=== PATIENT | male | born 1945 | race Caucasian/White ===

== ENCOUNTER 2023-07-02 08:36 | Outpatient (OUT) | payer MEDICARE, OTHER, SELFPAY ==
--- NOTE | 2023-07-02 | CT_ITS ---
[address] [address] Patient Name: MARIBELL VERA MRN: [id number] date: 1945 Sex: M Assigned Patient Location: US Current Patient Location: US Accession/Order Number: [id number] Exam Date: 07/02/2023 10:15 Report Date: 07/02/2023 12:09 At the request of: BEULAH GALAN Procedure: CT angio abdomen pelvis EXAMINATION: CT angio abdomen pelvis HISTORY: K43.5 PARASTOMAL HERNIA WITHOUT OBSTRUCTION OR GANGRENE ; abdominal aortic aneurysm COMPARISON: CT abdomen pelvis 05/25/2022 TECHNIQUE: Axial, Coronal, and Sagittal CT images without and with IV contrast. Multi-planar/3-D imaging to optimize visualization of vascular anatomy. Dose reduction techniques were achieved by using automated exposure control and/or adjustment of mA and/or kV according to patient size and/or use of iterative reconstruction technique. FINDINGS: AORTA/VASCULAR: 4.5 cm diameter saccular aneurysm projecting anteriorly from the distal aorta. CELIAC ARTERY: Mild atherosclerotic narrowing at origin. SMA: Mild atherosclerotic narrowing at origin. RENAL ARTERIES: Mild atherosclerotic narrowing at origins. LUNG BASES: No visible pulmonary or pleural disease. LIVER: No enlargement, atrophy, abnormal density, or significant focal lesion. BILIARY: No visible dilatation or calcification. PANCREAS: No lesion, fluid collection, ductal dilatation, or atrophy. SPLEEN: No enlargement or focal lesion. ADRENALS: No mass or enlargement. KIDNEYS: Bilateral hypodensities favoring cysts. No appreciable mass, hydronephrosis, or calcification. BOWEL/MESENTERY: Distal descending colon diverting colostomy through lower left anterior abdominal wall. No abnormal bowel dilation, focal wall thickening, inflammatory changes. Unremarkable rectal stump. RETROPERITONEUM: No mass or adenopathy. LYMPH NODES: No adenopathy. URINARY BLADDER: No visible focal wall thickening, lesion, or calculus. PELVIC ORGANS: No visible mass. Pelvic organs appropriate for patient age. ABDOMINAL WALL: Large parastomal hernia within left anterior abdominal wall containing multiple loops of small bowel and fat; no strangulation or obstruction. Prominent eventration of the midline anterior abdominal wall a little above and below the umbilicus without definable hernia sac. Small fat filled left inguinal hernia without strangulation. BONES: No bony lesion or fracture. OTHER: Negative. CT/CT angio abdomen pelvis IMPRESSION: 1. Saccular aneurysm of the distal abdominal aorta 4.5 cm in diameter; previously 4.3 cm. 2. Left lower abdominal wall diverting colostomy with prominent parastomal hernia containing small bowel and mesentery; no strangulation or obstruction. Electronically authenticated by: GEORGETTE GOLDMAN Date: 07/02/2023 12:09
--- NOTE | 2023-07-02 08:54 | US_ITS ---
[address] [address] Patient Name: MARIBELL VERA MRN: [id number] date: 1945 Sex: M Assigned Patient Location: Current Patient Location: Accession/Order Number: [id number] Exam Date: 07/02/2023 09:00 Report Date: 07/02/2023 11:36 At the request of: BEULAH GALAN Procedure: US carotid duplex BI EXAMINATION: US carotid duplex BI HISTORY: R09.89 BILATERAL CAROTID BRUITS COMPARISON: No relevant comparison available. TECHNIQUE: Duplex Doppler ultrasound analysis of carotid and vertebral arteries. . Bilateral carotid arterial duplex examination was performed using B-mode, color flow and spectral analysis. Carotid stenosis is reported according to validated velocity parameters, similar to NASCET criteria. FINDINGS: RIGHT CAROTID ARTERY: Moderate plaque within bulb and proximal ICA resulting in 41% area reduction of the bulb. RIGHT VERTEBRAL: Antegrade flow. Subclavian: PSV: 79.4 cm/s EDV: 7.7 cm/s CCA: Prox: PSV: 75.5 cm/s EDV: 12.9 cm/s Mid: PSV: 80.7 cm/s EDV: 15.5 cm/s Distal: PSV: 65.1 cm/s EDV: 12.9 cm/s BULB: PSV: 67.7 cm/s EDV: 7.7 cm/s ICA: Prox: PSV: 87.2 cm/s EDV: 16.8 cm/s Mid: PSV: 101.6 cm/s EDV: 25.7 cm/s Distal: PSV: 63.7 cm/s EDV: 13.6 cm/s ECA: PSV: 88.6 cm/s EDV: 7.9 cm/s VERTEBRAL: PSV: 61.4 cm/s EDV: 17.5 cm/s ICA/CCA ratio: PSV: 1.3 EDV: 1.7 LEFT CAROTID ARTERY: Mild atherosclerotic plaque without significant stenosis. LEFT VERTEBRAL: Antegrade flow. Subclavian: PSV: 143.7 cm/s EDV: 0.0 cm/s CCA: Prox: PSV: 66.8 cm/s EDV: 19.5 cm/s Mid: PSV: 84.5 cm/s EDV: 23.4 cm/s Distal: PSV: 66.8 cm/s EDV: 15.6 cm/s BULB: PSV: 76.6 cm/s EDV: 15.6 cm/s ICA: Prox: PSV: 70.7 cm/s EDV: 15.6 cm/s Mid: PSV: 96.3 cm/s EDV: 27.4 cm/s Distal: PSV: 125.8 cm/s EDV: 33.3 cm/s ECA: PSV: 96.2 cm/s EDV: 5.7 cm/s VERTEBRAL: PSV: 51.0 cm/s EDV: 9.6 cm/s ICA/CCA ratio: PSV: 1.5 EDV: 1.4 US/US carotid duplex BI IMPRESSION: 1. 0-49% flow stenosis within the right left carotid arteries. 2. Moderate right, mild left atherosclerotic plaque. Electronically authenticated by: GEORGETTE GOLDMAN Date: 07/02/2023 11:36
[2023-07-02 08:57] LABS: Estimated GFR (African America >60 (>=60); Estimated GFR (Non-African Ame 51 (>=60)
== END 2023-07-02 08:37 | disposition home or self-care (01) ==
LOC: US 08:37
PROVIDERS: PCP Internal Medicine
DX: K43.5 Parastomal hernia without obstruction or gangrene (principal); C19 Malignant neoplasm of rectosigmoid junction; Z93.3 Colostomy status; I71.43 Infrarenal abdominal aortic aneurysm, without rupture; R09.89 Other specified symptoms and signs involving the circulatory and respiratory systems
CPT/HCPCS: 36415; 74174; 82565; 93880; Q9967

== ENCOUNTER 2023-08-23 11:28 | Outpatient (OUT) | payer MEDICARE, OTHER, SELFPAY ==
[2023-08-23 11:50] LABS: Basophils Absolute Auto 0.1 10^3/uL (0.0-0.1); Basophils Percent Auto 1.5 % (0.2-2.0); Eosinophils Absolute Auto 0.2 10^3/uL (0.0-0.7); Eosinophils Percent Auto 2.4 % (0.9-7.0); Hematocrit 39.7 % (42.0-54.0); Hemoglobin 12.2 g/dL (14.0-18.0); Immature Granulocytes Abs Auto 0.02 10^3/uL (0.00-0.03); Immature Granulocytes Pct Auto 0.3 % (0.0-0.5); Lymphocytes Absolute Auto 1.7 10^3/uL (1.2-3.8); Lymphocytes Percent Auto 23.9 % (20.5-60.0); Mean Corpuscular HGB Conc 30.7 g/dL (29.9-35.2); Mean Corpuscular Hemoglobin 26.4 pg (25.9-34.0); Mean Corpuscular Volume 85.9 fL (80.0-94.0); Monocytes Absolute Auto 0.6 10^3/uL (0.3-0.8); Monocytes Percent Auto 7.7 % (1.7-12.0); Neutrophils Absolute Auto 4.6 10^3/uL (1.4-6.5); Neutrophils Percent Auto 64.2 % (43.0-75.0); Platelet Count 244 10^3/uL (150-450); Red Blood Count 4.62 10^6/uL (4.70-6.10); Red Cell Distribution Width 14.9 % (11.0-15.0); White Blood Count 7.1 10^3/uL (4.0-11.0)
[2023-08-23 12:10] LABS: Anion Gap 13.5; BUN Creatinine Ratio 11.8; Calcium 8.5 mg/dL (8.5-10.1); Carbon Dioxide 28.6 mmol/L (21.0-32.0); Chloride 106 mmol/L (98-107); Estimated GFR (African America >60 (>=60); Estimated GFR (Non-African Ame 51 (>=60); Glucose 104 mg/dL (74-106); Potassium 4.1 mmol/L (3.5-5.1); Sodium 144 mmol/L (136-145)
[2023-08-23 12:28] LABS: Prostate Specific Antigen Scrn 2.05 ng/mL (<=4.00)
== END 2023-08-23 11:29 | disposition home or self-care (01) ==
LOC: LAB 11:30
PROVIDERS: PCP Internal Medicine; Visit Provider Internal Medicine
DX: I12.9 Hypertensive chronic kidney disease with stage 1 through stage 4 chronic kidney disease, or unspecified chronic kidney disease (principal); Z12.5 Encounter for screening for malignant neoplasm of prostate; N18.31 Chronic kidney disease, stage 3a
CPT/HCPCS: 36415; 80048; 85025; G0103

== ENCOUNTER 2023-12-03 13:02 | Outpatient (OUT) | payer MEDICARE, OTHER, SELFPAY ==
[2023-12-03 13:50] LABS: Basophils Absolute Auto 0.1 10^3/uL (0.0-0.1); Basophils Percent Auto 1.8 % (0.2-2.0); Eosinophils Absolute Auto 0.2 10^3/uL (0.0-0.7); Eosinophils Percent Auto 2.4 % (0.9-7.0); Hematocrit 44.2 % (42.0-54.0); Hemoglobin 14.2 g/dL (14.0-18.0); Immature Granulocytes Pct Auto 1.4 % (0.0-0.5); Lymphocytes Absolute Auto 1.7 10^3/uL (1.2-3.8); Lymphocytes Percent Auto 23.4 % (20.5-60.0); Mean Corpuscular HGB Conc 32.1 g/dL (29.9-35.2); Mean Corpuscular Hemoglobin 28.5 pg (25.9-34.0); Mean Corpuscular Volume 88.8 fL (80.0-94.0); Mean Platelet Volume 10.3 fL (9.5-13.5); Monocytes Absolute Auto 0.7 10^3/uL (0.3-0.8); Monocytes Percent Auto 9.3 % (1.7-12.0); Neutrophils Absolute Auto 4.6 10^3/uL (1.4-6.5); Neutrophils Percent Auto 61.7 % (43.0-75.0); Platelet Count 262 10^3/uL (150-450); Red Blood Count 4.98 10^6/uL (4.70-6.10); Red Cell Distribution Width 14.6 % (11.0-15.0); Reticulocyte Pct Auto 1.42 % (0.60-3.10); White Blood Count 7.4 10^3/uL (4.0-11.0)
[2023-12-03 14:15] LABS: Percent Iron Saturation 21.8 %
== END 2023-12-03 13:03 | disposition home or self-care (01) ==
LOC: LAB 13:05
PROVIDERS: PCP Internal Medicine; Visit Provider Internal Medicine
DX: D64.9 Anemia, unspecified (principal)
CPT/HCPCS: 36415; 82607; 82728; 82746; 83540; 83550; 85025

== ENCOUNTER 2024-02-08 12:07 | Outpatient (OUT) | payer MEDICARE, OTHER, SELFPAY ==
[2024-02-08 12:18] LABS: Estimated GFR (African America >60 (>=60); Estimated GFR (Non-African Ame 54 (>=60)
--- NOTE | 2024-02-08 12:45 | CT_ITS ---
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 Multi-planar/3-D imaging to optimize visualization of vascular anatomy. Dose reduction techniques were achieved by using automated exposure control and/or adjustment of mA and/or kV according to patient size and/or use of iterative reconstruction technique. FINDINGS: AORTA/VASCULAR: 4.4 x 3.8 cm fusiform aneurysm of the infrarenal abdominal aorta with extensive soft and calcific atherosclerotic plaque. No dissection CELIAC ARTERY: Ostial atherosclerosis. No flow significant stenosis occlusion or aneurysm SMA: Ostial atherosclerosis. No flow significant stenosis occlusion or aneurysm RENAL ARTERIES: 2 right and 2 small left renal arteries with the inferior arteries having an inferior takeoff at the level of the CHRISTEL CHRISTEL. The takeoff is at the lower margin of the aneurysm with likely flow stenosis [place]: Moderate diffuse calcific atherosclerosis. No flow significant stenosis occlusion or aneurysm LUNG BASES: 4.3 cm heterogeneous likely enhancing mass identified in the left lower lobe adjacent to the left heart best seen on axial image #7. 2 cm left pleural effusion. LIVER: No enlargement, atrophy, abnormal density, or significant focal lesion. BILIARY: No visible dilatation or calcification. PANCREAS: No lesion, fluid collection, ductal dilatation, or atrophy. SPLEEN: No enlargement or focal lesion. ADRENALS: No mass or enlargement. KIDNEYS: Bilateral renal cortical hypodensities likely cysts. No hydronephrosis BOWEL/MESENTERY: Left mid abdominal colostomy with distal colectomy. Small hiatal hernia. Nonobstructive bowel gas pattern. Laxity of the ventral fascia at the umbilicus. Pericolostomy hernia containing bowel loops and mesentery without evidence of strangulation RETROPERITONEUM: No mass or adenopathy. LYMPH NODES: No adenopathy. URINARY BLADDER: Moderate enlargement of the prostate gland with calcifications measuring 4.9 cm in diameter PELVIC ORGANS: No visible mass. Pelvic organs appropriate for patient age. ABDOMINAL WALL: No mass or hernia. BONES: No bony lesion or fracture. OTHER: Negative. CT/CT angio abdomen pelvis IMPRESSION: 4.3 centimeter left lower lobe/epicardial mass. Metastatic disease versus necrotic lymph node versus primary carcinoma 2 cm left pleural effusion 4.4 x 3.8 cm fusiform aneurysm of the infrarenal abdominal aorta Electronically authenticated by: MATTHEW CHATMAN Date: 02/08/2024 15:22
== END 2024-02-08 12:08 | disposition home or self-care (01) ==
LOC: LAB 12:07
PROVIDERS: PCP Internal Medicine
DX: C19 Malignant neoplasm of rectosigmoid junction (principal); Z93.3 Colostomy status; K91.89 Other postprocedural complications and disorders of digestive system; Z98.890 Other specified postprocedural states; Z87.19 Personal history of other diseases of the digestive system; I71.43 Infrarenal abdominal aortic aneurysm, without rupture; I71.40 Abdominal aortic aneurysm, without rupture, unspecified; J90 Pleural effusion, not elsewhere classified
CPT/HCPCS: 36415; 74174; 82565; Q9967

== ENCOUNTER 2024-03-11 07:28 | Outpatient (OUT) | payer MEDICARE, OTHER, SELFPAY ==
--- NOTE | 2024-03-11 07:30 | ECG_ITS ---
[facility] Test Date: 2024-03-11 Pat Name: MARIBELL VERA Department: Room: - Gender: Male [employer]pper: : 1945 Requested By: [id number] Order Number: [id number] Reading MD: EJ MORENO Measurements Intervals [place] Rate: 84 P: 69 PA: 155 QRS: 71 QRSD: 88 T: 58 QT: 351 QTc: 417 Interpretive Statements SINUS RHYTHM WITH OCCASIONAL VENTRICULAR PREMATURE COMPLEXES WITH OCCASIONAL SUPRAVENTRICULAR PREMATURE COMPLEXES NONSPECIFIC ST & T-WAVE ABNORMALITY Electronically Signed On 03-11-2024 22:12:25 EDT by EJ MORENO
--- NOTE | 2024-03-11 07:30 | CA_ITS ---
Patient Name: MARIBELL VERA MR#: [id number] : 1945 Exam Date: 03/11/2024 Ordering Doctor: VICKI MCGOVERN M.D. ECHOCARDIOGRAM REPORT PROCEDURE: CA ECHO DOPPLER COMPLETE INDICATIONS: Penetrating atherosclerotic ulcer of aorta, hypertnesion COMPARISON: None. DESCRIPTION: COMPLETE ECHOCARDIOGRAM Real-time transthoracic echocardiography with 2D, M-mode, spectral and color flow Doppler performed. QUALITY: Technical quality was good. 67 , 165#, BP 162/80 LEFT VENTRICLE: Normal chamber size. Proximal septal hypertrophy (sigmoid septum). Papillary muscle hypertrophy. LV EF: Global left ventricular systolic function is lower normal limits; visually estimated ejection fraction is 50%. The basal inferior wall is hypokinetic. DIASTOLIC: Unable to assess diastolic function. ATRIAL SEPTUM: Aneurysmal atrial septum. Visually appears intact. LEFT ATRIUM: Normal chamber size. RIGHT ATRIUM: Normal chamber size. RIGHT VENTRICLE: Normal chamber size. Normal right ventricular systolic function. TRICUSPID VALVE: Normal mobility and thickness. No stenosis with no regurgitation. Unable to assess right-sided pressures due to lack of measurable tricuspid regurgitation. MITRAL VALVE: Moderately thickened with normal mobility. No evidence of mitral valve stenosis. There is no mitral annular calcification. Mild to moderate mitral regurgitation. AORTIC VALVE: Normal trileaflet appearance. No visible sclerosis. Normal leaflet mobility. No evidence of aortic valve stenosis. No aortic regurgitation. AORTIC ROOT: Normal diameter and appearance. PULMONIC VALVE: Normal thickness and mobility. No stenosis. No regurgitation. PERICARDIUM: No evidence of pericardial effusion. IVC: Collapses with inspirations. IVC is normal in size. CONCLUSION: 1. Global left ventricular systolic function is low normal limits; visually estimated ejection fraction is 50% 2. Segmental wall motion abnormality seen 3. The right ventricle is normal in size and systolic function 4. Mild to moderate mitral regurgitation Adult Echocardiography Procedure Report Left Ventricle LVEDD (3.7 - 5.6 cm): 5.29 cm LVESD (2.2 - 4.0 cm): 3.54 cm LVIVS thickness (0.6 - 1.2 cm): 1.69 cm LVPW thickness (0.5 - 1.0 cm): 0.90 cm e': 0.07 m/s E - e': 11.67 LVOT Max Gradient: 5.10 mm[Hg], 2.99 mm[Hg] LVOT Area (cm2): 1.00 m/s Peak Velocity (LVOT): 1.13 m/s, 0.86 m/s Mean Velocity (LVOT): 0.69 m/s LVOT Diameter 1.96 cm Left Atrium LA Volume Index (2D A2C): 28.58 ml/m2 Left Atrium Systolic Dimension: 4.52 cm Mitral Valve MV E to A Ratio: 0.79, 0.81 Mitral Valve A-Wave Peak Velocity: 1.06 m/s Mitral Valve E-Wave Peak Velocity: 0.85 m/s Right Ventricle Aorta AO Root Diam: 3.33 cm Aortic Valve AoV Area (Peak Shawn): 2.49 cm2, 2.64 cm2, 2.32 cm2 AoV Area (VTI): 2.37 cm2, 2.35 cm2, 2.41 cm2 Peak Velocity(Antegrade Flow): 1.29 m/s, 1.12 m/s Peak Gradient(Antegrade Flow): 6.63 mm[Hg], 5.03 mm[Hg] Mean Velocity(Antegrade Flow): 0.87 m/s, 0.83 m/s Mean Gradient(Antegrade Flow): 3.46 mm[Hg], 3.08 mm[Hg] Velocity Time Integral: 30.01 cm, 24.72 cm Tricuspid Valve Pulmonic Valve Peak Velocity: 0.79 m/s Peak Gradient: 2.05 mm[Hg], 3.01 mm[Hg], 2.42 mm[Hg] Right Atrium Right Atrium Systolic Pressure: 16.71 ml, 16.71 ml Dictated by: Carlos Enrique Gloria M.D. on 03/12/2024 at 14:40 Approved by: Carlos Enrique Gloria M.D. on 03/12/2024 at 14:44
--- OUTSIDE RECORDS SUMMARY | 2024-03-11 07:32 | XMS_ITS | CCD ---
Author Organization [facility] Care Team Providers Care Video Producer Name Role Phone Aristeo Hernandez Unavailable Unavailable Unavailable MD Britt Lazo Attending Provider [phone] DO Aristeo Hernandez Primary Care Provider DR ARISTEO HERNANDEZ Primary Care Unavailable DAVID, DR PAGAN Consulting Unavailable DAVID, DR PAGAN Attending Unavailable DAVID, DR PAGAN Admitting Unavailable Akhil, DR Simpson Consulting Unavailable DAVID, DR PAGAN Referring Unavailable DEBBIE, DR RASHAWN Perez Consulting Unavailabl e DEBBIE, DR RASHAWN Perez Attending Unavailabl e DAVID, DR PAGAN Primary Care Unavailable DEBBIE, DR RASHAWN Perez Admitting Unavailabl e CHAN, DR ZAIDI Consulting Unavailable ZIEBER, DR GEORGETTE Holman Consulting Unavailable NADERER, DR JOSE ROBERTO Martinez Consulting Unavailable DEBBIE, DR RASHAWN Perez Procedure Practitioner Kami bekah NICE, DR MOROCHO Consulting Unavailable AGUBOSIM, DASH Consulting Unavailable LONG, BRYSON Consulting Unavailable REIER, KANU Consulting Unavailable RAMÍREZ, NICKI Consulting Unavailable FERNANDEZ, DOMENICO Consulting Unavailable SHAYY, KEVIN Consulting Unavailable GOETZ, THOR Consulting Unavailable DARAMOLATAMMI Consulting Unavailable DEBBIE, DR RASHAWN Perez Attending Unavailabl e DEBBIE, DR RASHAWN Perez Admitting Unavailabl e DAVID, DR PAGAN Attending Unavailable DAVID, DR PAGAN Admitting Unavailable DEBBIE, DR RASHAWN Perez Consulting Unavailabl e DEBBIE, DR RASHAWN Perez Attending Unavailabl e DEBBIE, DR RASHAWN Perez Admitting Unavailabl e DAVID, DR PAGAN Primary Care Unavailable AGUBOSIM, DASH Consulting Unavailable DORKOSKFABRICE CANCHOLA Consulting Unavailable DAVID, DR PAGAN Primary Care Unavailable DEBBIE, DR RASHAWN Perez Attending Unavailabl e DEBBIE, DR RASHAWN Perez Admitting Unavailabl e DAVID, DR PAGAN Primary Care Unavailable DEBBIE, DR RASHAWN Perez Consulting Unavailabl e DEBBIE, DR RASHAWN Perez Attending Unavailabl e DEBBIE, DR RASHAWN Perez Admitting Unavailabl e DEBBIE, DR RASHAWN Perez Consulting Unavailjohn e DEBBIE, DR RASHAWN Perez Attending Unavailabl e BALL, DR PAGAN Primary Care Unavailable GRFAY, DR RASHAWN Perez Admitting Unavailabl e BALL, DR PAGAN Primary Care Unavailable PAY, DR BARAJAS Consulting Unavailable PAY, DR BARAJAS Attending Unavailable PAY, DR BARAJAS Admitting Unavailable ABBAS, DR RIOJAS Consulting Unavailable ABBAS, DR RIOJAS Attending Unavailable BALL, DR PAGAN Primary Care Unavailable ABBAS, DR RIOJAS Admitting Unavailable ZIEBER, DR GEORGETTE Holman Consulting Unavailable BALL, DR PAGAN Consulting Unavailable BALL, DR PAGAN Attending Unavailable BALL, DR PAGAN Admitting Unavailable BALL, DR PAGAN Primary Care Unavailable ZIEBER, DR GEORGETTE Holman Consulting Unavailable BALL, DR PAGAN Consulting Unavailable BALL, DR PAGAN Attending Unavailable BALL, DR PAGAN Admitting Unavailable Lazo, Britt Attending Unavailable Lazo, Britt Admitting Unavailable David, Aristeo Primary Care Unavailable VICKI MCGOVERN Attending Unavailable DAVID, ARISTEO Perez Referring Unavailable DAVID, ARISTEO Perez Primary Care Unavailable DAVID, ARISTEO Perez Referring Unavailable DAVID, ARISTEO Perez Primary Care Unavailable DAVID, ARISTEO Perez Referring Unavailable DAVID, ARISTEO Perez Primary Care Unavailable Medications Completed/Discontinued Medications Medication Drug Class(es) Dates Sig (Normalized) Sig (Original) amLODIPine 5 mg / benazepril hydrochloride 20 mg oral capsule (7 sources) Dihydropyridine Calcium Channel Jatinder, Angiotensin Converting Enzyme Inhibitor Start: 04-05-2022 take 5-20 mg by mouth once daily amLODIPine Besy-Benazepril HCl - 5-20 MG Oral Capsule TAKE 1 CAPSULE Daily Quantity: 90 Refills: 3 Ordered: 05-Apr-2022 Britt Lazo MD Start : 05-Apr-2022 Active stop benezapril labetalol hydrochloride 100 mg oral tablet (6 sources) beta-Adrenergic Jatinder take 1 tablet by mouth once daily Labetalol HCl - 100 MG Oral Tablet TAKE 1 TABLET EVERY 12 HOURS DAILY. Quantity: 0 Refills: 0 Ordered: 05-Apr-2022 DO Active omeprazole 40 mg delayed release oral capsule (6 sources) Proton Pump Inhibitor take 1 capsule by mouth once daily Omeprazole 40 MG Oral Capsule Delayed Release TAKE 1 CAPSULE Daily Quantity: 90 Refills: 3 Ordered: 05-Apr-2022 DO Active Problems Active Problems Problem Classification Problem Date Documented Date Episodic/Chronic Abdominal hernia (2 sources) Unilateral inguinal hernia, without obstruction or gangrene, not specified as recurrent; Translations: [Umbilical hernia without obstruction or gangrene] Onset: 06-26-20 Episodic Aortic; peripheral; and visceral artery aneurysms (9 sources) Abdominal aortic aneurysm; Translations: [Abdominal aneurysm without mention of rupture] Onset: 06-26-20 Chronic Comment on above: 4.[address] 03/2022; Bacterial infection; unspecified site (3 sources) Klebsiella pneumoniae [K. pneumoniae] as the cause of diseases classified elsewhere; Translations: [Proteus (mirabilis) (morganii) as the cause of diseases classified elsewhere] Onset: 06-26-20 Episodic Cancer of rectum and anus (1 source) Malignant neoplasm of rectosigmoid junction; Translations: [MAL NEOPLASM RECTOSIGMOID JUNCT] Onset: 04-05-20 Chronic Chronic kidney disease (1 source) Chronic kidney disease, unspecified; Translations: [CHRONIC KIDNEY DISEASE UNSPECIFIED] Onset: 05-17-20 Chronic Chronic kidney disease (1 source) Chronic kidney disease; Translations: [CHRONIC KIDNEY DISEASE STAGE 3A] Onset: 06-26-20 Complications of surgical procedures or medical care (2 sources) Other postprocedural complications and disorders of digestive system; Translations: [Other intraoperative complications of digestive system] Onset: 06-26-20 Episodic Deficiency and other anemia (1 source) Anemia, unspecified; Translations: [ANEMIA UNSPECIFIED] Onset: 06-26-20 Episodic Diabetes mellitus without complication (1 source) Hyperglycemia, unspecified; Translations: [HYPERGLYCEMIA UNSPECIFIED] Onset: 06-26-20 Episodic Disorders of lipid metabolism (1 source) Pure hypercholesterolemia, unspecified; Translations: [PURE HYPERCHOLESTEROLEMIA UNSPEC] Onset: 09-06-20 Chronic Diverticulosis and diverticulitis (1 source) Diverticulosis of large intestine without perforation or abscess without bleeding; Translations: [DVRTCLOS LG INT NO PERF/ABSC W/O BL] Onset: 06-26-20 Chronic E Codes: Adverse effects of medical care (1 source) Other surgical procedures as the cause of abnormal reaction of the patient, or of later complication, without mention of misadventure at the time of the procedure; Translations: [OTH SURG PROC ABNORM RXN/LATR COMP] Onset: 06-26-20 Episodic Esophageal disorders (1 source) Gastro-esophageal reflux disease without esophagitis; Translations: [GERD WITHOUT ESOPHAGITIS] Onset: 06-26-20 Chronic Essential hypertension (11 sources) Benign essential hypertension; Translations: [Benign essential hypertension] Onset: 08-03-20 Chronic Fluid and electrolyte disorders (3 sources) Hyperosmolality and hypernatremia; Translations: [Hypokalemia] Onset: 06-26-20 Episodic Gastrointestinal hemorrhage (1 source) Chronic or unspecified gastric ulcer with hemorrhage; Translations: [CHRONIC/UNS GASTRIC ULCER W/HEMORR] Onset: 02-11-20 Chronic Hyperplasia of prostate (1 source) Benign prostatic hyperplasia with lower urinary tract symptoms; Translations: [BENIGN PROSTATIC HYPERPLASIA W/LUTS] Onset: 06-26-20 Chronic Hypertension with complications and secondary hypertension (1 source) Hypertensive chronic kidney disease with stage 1 through stage 4 chronic kidney disease, or unspecified chronic kidney disease; Translations: [HTN CKD W/STAGE 1-4 CKD/UNS CKD] Onset: 06-26-20 Chronic Intestinal infection (1 source) Enterocolitis due to Clostridium difficile, not specified as recurrent; Translations: [ENTROCOLIT DT C DIF NOT SPEC REC] Onset: 06-26-20 Episodic Intestinal obstruction without hernia (1 source) Ileus, unspecified; Translations: [ILEUS UNSPECIFIED] Onset: 06-26-20 Episodic Nutritional deficiencies (1 source) Moderate protein-calorie malnutrition; Translations: [MODERATE PROTEIN-CALORIE MLNUTRIT] Onset: 06-26-20 Chronic Other aftercare (1 source) Other predatory animal exterminator (current) drug therapy; Translations: [OTH SENIOR INFORMATION SECURITY ANALYST CURRENT DRUG THERAPY] Onset: 06-26-20 Episodic Other and unspecified benign neoplasm (2 sources) Benign neoplasm of sigmoid colon; Translations: [BENIGN NEOPLASM OF SIGMOID COLON] Onset: 02-11-20 Episodic Other circulatory disease (4 sources) Other specified symptoms and signs involving the circulatory and respiratory systems; Translations: [OTH SPEC SX SIGNS INVLV CIRC RS] Onset: 05-10-20 Episodic Other gastrointestinal disorders (5 sources) Mass of colon; Translations: [Other specified disorders of intestine] Episodic Other gastrointestinal disorders (4 sources) Dysphagia, unspecified; Translations: [DYSPHAGIA UNSPECIFIED] Onset: 06-29-20 Episodic Other gastrointestinal disorders (3 sources) Other specified diseases of intestine; Translations: [OTHER SPECIFIED DISEASES INTESTINE] Onset: 05-17-20 Episodic Other lower respiratory disease (6 sources) Dyspnea; Translations: [Other respiratory abnormalities] Episodic Other screening for suspected conditions (not mental disorders or infectious disease) (14 sources) Electrocardiogram abnormal; Translations: [Nonspecific abnormal electrocardiogram [ECG] [EKG]] Onset: 09-06-20 Episodic Residual codes; unclassified (6 sources) Body mass index 20-24 - normal; Translations: [Body Mass Index between 19-24, adult] Episodic Residual codes; unclassified (1 source) Body mass index (BMI) 24.0-24.9, adult; Translations: [BODY MASS INDEX BMI 24.0-24.9 ADULT] Onset: 06-26-20 Episodic Residual codes; unclassified (1 source) Pain, unspecified; Translations: [Pain, unspecified] Onset: 02-16-20 Episodic Respiratory failure; insufficiency; arrest (adult) (1 source) Acute respiratory failure with hypoxia; Translations: [ACUTE RESPIRATORY FAIL W/HYPOXIA] Onset: 06-26-20 Episodic Screening and history of mental health and substance abuse codes (7 sources) Ex-smoker; Translations: [Personal history of tobacco use] Onset: 06-26-20 Episodic Comment on above: Quit in 1996; Unclassified (1 source) CONTACT W/AND (SUSP) EXPOS COVID-19; Translations: [CONTACT W/AND (SUSP) EXPOS COVID-19] Onset: 06-26-20 Unclassified (1 source) Infrarenal abdominal aortic aneurysm, without rupture; Translations: [Infrarenal abdominal aortic aneurysm, without rupture] Onset: 02-14-20 Urinary tract infections (1 source) Urinary tract infection, site not specified; Translations: [UTI SITE NOT SPECIFIED] Onset: 06-26-20 Episodic Past or Other Problems Problem Classification Problem Date Documented Da te Episodic/Chronic Abdominal pain (5 sources) Right lower quadrant pain; Translations: [RIGHT LOWER QUADRANT PAIN] Onset: 12-27-2021 Episodic Deficiency and other anemia (4 sources) Other iron deficiency anemias; Translations: [OTHER IRON DEFICIENCY ANEMIAS] Onset: 02-08-2022 Episodic Gastritis and duodenitis (1 source) Gastritis, unspecified, with bleeding; Translations: [GASTRITIS UNSPECIFIED WITH BLEEDING] Onset: 02-10-2022 Episodic Other gastrointestinal disorders (1 source) Other intra-abdominal and pelvic swelling, mass and lump; Translations: [OTH INTRA-ABD PELV SWELL MASS LUMP] Onset: 02-10-2022 Episodic Other lower respiratory disease (1 source) Dyspnea, unspecified; Translations: [Dyspnea, unspecified] Onset: 04-27-2022 Episodic Results Test Name Value Interpretation Reference Range Facility XR MODIFIED BARIUM SWALLOWon 06-29-2022 XR MODIFIED BARIUM SWALLOW EXAMINATION: XR MODIFIED BARIUM SWALLOW HISTORY: Dysphagia COMPARISON: No relevant comparison available. TECHNIQUE: A swallowing evaluation was performed with fluoroscopy in the usual manner. Standard level fluoroscopic mode of operation utilized. FINDINGS: ORAL PHASE: Normal deglutition. PHARYNGEAL PHASE: Normal swallowing. ASPIRATION: None. STRUCTURE: Normal. No visible obstruction, stricture, or dilatation. OTHER: Negative. IMPRESSION: 1. Normal examination. Electronically authenticated by: GEORGETTE GOLDMAN Date: 2022-06-29 13:34 Normal [facility] CULTURE URINEon 05-28-2022 CULTURE URINE Culture Observations : CHELSI TO FOLLOW. Isolate 1 Proteus mirabilis >100,000 cfu/mL of Isolate 2 Klebsiella oxytoca >100,000 cfu/mL of Isolate 3 Proteus vulgaris 50,000 cfu/mL of ORGANISM 1 Proteus mirabilis ANTIBIOTIC M.I.C RX STATUS Ampicillin <=2 S F Ampicillin/Sulbactam <=2 S F Piperacillin/Tazobactam <=4 S F Cefazolin <=4 S F Ceftazidime <=1 S F Ceftriaxone <=1 S F Ertapenem <=0.5 S F Imipenem 1 S F Amikacin <=2 S F Gentamicin <=1 S F Tobramycin <=1 S F Ciprofloxacin <=0.25 S F Levofloxacin <=0.12 S F Nitrofurantoin 128 R F Trimethoprim/Sulfamethoxazo le <=20 S F ORGANISM 3 Proteus vulgaris ANTIBIOTIC M.I.C RX STATUS Ampicillin >=32 R F Ampicillin/Sulbactam <=2 S F Piperacillin/Tazobactam <=4 S F Cefazolin >=64 R F Ceftazidime <=1 S F Ceftriaxone <=1 S F Ertapenem <=0.5 S F Imipenem 2 S F Amikacin <=2 S F Gentamicin <=1 S F Tobramycin <=1 S F Ciprofloxacin <=0.25 S F Levofloxacin <=0.12 S F Nitrofurantoin 128 R F Trimethoprim/Sulfamethoxazo le <=20 S F ORGANISM 2 Klebsiella oxytoca ANTIBIOTIC M.I.C RX STATUS Ampicillin 16 R F Ampicillin/Sulbactam 4 S F Piperacillin/Tazobactam <=4 S F Cefazolin <=4 S F Ceftazidime <=1 S F Ceftriaxone <=1 S F Ertapenem <=0.5 S F Imipenem <=0.25 S F Amikacin <=2 S F Gentamicin <=1 S F Tobramycin <=1 S F Ciprofloxacin <=0.25 S F Levofloxacin <=0.12 S F Nitrofurantoin <=16 S F Trimethoprim/Sulfamethoxazo le <=20 S F Normal [facility] Comment on above: Performed By: #### U RCX #### [facility] [address] [place] [address] Dr. Elvis Cifuentes WOUND CULTUREon 05-28-2022 Bacteria identified Aer cx Nom (Unsp spec) Final report Normal [facility] Comment on above: Performed By: #### G IPANEL #### [facility] [address] [place] [address] Dr. Elvis Cifuentes Result 1 Comment Normal [facility] Comment on above: Result Comment: Mixe d skin zahra including multiple gram negative rods. Performed By: #### G IPANEL #### [facility] [address] [place] [address] Dr. Elvis Cifuentes C. DIFF PCRon 05-25-2022 C. DIFFICILE PCR Negative Normal NEGATIVE [facility] Comment on above: Performed By: #### U RCX #### [facility] [address] [place] [address] Dr. Elvis Cifuentes CBC W MANUAL DIFFon 05-25-20 22 ATYPICAL LYMPH # Normal [facility] Comment on above: Performed By: #### P REALB, MG #### [facility] [address] [place] [address] Dr. Elvis Cifuentes ATYPICAL LYMPH % Normal [facility] Comment on above: Performed By: #### P REALB, MG #### [facility] [address] [place] [address] Dr. Elvis Cifuentes BAND # 1.1 103/ul Critically high 0.0-0.3 [facility] Comment on above: Performed By: #### P REALB, MG #### [facility] [address] [place] [address] Dr. Elvis Cifuentes BAND % 5 % Normal 0-5 [facility] Comment on above: Performed By: #### P REALB, MG #### [facility] [address] [place] [address] Dr. Elvis Cifuentes BASOM # 0.00 103/ul Normal 0.00-0.10 [facility] Comment on above: Performed By: #### P REALB, MG #### [facility] [address] [place] [address] Dr. Elvis Cifuentes BASOM % 0.0 % Critically low 0.2-2.0 [facility] Comment on above: Performed By: #### P REALB, MG #### [facility] [address] [place] [address] Dr. Elvis Cifuentes BLAST # Normal [facility] Comment on above: Performed By: #### P REALB, MG #### [facility] [address] [place] [address] Dr. Elvis Cifuentes BLAST % Normal [facility] Comment on above: Performed By: #### P REALB, MG #### [facility] [address] [place] [address] Dr. Elvis Cifuentes CORRECTED WBC Normal 4.0-11.0 [facility] Comment on above: Performed By: #### P REALB, MG #### [facility] [address] [place] [address] Dr. Elvis Cifuentes EOS # 0.22 103/ul Normal 0.00-0.70 [facility] Comment on above: Performed By: #### P REALB, MG #### [facility] [address] [address] [address] Elvis Cifuentes EOS% 1.0 % Normal 0.9-7.0 [facility] Comment on above: Performed By: #### P REALB, MG #### [facility] [address] [address] [address] Elvis Cifuentes HCT 33.0 % Critically low 42.0-54.0 [facility] Comment on above: Performed By: #### P REALB, MG #### [facility] [address] [address] [address] Elvis Cifuentes HGB 10.4 g/dl Critically low 14.0-18.0 [facility] Comment on above: Performed By: #### P REALB, MG #### [facility] [address] [place] [address] Dr. Elvis Cifuentes LYMPHM # 0.88 103/ul Critically low 1.20-3.80 [facility] Comment on above: Performed By: #### P REALB, MG #### [facility] [address] [address] [address] Elvis Cifuentes LYMPHM% 4.0 % Critically low 20.5-60.0 [facility] Comment on above: Performed By: #### P REALB, MG #### [facility] [address] [place] [address] Dr. Elvis Cifuentes MCH 29.0 pg Normal 25.9-34.0 [facility] Comment on above: Performed By: #### P REALB, MG #### [facility] [address] [place] [address] Dr. Elvis Cifuentes MCHC 31.5 g/dl Normal 29.9-35.2 [facility] Comment on above: Performed By: #### P REALB, MG #### [facility] [address] [place] [address] Dr. Elvis Cifuentes MCV 91.9 fL Normal 80.0-94.0 [facility] Comment on above: Performed By: #### P REALB, MG #### [facility] [address] [address] [address] Elvis Cifuentes METAMYELOCYTE # Normal [facility] Comment on above: Performed By: #### P REALB, MG #### [facility] [address] [place] [address] Dr. Elvis Cifuentes METAMYELOCYTE % Normal [facility] Comment on above: Performed By: #### P REALB, MG #### [facility] [address] [address] [address] Elvis Cifuentes MONOM# 0.66 103/ul Normal 0.30-0.80 [facility] Comment on above: Performed By: #### P REALB, MG #### [facility] [address] [place] [address] Dr. Elvis Cifuentes MONOM% 3.0 % Normal 1.7-12.0 [facility] Comment on above: Performed By: #### P REALB, MG #### [facility] [address] [place] [address] Dr. Elvis Cifuentes MPV 11.6 fL Normal 9.5-13.5 [facility] Comment on above: Performed By: #### P REALB, MG #### [facility] [address] [place] [address] Dr. Elvis Cifuentes MYELOCYTE # Normal [facility] Comment on above: Performed By: #### P REALB, MG #### [facility] [address] [place] [address] Dr. Elvis Cifuentes MYELOCYTE % Normal [facility] Comment on above: Performed By: #### P REALB, MG #### [facility] [address] [place] [address] Dr. Elvis Cifuentes NRBC Normal [facility] Comment on above: Performed By: #### P REALB, MG #### [facility] [address] [place] [address] Dr. Elvis Cifuentes PLT 228 103/ul Normal 150-450 [facility] Comment on above: Performed By: #### P REALB, MG #### [facility] [address] [place] [address] Dr. Elvis Cifuentes RBC 3.59 106/ul Critically low 4.70-6.10 [facility] Comment on above: Performed By: #### P REALB, MG #### [facility] [address] [address] [address] Elvis Cifuentes RDW 15.9 % Critically high 11.0-15.0 [facility] Comment on above: Performed By: #### P REALB, MG #### [facility] [address] [address] [address] Elvis Cifuentes SEG # 19.05 103/ul Critically high 1.40-6.50 [facility] Comment on above: Performed By: #### P REALB, MG #### [facility] [address] [address] [address] Elvis Cifuentes SEG % 87.0 % Critically high 43.0-75.0 [facility] Comment on above: Performed By: #### P REALB, MG #### [facility] [address] [address] [address] Elvis Cifuentes WBC 21.9 103/ul Critically high 4.0-11.0 [facility] Comment on above: Performed By: #### P REALB, MG #### [facility] [address] [place] [address] ABD/PELV W CONon 05-25-20 CT ABD/PELV W CON EXAMINATION: CT ABD/ PELV W CON HISTORY: Mechanical ileus COMPARISON: 05/21/2022 TECHNIQUE: CT of abdomen/pelvis with intravenous and oral contrast. Dose reduction techniques were achieved by using automated exposure control and/or adjustment of mA and/or kV according to patient size and/or use of iterative reconstruction technique. FINDINGS: Aoc Director Combat Operations Officer: No pertinent findings, which are not already discussed below. Tubes/lines/drains: Enteric tube is noted in the stomach.. CHEST: Lungs: Clear. Cardiac and vascular: No cardiomegaly or significant pericardial effusion. Small hiatal hernia. ABDOMEN: Liver: Unremarkable. Gallbladder and Biliary Tree: Unremarkable. Spleen: Unremarkable. Pancreas: Unremarkable. Adrenal Glands: Unremarkable. Kidneys, Ureters, Bladder: Numerous bilateral benign-appearing renal cysts. No concerning renal lesions or masses. No urolithiasis. No hydronephrosis or hydroureterosis. Unremarkable bladder. Gastrointestinal: Enteric contrast is noted in varying concentrations-attenuation to the level of the rectum. Anastomotic sutures are noted at the rectosigmoid junction with an to side anastomosis. There is interval increase in free air which is now moderate overall, the majority of which is antidependent within the anterior peritoneum although clustered gas locules are noted just proximal to the anastomotic sutures.. There is also new free fluid throughout the abdomen, more so within the central abdomen, without rim enhancement. Dilated loops of small bowel are overall decreased which are more prominent rather than frankly dilated. The colon is decompressed with colonic diverticula. Reproductive organ(s): Unremarkable. Lymphatic: No concerning retroperitoneal, mesenteric, or inguinal adenopathy. Vessels: Redemonstrated partially thrombosed infrarenal abdominal aortic aneurysm measuring 3.7 x 4.3 cm. BONES AND SOFT TISSUE: Bones: No acute fracture. No concerning osseous lesions. Soft Tissue: Within normal limits. IMPRESSION: 1. Interval increase in free air/fluid, suggestive of postoperative leak given clustered gas adjacent to the sutures versus less likely indirect bowel wall injury, which is not identified likely on this examination. -No extraluminal contrast. 2. Resolving small bowel ileus versus low-grade small bowel . 3. Infrarenal abdominal aortic aneurysm measuring 4.[address] Coyle discussed this study with nurse Gaston on 05/25/2022 4:56 PM MDT via telephone. Read back of the patient's information and the important finding was performed. Electronically authenticated by: KEVIN COYLE Date: 2022-05-25 18:56 Normal [facility] CULTURE BLOODon 05-25-2022 Microscopic examination of blood, culture Culture Observations: NO GROWTH AT 5 DAYS. Normal [facility] Comment on above: Performed By: #### B [id number] #### [facility] [address] [address] [address] Elvis Cifuentes Microscopic examination of blood, culture Culture Observations: NO GROWTH AT 5 DAYS. Normal [facility] Comment on above: Performed By: #### P OCGLUC #### [facility] [address] [place], [place] [address] Dr. Elvis Cifuentes LIVER PROFILEon 05-25-2022 Albumin [Mass/Vol] 2.0 g/dL Critically low 3.4-5.0 Th e [facility] Comment on above: Performed By: #### C EA. #### [facility] [address] [place] [address] Dr. Elvis Cifuentes Albumin/Globulin [Mass ratio] 0.6 {ratio} Normal [facility] Comment on above: Performed By: #### C EA. #### [facility] [address] [place] [address] Dr. Elvis Cifuentes ALP [Catalytic activity/Vol] 53 U/L Normal 46-116 [facility] Comment on above: Performed By: #### C EA. #### [facility] [address] [place] [address] Dr. Elvis Cifuentes ALT [Catalytic activity/Vol] 17 U/L Normal 16-63 [facility] Comment on above: Performed By: #### C EA. #### [facility] [address] [place] [address] Dr. Elvis Cifuentes AST [Catalytic activity/Vol] 13 U/L Critically low 15-37 [facility] Comment on above: Performed By: #### C EA. #### [facility] [address] [place] [address] Dr. Elvis Cifuentes BILI, CONJUGATED 0.2 mg/dL Normal 0.0-0.2 [facility] Comment on above: Performed By: #### C EA. #### [facility] [address] [place] [address] Dr. Elvis Cifuentes Bilirubin [Mass/Vol] 0.5 mg/dL Normal 0.2-1.0 [facility] Comment on above: Performed By: #### C EA. #### [facility] [address] [place] [address] Dr. Elvis Cifuentes Globulin (S) [Mass/Vol] 3.4 g/dL Normal [facility] Comment on above: Performed By: #### C EA. #### [facility] [address] [place] [address] Dr. Elvis Cifuentes Protein [Mass/Vol] 5.4 g/dL Critically low 6.4-8.2 Th [facility] Comment on above: Performed By: #### C EA. #### [facility] [address] [place] [address] Dr. Elvis Cifuentes POINT OF CARE GLUCOSEon 05-08 Glucose [Mass/Vol] 123 mg/dL Critically high 74-106 [facility] Comment on above: Performed By: #### G IPANEL #### [facility] [address] [place] [address] Dr. Elvis Cifuentes Glucose [Mass/Vol] 122 mg/dL Critically high 74-106 [facility] Comment on above: Performed By: #### P OCGLUC #### [facility] [address] [place] [address] Dr. Elvis Cifuentes Glucose [Mass/Vol] 224 mg/dL Critically high 74-106 [facility] Comment on above: Performed By: #### H STROPN #### [facility] [address] [place] [address] Dr. Elvis Cifuentes PROF CHEM 8 (BAS METB)on Anion gap [Moles/Vol] 13.9 mmol/L Normal [facility] Comment on above: Performed By: #### H STROPN #### [facility] [address] [place] [address] Dr. Elvis Cifuentes Chloride [Moles/Vol] 120 mmol/L Critically high 98-107 [facility] Comment on above: Performed By: #### H STROPN #### [facility] [address] [place] [address] Dr. Elvis Cifuentes CO2 [Moles/Vol] 22.6 mmol/L Normal 21.0-32.0 [facility] Comment on above: Performed By: #### H STROPN #### [facility] [address] [place] [address] Dr. Elvis Cifuentes Creatinine [Mass/Vol] 1.48 mg/dL Critically high 0.70-1.30 [facility] Comment on above: Performed By: #### H STROPN #### [facility] [address] [address] [address] Elvis Cifuentes EGFR-AF SRI LANKAN 56 mL/min/1.73m2 Critically low >=60 [facility] Comment on above: Performed By: #### H STROPN #### [facility] [address] [address] [address] Elvis Cifuentes EGFR-NON AF SRI LANKAN 46 mL/min/1.73m2 Critically low >=60 [facility] Comment on above: Performed By: #### H STROPN #### [facility] [address] [address] [address] Elvis Cifuentes Glucose [Mass/Vol] 213 mg/dL Critically high 74-106 [facility] Comment on above: Performed By: #### H STROPN #### [facility] [address] [address] [address] Elvis Cifuentes Urea nitrogen/Creatinin e [Mass ratio] 25.0 mg/mg Normal [facility] Comment on above: Performed By: #### H STROPN #### [facility] [address] [address] [address] Elvis Cifuentes Anion gap [Moles/Vol] 12.8 mmol/L Normal [facility] Comment on above: Performed By: #### C EA. #### [facility] [address] [address] [address] Elvis Cifuentes Calcium [Mass/Vol] 8.4 mg/dL Critically low 8.5-10.1 Th [facility] Comment on above: Performed By: #### H STROPN #### [facility] [address] [address] [address] Elvis Cifuentes Performed By: #### C EA. #### [facility] [address] [address] [address] Elvis Cifuentes Chloride [Moles/Vol] 122 mmol/L Critically high 98-107 [facility] Comment on above: Result Comment: jTes t Repeated. Critical Value Verified Performed By: #### C EA. #### [facility] [address] [address] [address] Elvis Cifuentes CO2 [Moles/Vol] 22.7 mmol/L Normal 21.0-32.0 [facility] Comment on above: Performed By: #### C EA. #### [facility] [address] [place] [address] Dr. Elvis Cifuentes Creatinine [Mass/Vol] 1.38 mg/dL Critically high 0.70-1.30 [facility] Comment on above: Performed By: #### C EA. #### [facility] [address] [place] [address] Dr. Elvis Cifuentes EGFR-AF SRI LANKAN >60 Normal >=60 [facility] Comment on above: Performed By: #### C EA. #### [facility] [address] [place] [address] Dr. Elvis Cifuentes EGFR-NON AF SRI LANKAN 50 mL/min/1.73m2 Critically low >=60 [facility] Comment on above: Performed By: #### C EA. #### [facility] [address] [place] [address] Dr. Elvis Cifuentes Glucose [Mass/Vol] 196 mg/dL Critically high 74-106 [facility] Comment on above: Performed By: #### C EA. #### [facility] [address] [place] [address] Dr. Elvis Cifuentes Potassium [Moles/Vol] 3.5 mmol/L Normal 3.5-5.1 [facility] Comment on above: Performed By: #### H STROPN #### [facility] [address] [place] [address] Dr. Elvis Cifuentes Performed By: #### C EA. #### [facility] [address] [place] [address] Dr. Elvis Cifuentes Sodium [Moles/Vol] 154 mmol/L Critically high 136-145 [facility] Comment on above: Performed By: #### H STROPN #### [facility] [address] [place] [address] Dr. Elvis Cifuentes Performed By: #### C EA. #### [facility] [address] [place] [address] Dr. Elvis Cifuentes Urea nitrogen [Mass/Vol] 37.0 mg/dL Critically high 7.0-18.0 [facility] Comment on above: Performed By: #### H STROPN #### [facility] [address] [address] [address] Elvis Cifuentes Performed By: #### C EA. #### [facility] [address] [place] [address] Dr. Elvis Cifuentes Urea nitrogen/Creatinin e [Mass ratio] 26.8 mg/mg Normal [facility] Comment on above: Performed By: #### C EA. #### [facility] [address] [address] [address] Elvis Cifuentes XR ABD FLAT_UPon 05-25-2022 XR ABD FLAT_UP EXAMINATION: XR ABD FLAT_UP HISTORY: Mechanical ileus COMPARISON: XR abdomen 05/23/2022 FINDINGS: BOWEL GAS PATTERN: Air-filled mildly distended loops of small bowel with scattered fluid levels. Nasogastric tube within body of stomach. FREE AIR: Large amount of free air beneath the right hemidiaphragm small amount under the left hemidiaphragm. CALCIFICATIONS: None significant. BONES: No fracture or visible bone lesion. OTHER: Numerous midline anterior abdominal wall skin gustavo. IMPRESSION: 1. New finding of large amount of free intraperitoneal air. CT abdomen and pelvis with IV contrast is recommended for further evaluation. 2. Persistent mild ileus versus distal partial bowel obstruction; overall improved. 3. Nasogastric tube appearing in good position.. Electronically authenticated by: GEORGETTE GOLDMAN Date: 2022-05-25 09:49 Normal [facility] CBC W MANUAL DIFFon 05-24-20 22 ATYPICAL LYMPH # Normal [facility] Comment on above: Performed By: #### P REALB, MG #### [facility] [address] [place] [address] Dr. Elvis Cifuentes ATYPICAL LYMPH % Normal [facility] Comment on above: Performed By: #### P REALB, MG #### [facility] [address] [place] [address] Dr. Elvis Cifuentes BAND # 0.3 103/ul Normal 0.0-0.3 [facility] Comment on above: Performed By: #### P REALB, MG #### [facility] [address] [address] [address] Elvis Cifuentes BAND % 2 % Normal 0-5 [facility] Comment on above: Performed By: #### P REALB, MG #### [facility] [address] [place] [address] Dr. Elvis Cifuentes BASOM # 0.00 103/ul Normal 0.00-0.10 [facility] Comment on above: Performed By: #### P REALB, MG #### [facility] [address] [place] [address] Dr. Elvis Cifuentes BASOM % 0.0 % Critically low 0.2-2.0 [facility] Comment on above: Performed By: #### P REALB, MG #### [facility] [address] [place] [address] Dr. Elvis Cifuentes BLAST # Normal [facility] Comment on above: Performed By: #### P REALB, MG #### [facility] [address] [place] [address] Dr. Elvis Cifuentes BLAST % Normal [facility] Comment on above: Performed By: #### P REALB, MG #### [facility] [address] [place] [address] Dr. Elvis Cifuentes CORRECTED WBC Normal 4.0-11.0 [facility] Comment on above: Performed By: #### P REALB, MG #### [facility] [address] [place] [address] Dr. Elvis Cifuentes EOS # 0.00 103/ul Normal 0.00-0.70 [facility] Comment on above: Performed By: #### P REALB, MG #### [facility] [address] [place] [address] Dr. Elvis Cifuentes EOS% 0.0 % Critically low 0.9-7.0 [facility] Comment on above: Performed By: #### P REALB, MG #### [facility] [address] [place] [address] Dr. Elvis Cifuentes HCT 33.8 % Critically low 42.0-54.0 [facility] Comment on above: Performed By: #### P REALB, MG #### [facility] [address] [address] [address] Elvis Cifuentes HGB 10.8 g/dl Critically low 14.0-18.0 [facility] Comment on above: Performed By: #### P REALB, MG #### [facility] [address] [address] [address] Elvis Cifuentes LYMPHM # 0.80 103/ul Critically low 1.20-3.80 [facility] Comment on above: Performed By: #### P REALB, MG #### [facility] [address] [address] [address] Elvis Cifuentes LYMPHM% 5.0 % Critically low 20.5-60.0 [facility] Comment on above: Performed By: #### P REALB, MG #### [facility] [address] [address] [address] Elvis Cifuentes MCH 28.9 pg Normal 25.9-34.0 [facility] Comment on above: Performed By: #### P REALB, MG #### [facility] [address] [address] [address] Elvis Cifuentes MCHC 32.0 g/dl Normal 29.9-35.2 [facility] Comment on above: Performed By: #### P REALB, MG #### [facility] [address] [address] [address] Elvis Cifuentes MCV 90.4 fL Normal 80.0-94.0 [facility] Comment on above: Performed By: #### P REALB, MG #### [facility] [address] [address] [address] Elvis Cifuentes METAMYELOCYTE # Normal [facility] Comment on above: Performed By: #### P REALB, MG #### [facility] [address] [address] [address] Elvis Cifuentes METAMYELOCYTE % Normal [facility] Comment on above: Performed By: #### P REALB, MG #### [facility] [address] [address] [address] Elvis Cifuentes MONOM# 1.43 103/ul Critically high 0.30-0.80 [facility] Comment on above: Performed By: #### P REALB, MG #### [facility] [address] [place] [address] Dr. Elvis Cifuentes MONOM% 9.0 % Normal 1.7-12.0 [facility] Comment on above: Performed By: #### P REALB, MG #### [facility] [address] [place] [address] Dr. Elvis Cifuentes MPV 10.7 fL Normal 9.5-13.5 [facility] Comment on above: Performed By: #### P REALB, MG #### [facility] [address] [place] [address] Dr. Elvis Cifuentes MYELOCYTE # Normal [facility] Comment on above: Performed By: #### P REALB, MG #### [facility] [address] [place] [address] Dr. Elvis Cifuentes MYELOCYTE % Normal [facility] Comment on above: Performed By: #### P REALB, MG #### [facility] [address] [place] [address] Dr. Elvis Cifuentes NRBC Normal [facility] Comment on above: Performed By: #### P REALB, MG #### [facility] [address] [place] [address] Dr. Elvis Cifuentes PLT 214 103/ul Normal 150-450 [facility] Comment on above: Performed By: #### P REALB, MG #### [facility] [address] [place] [address] Dr. Elvis Cifuentes RBC 3.74 106/ul Critically low 4.70-6.10 [facility] Comment on above: Performed By: #### P REALB, MG #### [facility] [address] [place] [address] Dr. Evlis Cifuentes RDW 15.4 % Critically high 11.0-15.0 [facility] Comment on above: Performed By: #### P REALB, MG #### [facility] [address] [place] [address] Dr. Elvis Cifuentes SCHISTOCYTES 2+ Normal [facility] Comment on above: Performed By: #### P REALB, MG #### [facility] [address] [place] [address] Dr. Elvis Cifuentes SEG # 13.36 103/ul Critically high 1.40-6.50 [facility] Comment on above: Performed By: #### P REALB, MG #### [facility] [address] [place] [address] Dr. Elvis Cifuentes SEG % 84.0 % Critically high 43.0-75.0 [facility] Comment on above: Performed By: #### P REALB, MG #### [facility] [address] [place] [address] Dr. Elvis Cifuentes WBC 15.9 103/ul Critically high 4.0-11.0 [facility] Comment on above: Performed By: #### P BLANCOB, MG #### [facility] [address] [place] [address] Dr. Elvis Cifuentes LIVER PROFILEon 05-24-2022 Albumin [Mass/Vol] 1.9 g/dL Critically low 3.4-5.0 Th [facility] Comment on above: Performed By: #### G IPANEL #### [facility] [address] [place] [address] Dr. Elvis Cifuentes Albumin/Globulin [Mass ratio] 0.5 {ratio} Normal [facility] Comment on above: Performed By: #### G IPANEL #### [facility] [address] [place] [address] Dr. Elvis Cifuentes ALP [Catalytic activity/Vol] 48 U/L Normal 46-116 [facility] Comment on above: Performed By: #### G IPANEL #### [facility] [address] [place] [address] Dr. Elvis Cifuentes ALT [Catalytic activity/Vol] 14 U/L Critically low 16-63 [facility] Comment on above: Performed By: #### G IPANEL #### [facility] [address] [address] [address] Elvis Cifuentes AST [Catalytic activity/Vol] 16 U/L Normal 15-37 [facility] Comment on above: Performed By: #### G IPANEL #### [facility] [address] [address] [address] Elvis Cifuentes BILI, CONJUGATED 0.2 mg/dL Normal 0.0-0.2 [facility] Comment on above: Performed By: #### G IPANEL #### [facility] [address] [address] [address] Elvis Cifuentes Bilirubin [Mass/Vol] 0.5 mg/dL Normal 0.2-1.0 [facility] Comment on above: Performed By: #### G IPANEL #### [facility] [address] [place] [address] Dr. Elvis Cifuentes Globulin (S) [Mass/Vol] 3.6 g/dL Normal [facility] Comment on above: Performed By: #### G IPANEL #### [facility] [address] [place] [address] Dr. Elvis Cifuentes Protein [Mass/Vol] 5.5 g/dL Critically low 6.4-8.2 Th [facility] Comment on above: Performed By: #### G IPANEL #### [facility] [address] [place] [address] Dr. Elvis Cifuentes POINT OF CARE GLUCOSEon 05-08 Glucose [Mass/Vol] 194 mg/dL Critically high 74-106 [facility] Comment on above: Performed By: #### B LDCX2 #### [facility] [address] [place] [address] Dr. Elvis Cifuentes Glucose [Mass/Vol] 193 mg/dL Critically high 74-106 [facility] Comment on above: Performed By: #### B LDCX2 #### [facility] [address] [place] [address] Dr. Elvis Cifuentes Glucose [Mass/Vol] 204 mg/dL Critically high 74-106 [facility] Comment on above: Performed By: #### P REALB, MG #### [facility] [address] [address] [address] Elvis Cifuentes Glucose [Mass/Vol] 234 mg/dL Critically high 74-106 [facility] Comment on above: Performed By: #### P REALB, MG #### [facility] [address] [address] [address] Elvis Cifuentes PROF CHEM 8 (BAS METB)on Anion gap [Moles/Vol] 12.0 mmol/L Normal [facility] Comment on above: Performed By: #### P REALB, MG #### [facility] [address] [address] [address] Elvis Cifuentes Calcium [Mass/Vol] 8.3 mg/dL Critically low 8.5-10.1 Th [facility] Comment on above: Performed By: #### P REALB, MG #### [facility] [address] [place] [address] Dr. Elvis Cifuentes Chloride [Moles/Vol] 123 mmol/L Critically high 98-107 [facility] Comment on above: Performed By: #### P REALB, MG #### [facility] [address] [address] [address] Elvis Cifuentes CO2 [Moles/Vol] 23.7 mmol/L Normal 21.0-32.0 [facility] Comment on above: Performed By: #### P REALB, MG #### [facility] [address] [address] [address] Elvis Cifuentes Creatinine [Mass/Vol] 1.43 mg/dL Critically high 0.70-1.30 [facility] Comment on above: Performed By: #### P REALB, MG #### [facility] [address] [address] [address] Elvis Cifuentes EGFR-AF SRI LANKAN 58 mL/min/1.73m2 Critically low >=60 [facility] Comment on above: Performed By: #### P REALB, MG #### [facility] [address] [address] [address] Elvis Cifuentes EGFR-NON AF SRI LANKAN 48 mL/min/1.73m2 Critically low >=60 [facility] Comment on above: Performed By: #### P REALB, MG #### [facility] [address] [place] [address] Dr. Elvis Cifuentes Glucose [Mass/Vol] 221 mg/dL Critically high 74-106 [facility] Comment on above: Performed By: #### P REALB, MG #### [facility] [address] [place] [address] Dr. Elvis Cifuentes Potassium [Moles/Vol] 3.7 mmol/L Normal 3.5-5.1 [facility] Comment on above: Performed By: #### P REALB, MG #### [facility] [address] [place] [address] Dr. Elvis Cifuentes Sodium [Moles/Vol] 156 mmol/L Critically high 136-145 [facility] Comment on above: Performed By: #### P REALB, MG #### [facility] [address] [place] [address] Dr. Elvis Cifuentes Urea nitrogen [Mass/Vol] 36.0 mg/dL Critically high 7.0-18.0 [facility] Comment on above: Performed By: #### P REALB, MG #### [facility] [address] [place] [address] Dr. Elvis Cifuentes Urea nitrogen/Creatinin e [Mass ratio] 25.2 mg/mg Normal [facility] Comment on above: Performed By: #### P REALB, MG #### [facility] [address] [place] [address] Dr. Elvis Cifuentes Anion gap [Moles/Vol] 15.0 mmol/L Normal [facility] Comment on above: Performed By: #### C EA. #### [facility] [address] [place] [address] Dr. Elvis Ciufentes Calcium [Mass/Vol] 8.5 mg/dL Normal 8.5-10.1 [facility] Comment on above: Performed By: #### C EA. #### [facility] [address] [place] [address] Dr. Elvis Cifuentes Chloride [Moles/Vol] 125 mmol/L Critically high 98-107 [facility] Comment on above: Performed By: #### C EA. #### [facility] [address] [place] [address] Dr. Elvis Cifuentes CO2 [Moles/Vol] 21.5 mmol/L Normal 21.0-32.0 [facility] Comment on above: Performed By: #### C EA. #### [facility] [address] [place] [address] Dr. Elvis Cifuentes Creatinine [Mass/Vol] 1.44 mg/dL Critically high 0.70-1.30 [facility] Comment on above: Performed By: #### C EA. #### [facility] [address] [place] [address] Dr. Elvis Cifuentes EGFR-AF SRI LANKAN 58 mL/min/1.73m2 Critically low >=60 [facility] Comment on above: Performed By: #### C EA. #### [facility] [address] [place] [address] Dr. Elvis Cfiuentes EGFR-NON AF SRI LANKAN 48 mL/min/1.73m2 Critically low >=60 [facility] Comment on above: Performed By: #### C EA. #### [facility] [address] [place] [address] Dr. Elvis Cifuentes Glucose [Mass/Vol] 202 mg/dL Critically high 74-106 [facility] Comment on above: Performed By: #### C EA. #### [facility] [address] [place] [address] Dr. Elvis Cifuentes Potassium [Moles/Vol] 3.5 mmol/L Normal 3.5-5.1 [facility] Comment on above: Performed By: #### C EA. #### [facility] [address] [place] [place] [address] Dr. Elvis Cifuentes Sodium [Moles/Vol] 159 mmol/L Critically high 136-145 [facility] Comment on above: Performed By: #### C EA. #### [facility] [address] [place] [address] Dr. Elvis Cifuentes Urea nitrogen [Mass/Vol] 38.0 mg/dL Critically high 7.0-18.0 [facility] Comment on above: Performed By: #### C EA. #### [facility] [address] [address] [address] Elvis Cifuentes Urea nitrogen/Creatinin e [Mass ratio] 26.4 mg/mg Normal [facility] Comment on above: Performed By: #### C EA. #### [facility] [address] [address] [address] Elvis Cifuentes Anion gap [Moles/Vol] 13.8 mmol/L Normal [facility] Comment on above: Performed By: #### G IPANEL #### [facility] [address] [place] [address] Dr. Elvis Cifuentes Calcium [Mass/Vol] 8.5 mg/dL Normal 8.5-10.1 [facility] Comment on above: Performed By: #### G IPANEL #### [facility] [address] [address] [address] Elvis Cifuentes Chloride [Moles/Vol] 124 mmol/L Critically high 98-107 [facility] Comment on above: Performed By: #### G IPANEL #### [facility] [address] [place] [address] Dr. Elvis Cifuentes CO2 [Moles/Vol] 23.2 mmol/L Normal 21.0-32.0 [facility] Comment on above: Performed By: #### G IPANEL #### [facility] [address] [address] [address] Elvis Cifuentes Creatinine [Mass/Vol] 1.38 mg/dL Critically high 0.70-1.30 [facility] Comment on above: Performed By: #### G IPANEL #### [facility] [address] [place] [address] Dr. Elvis Cifuentes EGFR-AF SRI LANKAN >60 Normal >=60 [facility] Comment on above: Performed By: #### G IPANEL #### [facility] [address] [place] [address] Dr. Elvis Cifuentes EGFR-NON AF SRI LANKAN 50 mL/min/1.73m2 Critically low >=60 [facility] Comment on above: Performed By: #### G IPANEL #### [facility] [address] [place] [address] Dr. Elvis Cifuentes Glucose [Mass/Vol] 214 mg/dL Critically high 74-106 [facility] Comment on above: Performed By: #### G IPANEL #### [facility] [address] [place] [address] Dr. Elvis Cifuentes Potassium [Moles/Vol] 3.0 mmol/L Critically low 3.5-5.1 [facility] Comment on above: Performed By: #### G IPANEL #### [facility] [address] [place] [address] Dr. Elvis Cifuentes Sodium [Moles/Vol] 158 mmol/L Critically high 136-145 [facility] Comment on above: Performed By: #### G IPANEL #### [facility] [address] [place] [address] Dr. Elvis Cifuentes Urea nitrogen [Mass/Vol] 36.0 mg/dL Critically high 7.0-18.0 [facility] Comment on above: Performed By: #### G IPANEL #### [facility] [address] [place] [address] Dr. Elvis Cifuentes Urea nitrogen/Creatinin e [Mass ratio] 26.1 mg/mg Normal [facility] Comment on above: Performed By: #### G IPANEL #### [facility] [address] [place] [address] Dr. Elvis Cifuentes UA RANDOM W/MICROSCOPICon BACTERIA TRACE Abnormal NONE SEEN [facility] Comment on above: Performed By: #### C EA. #### [facility] [address] [place] [address] Dr. Elvis Cifuentes Bilirubin Ql (U) Negative Normal NEGATIVE [facility] Comment on above: Performed By: #### C EA. #### [facility] [address] [place] [address] Dr. Elvis Cifuentes CAST SEEN Abnormal NONE SEEN [facility] Comment on above: Performed By: #### C EA. #### [facility] [address] [place] [address] Dr. Elvis Cifuentes Clarity (U) CLEAR Normal CLEAR [facility] Comment on above: Performed By: #### C EA. #### [facility] [address] [place] [address] Dr. Elvis Cifuentes COARSE GRANULAR CAST FEW Normal [facility] Comment on above: Performed By: #### C EA. #### [facility] [address] [place] [address] Dr. Elvis Cifuentes Color (U) YELLOW Normal YELLOW [facility] Comment on above: Performed By: #### C EA. #### [facility] [address] [place] [address] Dr. Elvis Cifuentes Crystals LM Nom (Urine sed) NONE SEEN Normal NONE SEEN [facility] Comment on above: Performed By: #### C EA. #### [facility] [address] [place] [address] Dr. Elvis Cifuentes Epithelial cells LM Ql (Urine sed) FEW Abnormal NONE SEEN /RARE [facility] Comment on above: Performed By: #### C EA. #### [facility] [address] [place] [address] Dr. Elvis Cifuentes Glucose Ql (U) Negative Normal NEGATIVE [facility] Comment on above: Performed By: #### C EA. #### [facility] [address] [place] [address] Dr. Elvis Cifuentes Hemoglobin Ql (U) TRACE-INTACT Abnormal NEGATIVE [facility] Comment on above: Performed By: #### C EA. #### [facility] [address] [place] [address] Dr. Elvis Cifuentes Ketones Ql (U) Negative Normal NEGATIVE [facility] Comment on above: Performed By: #### C EA. #### [facility] [address] [place] [address] Dr. Elvis Cifuentes LEUKOCYTES TRACE Abnormal NEGATIVE [facility] Comment on above: Performed By: #### C EA. #### [facility] [address] [place] [address] Dr. Elvis Cifuentes MUCOUS NONE SEEN Normal NONE SEEN [facility] Comment on above: Performed By: #### C EA. #### [facility] [address] [place] [address] Dr. Elvis Cifuentes Nitrite Ql (U) Negative Normal NEGATIVE [facility] Comment on above: Performed By: #### C EA. #### [facility] [address] [place] [address] Dr. Elvis Cifuentes pH (U) 5.5 [pH] Normal 5-9 [facility] Comment on above: Performed By: #### C EA. #### [facility] [address] [place] [address] Dr. Elvis Cifuentes RBC 0-2 Normal 0-2 [facility] Comment on above: Performed By: #### C EA. #### [facility] [address] [place] [address] Dr. Elvis Cifuentes SPEC GRAVITY 1.015 Normal 1.005-<=1.02 5 [facility] Comment on above: Performed By: #### C EA. #### [facility] [address] [place] [address] Dr. Elvis Cifuentes UA PROTEIN TRACE Normal NEGATIVE/ TRACE [facility] Comment on above: Performed By: #### C EA. #### [facility] [address] [place] [address] Dr. Elvis Cifuentes Urobilinogen Qn (U) 0.2 {Geovanna'U}/dL Normal 0.2 - 1.0 [facility] Comment on above: Performed By: #### C EA. #### [facility] [address] [place] [address] Dr. Elvis Cifuentes WBC 2-5 Abnormal NONE SEEN [facility] Comment on above: Performed By: #### C EA. #### [facility] [address] [place] [address] Dr. Elvis Cifuentes CBC W MANUAL DIFFon 05-23-20 22 ANISOCYTOSIS SLIGHT Normal [facility] Comment on above: Performed By: #### P REALB, MG #### [facility] [address] [place] [address] Dr. Elvis Cifuentes ATYPICAL LYMPH # Normal [facility] Comment on above: Performed By: #### P REALB, MG #### [facility] [address] [place] [address] Dr. Elvis Cifuentes ATYPICAL LYMPH % Normal [facility] Comment on above: Performed By: #### P REALB, MG #### [facility] [address] [place] [address] Dr. Elvis Cifuentes BAND # Normal 0.0-0.3 [facility] Comment on above: Performed By: #### P REALB, MG #### [facility] [address] [place] [address] Dr. Elvis Cifuentes BAND % Normal 0-5 [facility] Comment on above: Performed By: #### P REALB, MG #### [facility] [address] [place] [address] Dr. Elvis Cifuentes BASOM # 0.00 103/ul Normal 0.00-0.10 [facility] Comment on above: Performed By: #### P REALB, MG #### [facility] [address] [place] [address] Dr. Elvis Cifuentes BASOM % 0.0 % Critically low 0.2-2.0 [facility] Comment on above: Performed By: #### P REALB, MG #### [facility] [address] [place] [address] Dr. Elvis Cifuentes BLAST # Normal [facility] Comment on above: Performed By: #### P REALB, MG #### [facility] [address] [place] [address] Dr. Evlis Cifuentes BLAST % Normal [facility] Comment on above: Performed By: #### P REALB, MG #### [facility] [address] [place] [address] Dr. Elvis Cifuentes CORRECTED WBC Normal 4.0-11.0 [facility] Comment on above: Performed By: #### P REALB, MG #### [facility] [address] [place] [address] Dr. Elvis Cifuentes EOS # 0.00 103/ul Normal 0.00-0.70 [facility] Comment on above: Performed By: #### P REALB, MG #### [facility] [address] [place] [address] Dr. Elvis Cifuentes EOS% 0.0 % Critically low 0.9-7.0 [facility] Comment on above: Performed By: #### P REALB, MG #### [facility] [address] [address] [address] Elvis Cifuentes HCT 35.0 % Critically low 42.0-54.0 [facility] Comment on above: Performed By: #### P REALB, MG #### [facility] [address] [place] [address] Dr. Elvis Cifuentes HGB 10.3 g/dl Critically low 14.0-18.0 [facility] Comment on above: Performed By: #### P REALB, MG #### [facility] [address] [place] [address] Dr. Elvis Cifuentes LYMPHM # 0.48 103/ul Critically low 1.20-3.80 [facility] Comment on above: Performed By: #### P REALB, MG #### [facility] [address] [place] [address] Dr. Elvis Cifuentes LYMPHM% 5.0 % Critically low 20.5-60.0 [facility] Comment on above: Performed By: #### P REALB, MG #### [facility] [address] [place] [address] Dr. Elvis Cifuentes MCH 28.5 pg Normal 25.9-34.0 [facility] Comment on above: Performed By: #### P REALB, MG #### [facility] [address] [place] [address] Dr. Elvis Cifuentes MCHC 29.4 g/dl Critically low 29.9-35.2 [facility] Comment on above: Performed By: #### P REALB, MG #### [facility] [address] [place] [address] Dr. Elvis Cifuentes MCV 96.7 fL Critically high 80.0-94.0 [facility] Comment on above: Performed By: #### P REALB, MG #### [facility] [address] [place] [address] Dr. Elvis Cifuentes METAMYELOCYTE # Normal [facility] Comment on above: Performed By: #### P REALB, MG #### [facility] [address] [place] [address] Dr. Elvis Cifuentes METAMYELOCYTE % Normal [facility] Comment on above: Performed By: #### P REALB, MG #### [facility] [address] [address] [address] Elvis Cifuentes MONOM# 0.39 103/ul Normal 0.30-0.80 [facility] Comment on above: Performed By: #### P REALB, MG #### [facility] [address] [place] [address] Dr. Elvis Cifuentes MONOM% 4.0 % Normal 1.7-12.0 [facility] Comment on above: Performed By: #### P REALB, MG #### [facility] [address] [place] [address] Dr. Elvis Cifuentes MPV 10.6 fL Normal 9.5-13.5 [facility] Comment on above: Performed By: #### P REALB, MG #### [facility] [address] [place] [address] Dr. Elvis Cifuentes MYELOCYTE # Normal [facility] Comment on above: Performed By: #### P REALB, MG #### [facility] [address] [place] [address] Dr. Elvis Cifuentes MYELOCYTE % Normal [facility] Comment on above: Performed By: #### P REALB, MG #### [facility] [address] [place] [address] Dr. Elvis Cifuentes NRBC Normal [facility] Comment on above: Performed By: #### P REALB, MG #### [facility] [address] [place] [address] Dr. Elvis Cifuentes PLT 190 103/ul Normal 150-450 [facility] Comment on above: Performed By: #### P REALB, MG #### [facility] [address] [place], [place] [address] Dr. Elvis Cifuentes RBC 3.62 106/ul Critically low 4.70-6.10 [facility] Comment on above: Performed By: #### P REALB, MG #### [facility] [address] [place], [place] [address] Dr. Elvis Cifuentes RDW 15.9 % Critically high 11.0-15.0 [facility] Comment on above: Performed By: #### P REALB, MG #### [facility] [address] [place], [place] [address] Dr. Elvis Cifuentes SEG # 8.83 103/ul Critically high 1.40-6.50 [facility] Comment on above: Performed By: #### P REALB, MG #### [facility] [address] [address] [address] Elvis Cifuentes SEG % 91.0 % Critically high 43.0-75.0 [facility] Comment on above: Performed By: #### P REALB, MG #### [facility] [address] [address] [address] Elvis Cifuentes WBC 9.7 103/ul Normal 4.0-11.0 [facility] Comment on above: Performed By: #### P REALB, MG #### [facility] [address] [address] [address] Elvis Cifuentes CTA CHEST WO W CONon 05-23- 022 CTA CHEST WO W CON EXAMINATION: CTA [facility] WO W CON HISTORY: ACUTE RESPIRATORY DISTRESS COMPARISON: No relevant comparison available. TECHNIQUE: Multi-planar CT images were created with IV contrast. Axial, Coronal, and Sagittal images. Dose reduction techniques were achieved by using automated exposure control and/or adjustment of mA and/or kV according to patient size and/or use of iterative reconstruction technique. 3-D reconstruction was performed on a separate workstation. FINDINGS: VASCULATURE: No pulmonary embolism or abnormal opacity. LUNGS: No acute pulmonary disease. PLEURA: No mass, effusion, or pneumothorax. COLETTE: No mass or adenopathy. MEDIASTINUM: No mass or adenopathy. CARDIAC: No enlargement, pericardial effusion, or pericardial thickening. AORTA: No aneurysm or dissection. CHEST WALL: No mass or axillary adenopathy. BONES: No bone lesion or fracture. LIMITED ABDOMEN: Nasogastric tube extends into body of stomach. No suspicious findings. Limited images of the upper abdomen. OTHER: Negative. IMPRESSION: 1. No pulmonary embolism. 2. No pulmonary infiltrates or acute findings. Mild emphysematous changes. Electronically authenticated by: GEORGETTE GOLDMAN Date: 2022-05-23 10:55 Normal [facility] LIVER PROFILEon 05-23-2022 Albumin [Mass/Vol] 2.0 g/dL Critically low 3.4-5.0 Th e [facility] Comment on above: Performed By: #### L IVER #### [facility] [address] [place] [address] Dr. Elvis Cifuentes Albumin/Globulin [Mass ratio] 0.5 {ratio} Normal [facility] Comment on above: Performed By: #### L IVER #### [facility] [address] [address] [address] Elvis Cifuentes ALP [Catalytic activity/Vol] 41 U/L Critically low 46-116 [facility] Comment on above: Performed By: #### L IVER #### [facility] [address] [address] [address] Elvis Cifuentes ALT [Catalytic activity/Vol] 11 U/L Critically low 16-63 [facility] Comment on above: Performed By: #### L IVER #### [facility] [address] [address] [address] Elvis Cifuentes AST [Catalytic activity/Vol] 13 U/L Critically low 15-37 [facility] Comment on above: Performed By: #### L IVER #### [facility] [address] [address] [address] Elvis Cifuentes BILI, CONJUGATED 0.3 mg/dL Critically high 0.0-0.2 [facility] Comment on above: Performed By: #### L IVER #### [facility] [address] [address] [address] Elvis Cifuentes Bilirubin [Mass/Vol] 0.6 mg/dL Normal 0.2-1.0 [facility] Comment on above: Performed By: #### L IVER #### [facility] [address] [place] [address] Dr. Elvis Cifuentes Globulin (S) [Mass/Vol] 3.8 g/dL Normal [facility] Comment on above: Performed By: #### L IVER #### [facility] [address] [place] [address] Dr. Elvis Cifuentes Protein [Mass/Vol] 5.8 g/dL Critically low 6.4-8.2 Th [facility] Comment on above: Performed By: #### L IVER #### [facility] [address] [place] [address] Dr. Elvis Cifuentes Albumin [Mass/Vol] 1.8 g/dL Critically low 3.4-5.0 [facility] Comment on above: Performed By: #### P OCGLUC #### [facility] [address] [place] [address] Dr. Elvis Cifuentes Albumin/Globulin [Mass ratio] 0.5 {ratio} Normal [facility] Comment on above: Performed By: #### P OCGLUC #### [facility] [address] [place] [address] Dr. Elvis Cifuentes ALP [Catalytic activity/Vol] 34 U/L Critically low 46-116 [facility] Comment on above: Performed By: #### P OCGLUC #### [facility] [address] [place] [address] Dr. Elvis Cifuentes ALT [Catalytic activity/Vol] 12 U/L Critically low 16-63 [facility] Comment on above: Performed By: #### P OCGLUC #### [facility] [address] [place] [address] Dr. Elvis Cifuentes AST [Catalytic activity/Vol] 14 U/L Critically low 15-37 [facility] Comment on above: Performed By: #### P OCGLUC #### [facility] [address] [place] [address] Dr. Elvis Cifuentes BILI, CONJUGATED 0.3 mg/dL Critically high 0.0-0.2 [facility] Comment on above: Performed By: #### P OCGLUC #### [facility] [address] [place] [address] Dr. Elvis Cifuentes Bilirubin [Mass/Vol] 0.6 mg/dL Normal 0.2-1.0 [facility] Comment on above: Performed By: #### P OCGLUC #### [facility] [address] [place] [address] Dr. Elvis Cifuentes Globulin (S) [Mass/Vol] 3.3 g/dL Normal [facility] Comment on above: Performed By: #### P OCGLUC #### [facility] [address] [place] [address] Dr. Elvis Cifuentes Protein [Mass/Vol] 5.1 g/dL Critically low 6.4-8.2 Th [facility] Comment on above: Performed By: #### P OCGLUC #### [facility] [address] [place] [address] Dr. Elvis Cifuentes POINT OF CARE GLUCOSEon 05-08 Glucose [Mass/Vol] 212 mg/dL Critically high 74-106 [facility] Comment on above: Performed By: #### P REALB, MG #### [facility] [address] [place] [address] Dr. Elvis Cifuentes Glucose [Mass/Vol] 213 mg/dL Critically high 74-106 [facility] Comment on above: Performed By: #### C EA. #### [facility] [address] [place] [address] Dr. Elvis Cifuentes Glucose [Mass/Vol] 179 mg/dL Critically high 74-106 [facility] Comment on above: Performed By: #### B [id number] #### [facility] [address] [place] [address] Dr. Elvis Cifuentes Glucose [Mass/Vol] 187 mg/dL Critically high 74-106 [facility] Comment on above: Performed By: #### C EA. #### [facility] [address] [place] [address] Dr. Elvis Cifuentes PROF CHEM 8 (BAS METB)on Anion gap [Moles/Vol] 13.5 mmol/L Normal [facility] Comment on above: Performed By: #### P REALB, MG #### [facility] [address] [place] [address] Dr. Elvis Cifuentes Calcium [Mass/Vol] 8.6 mg/dL Normal 8.5-10.1 [facility] Comment on above: Performed By: #### P REALB, MG #### [facility] [address] [place] [address] Dr. Elvis Cifuentes Chloride [Moles/Vol] 121 mmol/L Critically high 98-107 [facility] Comment on above: Performed By: #### P REALB, MG #### [facility] [address] [place] [address] Dr. Elvis Cifuentes CO2 [Moles/Vol] 23.8 mmol/L Normal 21.0-32.0 [facility] Comment on above: Performed By: #### P REALB, MG #### [facility] [address] [place] [address] Dr. Elvis Cifuentes Creatinine [Mass/Vol] 1.35 mg/dL Critically high 0.70-1.30 [facility] Comment on above: Performed By: #### P REALB, MG #### [facility] [address] [place] [address] Dr. Elvis Cifuentes EGFR-AF SRI LANKAN >60 Normal >=60 [facility] Comment on above: Performed By: #### P REALB, MG #### [facility] [address] [place] [address] Dr. Elvis Cifuentes EGFR-NON AF SRI LANKAN 51 mL/min/1.73m2 Critically low >=60 [facility] Comment on above: Performed By: #### P REALB, MG #### [facility] [address] [place] [address] Dr. Elvis Cifuentes Glucose [Mass/Vol] 215 mg/dL Critically high 74-106 [facility] Comment on above: Performed By: #### P REALB, MG #### [facility] [address] [place] [address] Dr. Elvis Cifuentes Potassium [Moles/Vol] 3.4 mmol/L Critically low 3.5-5.1 [facility] Comment on above: Performed By: #### P REALB, MG #### [facility] [address] [place] [address] Dr. Elvis Cifuentes Sodium [Moles/Vol] 156 mmol/L Critically high 136-145 [facility] Comment on above: Performed By: #### P REALB, MG #### [facility] [address] [place] [address] Dr. Elvis Cifuentes Urea nitrogen [Mass/Vol] 34.0 mg/dL Critically high 7.0-18.0 [facility] Comment on above: Performed By: #### P REALB, MG #### [facility] [address] [place] [address] Dr. Elvis Cifuentes Urea nitrogen/Creatinin e [Mass ratio] 25.2 mg/mg Normal [facility] Comment on above: Performed By: #### P REALB, MG #### [facility] [address] [place] [address] Dr. Elvis Cifuentes Anion gap [Moles/Vol] 14.0 mmol/L Normal [facility] Comment on above: Performed By: #### B [id number] #### [facility] [address] [place] [address] Dr. Elvis Cifuentes Calcium [Mass/Vol] 8.2 mg/dL Critically low 8.5-10.1 [facility] Comment on above: Performed By: #### B [id number] #### [facility] [address] [place] [address] Dr. Elvis Cifuentes Chloride [Moles/Vol] 114 mmol/L Critically high 98-107 [facility] Comment on above: Performed By: #### B LDCX2 #### [facility] [address] [place] [address] Dr. Elvis Cifuentes CO2 [Moles/Vol] 22.9 mmol/L Normal 21.0-32.0 [facility] Comment on above: Performed By: #### B LDCX2 #### [facility] [address] [address] [address] Elvis Cifuentes Creatinine [Mass/Vol] 1.56 mg/dL Critically high 0.70-1.30 [facility] Comment on above: Performed By: #### B LDCX2 #### [facility] [address] [address] [address] Elvis Cifuentes EGFR-AF SRI LANKAN 53 mL/min/1.73m2 Critically low >=60 [facility] Comment on above: Performed By: #### B LDCX2 #### [facility] [address] [address] [address] Elvis Cifuentes EGFR-NON AF SRI LANKAN 43 mL/min/1.73m2 Critically low >=60 [facility] Comment on above: Performed By: #### B LDCX2 #### [facility] [address] [address] [address] Elvis Cifuentes Glucose [Mass/Vol] 1069 mg/dL Critically high 74-106 [facility] Comment on above: Performed By: #### B LDCX2 #### [facility] [address] [address] [address] Elvis Cifuentes Potassium [Moles/Vol] 4.9 mmol/L Normal 3.5-5.1 [facility] Comment on above: Performed By: #### B LDCX2 #### [facility] [address] [address] [address] Elvis Cifuentes Sodium [Moles/Vol] 146 mmol/L Critically high 136-145 [facility] Comment on above: Performed By: #### B LDCX2 #### [facility] [address] [address] [address] Elvis Cifuentes Urea nitrogen [Mass/Vol] 32.0 mg/dL Critically high 7.0-18.0 [facility] Comment on above: Performed By: #### B LDCX2 #### [facility] [address] [address] [address] Elvis Cifuentes Urea nitrogen/Creatinin e [Mass ratio] 20.5 mg/mg Normal [facility] Comment on above: Performed By: #### B LDCX2 #### [facility] [address] [address] [address] Elvis Cifuentes XR ABD FLAT_UPon 05-23-2022 XR ABD FLAT_UP EXAMINATION: XR ABD FLAT_UP HISTORY: Mechanical ileus COMPARISON: XR KUB 05/21/2022 FINDINGS: BOWEL GAS PATTERN: Air-filled loops of bowel within the abdomen. Nasogastric tube with tip in gastric fundus. Numerous skin gustavo over midline lower abdomen and pelvis consistent with recent surgery. FREE AIR: None. CALCIFICATIONS: None significant. BONES: No fracture or visible bone lesion. OTHER: Underexpanded, clear lungs. IMPRESSION: 1. Air-filled, distended small and large bowel likely representing postoperative ileus. Electronically authenticated by: GEORGETTE GOLDMAN Date: 2022-05-23 07:29 Normal [facility] XR CHEST 1 Von 05-23-2022 XR CHEST 1 V EXAM: XR CHEST 1 V HISTORY: ACUTE RESPIRATORY DISTRESS COMPARISON: Chest x-ray 05/21/2022 TECHNIQUE: Single frontal view chest x-ray FINDINGS: Left PICC line tip at the SVC. Enteric tube extends to the stomach. Mild bibasilar streaky lung opacities reflect atelectasis/scar. Borderline prominent cardiac silhouette size, similar to prior exam. No lobar consolidation, large pleural effusions, pneumothorax, or acute bony abnormality. IMPRESSION: Mild bibasilar streaky lung atelectasis/scar. Otherwise, no radiographic lung consolidation or large pleural effusions. Electronically authenticated by: DOMENICO FERNANDEZ Date: 2022-05-23 03:21 Normal [facility] CBC AUTO DIFFon 05-22-2022 BASO # 0.0 103/ul Normal 0.0-0.1 [facility] Comment on above: Performed By: #### C EA. #### [facility] [address] [address] [address] Elvis Cifuentes Basophils/100 WBC (Bld) 0.1 % Critically low 0.2-2.0 [facility] Comment on above: Performed By: #### C EA. #### [facility] [address] [address] [address] Elvis Cifuentes EO # 0.1 103/ul Normal 0.0-0.7 [facility] Comment on above: Performed By: #### C EA. #### [facility] [address] [place] [address] Dr. Elvis Cifuentes Eosinophils/100 WBC (Bld) 0.7 % Critically low 0.9-7.0 [facility] Comment on above: Performed By: #### C EA. #### [facility] [address] [place] [address] Dr. Elvis Cifuentes Erythrocyte distribution width (RBC) [Ratio] 14.7 % Normal 11.0-15.0 [facility] Comment on above: Performed By: #### C EA. #### [facility] [address] [place] [address] Dr. Elvis Cifuentes Hematocrit (Bld) [Volume fraction] 32.5 % Critically low 42.0-54.0 [facility] Comment on above: Performed By: #### C EA. #### [facility] [address] [place] [address] Dr. Elvis Cifuentes Hemoglobin (Bld) [Mass/Vol] 10.2 g/dL Critically low 14.0-18.0 [facility] Comment on above: Performed By: #### C EA. #### [facility] [address] [place] [address] Dr. Elvis Cifuentes IG # 0.05 10e3/ul Critically high 0.00-0.03 [facility] Comment on above: Performed By: #### C EA. #### [facility] [address] [place] [address] Dr. Elvis Cifuentes IG % 0.7 % Critically high 0.0-0.5 [facility] Comment on above: Performed By: #### C EA. #### [facility] [address] [place] [address] Dr. Elvis Cifuentes LYMPH # 0.4 103/ul Critically low 1.2-3.8 [facility] Comment on above: Performed By: #### C EA. #### [facility] [address] [place] [address] Dr. Elvis Cifuentes Lymphocytes/100 WBC (Bld) 6.5 % Critically low 20.5-60.0 [facility] Comment on above: Performed By: #### C EA. #### [facility] [address] [place] [address] Dr. Elvis Cifuentes MANUAL DIFF REQ NO Normal [facility] Comment on above: Performed By: #### C EA. #### [facility] [address] [place] [address] Dr. Elvis Cifuentes MCH (RBC) [Entitic mass] 28.5 pg Normal 25.9-34.0 [facility] Comment on above: Performed By: #### C EA. #### [facility] [address] [place] [address] Dr. Elvis Cifuentes MCHC (RBC) [Mass/Vol] 31.4 g/dL Normal 29.9-35.2 [facility] Comment on above: Performed By: #### C EA. #### [facility] [address] [place] [address] Dr. Elvis Cifuentes MCV (RBC) [Entitic vol] 90.8 fL Normal 80.0-94.0 [facility] Comment on above: Performed By: #### C EA. #### [facility] [address] [place] [address] Dr. Elvis Cifuentes MONO # 0.5 103/ul Normal 0.3-0.8 [facility] Comment on above: Performed By: #### C EA. #### [facility] [address] [place] [address] Dr. Elvis Cifuentes Monocytes/100 WBC (Bld) 7.5 % Normal 1.7-12.0 [facility] Comment on above: Performed By: #### C EA. #### [facility] [address] [place] [address] Dr. Elvis Cifuentes NEUT # 5.7 103/ul Normal 1.4-6.5 [facility] Comment on above: Performed By: #### C EA. #### [facility] [address] [place] [address] Dr. Elvis Cifuentes Neutrophils/100 WBC (Bld) 84.5 % Critically high 43.0-75.0 [facility] Comment on above: Performed By: #### C EA. #### [facility] [address] [place] [address] Dr. Elvis Cifuentes Platelet mean volume (Bld) [Entitic vol] 10.4 fL Normal 9.5-13.5 [facility] Comment on above: Performed By: #### C EA. #### [facility] [address] [address] [address] Elvis Cifuentes PLT 248 103/ul Normal 150-450 [facility] Comment on above: Performed By: #### C EA. #### [facility] [address] [place] [address] Dr. Elvis Cifuentes RBC 3.58 106/ul Critically low 4.70-6.10 [facility] Comment on above: Performed By: #### C EA. #### [facility] [address] [place] [address] Dr. Elvis Cifuentes WBC 6.8 103/ul Normal 4.0-11.0 [facility] Comment on above: Performed By: #### C EA. #### [facility] [address] [place] [address] Dr. Elvis Cifuentes POINT OF CARE GLUCOSEon 05-08 Glucose [Mass/Vol] 198 mg/dL Critically high 74-106 [facility] Comment on above: Performed By: #### P REALB, MG #### [facility] [address] [place] [address] Dr. Elvis Cifuentes Glucose [Mass/Vol] 247 mg/dL Critically high 74-106 [facility] Comment on above: Performed By: #### P OCGLUC #### [facility] [address] [place] [address] Dr. Elvis Cifuentes Glucose [Mass/Vol] 212 mg/dL Critically high -106 [facility] Comment on above: Performed By: #### H STROPN #### [facility] [address] [place] [address] Dr. Elvis Cifuentes Glucose [Mass/Vol] 186 mg/dL Critically high 74-106 [facility] Comment on above: Performed By: #### P REALB, MG #### [facility] [address] [place] [address] Dr. Elvis Cifuentes PREALBUMINon 05-22-2022 Prealbumin [Mass/Vol] 10.3 mg/dL Critically low 20.9-45.5 [facility] Comment on above: Performed By: #### P REALB, MG #### [facility] [address] [place] [address] Dr. Elvis Cifuentes PROF CHEM 8 (BAS METB)on Anion gap [Moles/Vol] 12.4 mmol/L Normal [facility] Comment on above: Performed By: #### H STROPN #### [facility] [address] [place] [address] Dr. Elvis Cifuentes Calcium [Mass/Vol] 8.3 mg/dL Critically low 8.5-10.1 [facility] Comment on above: Performed By: #### H STROPN #### [facility] [address] [place] [address] Dr. Elvis Cifuentes Chloride [Moles/Vol] 114 mmol/L Critically high 98-107 [facility] Comment on above: Performed By: #### H STROPN #### [facility] [address] [place] [address] Dr. Elvis Cifuentes CO2 [Moles/Vol] 24.8 mmol/L Normal 21.0-32.0 [facility] Comment on above: Performed By: #### H STROPN #### [facility] [address] [place] [address] Dr. Elvis Cifuentes Creatinine [Mass/Vol] 1.23 mg/dL Normal 0.70-1.30 [facility] Comment on above: Performed By: #### H STROPN #### [facility] [address] [place] [address] Dr. Elvis Cifuentes EGFR-AF SRI LANKAN >60 Normal >=60 [facility] Comment on above: Performed By: #### H STROPN #### [facility] [address] [address] [address] Elvis Cifuentes EGFR-NON AF SRI LANKAN 57 mL/min/1.73m2 Critically low >=60 [facility] Comment on above: Performed By: #### H STROPN #### [facility] [address] [address] [address] Elvis Cifuentes Glucose [Mass/Vol] 222 mg/dL Critically high 74-106 [facility] Comment on above: Performed By: #### H STROPN #### [facility] [address] [address] [address] Elvis Cifuentes Potassium [Moles/Vol] 3.2 mmol/L Critically low 3.5-5.1 [facility] Comment on above: Performed By: #### H STROPN #### [facility] [address] [place] [address] Dr. Elvis Cifuentes Sodium [Moles/Vol] 148 mmol/L Critically high 136-145 [facility] Comment on above: Performed By: #### H STROPN #### [facility] [address] [address] [address] Elvis Cifuentes Urea nitrogen [Mass/Vol] 31.0 mg/dL Critically high 7.0-18.0 [facility] Comment on above: Performed By: #### H STROPN #### [facility] [address] [address] [address] Elvis Cifuentes Urea nitrogen/Creatinin e [Mass ratio] 25.2 mg/mg [facility] Comment on above: Performed By: #### H STROPN #### [facility] [address] [address] [address] Elvis Cifuentes CBC W MANUAL DIFFon 05-21-20 22 ATYPICAL LYMPH # Normal [facility] Comment on above: Performed By: #### B LDCX2 #### [facility] [address] [address] [address] Elvis Cifuetnes ATYPICAL LYMPH % Normal [facility] Comment on above: Performed By: #### B LDCX2 #### [facility] [address] [place] [address] Dr. Elvis Cifuentes BAND # 0.4 103/ul Critically high 0.0-0.3 [facility] Comment on above: Performed By: #### B LDCX2 #### [facility] [address] [place] [address] Dr. Elvis Cifuentes BAND % 5 % Normal 0-5 [facility] Comment on above: Performed By: #### B LDCX2 #### [facility] [address] [place] [address] Dr. Elvis Cifuentes BASOM # 0.00 103/ul Normal 0.00-0.10 [facility] Comment on above: Performed By: #### B LDCX2 #### [facility] [address] [place] [address] Dr. Elvis Cifuentes BASOM % 0.0 % Critically low 0.2-2.0 [facility] Comment on above: Performed By: #### B LDCX2 #### [facility] [address] [place] [address] Dr. Elvis Cifuentes BLAST # Normal [facility] Comment on above: Performed By: #### B LDCX2 #### [facility] [address] [place] [address] Dr. Elvis Cifuentes BLAST % Normal [facility] Comment on above: Performed By: #### B LDCX2 #### [facility] [address] [place] [address] Dr. Elvis Cifuentes CORRECTED WBC Normal 4.0-11.0 [facility] Comment on above: Performed By: #### B LDCX2 #### [facility] [address] [place] [address] Dr. Elvis Cifuentes EOS # 0.00 103/ul Normal 0.00-0.70 [facility] Comment on above: Performed By: #### B LDCX2 #### [facility] [address] [place] [address] Dr. Elvis Cifuentes EOS% 0.0 % Critically low 0.9-7.0 [facility] Comment on above: Performed By: #### B LDCX2 #### [facility] [address] [place] [address] Dr. Elvis Cifuentes HCT 31.8 % Critically low 42.0-54.0 [facility] Comment on above: Performed By: #### B LDCX2 #### [facility] [address] [place] [address] Dr. Elvis Cifuentes HGB 10.2 g/dl Critically low 14.0-18.0 [facility] Comment on above: Performed By: #### B LDCX2 #### [facility] [address] [place] [address] Dr. Elvis Cifuentes HYPOCHROMASIA 2+ Normal [facility] Comment on above: Performed By: #### B LDCX2 #### [facility] [address] [place] [address] Dr. Elvis Cifuentes LYMPHM # 0.08 103/ul Critically low 1.20-3.80 [facility] Comment on above: Performed By: #### B LDCX2 #### [facility] [address] [place] [address] Dr. Elvis Cifuentes LYMPHM% 1.0 % Critically low 20.5-60.0 [facility] Comment on above: Performed By: #### B LDCX2 #### [facility] [address] [place] [address] Dr. Elvis Cifuentes MCH 28.8 pg Normal 25.9-34.0 [facility] Comment on above: Performed By: #### B LDCX2 #### [facility] [address] [place] [address] Dr. Elvis Cifuentes MCHC 32.1 g/dl Normal 29.9-35.2 [facility] Comment on above: Performed By: #### B LDCX2 #### [facility] [address] [place] [address] Dr. Elvis Cifuentes MCV 89.8 fL Normal 80.0-94.0 [facility] Comment on above: Performed By: #### B LDCX2 #### [facility] [address] [place] [address] Dr. Elvis Cifuentes METAMYELOCYTE # Normal [facility] Comment on above: Performed By: #### B LDCX2 #### [facility] [address] [place] [address] Dr. Elvis Cifuentes METAMYELOCYTE % Normal [facility] Comment on above: Performed By: #### B LDCX2 #### [facility] [address] [place] [address] Dr. Elvis Cifuentes MONOM# 0.08 103/ul Critically low 0.30-0.80 [facility] Comment on above: Performed By: #### B LDCX2 #### [facility] [address] [place] [address] Dr. Elvis Cifuentes MONOM% 1.0 % Critically low 1.7-12.0 [facility] Comment on above: Performed By: #### B LDCX2 #### [facility] [address] [place] [address] Dr. Elvis Cifuentes MPV 10.7 fL Normal 9.5-13.5 [facility] Comment on above: Performed By: #### B LDCX2 #### [facility] [address] [place] [address] Dr. Elvis Cifuentes MYELOCYTE # Normal [facility] Comment on above: Performed By: #### B LDCX2 #### [facility] [address] [place] [address] Dr. Elvis Cifuentes MYELOCYTE % Normal [facility] Comment on above: Performed By: #### B LDCX2 #### [facility] [address] [place] [address] Dr. Elvis Cifuentes NRBC Normal [facility] Comment on above: Performed By: #### B LDCX2 #### [facility] [address] [place] [address] Dr. Elvis Cifuentes PLT 247 103/ul Normal 150-450 [facility] Comment on above: Performed By: #### B LDCX2 #### [facility] [address] [place] [address] Dr. Elvis Cifuentes POIKILOCYTOSIS 2+ Normal [facility] Comment on above: Performed By: #### B LDCX2 #### [facility] [address] [address] [address] Elvis Cifuentes RBC 3.54 106/ul Critically low 4.70-6.10 [facility] Comment on above: Performed By: #### B LDCX2 #### [facility] [address] [address] [address] Elvis Cifuentes RDW 14.6 % Normal 11.0-15.0 [facility] Comment on above: Performed By: #### B LDCX2 #### [facility] [address] [address] [address] Elvis Cifuentes SEG # 7.81 103/ul Critically high 1.40-6.50 [facility] Comment on above: Performed By: #### B LDCX2 #### [facility] [address] [place] [address] Dr. Elvis Cifuentes SEG % 93.0 % Critically high 43.0-75.0 [facility] Comment on above: Performed By: #### B LDCX2 #### [facility] [address] [address] [address] Elvis Cifuentes WBC 8.4 103/ul Normal 4.0-11.0 [facility] Comment on above: Performed By: #### B LDCX2 #### [facility] [address] [place] [address] ABD/PELVIS WO CONon 05-21 CT ABD/PELVIS WO CON EXAMINATION: CT ABD/PELVIS WO CON, 05/21/2022 8:20 AM EDT HISTORY: pain COMPARISON: CT 12/27/2021 TECHNIQUE: CT scan of the abdomen and pelvis was performed without IV contrast. CT dose reduction technique was used, including Automated Exposure Control. FINDINGS: The lung bases are partially imaged. No effusion seen. No dense infiltrate. Trace amounts of intraperitoneal free air are seen scattered throughout the abdomen consistent with recent surgery. No suspicious focal fluid collection seen. There is mild distention of proximal and mid small bowel. Distal small bowel normal in caliber. No definitive transition point appreciated. The right colon contains small amounts of fluid with more distal colon decompressed. There appears to be an end to side distal rectal anastomosis. The liver appears intact. Gallbladder partially filled. Pancreas, spleen and adrenal glands intact. Kidneys normal in size. No hydronephrosis. Bilateral renal cysts again noted There is an infrarenal abdominal saccular aneurysm measuring 3.7 x 4.3 cm unchanged. Bladder moderately filled. Prostate gland and seminal vesicles intact. Osseous structures grossly intact. IMPRESSION: 1. Probable postoperative ileus versus low-grade partial distal small bowel obstruction due to adhesive disease. There is mild distention of the stomach and proximal small small bowel without definitive transition point. 2. Trace scattered intraperitoneal free air consistent with recent surgery. 3. Stable moderate size saccular infrarenal abdominal aortic aneurysm. Electronically authenticated by: ELIUD ELLIS Date: 2022-05-21 13:48 Normal [facility] MAGNESIUMon 05-21-2022 Magnesium [Mass/Vol] 1.8 mg/dL Normal 1.8-2.4 [facility] Comment on above: Performed By: #### P LULI, MG #### [facility] [address] [place] [address] Dr. Elvis Cifuentes PREALBUMINon 05-21-2022 Prealbumin [Mass/Vol] 11.0 mg/dL Critically low 20.9-45.5 [facility] Comment on above: Performed By: #### P LULI, MG #### [facility] [address] [place] [address] Dr. Elvis Cifuentes PROF CHEM 8 (BAS METB)on Anion gap [Moles/Vol] 14.6 mmol/L Normal [facility] Comment on above: Performed By: #### B LDCX2 #### [facility] [address] [place] [address] Dr. Elvis Cifuentes Calcium [Mass/Vol] 8.4 mg/dL Critically low 8.5-10.1 [facility] Comment on above: Performed By: #### B LDCX2 #### [facility] [address] [place] [address] Dr. Elvis Cifuentes Chloride [Moles/Vol] 111 mmol/L Critically high 98-107 [facility] Comment on above: Performed By: #### B LDCX2 #### [facility] [address] [address] [address] Elvis Cifuentes CO2 [Moles/Vol] 23.3 mmol/L Normal 21.0-32.0 [facility] Comment on above: Performed By: #### B LDCX2 #### [facility] [address] [address] [address] Elvis Cifuentes Creatinine [Mass/Vol] 1.24 mg/dL Normal 0.70-1.30 [facility] Comment on above: Performed By: #### B LDCX2 #### [facility] [address] [address] [address] Elvis Cifuentes EGFR-AF SRI LANKAN >60 Normal >=60 [facility] Comment on above: Performed By: #### B LDCX2 #### [facility] [address] [place] [address] Dr. Elvis Cifuentes EGFR-NON AF SRI LANKAN 57 mL/min/1.73m2 Critically low >=60 [facility] Comment on above: Performed By: #### B LDCX2 #### [facility] [address] [address] [address] Elvis Cifuentes Glucose [Mass/Vol] 138 mg/dL Critically high 74-106 [facility] Comment on above: Performed By: #### B LDCX2 #### [facility] [address] [place] [address] Dr. Elvis Cifuentes Potassium [Moles/Vol] 3.9 mmol/L Normal 3.5-5.1 [facility] Comment on above: Performed By: #### B [id number] #### [facility] [address] [address] [address] Elvis Cifuentes Sodium [Moles/Vol] 145 mmol/L Normal 136-145 [facility] Comment on above: Performed By: #### B [id number] #### [facility] [address] [address] [address] Elvis Cifuentes Urea nitrogen [Mass/Vol] 33.0 mg/dL Critically high 7.0-18.0 [facility] Comment on above: Performed By: #### B [id number] #### [facility] [address] [address] [address] Elvis Cifuentes Urea nitrogen/Creatinin e [Mass ratio] 26.6 mg/mg Normal [facility] Comment on above: Performed By: #### B [id number] #### [facility] [address] [address] [address] Elvis Cifuentes XR CHEST 1 Von 05-21-2022 XR CHEST 1 V EXAM: XR CHEST 1 V HISTORY: SHORTNESS OF BREATH COMPARISON: None. TECHNIQUE: Portable chest FINDINGS: There is a left upper extremity PICC line with tip at the confluence of left innominate vein and superior vena cava. There is an NG tube positioned in mid stomach. Heart size and mediastinum within normal limits. Lungs modestly inflated without acute disease. IMPRESSION: 1. Left upper extremity PICC line tip overlies proximal SVC area. 2. Intact NG tube positioning. 3. No acute cardiopulmonary findings. Electronically authenticated by: ELIUD ELLIS Date: 2022-05-21 15:55 Normal [facility] XR KUB 1 VIEWon 05-21-2022 XR KUB 1 VIEW EXAM: XR KUB 1 VIEW HISTORY: Mechanical ileus. COMPARISON: Abdominal film 05/20/2022. TECHNIQUE: AP abdomen. FINDINGS: Trace amounts of intraperitoneal free air seen consistent with recent surgery. Midline surgical stent stable seen. Stomach is mildly distended. There is mild distention of proximal and mid small bowel with trace scattered air more distally in the colon. Osseous structures intact. IMPRESSION: 1. Mild distention of stomach and proximal bowel with decreased air in stool distally. Focal ileus versus partial distal small bowel obstruction due to adhesive disease. 2. Trace intraperitoneal free air consistent with recent surgery. Electronically authenticated by: ELIUD ELLIS Date: 2022-05-21 15:55 Normal [facility] CBC AUTO DIFFon 05-20-2022 BASO # 0.0 103/ul Normal 0.0-0.1 [facility] Comment on above: Performed By: #### B [id number] #### [facility] [address] [address] [address] Elvis Cifuentes Basophils/100 WBC (Bld) 0.1 % Critically low 0.2-2.0 [facility] Comment on above: Performed By: #### B [id number] #### [facility] [address] [place] [address] Dr. Elvis Cifuentes EO # 0.0 103/ul Normal 0.0-0.7 [facility] Comment on above: Performed By: #### B [id number] #### [facility] [address] [place] [address] Dr. Elvis Cifuentes Eosinophils/100 WBC (Bld) 0.0 % Critically low 0.9-7.0 [facility] Comment on above: Performed By: #### B [id number] #### [facility] [address] [place] [address] Dr. Elvis Cifuentes Erythrocyte distribution width (RBC) [Ratio] 14.6 % Normal 11.0-15.0 [facility] Comment on above: Performed By: #### B LDCX2 #### [facility] [address] [place] [address] Dr. Elvis Cifuentes Hematocrit (Bld) [Volume fraction] 31.8 % Critically low 42.0-54.0 [facility] Comment on above: Performed By: #### B [id number] #### [facility] [address] [place] [address] Dr. Elvis Cifuentes Hemoglobin (Bld) [Mass/Vol] 10.2 g/dL Critically low 14.0-18.0 [facility] Comment on above: Performed By: #### B [id number] #### [facility] [address] [place] [address] Dr. Elvis Cifuentes IG # 0.07 10e3/ul Critically high 0.00-0.03 [facility] Comment on above: Performed By: #### B [id number] #### [facility] [address] [place] [address] Dr. Elvis Cifuentes IG % 0.5 % Normal 0.0-0.5 [facility] Comment on above: Performed By: #### B LDCX2 #### [facility] [address] [place] [address] Dr. Elvis Cifuentes LYMPH # 0.3 103/ul Critically low 1.2-3.8 [facility] Comment on above: Performed By: #### B LDCX2 #### [facility] [address] [place] [address] Dr. Elvis Cifuentes Lymphocytes/100 WBC (Bld) 1.9 % Critically low 20.5-60.0 [facility] Comment on above: Performed By: #### B LDCX2 #### [facility] [address] [place] [address] Dr. Elvis Cifuentes MANUAL DIFF REQ NO Normal [facility] Comment on above: Performed By: #### B [id number] #### [facility] [address] [place] [address] Dr. Elvis Cifuentes MCH (RBC) [Entitic mass] 29.1 pg Normal 25.9-34.0 [facility] Comment on above: Performed By: #### B LDCX2 #### [facility] [address] [place] [address] Dr. Elvis Cifuentes MCHC (RBC) [Mass/Vol] 32.1 g/dL Normal 29.9-35.2 [facility] Comment on above: Performed By: #### B [id number] #### [facility] [address] [place] [address] Dr. Elvis Cifuentes MCV (RBC) [Entitic vol] 90.9 fL Normal 80.0-94.0 [facility] Comment on above: Performed By: #### B LDCX2 #### [facility] [address] [place] [address] Dr. Elvis Cifuentes MONO # 0.3 103/ul Normal 0.3-0.8 [facility] Comment on above: Performed By: #### B LDCX2 #### [facility] [address] [place] [address] Dr. Elvis Cifuentes Monocytes/100 WBC (Bld) 2.1 % Normal 1.7-12.0 [facility] Comment on above: Performed By: #### B LDCX2 #### [facility] [address] [place] [address] Dr. Elvis Cifuentes NEUT # 13.0 103/ul Critically high 1.4-6.5 [facility] Comment on above: Performed By: #### B LDCX2 #### [facility] [address] [place] [address] Dr. Elvis Cifuentes Neutrophils/100 WBC (Bld) 95.4 % Critically high 43.0-75.0 [facility] Comment on above: Performed By: #### B LDCX2 #### [facility] [address] [place] [address] Dr. Elvis Cifuentes Platelet mean volume (Bld) [Entitic vol] 10.4 fL Normal 9.5-13.5 [facility] Comment on above: Performed By: #### B LDCX2 #### [facility] [address] [place] [address] Dr. Elvis Cifuentes PLT 215 103/ul Normal 150-450 [facility] Comment on above: Performed By: #### B LDCX2 #### [facility] [address] [place] [address] Dr. Elvis Cifuentes RBC 3.50 106/ul Critically low 4.70-6.10 [facility] Comment on above: Performed By: #### B LDCX2 #### [facility] [address] [place] [address] Dr. Elvis Cifuentes WBC 13.6 103/ul Critically high 4.0-11.0 [facility] Comment on above: Performed By: #### B LDCX2 #### [facility] [address] [place] [address] Dr. Elvis Cifuentes GI PANEL (PCR)on 05-20-2022 Adenovirus F 40/41 Not detected Normal NOT DETECTED [facility] Comment on above: Performed By: #### G IPANEL #### [facility] [address] [place] [address] Dr. Elvis Cifuentes Astrovirus Not detected Normal NOT DETECTED [facility] Comment on above: Performed By: #### G IPANEL #### [facility] [address] [place] [address] Dr. Elvis Cifuentes C. Diff toxin A/B Detected Critically abnormal NOT DETECTED [facility] Comment on above: Performed By: #### G IPANEL #### [facility] [address] [place] [address] Dr. Elvis Cifuentes Campylobacter Not detected Normal NOT DETECTED [facility] Comment on above: Performed By: #### G IPANEL #### [facility] [address] [place] [address] Dr. Elvis Cifuentes Cryptosporidium Not detected Normal NOT DETECTED [facility] Comment on above: Performed By: #### G IPANEL #### [facility] [address] [address] [address] Elvis Cifuentes Cyclos. Cayetanensis Not detected Normal NOT DETECTED [facility] Comment on above: Performed By: #### G IPANEL #### [facility] [address] [place] [address] Dr. Elvis Cifuentes E. Coli O157 Not Applicable Normal Not Applicable [facility] Comment on above: Performed By: #### G IPANEL #### [facility] [address] [place] [address] Dr. Elvis Cifuentes E. histolytica Not detected Normal NOT DETECTED [facility] Comment on above: Performed By: #### G IPANEL #### [facility] [address] [place] [address] Dr. Elvis Cifuentes EAEC Detected Abnormal NOT DETECTED [facility] Comment on above: Performed By: #### G IPANEL #### [facility] [address] [place] [address] Dr. Elvis Cifuentes EIEC Not detected Normal NOT DETECTED [facility] Comment on above: Performed By: #### G IPANEL #### [facility] [address] [place] [address] Dr. Elvis Cifuentes EPEC Not detected Normal NOT DETECTED [facility] Comment on above: Performed By: #### G IPANEL #### [facility] [address] [place] [address] Dr. Elvis Cifuentes ETEC Not detected Normal NOT DETECTED [facility] Comment on above: Performed By: #### G IPANEL #### [facility] [address] [address] [address] Elvis Chapman Lamblia Not detected Normal NOT DETECTED [facility] Comment on above: Performed By: #### G IPANEL #### [facility] [address] [address] [address] Elvis PEREZ CONTROLS PASSED Normal [facility] Comment on above: Performed By: #### G IPANEL #### [facility] [address] [address] [address] Elvis [facility] GI PANEL BACTERIA Normal [facility] Comment on above: Performed By: #### G IPANEL #### [facility] [address] [address] [address] Elvis WILKERSON ECOLI GI PANEL DIARRHEAGEN IC E.COLI / SHIGELLA Normal [facility] Comment on above: Performed By: #### G IPANEL #### [facility] [address] [place] [address] Dr. Elvis WILKERSON INFO SEE BELOW Normal [facility] Comment on above: Result Comment: EAEC - Enteroaggregative E. Coli EPEC- Enteropathogenic E. Coli ETEC- Enterotoxigenic E. Coli lt/st STEC- Shigella-like toxin-producing E. Coli stx1/stx2 EIEC- Shigella/Enteroinvasive E. Coli Performed By: #### G IPANEL #### [facility] [address] [place] [address] Dr. Elvis WILKERSON PARASITES GI PANEL PARASITES Normal [facility] Comment on above: Performed By: #### G IPANEL #### [facility] [address] [place] [address] Dr. Elvis WILKERSON VIRUS GI PANEL VIRUSES Normal [facility] Comment on above: Performed By: #### G IPANEL #### [facility] [address] [place] [address] Dr. Elvis Cifuentes Norovirus GI/GII Not detected Normal NOT DETECTED [facility] Comment on above: Performed By: #### G IPANEL #### [facility] [address] [place] [address] Dr. Elvis Cifuentes P. Shigelloides Not detected Normal NOT DETECTED [facility] Comment on above: Performed By: #### G IPANEL #### [facility] [address] [place] [address] Dr. Elvis Cifuentes Rotavirus A Not detected Normal NOT DETECTED [facility] Comment on above: Performed By: #### G IPANEL #### [facility] [address] [place] [address] Dr. Elvis Cifuentes Salmonella Not detected Normal NOT DETECTED [facility] Comment on above: Performed By: #### G IPANEL #### [facility] [address] [place] [address] Dr. Elvis Cifuentes Sapovirus Not detected Normal NOT DETECTED [facility] Comment on above: Performed By: #### G IPANEL #### [facility] [address] [place] [address] Dr. Elvis Cifuentes STEC Not detected Normal NOT DETECTED [facility] Comment on above: Performed By: #### G IPANEL #### [facility] [address] [place] [address] Dr. Elvis Cifuentes Vibrio Not detected Normal NOT DETECTED [facility] Comment on above: Performed By: #### G IPANEL #### [facility] [address] [place] [address] Dr. Elvis Cifuentes Vibrio Cholera Not detected Normal NOT DETECTED [facility] Comment on above: Performed By: #### G IPANEL #### [facility] [address] [place] [address] Dr. Elvis Cifuentes Y. Enterocolitica Not detected Normal NOT DETECTED [facility] Comment on above: Performed By: #### G IPANEL #### [facility] [address] [place] [address] Dr. Elvis Cifuentes PROF CHEM 8 (BAS METB)on Anion gap [Moles/Vol] 15.4 mmol/L Normal [facility] Comment on above: Performed By: #### P OCGLUC #### [facility] [address] [place] [address] Dr. Elvis Cifuentes Calcium [Mass/Vol] 8.8 mg/dL Normal 8.5-10.1 [facility] Comment on above: Performed By: #### P OCGLUC #### [facility] [address] [address] [address] Elvis Cifuentes Chloride [Moles/Vol] 110 mmol/L Critically high 98-107 [facility] Comment on above: Performed By: #### P OCGLUC #### [facility] [address] [address] [address] Elvis Cifuentes CO2 [Moles/Vol] 21.8 mmol/L Normal 21.0-32.0 [facility] Comment on above: Performed By: #### P OCGLUC #### [facility] [address] [address] [address] Elvis Cifuentes Creatinine [Mass/Vol] 1.23 mg/dL Normal 0.70-1.30 [facility] Comment on above: Performed By: #### P OCGLUC #### [facility] [address] [address] [address] Elvis Cifuentes EGFR-AF SRI LANKAN >60 Normal >=60 [facility] Comment on above: Performed By: #### P OCGLUC #### [facility] [address] [place] [address] Dr. Elvis Cifuentes EGFR-NON AF SRI LANKAN 57 mL/min/1.73m2 Critically low >=60 [facility] Comment on above: Performed By: #### P OCGLUC #### [facility] [address] [address] [address] Elvis Cifuentes Glucose [Mass/Vol] 146 mg/dL Critically high 74-106 [facility] Comment on above: Performed By: #### P OCGLUC #### [facility] [address] [address] [address] Elvis Cifuentes Potassium [Moles/Vol] 4.2 mmol/L Normal 3.5-5.1 [facility] Comment on above: Performed By: #### P OCGLUC #### [facility] [address] [address] [address] Elvis Cifuentes Sodium [Moles/Vol] 143 mmol/L Normal 136-145 [facility] Comment on above: Performed By: #### P OCGLUC #### [facility] [address] [address] [address] Elvis Cifuentes Urea nitrogen [Mass/Vol] 27.0 mg/dL Critically high 7.0-18.0 [facility] Comment on above: Performed By: #### P OCGLUC #### [facility] [address] [address] [address] Elvis Cifuentes Urea nitrogen/Creatinin e [Mass ratio] 22.0 mg/mg Normal [facility] Comment on above: Performed By: #### P OCGLUC #### [facility] [address] [address] [address] Elvis Cifuentes XR ABD FLAT UP_PA Lawrence 05-20 XR ABD FLAT UP_PA CH EXAMINATION: XR ABD FLAT UP_PA CH REASON FOR EXAM: Pain. COMPARISON STUDY: CT from 12/27/2021. FINDINGS: Total of four views. The patient has a laparotomy scar which accounts for the pneumoperitoneum. A surgical staple anastomosis is seen in the pelvis. Air-fluid levels are seen in distended small bowel loops which have a caliber of up to 4.5 cm. No obvious transition point identified. IMPRESSION 1. Recent midline laparotomy accounting for small volume pneumoperitoneum. 2. Moderately distended small bowel loops with air-fluid levels indeterminate for ileus or obstruction. 3. Atelectasis at lung bases. Electronically authenticated by: NICKI ELMORE Date: 2022-05-20 10:22 Normal [facility] CBC AUTO DIFFon 05-19-2022 BASO # 0.0 103/ul Normal 0.0-0.1 [facility] Comment on above: Performed By: #### C EA. #### [facility] [address] [place] [address] Dr. Elvis Cifuentes Basophils/100 WBC (Bld) 0.2 % Normal 0.2-2.0 [facility] Comment on above: Performed By: #### C EA. #### [facility] [address] [address] [address] Elvis Cifuentes EO # 0.1 103/ul Normal 0.0-0.7 [facility] Comment on above: Performed By: #### C EA. #### [facility] [address] [place] [address] Dr. Elvis Cifuentes Eosinophils/100 WBC (Bld) 0.3 % Critically low 0.9-7.0 [facility] Comment on above: Performed By: #### C EA. #### [facility] [address] [place] [address] Dr. Elvis Cifuentes Erythrocyte distribution width (RBC) [Ratio] 14.6 % Normal 11.0-15.0 [facility] Comment on above: Performed By: #### C EA. #### [facility] [address] [place] [address] Dr. Elvis Cifuentes Hematocrit (Bld) [Volume fraction] 30.0 % Critically low 42.0-54.0 [facility] Comment on above: Performed By: #### C EA. #### [facility] [address] [place] [address] Dr. Elvis Cifuentes Hemoglobin (Bld) [Mass/Vol] 9.4 g/dL Critically low 14.0-18.0 [facility] Comment on above: Performed By: #### C EA. #### [facility] [address] [place] [address] Dr. Elvis Cifuentes IG # 0.24 10e3/ul Critically high 0.00-0.03 [facility] Comment on above: Performed By: #### C EA. #### [facility] [address] [place] [address] Dr. Elvis Cifuentes IG % 1.4 % Critically high 0.0-0.5 [facility] Comment on above: Performed By: #### C EA. #### [facility] [address] [place] [address] Dr. Elvis Cifuentes LYMPH # 0.6 103/ul Critically low 1.2-3.8 [facility] Comment on above: Performed By: #### C EA. #### [facility] [address] [place] [address] Dr. Elvis Cifuentes Lymphocytes/100 WBC (Bld) 3.8 % Critically low 20.5-60.0 [facility] Comment on above: Performed By: #### C EA. #### [facility] [address] [place] [address] Dr. Elvis Cifuentes MANUAL DIFF REQ NO Normal [facility] Comment on above: Performed By: #### C EA. #### [facility] [address] [place] [address] Dr. Elvis Cifuentes MCH (RBC) [Entitic mass] 28.8 pg Normal 25.9-34.0 [facility] Comment on above: Performed By: #### C EA. #### [facility] [address] [place] [address] Dr. Elvis Cifuentes MCHC (RBC) [Mass/Vol] 31.3 g/dL Normal 29.9-35.2 [facility] Comment on above: Performed By: #### C EA. #### [facility] [address] [place] [address] Dr. Elvis Cifuentes MCV (RBC) [Entitic vol] 92.0 fL Normal 80.0-94.0 [facility] Comment on above: Performed By: #### C EA. #### [facility] [address] [place] [address] Dr. Elvis Cifuentes MONO # 0.8 103/ul Normal 0.3-0.8 [facility] Comment on above: Performed By: #### C EA. #### [facility] [address] [place] [address] Dr. Elvis Cifuentes Monocytes/100 WBC (Bld) 4.6 % Normal 1.7-12.0 [facility] Comment on above: Performed By: #### C EA. #### [facility] [address] [place] [address] Dr. Elvis Cifuentes NEUT # 15.0 103/ul Critically high 1.4-6.5 [facility] Comment on above: Performed By: #### C EA. #### [facility] [address] [place] [address] Dr. Elvis Cifuentes Neutrophils/100 WBC (Bld) 89.7 % Critically high 43.0-75.0 [facility] Comment on above: Performed By: #### C EA. #### [facility] [address] [place] [address] Dr. Elvis Cifuentes Platelet mean volume (Bld) [Entitic vol] 9.9 fL Normal 9.5-13.5 [facility] Comment on above: Performed By: #### C EA. #### [facility] [address] [place] [address] Dr. Elvis Cifuentes PLT 193 103/ul Normal 150-450 [facility] Comment on above: Performed By: #### C EA. #### [facility] [address] [place] [address] Dr. Elvis Cifuentes RBC 3.26 106/ul Critically low 4.70-6.10 [facility] Comment on above: Performed By: #### C EA. #### [facility] [address] [place] [address] Dr. Elvis Cifuentes WBC 16.7 103/ul Critically high 4.0-11.0 [facility] Comment on above: Performed By: #### C EA. #### [facility] [address] [place] [address] Dr. Elvis Cifuentes POINT OF CARE GLUCOSEon 05-08 Glucose [Mass/Vol] 98 mg/dL Normal 74-106 [facility] Comment on above: Performed By: #### P OCGLUC #### [facility] [address] [place] [address] Dr. Elvis Cifuentes PROF CHEM 8 (BAS METB)on Anion gap [Moles/Vol] 13.4 mmol/L Normal [facility] Comment on above: Performed By: #### G IPANEL #### [facility] [address] [place] [address] Dr. Elvis Cifuentes Calcium [Mass/Vol] 8.6 mg/dL Normal 8.5-10.1 [facility] Comment on above: Performed By: #### G IPANEL #### [facility] [address] [place], [place] [id number] Dr. Elvis Cifuentes Chloride [Moles/Vol] 109 mmol/L Critically high 98-107 [facility] Comment on above: Performed By: #### G IPANEL #### [facility] [address] [address] [address] Elvis Cifuentes CO2 [Moles/Vol] 23.1 mmol/L Normal 21.0-32.0 [facility] Comment on above: Performed By: #### G IPANEL #### [facility] [address] [address] [address] Elvis Cifuentes Creatinine [Mass/Vol] 1.43 mg/dL Critically high 0.70-1.30 [facility] Comment on above: Performed By: #### G IPANEL #### [facility] [address] [place] [address] Dr. Elvis Cifuentes EGFR-AF SRI LANKAN 58 mL/min/1.73m2 Critically low >=60 [facility] Comment on above: Performed By: #### G IPANEL #### [facility] [address] [place] [address] Dr. Elvis Cifuentes EGFR-NON AF SRI LANKAN 48 mL/min/1.73m2 Critically low >=60 [facility] Comment on above: Performed By: #### G IPANEL #### [facility] [address] [place] [address] Dr. Elvis Cifuentes Glucose [Mass/Vol] 101 mg/dL Normal 74-106 [facility] Comment on above: Performed By: #### G IPANEL #### [facility] [address] [place] [address] Dr. Elvis Cifuentes Potassium [Moles/Vol] 4.5 mmol/L Normal 3.5-5.1 [facility] Comment on above: Performed By: #### G IPANEL #### [facility] [address] [place] [address] Dr. Elvis Cifuentes Sodium [Moles/Vol] 141 mmol/L Normal 136-145 [facility] Comment on above: Performed By: #### G IPANEL #### [facility] [address] [place] [address] Dr. Elvis Cifuentes Urea nitrogen [Mass/Vol] 25.0 mg/dL Critically high 7.0-18.0 [facility] Comment on above: Performed By: #### G IPANEL #### [facility] [address] [place] [address] Dr. Elvis Cifuentes Urea nitrogen/Creatinin e [Mass ratio] 17.5 mg/mg Normal [facility] Comment on above: Performed By: #### G IPANEL #### [facility] [address] [address] [address] Elvis Cifuentes CBC W MANUAL DIFFon 05-18-20 22 ATYPICAL LYMPH # Normal [facility] Comment on above: Performed By: #### P OCGLUC #### [facility] [address] [place] [address] Dr. Elvis Cifuentes ATYPICAL LYMPH % Normal [facility] Comment on above: Performed By: #### P OCGLUC #### [facility] [address] [place] [address] Dr. Elvis Cifuentes BAND # 0.0 103/ul Normal 0.0-0.3 [facility] Comment on above: Performed By: #### P OCGLUC #### [facility] [address] [place] [address] Dr. Elvis Cifuentes BAND % 0 % Normal 0-5 [facility] Comment on above: Performed By: #### P OCGLUC #### [facility] [address] [place] [address] Dr. Elvis Cifuentes BASOM # 0.00 103/ul Normal 0.00-0.10 [facility] Comment on above: Performed By: #### P OCGLUC #### [facility] [address] [place] [address] Dr. Elvis Cifuentes BASOM % 0.0 % Critically low 0.2-2.0 [facility] Comment on above: Performed By: #### P OCGLUC #### [facility] [address] [place] [address] Dr. Elvis Cifuentes BLAST # Normal [facility] Comment on above: Performed By: #### P OCGLUC #### [facility] [address] [place] [address] Dr. Elvis Cifuentes BLAST % Normal [facility] Comment on above: Performed By: #### P OCGLUC #### [facility] [address] [place] [address] Dr. Elvis Cifuentes CORRECTED WBC Normal 4.0-11.0 [facility] Comment on above: Performed By: #### P OCGLUC #### [facility] [address] [place] [address] Dr. Elvis Cifuentes EOS # 0.00 103/ul Normal 0.00-0.70 [facility] Comment on above: Performed By: #### P OCGLUC #### [facility] [address] [place] [address] Dr. Elvis Cifuentes EOS% 0.0 % Critically low 0.9-7.0 [facility] Comment on above: Performed By: #### P OCGLUC #### [facility] [address] [place] [address] Dr. Elvis Cifuentes HCT 31.2 % Critically low 42.0-54.0 [facility] Comment on above: Performed By: #### P OCGLUC #### [facility] [address] [place] [address] Dr. Elvis Cifuentes HGB 10.0 g/dl Critically low 14.0-18.0 [facility] Comment on above: Performed By: #### P OCGLUC #### [facility] [address] [place] [address] Dr. Elvis Cifuentes HYPERSEG NEUT 2+ Normal [facility] Comment on above: Performed By: #### P OCGLUC #### [facility] [address] [place] [address] Dr. Elvis Cifuentes LYMPHM # 0.66 103/ul Critically low 1.20-3.80 [facility] Comment on above: Performed By: #### P OCGLUC #### [facility] [address] [place] [address] Dr. Elvis Cifuentes LYMPHM% 4.0 % Critically low 20.5-60.0 [facility] Comment on above: Performed By: #### P OCGLUC #### [facility] [address] [place] [address] Dr. Elvis Cifuentes MCH 29.3 pg Normal 25.9-34.0 [facility] Comment on above: Performed By: #### P OCGLUC #### [facility] [address] [place] [address] Dr. Elvis Cifuentes MCHC 32.1 g/dl Normal 29.9-35.2 [facility] Comment on above: Performed By: #### P OCGLUC #### [facility] [address] [place] [address] Dr. Elvis Cifuentes MCV 91.5 fL Normal 80.0-94.0 [facility] Comment on above: Performed By: #### P OCGLUC #### [facility] [address] [place] [address] Dr. Elvis Cifuentes METAMYELOCYTE # Normal [facility] Comment on above: Performed By: #### P OCGLUC #### [facility] [address] [place] [address] Dr. Elvis Cifuentes METAMYELOCYTE % Normal [facility] Comment on above: Performed By: #### P OCGLUC #### [facility] [address] [place] [address] Dr. Elvis Cifuentes MONOM# 0.17 103/ul Critically low 0.30-0.80 [facility] Comment on above: Performed By: #### P OCGLUC #### [facility] [address] [place] [address] Dr. Elvis Cifuentes MONOM% 1.0 % Critically low 1.7-12.0 [facility] Comment on above: Performed By: #### P OCGLUC #### [facility] [address] [place] [address] Dr. Elvis Cifuentes MPV 10.0 fL Normal 9.5-13.5 [facility] Comment on above: Performed By: #### P OCGLUC #### [facility] [address] [place] [address] Dr. Elvis Cifuentes MYELOCYTE # Normal [facility] Comment on above: Performed By: #### P OCGLUC #### [facility] [address] [address] [address] Elvis Cifuentes MYELOCYTE % Normal [facility] Comment on above: Performed By: #### P OCGLUC #### [facility] [address] [address] [address] Elvis Cifuentes NRBC Normal [facility] Comment on above: Performed By: #### P OCGLUC #### [facility] [address] [address] [address] Elvis Cifuentes PLT 201 103/ul Normal 150-450 [facility] Comment on above: Performed By: #### P OCGLUC #### [facility] [address] [place] [address] Dr. Elvis Cifuentes RBC 3.41 106/ul Critically low 4.70-6.10 [facility] Comment on above: Performed By: #### P OCGLUC #### [facility] [address] [place] [address] Dr. Elvis Cifuentes RDW 14.2 % Normal 11.0-15.0 [facility] Comment on above: Performed By: #### P OCGLUC #### [facility] [address] [place] [address] Dr. Elvis Cifuentes SEG # 15.68 103/ul Critically high 1.40-6.50 [facility] Comment on above: Performed By: #### P OCGLUC #### [facility] [address] [place] [address] Dr. Elvis Cifuentes SEG % 95.0 % Critically high 43.0-75.0 [facility] Comment on above: Performed By: #### P OCGLUC #### [facility] [address] [address] [address] Elvis Cifuentes TOXIC GRANULATION 3+ Normal [facility] Comment on above: Performed By: #### P OCGLUC #### [facility] [address] [place] [address] Dr. Elvis Cifuentes WBC 16.5 103/ul Critically high 4.0-11.0 [facility] Comment on above: Performed By: #### P OCGLUC #### [facility] [address] [address] [address] Elvis Cifuentes PROF CHEM 8 (BAS METB)on Anion gap [Moles/Vol] 14.2 mmol/L Normal [facility] Comment on above: Performed By: #### B LDCX2 #### [facility] [address] [place] [address] Dr. Elvis Cifuentes Calcium [Mass/Vol] 8.4 mg/dL Critically low 8.5-10.1 [facility] Comment on above: Performed By: #### B LDCX2 #### [facility] [address] [place] [address] Dr. Elvis Cifuentes Chloride [Moles/Vol] 108 mmol/L Critically high 98-107 [facility] Comment on above: Performed By: #### B LDCX2 #### [facility] [address] [place] [address] Dr. Elvis Cifuentes CO2 [Moles/Vol] 24.6 mmol/L Normal 21.0-32.0 [facility] Comment on above: Performed By: #### B LDCX2 #### [facility] [address] [place] [address] Dr. Elvis Cifuentes Creatinine [Mass/Vol] 1.41 mg/dL Critically high 0.70-1.30 [facility] Comment on above: Performed By: #### B LDCX2 #### [facility] [address] [place] [address] Dr. Elvis Cifuentes EGFR-AF SRI LANKAN 59 mL/min/1.73m2 Critically low >=60 [facility] Comment on above: Performed By: #### B LDCX2 #### [facility] [address] [place] [address] Dr. Elvis Cifuentes EGFR-NON AF SRI LANKAN 49 mL/min/1.73m2 Critically low >=60 [facility] Comment on above: Performed By: #### B LDCX2 #### [facility] [address] [place] [address] Dr. Elvis Cifuentes Glucose [Mass/Vol] 113 mg/dL Critically high 74-106 [facility] Comment on above: Performed By: #### B LDCX2 #### [facility] [address] [place] [address] Dr. Elvis Cifuentes Potassium [Moles/Vol] 4.8 mmol/L Normal 3.5-5.1 [facility] Comment on above: Performed By: #### B LDCX2 #### [facility] [address] [place] [address] Dr. Elvis Cifuentes Sodium [Moles/Vol] 142 mmol/L Normal 136-145 [facility] Comment on above: Performed By: #### B LDCX2 #### [facility] [address] [place] [address] Dr. Elvis Cifuentes Urea nitrogen [Mass/Vol] 20.0 mg/dL Critically high 7.0-18.0 [facility] Comment on above: Performed By: #### B LDCX2 #### [facility] [address] [place] [address] Dr. Elvis Cifuentes Urea nitrogen/Creatinin e [Mass ratio] 14.2 mg/mg Normal [facility] Comment on above: Performed By: #### B LDCX2 #### [facility] [address] [place] [address] Dr. Elvis Cfiuentes CBC AUTO DIFFon 05-15-2022 BASO # 0.1 103/ul Normal 0.0-0.1 [facility] Comment on above: Performed By: #### U RCX #### [facility] [address] [place] [address] Dr. Elvis Cifuentes Basophils/100 WBC (Bld) 1.4 % Normal 0.2-2.0 [facility] Comment on above: Performed By: #### U RCX #### [facility] [address] [place] [address] Dr. Elvis Cifuentes EO # 0.2 103/ul Normal 0.0-0.7 [facility] Comment on above: Performed By: #### U RCX #### [facility] [address] [place] [address] Dr. Elvis Cifuentes Eosinophils/100 WBC (Bld) 3.3 % Normal 0.9-7.0 [facility] Comment on above: Performed By: #### U RCX #### [facility] [address] [place] [address] Dr. Elvis Cifuentes Erythrocyte distribution width (RBC) [Ratio] 14.2 % Normal 11.0-15.0 [facility] Comment on above: Performed By: #### U RCX #### [facility] [address] [place] [address] Dr. Elvis Cifuentes Hematocrit (Bld) [Volume fraction] 36.0 % Critically low 42.0-54.0 [facility] Comment on above: Performed By: #### U RCX #### [facility] [address] [place] [address] Dr. Elvis Cifuentes Hemoglobin (Bld) [Mass/Vol] 11.7 g/dL Critically low 14.0-18.0 [facility] Comment on above: Performed By: #### U RCX #### [facility] [address] [place] [address] Dr. Elvis Cifuentes IG # 0.02 10e3/ul Normal 0.00-0.03 [facility] Comment on above: Performed By: #### U RCX #### [facility] [address] [place] [address] Dr. Elvis Cifuentes IG % 0.3 % Normal 0.0-0.5 [facility] Comment on above: Performed By: #### U RCX #### [facility] [address] [place] [address] Dr. Elvis Cifuentes LYMPH # 1.4 103/ul Normal 1.2-3.8 [facility] Comment on above: Performed By: #### U RCX #### [facility] [address] [place] [address] Dr. Elvis Cifuentes Lymphocytes/100 WBC (Bld) 19.3 % Critically low 20.5-60.0 [facility] Comment on above: Performed By: #### U RCX #### [facility] [address] [place] [address] Dr. Elvis Cifuentes MANUAL DIFF REQ NO Normal [facility] Comment on above: Performed By: #### U RCX #### [facility] [address] [place] [address] Dr. Elvis Cifuentes MCH (RBC) [Entitic mass] 28.8 pg Normal 25.9-34.0 [facility] Comment on above: Performed By: #### U RCX #### [facility] [address] [place] [address] Dr. Elvis Cifuentes MCHC (RBC) [Mass/Vol] 32.5 g/dL Normal 29.9-35.2 [facility] Comment on above: Performed By: #### U RCX #### [facility] [address] [place] [address] Dr. Elvis Cifuentes MCV (RBC) [Entitic vol] 88.7 fL Normal 80.0-94.0 [facility] Comment on above: Performed By: #### U RCX #### [facility] [address] [place] [address] Dr. Elvis Cifuentes MONO # 0.7 103/ul Normal 0.3-0.8 [facility] Comment on above: Performed By: #### U RCX #### [facility] [address] [place] [address] Dr. Elvis Cifuentes Monocytes/100 WBC (Bld) 9.0 % Normal 1.7-12.0 [facility] Comment on above: Performed By: #### U RCX #### [facility] [address] [place] [address] Dr. Elvis Cifuentes NEUT # 4.8 103/ul Normal 1.4-6.5 [facility] Comment on above: Performed By: #### U RCX #### [facility] [address] [place] [address] Dr. Elvis Cifuentes Neutrophils/100 WBC (Bld) 66.7 % Normal 43.0-75.0 [facility] Comment on above: Performed By: #### U RCX #### [facility] [address] [place] [address] Dr. Elvis Cifuentes Platelet mean volume (Bld) [Entitic vol] 9.6 fL Normal 9.5-13.5 [facility] Comment on above: Performed By: #### U RCX #### [facility] [address] [place] [address] Dr. Elvis Cifuentes PLT 233 103/ul Normal 150-450 [facility] Comment on above: Performed By: #### U RCX #### [facility] [address] [address] [address] Elvis Cifuentes RBC 4.06 106/ul Critically low 4.70-6.10 [facility] Comment on above: Performed By: #### U RCX #### [facility] [address] [place] [address] Dr. Elvis Cifuentes WBC 7.2 103/ul Normal 4.0-11.0 [facility] Comment on above: Performed By: #### U RCX #### [facility] [address] [place] [address] Dr. Elvis Cifuentes Covid-19 PCR ([facility])on SARS-CoV-2 (COVID-19) RNA WENDY+probe Ql (Unsp spec) Not detected Normal NOT DETECTED [facility] Comment on above: Result Comment: This test is not yet approved or cleared by the [place] FDA. When there are no FDA-approved or cleared tests available, and other criteria are met, FDA can make tests available under an emergency access mechanism called an Emergency Use Authorization (EUA). The EUA for this test is supported by the [place] of Health and Human Service's (HHS's) declaration that circumstances exist to justify the emergency use of in vitro diagnostics for the detection and/or diagnosis of the virus that causes COVID-19. This EUA will remain in effect (meaning this test can be used) for the duration of the COVID-19 declaration justifying emergency of IVDs, unless it is terminated or revoked by FDA (after which the test may no longer be used). When diagnostic testing is negative, the possibility of a false negative should be considered in the context of a patient's recent exposures and the presence of clinical signs and symptoms consistent with SARS-CoV-2. Performed By: #### P OCGLUC #### [facility] [address] [place] [address] Dr. Elvis Cifuentes PROF 14(COMP METB)on 022 Albumin [Mass/Vol] 3.7 g/dL Normal 3.4-5.0 [facility] Comment on above: Performed By: #### P REALB, MG #### [facility] [address] [place] [address] Dr. Elvis Cifuentes Albumin/Globulin [Mass ratio] 1.2 {ratio} Normal [facility] Comment on above: Performed By: #### P REALB, MG #### [facility] [address] [place] [address] Dr. Elvis Cifuentes ALP [Catalytic activity/Vol] 76 U/L Normal 46-116 [facility] Comment on above: Performed By: #### P REALB, MG #### [facility] [address] [place] [address] Dr. Elvis Cifuentes ALT [Catalytic activity/Vol] 15 U/L Critically low 16-63 [facility] Comment on above: Performed By: #### P REALB, MG #### [facility] [address] [place] [address] Dr. Elvis Cifuentes Anion gap [Moles/Vol] 10.6 mmol/L Normal [facility] Comment on above: Performed By: #### P REALB, MG #### [facility] [address] [place] [address] Dr. Elvis Cifuentes AST [Catalytic activity/Vol] 12 U/L Critically low 15-37 [facility] Comment on above: Performed By: #### P REALB, MG #### [facility] [address] [place] [address] Dr. Elvis Cifuentes Bilirubin [Mass/Vol] 0.5 mg/dL Normal 0.2-1.0 [facility] Comment on above: Performed By: #### P REALB, MG #### [facility] [address] [place] [address] Dr. Elvis Cifuentes Calcium [Mass/Vol] 9.2 mg/dL Normal 8.5-10.1 [facility] Comment on above: Performed By: #### P REALB, MG #### [facility] [address] [place] [address] Dr. Elvis Cifuentes Chloride [Moles/Vol] 111 mmol/L Critically high 98-107 [facility] Comment on above: Performed By: #### P REALB, MG #### [facility] [address] [place] [address] Dr. Elvis Cifuentes CO2 [Moles/Vol] 27.8 mmol/L Normal 21.0-32.0 [facility] Comment on above: Performed By: #### P REALB, MG #### [facility] [address] [place] [address] Dr. Elvis Cifuentes Creatinine [Mass/Vol] 1.54 mg/dL Critically high 0.70-1.30 [facility] Comment on above: Performed By: #### P REALB, MG #### [facility] [address] [place] [address] Dr. Elvis Cifuentes EGFR-AF SRI LANKAN 53 mL/min/1.73m2 Critically low >=60 [facility] Comment on above: Performed By: #### P REALB, MG #### [facility] [address] [place] [address] Dr. Elvis Cifuentes EGFR-NON AF SRI LANKAN 44 mL/min/1.73m2 Critically low >=60 [facility] Comment on above: Performed By: #### P REALB, MG #### [facility] [address] [place] [address] Dr. Elvis Cifuentes Globulin (S) [Mass/Vol] 3.2 g/dL Normal [facility] Comment on above: Performed By: #### P REALB, MG #### [facility] [address] [place] [address] Dr. Elvis Cifuentes Glucose [Mass/Vol] 86 mg/dL Normal 74-106 [facility] Comment on above: Performed By: #### P REALB, MG #### [facility] [address] [place] [address] Dr. Elvis Cifuentes Potassium [Moles/Vol] 4.4 mmol/L Normal 3.5-5.1 [facility] Comment on above: Performed By: #### P REALB, MG #### [facility] [address] [place] [address] Dr. Elvis Cifuentes Protein [Mass/Vol] 6.9 g/dL Normal 6.4-8.2 [facility] Comment on above: Performed By: #### P REALB, MG #### [facility] [address] [place] [address] Dr. lEvis Cifuentes Sodium [Moles/Vol] 145 mmol/L Normal 136-145 [facility] Comment on above: Performed By: #### P REALB, MG #### [facility] [address] [place] [address] Dr. Elvis Cifuentes Urea nitrogen [Mass/Vol] 16.0 mg/dL Normal 7.0-18.0 [facility] Comment on above: Performed By: #### P REALB, MG #### [facility] [address] [place] [address] Dr. Elvis Cifuentes Urea nitrogen/Creatinin e [Mass ratio] 10.4 mg/mg Normal [facility] Comment on above: Performed By: #### P REALB, MG #### [facility] [address] [place] [address] Dr. Elvis Cifuentes TYPE AND SCREENon 05-15-2022 TYPE AND SCREEN Negative Normal [facility] Comment on above: Performed By: #### P OCGLUC #### [facility] [address] [place] [address] Dr. Elvis Cifuentes US CAROTID ART BILon 022 US CAROTID ART NOMAN EXAMINATION: US SCHMIDT TID ART NOMAN HISTORY: Cardiovascular symptoms COMPARISON: No relevant comparison available. TECHNIQUE: Duplex Doppler ultrasound analysis of carotid and vertebral arteries. . Bilateral carotid arterial duplex examination was performed using B-mode, color flow and spectral analysis. Carotid stenosis is reported according to validated velocity parameters, similar to NASCET criteria. FINDINGS: RIGHT CAROTID ARTERY: Moderate atherosclerotic narrowing of carotid bulb, 60% area reduction. Normal waveform; irregular heartbeat. RIGHT VERTEBRAL: Antegrade flow. Subclavian: PSV: 124.0 cm/s EDV: 0.0 cm/s CCA: Prox: PSV: 94.3 cm/s EDV: 15.4 cm/s Mid: PSV: 93.0 cm/s EDV: 14.1 cm/s Distal: PSV: 80.1 cm/s EDV: 15.4 cm/s BULB: PSV: 93.0 cm/s EDV: 18.0 cm/s ICA: Prox: PSV: 53.0 cm/s EDV: 0.0 cm/s Mid: PSV: 104.2 cm/s EDV: 11.6 cm/s Distal: PSV: 70.7 cm/s EDV: 15.6 cm/s ECA: PSV: 205.9 cm/s EDV: 0.0 cm/s VERTEBRAL: PSV: 53.7 cm/s EDV: 9.8 cm/s ICA/CCA ratio: PSV: 1.3 EDV: 0.8 LEFT CAROTID ARTERY: Moderate atherosclerotic narrowing of carotid bulb, 65%. Normal waveform; irregular heartbeat. LEFT VERTEBRAL: Antegrade flow. Subclavian: PSV: EDV: CCA: Prox: PSV: 87.4 cm/s EDV: 27.9 cm/s Mid: PSV: 84.8 cm/s EDV: 29.2 cm/s Distal: PSV: 70.6 cm/s EDV: 24.0 cm/s BULB: PSV: 65.4 cm/s EDV: 12.4 cm/s ICA: Prox: PSV: 71.8 cm/s EDV: 25.3 cm/s Mid: PSV: 91.9 cm/s EDV: 35.4 cm/s Distal: PSV: 98.4 cm/s EDV: 46.7 cm/s ECA: PSV: 125.4 cm/s EDV: 11.0 cm/s VERTEBRAL: PSV: 44.7 cm/s EDV: 15.0 cm/s ICA/CCA ratio: PSV: 1.4 EDV: 1.9 IMPRESSION: 1. 0-49% flow stenosis bilaterally despite moderate atherosclerotic narrowing of the carotid bulbs bilaterally, 60-65% area reduction. 2. Irregular heartbeat. Electronically authenticated by: GEORGETTE GOLDMAN Date: 2022-05-10 18:16 Normal [facility] No Panel Informationon 04-28 -[facility]ron 250 DO Work Phone: STR cardiac stress/lexiscano n 04-28-2022 STR cardiac stress/lexiscan [facility] [address] [address] Cardiac Stress Test Signed Patient: Maribell Vera MR#: [id number] 4 : 1945 Acct:[id number] Age/Sex: 76 / M ADM Date: 04/27/22 Loc: Room: Type: [facility] Attending Dr: Britt Lazo MD Copies to: Britt Lazo MD, [facility] Ordering Provider: Britt Lazo MD, [facility] Date of Service: 04/27/22 STR/STR cardiac stress/lexiscan: abnormal EKG, surgical clearance ORDERED BY: Britt Lazo MD INDICATION FOR THE STUDY: A 76-year-old patient with abnormal EKG, who needs cardiac clearance prior to surgery. Resting EKG revealed normal sinus rhythm with frequent premature atrial and ventricular complexes. Heart rate at rest 72 beats per minute. Resting blood pressure 120/64. Following intravenous administration of 400 mcg of Lexiscan over 10 seconds, no ischemic EKG changes were noted. Premature atrial and ventricular complexes continued throughout the test. The patient developed significant dizziness and nausea following the stress test. Therefore, 50 mg of intravenous aminophylline was administered leading to relief of his symptoms. Cardiolite study followed. CONCLUSION: 1. No Lexiscan-induced ischemic EKG changes noted. 2. No chest pain was induced by Lexiscan. 3. Symptoms of dizziness and nausea were induced by Lexiscan administration, relieved by intravenous administration of 50 mg of aminophylline. 4. Premature atrial ventricular complexes were noted throughout the test including baseline. 5. Cardiolite studies to be reported separately by nuclear cardiology. Transcribed By: NTS 04/28/22 1632 Dictated By: Britt Lazo MD, FAC 04/28/22 1538 Signed By: 05/01/22 0803 [facility] ECH echo transthoracicon [facility] echo transthoracic [facility] [place] [address] [place] [address] Echocardiogram Signed Patient: Maribell Vera MR#: [id number] 4 : 1945 Acct:[id number] Age/Sex: 76 / M ADM Date: 04/27/22 Loc: Room: Type: [facility] Attending Dr: Britt Lazo MD Ordering Provider: Britt Lazo MD, [facility] Date of Service: 04/27/22/ [facility] echo transthoracic: ABNORMAL EKG, HTN Copies to: Britt Lazo MD, [facility] Dejuan Carranza MD BSA: 1.8 m2 HR: 92 Reason For Study: ABNORMAL EKG, HTN History: family history of CHF, HTN, former smoker Interpretation Summary Ejection Fraction = 55-60%. The left ventricular wall motion is normal. Mild concentric left ventricular hypertrophy. A variety of Doppler measurements indicate impaired left ventricular relaxation, which is associated with grade I/IV or mild diastolic dysfunction. There is mild mitral regurgitation. There is no comparison study available. Procedure/Quality: A two-dimensional transthoracic echocardiogram with color flow and Doppler was performed. The study was technically good in quality. Left Ventricle: The left ventricular size is normal. Mild concentric left ventricular hypertrophy. Ejection Fraction = 55-60%. A variety of Doppler measurements indicate impaired left ventricular relaxation, which is associated with grade I/IV or mild diastolic dysfunction. The left ventricular wall motion is normal. Left Atrium: The left atrium appears normal in size. Right Atrium: The right atrium appears normal in size. Right Ventricle: The right ventricular size, thickness and function are normal. Aortic Valve: The aortic valve is normal in structure and function. No aortic regurgitation is present. Mitral Valve: The mitral valve is mildly sclerotic. There is mild mitral regurgitation. Tricuspid Valve: The tricuspid valve is normal in structure and function. No tricuspid regurgitation. Pulmonic Valve: The pulmonic valve is normal in structure and function. Arteries: The aortic root is normal size. Pericardium/Pleura: No pericardial effusion seen. There is no pleural effusion. IVC/Hepatic Viens: The inferior vena cava is normal in size, with a normal collapsibility index. Measurements with Normals IVSd: 1.1 cm (0.7-1.1 cm)LVIDd: 5.2 cm (3.7-5.4 cm) LVPWd: 1.0 cm (0.7-1.1 cm)LVIDs: 3.5 cm (2.3-3.6 cm) LA dimension: 3.4 cm (2.3-4.0 cm)Ao root diam: 3.2 cm(2.0-3.6 cm) asc Aorta Diam: 3.2 cm(2.1-3.4cm) Doppler with Normals MV E max shawn: 72.2 cm/sec (0.8-1.3m/s) MV A max shawn: 116.9 cm/sec(0.0-0.0m/s) MV E/A: 0.62 (<1.5) MMode/2D Measurements Calculations RVDd: 2.7 cm FS: 32.6 % Ao root area: LVLd ap4: 6.9 cm TAPSE: 2.2 cm EDV(Teich): 8.0 cm2 EDV(MOD-sp4): RV S Shawn: 128.4 ml 70.0 ml 15.9 cm/sec ESV(Teich): LVLs ap4: 6.2 cm 50.6 ml ESV(MOD-sp4): EF(Teich): 60.6 % 27.9 ml EF(MOD-sp4): 60.1 % __ SV(MOD-sp4): LAV(MOD-sp2): LA A2 area: 14.6 cm2 42.1 ml 40.8 ml LA length (vol): 4.1 cm Doppler Measurements Calculations MV dec time: 0.26 sec E/E' lat: 9.5 E/E' med: 10.5 MV dec slope: 281.0 cm/sec2 Transcribed By: SCV Performed At: 04/27/22 1038 Signed By: Dejuan Carranza MD 04/27/22 1144 [facility] NM viky perf SPECT rest stron 04-27-2022 NM viky perf SPECT rest str [facility] [place] [address] Nuclear Medicine Report Signed Patient: Maribell Vera MR#: [id number] 4 : 1945 Acct:[id number] Age/Sex: 76 / M ADM Date: 04/27/22 Loc: Room: Type: [facility] Attending Dr: Britt Lazo MD Copies to: Britt Lazo MD, [facility] Ordering Provider: Britt Lazo MD, [facility] Date of Service: 04/27/22 NM/NM viky perf SPECT rest str: ABN EKG ORDERED BY: Britt Lazo MD A 76-year-old patient with abnormal EKG. Resting images were obtained after intravenous administration of 6 mCi of Cardiolite given on 04/27/2022, and stress images were obtained after intravenous administration of 19.1 mCi of Cardiolite given after Lexiscan administration on 04/27/2022. Subsequently, gated SPECT MPI was obtained. TOMOGRAPHIC DATA: The study is normal with no indication of ischemia or prior myocardial infarction. The study was not gated due to irregular rhythm. TID is normal at 0.99. CONCLUSION: 1. Normal Lexiscan Cardiolite SPECT MPI. 2. No tomographic evidence of ischemia or prior myocardial infarction. 3. The study was not gated, therefore, ejection fraction could not be calculated. TID, though, is normal at 0.99. No previous studies are available for comparison. Transcribed By: NTS 04/28/22 1118 Dictated By: Britt Lazo MD, [facility] 04/27/22 1543 Signed By: 05/17/22 1428 [facility] No Panel Informationon 04-27 Normal [facility] 600 DO Work Phone: Tobacco Screening.on 06-29-2 022 Adult depression screening assessment No [email or web address] 250 DO Work Phone: Fall risk assessment a) No falls within the last year [email or web address] 250 DO Work Phone: Tobacco use status [facility] b) No [email or web address] 250 DO Work Phone: BNPon 04-03-2022 Natriuretic peptide B (Bld) [Mass/Vol] 3821.0 pg/mL Critically high <=1,800.0 [facility] Comment on above: Result Comment: repe ated Performed By: #### P REALB, MG #### [facility] [address] [place] [address] Dr. Elvis Cifuentes PROF 14(COMP METB)on 022 Albumin [Mass/Vol] 3.3 g/dL Critically low 3.4-5.0 Th [facility] Comment on above: Performed By: #### P REALB, MG #### [facility] [address] [place] [address] Dr. Elvis Cifuentes Albumin/Globulin [Mass ratio] 1.0 {ratio} Normal [facility] Comment on above: Performed By: #### P REALB, MG #### [facility] [address] [place] [address] Dr. Elvis Cifuentes ALP [Catalytic activity/Vol] 72 U/L Normal 46-116 [facility] Comment on above: Performed By: #### P REALB, MG #### [facility] [address] [place] [address] Dr. Elvis Cifuentes ALT [Catalytic activity/Vol] 18 U/L Normal 16-63 [facility] Comment on above: Performed By: #### P REALB, MG #### [facility] [address] [place] [address] Dr. Elvis Cifuentes Anion gap [Moles/Vol] 12.6 mmol/L Normal [facility] Comment on above: Performed By: #### P REALB, MG #### [facility] [address] [place] [address] Dr. Elvis Cifuentes AST [Catalytic activity/Vol] 15 U/L Normal 15-37 [facility] Comment on above: Performed By: #### P REALB, MG #### [facility] [address] [place] [address] Dr. Elvis Cifuentes Bilirubin [Mass/Vol] 0.6 mg/dL Normal 0.2-1.0 [facility] Comment on above: Performed By: #### P REALB, MG #### [facility] [address] [place] [address] Dr. Elvis Cifuentes Calcium [Mass/Vol] 8.8 mg/dL Normal 8.5-10.1 [facility] Comment on above: Performed By: #### P REALB, MG #### [facility] [address] [place] [address] Dr. Elvis Cifuentes Chloride [Moles/Vol] 109 mmol/L Critically high 98-107 [facility] Comment on above: Performed By: #### P REALB, MG #### [facility] [address] [place] [address] Dr. Elvis Cifuentes CO2 [Moles/Vol] 26.0 mmol/L Normal 21.0-32.0 [facility] Comment on above: Performed By: #### P REALB, MG #### [facility] [address] [place] [address] Dr. Elvis Cifuentes Creatinine [Mass/Vol] 1.23 mg/dL Normal 0.70-1.30 [facility] Comment on above: Performed By: #### P REALB, MG #### [facility] [address] [place] [address] Dr. Elvis Cifuentes EGFR-AF SRI LANKAN >60 Normal >=60 [facility] Comment on above: Performed By: #### P REALB, MG #### [facility] [address] [place] [address] Dr. Elvis Cifuentes EGFR-NON AF SRI LANKAN 57 mL/min/1.73m2 Critically low >=60 [facility] Comment on above: Performed By: #### P REALB, MG #### [facility] [address] [address] [address] Elvis Cifuentes Globulin (S) [Mass/Vol] 3.2 g/dL Normal [facility] Comment on above: Performed By: #### P REALB, MG #### [facility] [address] [place] [address] Dr. Elvis Cifuentes Glucose [Mass/Vol] 121 mg/dL Critically high 74-106 [facility] Comment on above: Performed By: #### P REALB, MG #### [facility] [address] [place] [address] Dr. Elvis Cifuentes Potassium [Moles/Vol] 4.6 mmol/L Normal 3.5-5.1 [facility] Comment on above: Performed By: #### P REALB, MG #### [facility] [address] [place] [address] Dr. Elvis Cifuentes Protein [Mass/Vol] 6.5 g/dL Normal 6.4-8.2 [facility] Comment on above: Performed By: #### P REALB, MG #### [facility] [address] [place] [address] Dr. Elvis Cifuentes Sodium [Moles/Vol] 143 mmol/L Normal 136-145 [facility] Comment on above: Performed By: #### P REALB, MG #### [facility] [address] [place] [address] Dr. Elvis Cifuentes Urea nitrogen [Mass/Vol] 15.0 mg/dL Normal 7.0-18.0 [facility] Comment on above: Performed By: #### P REALB, MG #### [facility] [address] [place] [address] Dr. Elvis Cifuentes Urea nitrogen/Creatinin e [Mass ratio] 12.2 mg/mg Normal [facility] Comment on above: Performed By: #### P REALB, MG #### [facility] [address] [place] [address] Dr. Elvis Cifuentes TROPONIN, HIGH SENSITIVITYon 04-03-2022 HSTROP 400.6 pg/mL Critically high 4.0-76.1 [facility] Comment on above: Result Comment: CUT- OFF POINTS HAVE BEEN ESTABLISHED BASED ON THE FOURTH UNIVERSAL DEFINITIONS OF MYOCARDIAL INFARCTION. THE UPPER REFERENCE LIMIT (URL) OF TROPONIN, DEFINED THE 99TH PERCENTILE OF cTnI DISTRIBUTION IN A REFERENCE POPULATION, HAS BEEN CONFIRMED THE DECISION THRESHOLD FOR SC DIAGNOSIS. TEST REPEATED CRITICAL RESULT VERIFIED Performed By: #### G IPANEL #### [facility] [address] [place] [address] Dr. Elvis Cifuentes HSTROP 353.2 pg/mL Critically high 4.0-76.1 [facility] Comment on above: Result Comment: CUT- OFF POINTS HAVE BEEN ESTABLISHED BASED ON THE FOURTH UNIVERSAL DEFINITIONS OF MYOCARDIAL INFARCTION. THE UPPER REFERENCE LIMIT (URL) OF TROPONIN, DEFINED THE 99TH PERCENTILE OF cTnI DISTRIBUTION IN A REFERENCE POPULATION, HAS BEEN CONFIRMED THE DECISION THRESHOLD FOR SC DIAGNOSIS. TEST REPEATED CRITICAL RESULT VERIFIED Performed By: #### H STROPN #### [facility] [address] [place] [address] Dr. Elvis Cifuentes CEAon 04-01-2022 CEA 1.8 ng/mL Normal 0.0-4.7 [facility] Comment on above: Result Comment: Nons mokers <3.9 Smokers <5.6 . [employer] Electrochemiluminescence Immunoassay (ECLIA) . Values obtained with different assay methods or kits cannot be used interchangeably. Results cannot be interpreted as absolute evidence of the presence or absence of malignant disease. Performed By: #### C EA. #### [facility] [address] [place] [address] Dr. Elvis Cifuentes CBC AUTO DIFFon 03-31-2022 BASO # 0.1 103/ul Normal 0.0-0.1 [facility] Comment on above: Performed By: #### B LDCX2 #### [facility] [address] [place] [address] Dr. Elvis Cifuentes Basophils/100 WBC (Bld) 1.0 % Normal 0.2-2.0 [facility] Comment on above: Performed By: #### B LDCX2 #### [facility] [address] [place] [address] Dr. Elvis Cifuentes EO # 0.3 103/ul Normal 0.0-0.7 [facility] Comment on above: Performed By: #### B LDCX2 #### [facility] [address] [place] [address] Dr. Elvis Cifuentes Eosinophils/100 WBC (Bld) 3.6 % Normal 0.9-7.0 [facility] Comment on above: Performed By: #### B LDCX2 #### [facility] [address] [place] [address] Dr. Elvis Cifuentes Erythrocyte distribution width (RBC) [Ratio] 14.1 % Normal 11.0-15.0 [facility] Comment on above: Performed By: #### B LDCX2 #### [facility] [address] [place] [address] Dr. Elvis Cifuentes Hematocrit (Bld) [Volume fraction] 37.6 % Critically low 42.0-54.0 [facility] Comment on above: Performed By: #### B LDCX2 #### [facility] [address] [place] [address] Dr. Elvis Cifuentes Hemoglobin (Bld) [Mass/Vol] 12.0 g/dL Critically low 14.0-18.0 [facility] Comment on above: Performed By: #### B LDCX2 #### [facility] [address] [place] [address] Dr. Elvis Cifuentes IG # 0.02 10e3/ul Normal 0.00-0.03 [facility] Comment on above: Performed By: #### B LDCX2 #### [facility] [address] [place] [address] Dr. Elvis Cifuentes IG % 0.3 % Normal 0.0-0.5 [facility] Comment on above: Performed By: #### B LDCX2 #### [facility] [address] [place] [address] Dr. Elvis Cifuentes LYMPH # 1.0 103/ul Critically low 1.2-3.8 [facility] Comment on above: Performed By: #### B LDCX2 #### [facility] [address] [place] [address] Dr. Elvis Cifuentes Lymphocytes/100 WBC (Bld) 14.2 % Critically low 20.5-60.0 [facility] Comment on above: Performed By: #### B LDCX2 #### [facility] [address] [place] [address] Dr. Elvis Cifuentes MANUAL DIFF REQ NO Normal [facility] Comment on above: Performed By: #### B LDCX2 #### [facility] [address] [place] [address] Dr. Elvis Cifuentes MCH (RBC) [Entitic mass] 28.8 pg Normal 25.9-34.0 [facility] Comment on above: Performed By: #### B LDCX2 #### [facility] [address] [place] [address] Dr. Elvis Cifuentes MCHC (RBC) [Mass/Vol] 31.9 g/dL Normal 29.9-35.2 [facility] Comment on above: Performed By: #### B LDCX2 #### [facility] [address] [place] [address] Dr. Elvis Cifuentes MCV (RBC) [Entitic vol] 90.4 fL Normal 80.0-94.0 [facility] Comment on above: Performed By: #### B LDCX2 #### [facility] [address] [place] [address] Dr. Elvis Cifuentes MONO # 0.5 103/ul Normal 0.3-0.8 [facility] Comment on above: Performed By: #### B LDCX2 #### [facility] [address] [place] [address] Dr. Elvis Cifuentes Monocytes/100 WBC (Bld) 6.6 % Normal 1.7-12.0 [facility] Comment on above: Performed By: #### B LDCX2 #### [facility] [address] [place] [address] Dr. Elvis Cifuentes NEUT # 5.2 103/ul Normal 1.4-6.5 [facility] Comment on above: Performed By: #### B LDCX2 #### [facility] [address] [place] [address] Dr. Elvis Cifuentes Neutrophils/100 WBC (Bld) 74.3 % Normal 43.0-75.0 [facility] Comment on above: Performed By: #### B LDCX2 #### [facility] [address] [place] [address] Dr. Elvis Cifuentes Platelet mean volume (Bld) [Entitic vol] 9.8 fL Normal 9.5-13.5 [facility] Comment on above: Performed By: #### B LDCX2 #### [facility] [address] [place] [address] Dr. Elvis Cifuentes PLT 226 103/ul Normal 150-450 [facility] Comment on above: Performed By: #### B LDCX2 #### [facility] [address] [place] [address] Dr. Elvis Cifuentes RBC 4.16 106/ul Critically low 4.70-6.10 [facility] Comment on above: Performed By: #### B LDCX2 #### [facility] [address] [place] [address] Dr. Elvis Cifuentes WBC 7.0 103/ul Normal 4.0-11.0 [facility] Comment on above: Performed By: #### B LDCX2 #### [facility] [address] [place] [address] Dr. Elvis Cifuentes Covid-19 PCR ([facility])on 03-09 SARS-CoV-2 (COVID-19) RNA WENDY+probe Ql (Unsp spec) Not detected Normal NOT DETECTED [facility] Comment on above: Result Comment: This test is not yet approved or cleared by the [place] FDA. When there are no FDA-approved or cleared tests available, and other criteria are met, FDA can make tests available under an emergency access mechanism called an Emergency Use Authorization (EUA). The EUA for this test is supported by the [place] of Health and Human Service's (HHS's) declaration that circumstances exist to justify the emergency use of in vitro diagnostics for the detection and/or diagnosis of the virus that causes COVID-19. This EUA will remain in effect (meaning this test can be used) for the duration of the COVID-19 declaration justifying emergency of IVDs, unless it is terminated or revoked by FDA (after which the test may no longer be used). When diagnostic testing is negative, the possibility of a false negative should be considered in the context of a patient's recent exposures and the presence of clinical signs and symptoms consistent with SARS-CoV-2. Performed By: #### P REALB, MG #### [facility] [address] [place] [address] Dr. Elivs Cifuentes PROF 14(COMP METB)on 022 Albumin [Mass/Vol] 3.2 g/dL Critically low 3.4-5.0 Th [facility] Comment on above: Performed By: #### B LDCX2 #### [facility] [address] [place] [address] Dr. Elvis Cifuentes Albumin/Globulin [Mass ratio] 1.0 {ratio} Normal [facility] Comment on above: Performed By: #### B LDCX2 #### [facility] [address] [place] [address] Dr. Elvis Cifuentes ALP [Catalytic activity/Vol] 64 U/L Normal 46-116 [facility] Comment on above: Performed By: #### B LDCX2 #### [facility] [address] [place] [address] Dr. Elvis Cifuentes ALT [Catalytic activity/Vol] 18 U/L Normal 16-63 [facility] Comment on above: Performed By: #### B LDCX2 #### [facility] [address] [place] [address] Dr. Elvis Cifuentes Anion gap [Moles/Vol] 9.8 mmol/L Normal [facility] Comment on above: Performed By: #### B LDCX2 #### [facility] [address] [place] [address] Dr. Elvis Cifuentes AST [Catalytic activity/Vol] 10 U/L Critically low 15-37 [facility] Comment on above: Performed By: #### B LDCX2 #### [facility] [address] [place] [address] Dr. Elvis Cifuentes Bilirubin [Mass/Vol] 0.9 mg/dL Normal 0.2-1.0 [facility] Comment on above: Performed By: #### B LDCX2 #### [facility] [address] [address] [address] Elvis Cifuentes Calcium [Mass/Vol] 8.7 mg/dL Normal 8.5-10.1 [facility] Comment on above: Performed By: #### B LDCX2 #### [facility] [address] [address] [address] Elvis Cifuentes Chloride [Moles/Vol] 109 mmol/L Critically high 98-107 [facility] Comment on above: Performed By: #### B LDCX2 #### [facility] [address] [place] [address] Dr. Elvis Cifuentes CO2 [Moles/Vol] 29.9 mmol/L Normal 21.0-32.0 [facility] Comment on above: Performed By: #### B LDCX2 #### [facility] [address] [place] [address] Dr. Elvis Cifuentes Creatinine [Mass/Vol] 1.23 mg/dL Normal 0.70-1.30 [facility] Comment on above: Performed By: #### B LDCX2 #### [facility] [address] [place] [address] Dr. Elvis Cifuentes EGFR-AF SRI LANKAN >60 Normal >=60 [facility] Comment on above: Performed By: #### B LDCX2 #### [facility] [address] [place] [address] Dr. Elvis Cifuentes EGFR-NON AF SRI LANKAN 57 mL/min/1.73m2 Critically low >=60 [facility] Comment on above: Performed By: #### B LDCX2 #### [facility] [address] [place] [address] Dr. Elvis Cifuentes Globulin (S) [Mass/Vol] 3.3 g/dL Normal [facility] Comment on above: Performed By: #### B LDCX2 #### [facility] [address] [place] [address] Dr. Elvis Cifuentes Glucose [Mass/Vol] 115 mg/dL Critically high 74-106 [facility] Comment on above: Performed By: #### B LDCX2 #### [facility] [address] [place] [address] Dr. Elvis Cifuentes Potassium [Moles/Vol] 3.7 mmol/L Normal 3.5-5.1 [facility] Comment on above: Performed By: #### B LDCX2 #### [facility] [address] [place] [address] Dr. Elvis Cifuentes Protein [Mass/Vol] 6.5 g/dL Normal 6.4-8.2 [facility] Comment on above: Performed By: #### B LDCX2 #### [facility] [address] [place] [address] Dr. Elvis Cifuentes Sodium [Moles/Vol] 145 mmol/L Normal 136-145 [facility] Comment on above: Performed By: #### B LDCX2 #### [facility] [address] [place] [address] Dr. Elvis Cifuentes Urea nitrogen [Mass/Vol] 11.0 mg/dL Normal 7.0-18.0 [facility] Comment on above: Performed By: #### B LDCX2 #### [facility] [address] [place] [address] Dr. Elvis Cifuentes Urea nitrogen/Creatinin e [Mass ratio] 8.9 mg/mg Normal [facility] Comment on above: Performed By: #### B LDCX2 #### [facility] [address] [place] [address] Dr. Elvis Cifuentes TYPE AND SCREENon 03-31-2022 TYPE AND SCREEN Negative Normal [facility] Comment on above: Performed By: #### T NS #### [facility] [address] [place] [address] Dr. Elvis Cifuentes H PYLORI TISSUEon 02-08-2022 H PYL TISSUE, UREASE Negative Normal NEGATIVE [facility] Comment on above: Performed By: #### G IPANEL #### [facility] [address] [place] [address] ABD/PELV W CONon 12-28-[address] ABD/PELV W CON EXAMINATION: CT ABD/ PELV W CON, 12/27/2021 8:13 AM EDT HISTORY: Right lower quadrant pain COMPARISON: None. TECHNIQUE: CT scan of the abdomen and pelvis was performed with IV contrast. CT dose reduction technique was used, including Automated Exposure Control. FINDINGS: LUNG BASES: No visible pulmonary or pleural disease. LIVER: No enlargement, atrophy, abnormal density, or significant focal lesion. BILIARY: No dilatation or calcification. PANCREAS: No lesion, fluid collection, ductal dilatation, or atrophy. SPLEEN: No enlargement or focal lesion. ADRENALS: No mass or enlargement. KIDNEYS: Innumerable bilateral hypodensities the larger lesions are simple cyst. No hydronephrosis or obstructing nephrolithiasis BOWEL/MESENTERY: Small hiatal hernia. Nonobstructive bowel gas.. Extensive colonic diverticulosis without evidence of acute diverticulitis. Concentric wall thickening of the distal sigmoid colon best visualized on axial images 83 through 94 AORTA/VASCULAR: Saccular aneurysm anterior infrarenal abdominal aorta best visualized on axial 59. This measures 4.5 x 3.4 cm on axial image 59 and 3.3 cm in craniocaudal dimension on coronal image 48. Extensive atherosclerosis RETROPERITONEUM: No mass or adenopathy. LYMPH NODES: No adenopathy. URINARY BLADDER: No visible focal wall thickening, lesion, or calculus. PELVIC ORGANS: Enlarged lobular heterogeneous calcified prostate gland measuring 5.5 x 3.8 cm deforming the urinary bladder ABDOMINAL WALL: 3.9 x 2.9 cm right inguinal hernia containing mesentery and small bowel loops extending inferiorly up to 5.6 cm, sagittal image 67. Left inguinal hernia containing mesenteric fat. Umbilical hernia containing mesenteric fat. BONES: No bony lesion or fracture. OTHER: Negative. IMPRESSION: Concentric wall thickening of the distal sigmoid colon. Direct visualization is suggested for further evaluation to exclude an underlying malignancy Extensive colonic diverticulosis without diverticulitis Saccular aneurysm of the infrarenal aorta measuring a maximum of 4.5 x 3.2 cm Right inguinal hernia containing small bowel loop without strangulation Electronically authenticated by: MATTHEW CHATMAN Date: 2021-12-27 10:28 Normal [facility] PROF CHEM 8 (BAS METB)on Anion gap [Moles/Vol] 11.7 mmol/L Normal [facility] Comment on above: Performed By: #### C EA. #### [facility] [address] [place] [address] Dr. Elvis Cifuentes Calcium [Mass/Vol] 8.6 mg/dL Normal 8.5-10.1 [facility] Comment on above: Performed By: #### C EA. #### [facility] [address] [place] [address] Dr. Elvis Cifuentes Chloride [Moles/Vol] 106 mmol/L Normal 98-107 [facility] Comment on above: Performed By: #### C EA. #### [facility] [address] [place] [address] Dr. Elvis Cifuentes CO2 [Moles/Vol] 28.2 mmol/L Normal 22.0-30.0 [facility] Comment on above: Performed By: #### C EA. #### [facility] [address] [place] [address] Dr. Elvis Cifuentes Creatinine [Mass/Vol] 1.24 mg/dL Normal 0.66-1.25 [facility] Comment on above: Performed By: #### C EA. #### [facility] [address] [place] [address] Dr. Elvis Cifuentes EGFR-AF SRI LANKAN >60 Normal >=60 [facility] Comment on above: Performed By: #### C EA. #### [facility] [address] [place] [address] Dr. Elvis Cifuentes EGFR-NON AF SRI LANKAN 57 mL/min/1.73m2 Critically low >=60 [facility] Comment on above: Performed By: #### C EA. #### [facility] [address] [place] [address] Dr. Elvis Cifuentes Glucose [Mass/Vol] 110 mg/dL Critically high 74-106 [facility] Comment on above: Performed By: #### C EA. #### [facility] [address] [place] [address] Dr. Elvis Cifuentes Potassium [Moles/Vol] 3.9 mmol/L Normal 3.4-5.0 [facility] Comment on above: Performed By: #### C EA. #### [facility] [address] [place] [address] Dr. Elvis Cifuentes Sodium [Moles/Vol] 142 mmol/L Normal 137-145 [facility] Comment on above: Performed By: #### C EA. #### [facility] [address] [place] [address] Dr. Elvis Cifuentes Urea nitrogen [Mass/Vol] 17.0 mg/dL Normal 7.0-18.0 [facility] Comment on above: Performed By: #### C EA. #### [facility] [address] [place] [address] Dr. Elvis Cifuentes Urea nitrogen/Creatinin e [Mass ratio] 13.7 mg/mg Normal [facility] Comment on above: Performed By: #### C EA. #### [facility] [address] [place] [address] Dr. Elvis Cifuentes CBC AUTO DIFFon 08-03-2021 BASO # 0.1 103/ul Normal 0.0-0.1 [facility] Comment on above: Performed By: #### U RCX #### [facility] [address] [place] [address] Dr. Elvis Cifuentes Basophils/100 WBC (Bld) 1.6 % Normal 0.2-2.0 [facility] Comment on above: Performed By: #### U RCX #### [facility] [address] [place] [address] Dr. Elvis Cifuentes EO # 0.3 103/ul Normal 0.0-0.7 [facility] Comment on above: Performed By: #### U RCX #### [facility] [address] [place] [address] Dr. Elvis Cifuentes Eosinophils/100 WBC (Bld) 4.6 % Normal 0.9-7.0 [facility] Comment on above: Performed By: #### U RCX #### [facility] [address] [place] [address] Dr. Elvis Cifuentes Erythrocyte distribution width (RBC) [Ratio] 12.5 % Normal 11.0-15.0 [facility] Comment on above: Performed By: #### U RCX #### [facility] [address] [place] [address] Dr. Elvis Cifuentes Hematocrit (Bld) [Volume fraction] 36.0 % Critically low 42.0-54.0 [facility] Comment on above: Performed By: #### U RCX #### [facility] [address] [place] [address] Dr. Elvis Cifuentes Hemoglobin (Bld) [Mass/Vol] 11.8 g/dL Critically low 14.0-18.0 [facility] Comment on above: Performed By: #### U RCX #### [facility] [address] [place] [address] Dr. Elvis Cifuentes IG # 0.02 10e3/ul Normal 0.00-0.03 [facility] Comment on above: Performed By: #### U RCX #### [facility] [address] [place] [address] Dr. Elvis Cifuentes IG % 0.3 % Normal 0.0-0.5 [facility] Comment on above: Performed By: #### U RCX #### [facility] [address] [place] [address] Dr. Elvis Cifuentes LYMPH # 1.4 103/ul Normal 1.2-3.8 [facility] Comment on above: Performed By: #### U RCX #### [facility] [address] [place] [address] Dr. Elvis Cifuentes Lymphocytes/100 WBC (Bld) 21.3 % Normal 20.5-60.0 [facility] Comment on above: Performed By: #### U RCX #### [facility] [address] [place] [address] Dr. Elvis Cifuentes MANUAL DIFF REQ NO Normal [facility] Comment on above: Performed By: #### U RCX #### [facility] [address] [place] [address] Dr. Elvis Cifuentes MCH (RBC) [Entitic mass] 29.2 pg Normal 25.9-34.0 [facility] Comment on above: Performed By: #### U RCX #### [facility] [address] [address] [address] Elvis Cifuentes MCHC (RBC) [Mass/Vol] 32.8 g/dL Normal 29.9-35.2 [facility] Comment on above: Performed By: #### U RCX #### [facility] [address] [place] [address] Dr. Elvis Cifuentes MCV (RBC) [Entitic vol] 89.1 fL Normal 80.0-94.0 [facility] Comment on above: Performed By: #### U RCX #### [facility] [address] [place] [address] Dr. Elvis Cifuentes MONO # 0.6 103/ul Normal 0.3-0.8 [facility] Comment on above: Performed By: #### U RCX #### [facility] [address] [place] [address] Dr. Elvis Cifuentes Monocytes/100 WBC (Bld) 8.8 % Normal 1.7-12.0 [facility] Comment on above: Performed By: #### U RCX #### [facility] [address] [place] [address] Dr. Elvis Cifuentes NEUT # 4.0 103/ul Normal 1.4-6.5 [facility] Comment on above: Performed By: #### U RCX #### [facility] [address] [place] [address] Dr. Elvis Cifuentes Neutrophils/100 WBC (Bld) 63.4 % Normal 43.0-75.0 [facility] Comment on above: Performed By: #### U RCX #### [facility] [address] [place] [address] Dr. Elvis Cifuentes Platelet mean volume (Bld) [Entitic vol] 9.7 fL Normal 9.5-13.5 [facility] Comment on above: Performed By: #### U RCX #### [facility] [address] [place] [address] Dr. Elvis Cifuentes PLT 347 103/ul Normal 150-450 [facility] Comment on above: Performed By: #### U RCX #### [facility] [address] [address] [address] Elvis Cifuentes RBC 4.04 106/ul Critically low 4.70-6.10 [facility] Comment on above: Performed By: #### U RCX #### [facility] [address] [address] [address] Elvis Cifuentes WBC 6.3 103/ul Normal 4.0-11.0 [facility] Comment on above: Performed By: #### U RCX #### [facility] [address] [address] [address] Elvis Cifuentes LIPID PROFILEon 08-03-2021 CHOL-HDL RATIO NORM SEE BELOW Normal [facility] Comment on above: Result Comment: 3.3 - 4.4 LOW RISK 4.4 - 7.1 AVERAGE RISK 7.1 - 11.0 MODERATE RISK >11.0 HIGH RISK Performed By: #### G IPANEL #### [facility] [address] [place] [address] Dr. Elvis Cifuentes Cholesterol [Mass/Vol] 175 mg/dL Normal <=200 [facility] Comment on above: Performed By: #### G IPANEL #### [facility] [address] [place] [address] Dr. Elvis Cifuentes Cholesterol in HDL [Mass/Vol] 45 mg/dL Normal [facility] Comment on above: Performed By: #### G IPANEL #### [facility] [address] [address] [address] Elvis Cifuentes Cholesterol in LDL [Mass/Vol] 111.8 mg/dL Normal [facility] Comment on above: Performed By: #### G IPANEL #### [facility] [address] [address] [address] Elvis Cifuentes Cholesterol.total/ Cholesterol in HDL [Mass ratio] 3.9 {ratio} Normal [facility] Comment on above: Performed By: #### G IPANEL #### [facility] [address] [place] [address] Dr. Elvis Cifuentes HDL NORMAL > or = 60 mg/dl - LO W CARDIOVASCULAR RISK <40 mg/dl - HIGH CARDIOVASCULAR RISK Normal [facility] Comment on above: Performed By: #### G IPANEL #### [facility] [address] [address] [address] Elvis Cifuentes LDL CALC NORMAL SEE BELOW Normal [facility] Comment on above: Result Comment: <100 mg/dl OPTIMAL 100 - 129 mg/dl NEAR OR ABOVE OPTIMAL 130 - 159 mg/dl BORDERLINE HIGH 160 - 189 mg/dl HIGH >190 mg/dl VERY HIGH Performed By: #### G IPANEL #### [facility] [address] [place] [address] Dr. Elvis Cifuentes Triglyceride [Mass/Vol] 91 mg/dL Normal <=150 [facility] Comment on above: Performed By: #### G IPANEL #### [facility] [address] [place] [address] Dr. Elvis Cifuentes VLDL CALC 18.2 mg/dL Normal [facility] Comment on above: Performed By: #### G IPANEL #### [facility] [address] [address] [address] Elvis Cifuentes PROF CHEM 8 (BAS METB)on Anion gap [Moles/Vol] 11.4 mmol/L Normal [facility] Comment on above: Performed By: #### G IPANEL #### [facility] [address] [place] [address] Dr. Elvis Cifuentes Calcium [Mass/Vol] 8.8 mg/dL Normal 8.4-10.2 [facility] Comment on above: Performed By: #### G IPANEL #### [facility] [address] [place] [address] Dr. Elvis Cifuentes Chloride [Moles/Vol] 105 mmol/L Normal 98-107 [facility] Comment on above: Performed By: #### G IPANEL #### [facility] [address] [address] [address] Elvis Cifuentes CO2 [Moles/Vol] 31.7 mmol/L Critically high 22.0-30.0 [facility] Comment on above: Performed By: #### G IPANEL #### [facility] [address] [address] [address] Elvis Cifuentes Creatinine [Mass/Vol] 1.48 mg/dL Critically high 0.66-1.25 [facility] Comment on above: Performed By: #### G IPANEL #### [facility] [address] [address] [address] Elvis Cifuentes EGFR-AF SRI LANKAN 56 mL/min/1.73m2 Critically low >=60 [facility] Comment on above: Performed By: #### G IPANEL #### [facility] [address] [address] [address] Elvis Cifuentes EGFR-NON AF SRI LANKAN 46 mL/min/1.73m2 Critically low >=60 [facility] Comment on above: Performed By: #### G IPANEL #### [facility] [address] [address] [address] Elvis Cifuentes Glucose [Mass/Vol] 115 mg/dL Critically high 74-106 [facility] Comment on above: Performed By: #### G IPANEL #### [facility] [address] [address] [address] Elvis Cifuentes Potassium [Moles/Vol] 3.1 mmol/L Critically low 3.4-5.0 [facility] Comment on above: Performed By: #### G IPANEL #### [facility] [address] [address] [address] Elvis Cifuentes Sodium [Moles/Vol] 145 mmol/L Normal 137-145 [facility] Comment on above: Performed By: #### G IPANEL #### [facility] [address] [address] [address] Elvis Cifuentes Urea nitrogen [Mass/Vol] 22.0 mg/dL Critically high 9.0-20.0 [facility] Comment on above: Performed By: #### G IPANEL #### [facility] [address] [address] [address] Elvis Cifuentes Urea nitrogen/Creatinin e [Mass ratio] 14.9 mg/mg Normal [facility] Comment on above: Performed By: #### G IPANEL #### [facility] [address] [address] [address] Elvis Cifuentes [facility] 08-03-2021 ALT [Catalytic activity/Vol] 14 U/L Critically low [facility] Comment on above: Performed By: #### G IPANEL #### [facility] [address] [address] [address] Elvis Cifuentes Vital Signs Date Time Vital Sign Value Performing Clinician Facility 04-27-2022 14:15-0400 Diastolic blood pressure 64 mm[Hg] MD Britt Lazo Work Phone: [facility] 04-27-2022 14:15-0400 Heart rate 88 /min MD Britt Lazo Work Phone: [facility] 04-27-2022 14:15-0400 Systolic blood pressure 120 mm[Hg] MD Britt Lazo Work Phone: [facility] 04-27-2022 12:24-0400 Body height 170.18 cm MD Britt Lazo Work Phone: [facility] 04-27-2022 12:24-0400 Body weight 154 kg MD Britt Lazo Work Phone: [facility] 04-27-2022 00:00-0400 60 1 Aristeo Perez Ball Work Phone: [facility] 250 DO Work Phone: Comment on above: [id number] 04-05-2022 09:52-0400 Diastolic blood pressure 72 mm[Hg] Aristeo E Ball Work Phone: [facility] 250 DO Work Phone: 04-05-2022 09:52-0400 Systolic blood pressure 150 mm[Hg] Aristeo E Ball Work Phone: [facility] 250 DO Work Phone: 04-05-2022 09:48-0400 Body height 170.18 cm [facility]isteo E Ball [facility] Work Phone: 04-05-2022 09:48-0400 Body mass index (BMI) [Ratio] 23.81 kg/m2 Aristeo Hernandez Work Phone: [facility] 250 DO Work Phone: 04-05-2022 09:48-0400 Body surface area Derived from formula 1.8 m2 Aristeo Hernandez Work Phone: [facility] 250 DO Work Phone: 04-05-2022 09:48-0400 Body weight 68.95 kg Aristeo Hernandez [facility] DO Work Phone: 04-05-2022 09:48-0400 Diastolic blood pressure 70 mm[Hg] Aristeo Hernandez [facility] DO Work Phone: 04-05-2022 09:48-0400 Heart rate 78 /min Aristeo Hernandez [facility] Work Phone: 04-05-2022 09:48-0400 Systolic blood pressure 158 mm[Hg] Aristeo Hernandez [facility] Phone: [facility] DO Work Phone: Encounters Encounter Date Encounter Type Care Provider Facility Start: 02-16-2024 ambulatory ARISTEO HERNANDEZ [facility] Start: 02-16-2024 ambulatory ARISTEO HERNANDEZ [facility] Start: 02-14-2024 End: 02-14-2024 ambulatory [facility] Start: 11-11-2022 Chart Update Aristeo ramos Work Phone: [facility] 250 DO Work Phone: Start: 06-29-2022 End: 06-30-[address] ARISTEO HERNANDEZ Facility:[facility] Start: 06-26-2022 Encounter for preprocedural cardiovascular examination DR RASHAWN LEWIS [facility] Start: 06-26-2022 Encounter for preprocedural laboratory examination DR RASHAWN LEWIS [facility] Start: 05-18-2022 Chart Update Aristeo ramos Work Phone: [facility] 600 DO Work Phone: Start: 05-17-2022 End: 05-26-2022 Evaluation and management of inpatient DR ARISTEO HERNANDEZ Facility:[facility] Start: 05-17-2022 Encounter for preprocedural laboratory examination DR RASHAWN LEWIS [facility] Start: 05-15-2022 End: 05-16-[address] ARISTEO HERNANDEZ Facility:[facility] Start: 05-15-2022 End: 05-16-2022 Encounter for preprocedural laboratory examination DR ARISTEO HERNANDEZ Facility:[facility] Start: 05-13-[address] [facility] Start: 05-10-2022 End: 05-11-[address] BEULAH GALAN Facility:[facility] Start: 05-02-2022 Chart Update Aristeo ramos Work Phone: [facility] 250 DO Work Phone: Start: 04-27-2022 End: 04-27-2022 ambulatory Britt Lazo Facility:[facility] Start: 04-27-2022 End: 04-27-2022 Patient encounter procedure MD Britt Lazo Work Phone: [facility] Start: 04-12-2022 AUDIT Aristeo ramos Work Phone: [facility] 250 DO Work Phone: Start: 04-05-2022 Encounter for preprocedural cardiovascular examination DR RASHAWN LEWIS [facility] Start: 04-05-2022 Office consultation new/estab patient 60 min Aristeo Hernandez Work Phone: [facility] 250 DO Work Phone: Start: 04-05-2022 Patient encounter procedure Aristeo Hernandez Work Phone: [facility] 250 DO Work Phone: Start: 04-03-2022 End: 04-03-[address] ARISTEO HERNANDEZ Facility:[facility] Start: 03-31-2022 End: 04-01-[address] RASHAWN LEWIS Facility:[facility] Start: 03-31-2022 End: 04-01-2022 Encounter for preprocedural cardiovascular examination DR RASHAWN LEWIS Facility:[facility] Start: 03-18-[address] RASHAWN LEWIS Fa cility:[facility] Start: 02-08-2022 End: 02-08-[address] RASHAWN LEWIS Facility:[facility] Start: 12-27-2021 End: 12-28-[address] ARISTEO HERNANDEZ Facility:[facility] Start: 08-21-[address] ARISTEO HERNANDEZ Facili ty:[facility] Start: 08-03-2021 End: 08-04-[address] ARISTEO HERNANDEZ Facility:[facility] Patient encounter status Gurpreet Hernandez Work Phone: [facility] 250 DO Work Phone: Procedures Date Procedure Procedure Detail Performing Clinician Start: 05-21-2022 Insertion of Infusio n Device into Superior Vena Cava, Percutaneous Approach DR ARISTEO HERNANDEZ Start: 05-21-2022 Introduction of Nutritional Substance into Central Vein, Percutaneous Approach DR ARISTEO HERNANDEZ Start: 05-17-2022 Excision of Sigmoid Colon, Open Approach DR ARISTEO HERNANDEZ Start: 05-17-2022 Inspection of Lower Intestinal Tract, Via Natural or Artificial Opening Endoscopic DR ARISTEO HERNANDEZ Start: 05-17-2022 Repair Abdominal Wal l, Open Approach DR ARISTEO HERNANDEZ Start: 08-03-[address] GERBER IN [facility] Comment on above: Performed By: #### C EA. #### [facility] [address] [place] [address] Dr. Elvis Cifuentes Hernia repair Aristeo E Bal rachel Work Phone: Operation on the ear Gurpreet Hernandez Work Phone: Total colonoscopy Aristeo Hernandez Work Phone: Comment on above: 03/2022; Plan of Treatment Date Care Activity Detail Author Start: 05-29-2022 FUV, Provider: Britt Lazo, Status: Pen, Time: 1:10 PM [facility], Provider: Britt Lazo, Status: Pen, Time: 1:10 PM [facility] 250 DO Work Phone: Start: 04-27-2022 Radionuclide myocard ial perfusion stress study NM viky perf SPECT rest & str [facility] Start: 04-27-2022 SPECT Heart perfusio n at rest and W stress and W radionuclide IV [facility] Work Phone: [facility]: [facility]: Shay Sandoval, Status: Pen, Time: 9:[address] [facility], Provider: Shay Sandoval, Status: Pen, Time: 9:00 AM [facility] 250 DO Work Phone: Immunizations Immunization Date Immunization Notes Care Provider Geovanna king 08-04-2021 Pfizer-BioNT[employer] COVI D-19 Vacc 30 MCG/0.3ML Intramuscular Suspension Aristeo Hernandez [facility] 250 DO Work Phone: 01-11-2021 Pfizer-BioNT[employer] COVI D-19 Vacc 30 MCG/0.3ML Intramuscular Suspension Aristeo Hernandez Work Phone: [facility] 250 DO Work Phone: 12-21-2020 Pfizer-Bio[employer] COVI D-19 Vacc 30 MCG/0.3ML Intramuscular Suspension Aristeo Hernandez Work Phone: [facility] 250 DO Work Phone: Payers Date Payer Category Payer Self-pay [id number] 2011 Unknown [id number] 1959 Medicare [id number] 1959 Medicare [id number] 1959 Medicare [id number] 1959 Self-pay [id number] 1959 Unknown [id number] 1946 Unknown [id number] 1946 Unknown [id number] 1946 Unknown [id number] 1946 Unknown [id number] 2.16.84 0.1.103534.3.579.2.593 1945 Unknown [id number] 2.16.84 0.1.444353.3.579.2.593 1945 Unknown [id number] 2.16.84 0.1.050876.3.579.2.593 1945 Unknown [id number] 2.16.84 0.1.935341.3.579.2.593 1945 Unknown [id number] 2.16.84 0.1.490280.3.579.2.593 1945 Unknown [id number] 2.16.84 0.1.799251.3.579.2.593 1945 Unknown [id number] 2.16.84 0.1.859978.3.579.2.593 1945 Unknown [id number] 2.16.84 0.1.093836.3.579.2.593 1945 Unknown [id number] 2.16.84 0.1.487661.3.579.2.593 1945 Unknown [id number] 2.16.8 40.1.179699.3.579.2.1286 1945 Unknown [id number] 2.16.8 40.1.773928.3.579.2.1286 1945 Unknown [id number] 2.16.8 40.1.802600.3.579.2.1286 Unknown Unknown [id number] 2.16.8 40.1.784044.3.579.2.531 Social History Date Type Detail Facility No alcohol use No alcohol use [facility] DO Work Phone: Comment on above: Quit in 1996; Start: 1945 Sex Assigned At Male F [facility] Discharge summary note 05-17-2022 Note Date & Type Note Facility 05-17-[address] Rashawn Lewis DATE OF TRANSFER/DISCHARGE: 05/26/2022 DATE OF ADMISSION: 05/17/2022 ADMITTING DIAGNOSIS: Sigmoid colon mass. DISCHARGE DIAGNOSIS: 1. Sigmoid colon mass. 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 2. Moderate malnutrition. 3. Postoperative ileus. 4. History of C. difficile enterocolitis. 5. History of an abdominal aortic aneurysm. 6. Hypernatremia. 7. Hyperchloremia. 8. Hypertension. NARRATIVE SUMMARY: This 77-year-old male presented for elective sigmoid colon resection due to inability to complete a colonoscopy in February of 2022 due to a mass in the sigmoid colon, thought to be a possible cancer. He was being worked up for anemia. He was taken to the OR and had a sigmoid colon resection with a primary anastomosis. Low in the pelvis portion was handsewn because of misfire of a 25 mm EEA. Colonoscopy was performed after the procedure ensuring that the anastomosis was intact and saline was placed in the pelvis with no leakage of air, at the time of the operation on 05/17/2022. His postoperative course was rough in that every time he moved to ambulate he was having respiratory distress and became hypoxemic. He is a past smoker and, subsequently, I suspect that he might have a leak, and on Sunday following surgery on 05/21/2022, CT scan of the abdomen and pelvis was performed and failed to show any leak, but just showed a postoperative ileus versus SBO. Therefore, he was continued to be watched and a PICC line was placed for hyperalimentation, since he was not eating and taking significant nutrition. He was moderately malnourished. He had been given preoperative doses of antibiotics and was having several liquid stools and C. diff was checked and was positive; therefore, he was placed on vancomycin and Flagyl by the hospitalist. Subsequently, he was kept NPO. An NG tube was placed due to the ileus and distention, and then an abdominal x-ray on , 05/25/2011, eight days post-op showed new free air not present on previous KUB two days previously, and CT scan was repeated with contrast and showed an anastomotic leak with air bubbles outside the anastomosis with free fluid in the abdominal cavity. Patient is hemodynamically stable, denying any abdominal pain and is putting out urine, and his nasogastric tube will be reconnected to suction. He had been on clear liquids for a few days and was tolerating those and had contemplated removing the nasogastric tube until the free air and this was reconnected to suction. I spoke with Dr. Rai from [facility], who agreed to take the patient in transfer, and that is being arranged. [facility] Chief complaint Narrative - Reported 04-03-2022 Note Date & Type Note Facility 04-03-2022 Chief complaint Narrative - Reported ANASTASIYA VERA is being seen for an initial evaluation of D/C 04/03/22-Abnormal EKG. -[place] [address] DO Work Phone: Chief complaint Narrative - Reported 04-03-2022 Note Date & Type Note Facility 04-03-2022 Chief complaint Narrative - Reported ANASTASIYA VERA is being seen for an initial evaluation of D/C 04/03/22-Abnormal EKG.Patient is being seen at the request of his PCP Dr. Hernandez for evaluation of abnormal blood work with elevated troponin and abnormal EKG. The patient has no cardiac history and no symptoms of chest pain. He was found recently to have colon mass that need to be resected and was getting his presurgical investigations when this all was discovered. He does not have any abdominal pain or hematochezia and no intestinal obstruction. He has hypertension on benazepril uncontrolled. He has not had any previous ischemic evaluation but was told he has small abdominal attic aneurysm. The patient has no orthopnea PND or lower extremity edema and no chest pain on exertion. He had no syncope or TIAs and no strokes. He currently does not smoke and lives with his . He had no recent falls. Review of system otherwise was normal. His physical examination was remarkable for hypertension and his EKG showed minimal abnormalities.Assessment/recomme ndations:1 colon mass and need for clearance for surgery. The patient will be evaluated for ischemic heart disease given his risk factors profile and recent elevated troponin with Lexiscan perfusion study and echocardiogram. Based on the result further advice to be provided2 hypertension that is currently uncontrolled. We will switch to Lotrel 5/20 mg daily and follow blood pressure reading he is currently also on labetalol 100 mg twice daily3 history of small abdominal aortic aneurysm followed by PCP4 dyspnea on exertion of unknown significance. We will assess with noninvasive investigations -[facility] 250 DO Work Phone: Evaluation note Note Date & Type Note Facility Evaluation note [facility]: Family History No Family History Records FoundUnknown Family Member Name Dates Details Family history of congestive heart failure: Mother(V17.49, Z82.49) Status:Active Family history of malignant neoplasm: Brother(V16.9, Z80.9) Status:Active Family history of leukemia: Brother(V16.6, Z80.6) Status:Active Unknown Family Member Name Dates Details Family history of congestive heart failure: Mother(V17.49, Z82.49) Status:Active Family history of malignant neoplasm: Brother(V16.9, Z80.9) Status:Active Family history of leukemia: Brother(V16.6, Z80.6) Status:Active Unknown Family Member Name Dates Details Family history of congestive heart failure: Mother(V17.49, Z82.49) Status:Active Family history of malignant neoplasm: Brother(V16.9, Z80.9) Status:Active Family history of leukemia: Brother(V16.6, Z80.6) Status:Active Unknown Family Member Name Dates Details Family history of congestive heart failure: Mother(V17.49, Z82.49) Status:Active Family history of malignant neoplasm: Brother(V16.9, Z80.9) Status:Active Family history of leukemia: Brother(V16.6, Z80.6) Status:Active Unknown Family Member Name Dates Details Family history of leukemia: Brother(V16.6, Z80.6) Status:Active Family history of malignant neoplasm: Brother(V16.9, Z80.9) Status:Active Family history of congestive heart failure: Mother(V17.49, Z82.49) Status:Active Unknown Family Member Name Dates Details Family history of congestive heart failure: Mother(V17.49, Z82.49) Status:Active Family history of malignant neoplasm: Brother(V16.9, Z80.9) Status:Active Family history of leukemia: Brother(V16.6, Z80.6) Status:Active Chief Complaint and Reason for Visit Chief Complaint abn ekg/htn r94.31 r 06.00 Advance Directives No Advanced Directives Records Found Advance Directive Response Recorded Date/ Time Advance Directives No April 25 2:12pm Summary Purpose Additional Source Comments Care Teams (unrecognized sec tion and content) Team Status: Inactive Member Role Status Dates Britt Lazo MD Attending Provider Active Aristeo Hernandez DO Primary Care Provider Active Team Status: Active Member Role Status Dates Aristeo Hernandez DO Primary Care Provider Active Goals (unrecognized section and content) Goals may be documented in a n alternate section (unrecognized sect ion and content) No Status Records FoundNo Status Records FoundNo Status Records Found INFORMATION SOURCE (unrecogn ized section and content) DATE CREATED AUTHOR 07/13/2022 [facility] DATE CREATED AUTHOR AUTHOR'S ORGANIZ ATION 11/11/2022 [facility] DATE CREATED AUTHOR AUTHOR'S ORGANIZ ATION 02/16/2024 [facility] FOR RECORDS PERTAINING TO PATIENTS WHO ARE OR HAVE BEEN ENROLLED IN A CHEMICAL DEPENDENCY/SUBSTANCEABUSE PROGRAM, SOME INFORMATION MAY BE OMITTED. This clinical summary was aggregated from multiple sources. Caution should be exercised in using it in the provision of clinical care. This summary normalizes information from multiple sources, and as a consequence, information in this document may materially change the coding, format and clinical context of patient data. In addition, data may be omitted in some cases. CLINICAL DECISIONS SHOULD BE BASED ON THE PRIMARY CLINICAL RECORDS. [facility]. provides no warranty or guarantee of the accuracy or completeness of information in this document.
== END 2024-03-11 07:29 | disposition home or self-care (01) ==
LOC: CARD 07:29
PROVIDERS: PCP Internal Medicine; Visit Provider Student in an Organized Health Care Education/Training Program
DX: I71.9 Aortic aneurysm of unspecified site, without rupture (principal); I71.43 Infrarenal abdominal aortic aneurysm, without rupture
CPT/HCPCS: 93005; 93306

== ENCOUNTER 2024-03-27 13:08 | Outpatient (OUT) | payer MEDICARE, OTHER, SELFPAY ==
--- NOTE | 2024-03-27 13:18 | CT_ITS ---
[address] [address] Patient Name: MARIBELL VERA MRN: [id number] date: 1945 Sex: M Assigned Patient Location: LAB Current Patient Location: Accession/Order Number: [id number] Exam Date: 03/27/2024 13:40 Report Date: 03/28/2024 04:50 At the request of: EJ MORENO Procedure: CT chest w con EXAMINATION: CT chest w con HISTORY: Mass Of Left Lung COMPARISON: CT abdomen pelvis 02/08/2024 CTA chest 05/23/2022 TECHNIQUE: Multi-planar CT images were obtained without and/or with IV contrast as indicated by examination type. Axial, Coronal, and Sagittal images. Dose reduction techniques were achieved by using automated exposure control and/or adjustment of mA and/or kV according to patient size and/or use of iterative reconstruction technique. FINDINGS: LUNGS: Lobular, heterogeneous, enhancing mass within left lung base appearing to involve the lower lobe and the upper lobe/lingula, 10.4 x 7.1 x 7.1 cm. No appreciable involvement of the diaphragm or extension below the diaphragm. Passive atelectasis within posterior left lower lobe. PLEURA: Large left pleural effusion 3.3 cm in thickness. VASCULATURE: No abnormality. COLETTE: No mass or adenopathy. MEDIASTINUM: No mass or adenopathy. CARDIAC: No enlargement or pericardial thickening.. Coronary artery calcifications: AORTA: No aneurysm or dissection. CHEST WALL: No mass or axillary adenopathy. BONES: No bone lesion or fracture. LIMITED ABDOMEN: Bilateral benign-appearing renal cysts. No lymphadenopathy within the upper abdomen. Limited images of the upper abdomen. OTHER: Negative. CT/CT chest w con IMPRESSION: 1. Left lower lobe 10.4 cm heterogeneously enhancing mass most consistent with neoplasm. This has increased in size compared to 02/08/2024. No appreciable chest wall or diaphragm involvement. 2. No mediastinal, hilar, or upper abdominal lymphadenopathy. Electronically authenticated by: GEORGETTE GOLDMAN Date: 03/28/2024 04:50
--- OUTSIDE RECORDS SUMMARY | 2024-03-27 13:25 | XMS_ITS ---
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 Name Role Phone Aristeo Hernandez Unavailable Unavailable Unavailable MD Britt Lazo Attending Provider [phone] DO Aristeo Hernandez Primary Care Provider DR ARISTEO HERNANDEZ Primary Care Unavailable DAVID, DR PAGAN Consulting Unavailable DVAID, DR PAGAN Attending Unavailable DAVID, DR PAGAN Admitting Unavailable Akhil, DR Simpson Consulting Unavailable DAVID, DR PAGAN Referring Unavailable GRFAY, DR RASHAWN Perez Consulting Unavailabl e DEBBIE, DR RASHAWN Perez Attending Unavailabl e DAVID, DR PAGAN Primary Care Unavailable DEBBIE, DR RASHAWN Perez Admitting Unavailabl e CHAN, DR ZAIDI Consulting Unavailable ZIEBER, DR GEORGETTE Holman Consulting Unavailable NADERER, DR JOSE ROBERTO Martinez Consulting Unavailable DEBBIE, DR RASHAWN Perez Procedure Practitioner Kami vailable NILRachel, DR MOROCHO Consulting Unavailable AGUBOSIM, DASH Consulting Unavailable LONG, BRYSON Consulting Unavailable REIER, KANU Consulting Unavailable RAMÍREZ, NICKI Consulting Unavailable FERNANDEZ, DOMENICO Consulting Unavailable SHAYY, KEVIN Consulting Unavailable SOFY, THOR Consulting Unavailable DARAMOLTAMMI Martinez Consulting Unavailable DEBBIE, DR RASHAWN Perez Attending [...] DEBBIE, DR RASHAWN Perez Attending Unavailabl e GRILLIS, DR RASHAWN Perez Admitting Unavailabl e GRFAY, DR RASHAWN Perez Consulting Unavailabl e DEBBIE, DR RASHAWN Perez Attending Unavailabl e BALL, DR PAGAN Primary Care Unavailable GRILLIS, DR RASHAWN Perez Admitting Unavailabl e BALL, [...] Britt Attending Unavailable Lazo, Britt Admitting Unavailable Ball, Aristeo Primary Care Unavailable SHANIQUA, VICKI F Attending Unavailable BALL, ARISTEO E Referring Unavailable BALL, ARISTEO E Primary Care Unavailable BALL, ARISTEO E Referring Unavailable BALL, ARISTEO E Primary Care Unavailable BALL, ARISTEO E Referring Unavailable BALL, ARISTEO E Primary Care Unavailable SHANIQUA, VICKI F Attending Unavailable BALL, ARISTEO E Referring Unavailable BALL, ARISTEO E Primary Care Unavailable Encounters Encounter Date Encounter Type Care Provider Facility Start: 03-20-2024 End: 03-20-2024 Patient encounter procedure [facility] Physician [facility] Work Phone: Start: 03-20-2024 End: 03-20-2024 ambulatory VICKI MCGOVERN [facility] Work Phone: Start: 02-16-2024 ambulatory ARISTEO HERNANDEZ [facility] Start: 02-16-2024 ambulatory ARISTEO HERNANDEZ [facility] Start: 02-14-2024 End: 02-14-2024 [facility] Start: 02-08-2024 Non-patient / Non-visit [facility] Physician [facility] Work Phone: Start: 11-11-2022 Chart Update Aristeo ramos Work Phone: [place] [address] DO Work Phone: Start: 06-29-2022 End: 06-30-[address] ARISTEO HERNANDEZ Facility:[facility] Start: 06-26-2022 Encounter for preprocedural cardiovascular examination DR RASHAWN LEWIS [facility] Start: 06-26-2022 Encounter for preprocedural laboratory examination DR RASHAWN LEWIS [facility] Start: 05-18-2022 Chart Update Aristeo ramos Work Phone: [facility] 600 DO Work Phone: Start: 05-17-2022 End: 05-26-2022 Evaluation and management of inpatient DR ARISTEO HERNANDEZ Facility:[facility] Start: 05-17-2022 Encounter for preprocedural laboratory examination DR RASHAWN LEWIS [facility] Start: 05-15-2022 End: 05-16-[address] ARISTEO HERNANDEZ Facility:[facility] Start: 05-15-2022 End: 05-16-2022 Encounter for preprocedural laboratory examination DR ARISTEO HERNANDEZ Facility:[facility] Start: 05-13-[address] ARISTEO HERNANDEZ [facility] ty:[facility]1 Start: 05-10-2022 End: 05-11-[address] BEULAH GALAN Facility:[facility]1 Start: 05-02-2022 Chart Update Aristeo ramos Work Phone: [facility] 250 DO Work Phone: Start: 04-27-2022 End: 04-27-2022 ambulatory Britt Lazo Facility:[facility] Start: 04-27-2022 End: 04-27-2022 Patient encounter procedure MD Britt Lazo Work Phone: [facility] Start: 04-12-2022 AUDIT Aristeo ramos Work Phone: [facility] 250 DO Work Phone: Start: 04-05-2022 Encounter for preprocedural cardiovascular examination DR RASHAWN LEWIS [facility] Start: 04-05-2022 Office consultation new/estab patient 60 min Aristeo Hernandez Work Phone: [facility] 250 DO Work Phone: Start: 04-05-2022 Patient encounter procedure Aristeo Hernandez Work Phone: [facility] 250 DO Work Phone: Start: 04-03-2022 End: 04-03-[address] ARISTEO HERNANDEZ Facility:[facility] Start: 03-31-2022 End: 04-01-[address] RASHAWN LEWIS Facility:[facility] Start: 03-31-2022 End: 04-01-2022 Encounter for preprocedural cardiovascular examination DR RASHAWN LEWIS Facility:[facility] Start: 03-18-[address] RASHAWN LEWIS Facility:[facility] Start: 02-08-2022 End: 02-08-[address] RASHAWN LEWIS Facility:[facility] Start: 12-27-2021 End: 12-28-[address] ARISTEO HERNANDEZ Facility:[facility] Start: 08-21-[address] ARISTEO HERNANDEZ Facili ty:[facility]1 Start: 08-03-2021 End: 08-04-[address] ARISTEO HERNANDEZ Facility:[facility]1 Patient encounter status Gurpreet Hernandez Work Phone: [facility] 250 DO Work Phone: Immunizations Immunization Date Immunization Notes Care Provider Fa cili 07-03-2022 influenza virus vacc ine, unspecified formulation [facility] 07-03-2022 Pneumococcal Conjuga te Vaccine, 20 valent [facility] 08-04-2021 Pfizer-BioNTech COVI D-19 Vacc 30 MCG/0.3ML Intramuscular Suspension [facility]isteo Hernandez [facility] Work Phone: 08-01-2021 influenza virus vacc ine, unspecified formulation [facility] 01-11-2021 Pfizer-BioNTech COVI D-19 Vacc 30 MCG/0.3ML Intramuscular Suspension Aristeo Hernandez Work Phone: [facility] 250 DO Work Phone: 12-21-2020 [email or web address] COVI D-19 Vacc 30 MCG/0.3ML Intramuscular Suspension Aristeo Hernandez Work Phone: -[facility] 250 DO Work Phone: 09-13-2017 diphtheria, tetanus toxoids and acellular pertussis vaccine, unspecified formulation [facility] Medications Current Medications Medication Drug Class(es) Dates Sig (Normalized) Sig (Original) labetalol hydrochloride 100 mg oral tablet (7 sources) beta-Adrenergic Jatinder Start: 03-20-2024 take 50 mg by mouth twice daily Labetalol Active 50 MG PO Twice daily March 20, 2024 12:00am take 1 tablet by mouth once diaz y Labetalol HCl - 100 MG Oral Tablet TAKE 1 TABLET EVERY 12 HOURS DAILY. Quantity: 0 Refills: 0 Ordered: 05-Apr-2022 DO Active lisinopril 10 mg oral tablet (1 source) Angiotensin Converting Enzyme Inhibitor Start: 03-20-2024 take 10 mg by mouth once daily Lisinopril Active 10 MG PO Daily March 20, 2024 12:00am Completed/Discontinued Medications Medication Drug Class(es) Dates Sig (Normalized) Sig (Original) amLODIPine 5 mg / benazepril hydrochloride 20 mg oral capsule (8 sources) Dihydropyridine Calcium Channel Jatinder, Angiotensin Converting Enzyme Inhibitor Start: 04-05-2022 End: 03-20-2024 take 1 capsule by mouth once daily Amlodipine-Benaze pril Discontinued 1 CAP PO Daily April 27, 2022 12:00am March 20, 2024 11:31am omeprazole 40 mg delayed release oral capsule (6 sources) Proton Pump Inhibitor take 1 capsule by mouth once daily Omeprazole 40 MG Oral Capsule Delayed Release TAKE 1 CAPSULE Daily Quantity: 90 Refills: 3 Ordered: 05-Apr-2022 DO Active Payers Date Payer Category Payer Self-pay [id number] 2011 Unknown [id number] 1958 Medicare [id number] 1958 Medicare [id number] 1958 Medicare [id number] 1959 Self-pay [id number] 1959 Unknown [id number] 1945 Unknown [id number] 2.16.84 [id number] 1945 Unknown [id number] 2.16.84 0.1.101897.3.579.2.593 1945 Unknown [id number] 2.16.84 0.1.021747.3.579.2.593 1945 Unknown [id number] 2.16.84 0.1.193989.3.579.2.593 1945 Unknown [id number] 2.16.84 0.1.786520.3.579.2.593 1945 Unknown [id number] 2.16.84 0.1.992694.3.579.2.593 1945 Unknown [id number] 2.16.84 0.1.958651.3.579.2.593 1945 Unknown [id number] 2.16.84 0.1.622393.3.579.2.593 1945 Unknown [id number] 2.16.84 0.1.644108.3.579.2.593 1945 Unknown [id number] 2.16.84 0.1.476845.3.579.2.593 1945 Unknown [id number] 2.16.84 0.1.491339.3.579.2.593 1945 Unknown [id number] 2.16.84 0.1.571046.3.579.2.593 1945 Unknown [id number] 2.16.8 40.1.565716.3.579.2.1286 1945 Unknown [id number] 2.16.8 40.1.149869.3.579.2.1286 1945 Unknown [id number] 2.16.8 40.1.781324.3.579.2.1286 1945 Unknown [id number] 2.16.8 40.1.255693.3.579.2.1286 Unknown Unknown [id number] 2.16.8 [id number] Plan of Treatment Date Care Activity Detail Author Start: 05-29-2022 FUV, Provider: Britt Lazo, Status: Pen, Time: 1:10 PM [facility]UV, Provider: Britt Lazo, Status: Pen, Time: 1:10 PM [facility] Work Phone: Start: 04-27-2022 Radionuclide myocard ial perfusion stress study NM viky perf SPECT rest & str [facility] Start: 04-27-2022 SPECT Heart perfusio n at rest and W stress and W radionuclide IV [facility] Work Phone: Start: 04-20-2022 [facility], Provider: Shay Sandoval, Status: Pen, Time: 9:00 AM [facility], Provider: Shay Sandoval, Status: Pen, [facility]: [facility] Work [facility]: Problems Active Problems Problem Classification Problem Date Documented Date Episodic/Chronic Abdominal hernia (2 sources) Unilateral inguinal hernia, without obstruction or gangrene, not specified as recurrent; Translations: [Umbilical hernia without obstruction or gangrene] Onset: 06-26-20 Episodic Aortic; peripheral; and visceral artery aneurysms (10 sources) Abdominal aortic aneurysm; Translations: [Abdominal aneurysm without mention of rupture] Onset: 06-26-20 22 02-08-2024 Chronic Comment on above: 4.[address] 03/2022; Bacterial infection; unspecified site (3 sources) Klebsiella pneumoniae [K. pneumoniae] as the cause of diseases classified elsewhere; Translations: [Proteus (mirabilis) (morganii) as the cause of diseases classified elsewhere] Onset: 06-26-20 Episodic Cancer of rectum and anus (1 source) Malignant neoplasm of rectosigmoid junction; Translations: [MAL NEOPLASM RECTOSIGMOID JUNCT] Onset: 04-05-20 Chronic Chronic kidney disease (2 sources) Chronic kidney disease, unspecified; Translations: [Chronic kidney disease] Onset: 05-17-2003-12-2024 Chronic Chronic kidney disease (1 source) Chronic [...] WITHOUT ESOPHAGITIS] Onset: 06-26-20 Chronic Essential hypertension (12 sources) Benign essential hypertension; Translations: [Benign essential [...] 06-26-20 Chronic Other aftercare (1 source) Other halfway (current) drug therapy; Translations: [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 CURRENT DRUG THERAPY] Onset: 06-26-20 Episodic Other [...] Dyspnea; Translations: [Other respiratory abnormalities] Episodic Other lower respiratory disease (1 source) Lung mass; Translations: [Other nonspecific abnormal finding of lung field] 02-08-2024 Episodic Other screening for suspected conditions (not mental disorders or infectious disease) (14 sources) Electrocardiogram abnormal; Translations: [Nonspecific abnormal electrocardiogram [ECG] [EKG]] Onset: 11-30-20 21 Episodic Residual codes; unclassified (6 sources) Body [...] EXPOS COVID-19] Onset: 06-26-20 Unclassified (1 source) Penetrating atherosclerotic ulcer of aorta Onset: 03-20-20 Unclassified (1 source) Infrarenal abdominal aortic aneurysm, [...] unspecified; Translations: [Dyspnea, unspecified] Onset: 04-27-2022 Episodic Procedures Date Procedure Procedure Detail Performing Clinician [...] ARISTEO HERNANDEZ Start: 08-03-[address] ZABRINA HERNANDEZ Comment on above: Performed By: #### C EA. #### [facility] [address] [place] [address] Dr. Elvis Cifuentes Hernia repair Aristeo Nolan rachel Work Phone: Operation on the ear Gurpreet Hernandez Work Phone: Total colonoscopy Aristeo Hernandez Work Phone: Comment on above: 03/2022; Results Test Name Value Interpretation Reference Range Facility Estimated glomerular filtrat ion rate (GFR) non- Americanon 02-08-2024 GFR/1.73 sq M.predicted among non-blacks MDRD (S/P/Bld) [Vol rate/Area] 54 mL/min/{1.73_m2} >=60 [facility] - Chemistry and C hemistry - challengeon 02-08-2024 Creatinine [Mass/Vol] 1.30 mg/dL 0.70-1.30 [facility] GFR/1.73 sq M.predicted MDRD (S/P/Bld) [Vol rate/Area] mL/min/{1.73_m2} >=60 [facility] XR MODIFIED BARIUM SWALLOWon 06-29-2022 XR MODIFIED [...] by: GEORGETTE GOLDMAN Date: 2022-06-29 13:34 Normal [facility] CULTURE URINEon 05-28-2022 CULTURE URINE Culture [...] F Trimethoprim/Sulfamethoxazo le <=20 S F Normal [facility] Comment on above: Performed By: #### U RCX #### [facility] [address] [place] [address] Dr. Elvis Cifuentes WOUND CULTUREon 05-28-2022 Bacteria identified Aer cx Nom (Unsp spec) Final report Normal [facility] Comment on above: Performed By: #### G IPANEL #### [facility] [address] [place] [address] Dr. Elvis Cifuentes Result 1 Comment Normal [facility] Comment on above: Result Comment: Mixe d skin zahra including multiple gram negative rods. Performed By: #### G IPANEL #### [facility] [address] [place] [address] Dr. Elvis Cifuentes C. DIFF PCRon 05-25-2022 C. DIFFICILE PCR Negative Normal NEGATIVE [facility] Comment on above: Performed By: #### U RCX #### [facility] [address] [place] [address] Dr. Elvis Cifuentes CBC W MANUAL DIFFon 05-25-20 22 ATYPICAL LYMPH # Normal [facility] Comment on above: Performed By: #### P REALB, MG #### [facility] [address] [place] [address] Dr. Elvis Cifuentes ATYPICAL LYMPH % Normal [facility] Comment on above: Performed By: #### P REALB, MG #### [facility] [address] [place] [address] Dr. Elvis Cifuentes BAND # 1.1 103/ul Critically high 0.0-0.[address] [facility] Comment on above: Performed By: #### P REALB, MG #### [facility] [address] [place] [address] Dr. Elvis Cifuentes BAND % 5 % Normal 0-[address] [facility] Comment on above: Performed By: #### P REALB, MG #### [facility] [address] [place] [address] Dr. Elvis Cifuentes BASOM # 0.00 103/ul Normal 0.00-0.[address] [facility] Comment on above: Performed By: #### P REALB, MG #### [facility] [address] [place] [address] Dr. Elvis Cifuentes BASOM % 0.0 % Critically low 0.2-2.[address] [facility] Comment on above: Performed By: #### P REALB, MG #### [facility] [address] [place] [address] Dr. Elvis Cifuentes BLAST # Normal [facility] Comment on above: Performed By: #### P REALB, MG #### [facility] [address] [place] [address] Dr. Elvis Cifuentes BLAST % Normal [facility] Comment on above: Performed By: #### P REALB, MG #### [facility] [address] [place] [address] Dr. Elvis Cifuentes CORRECTED WBC Normal 4.0-11.[address] [facility] Comment on above: Performed By: #### P REALB, MG #### [facility] [address] [place] [address] Dr. Elvis Cifuentes EOS # 0.22 103/ul Normal 0.00-0.[address] [facility] Comment on above: Performed By: #### P REALB, MG #### [facility] [address] [place] [address] Dr. Elvis Cifuentes EOS% 1.0 % Normal 0.9-7.[address] [facility] Comment on above: Performed By: #### P REALB, MG #### [facility] [address] [place] [address] Dr. Elvis Cfiuentes HCT 33.0 % Critically low 42.0-54.[address] [facility] Comment on above: Performed By: #### P REALB, MG #### [facility] [address] [place] [address] Dr. Elvis Cifuentes HGB 10.4 g/dl Critically low 14.0-18.[address] [facility] Comment on above: Performed By: #### P REALB, MG #### [facility] [address] [place] [address] Dr. Elvis Cifuentes LYMPHM # 0.88 103/ul Critically low 1.20-3.[address] [facility] Comment on above: Performed By: #### P REALB, MG #### [facility] [address] [place] [address] Dr. Elvis Cifuentes LYMPHM% 4.0 % Critically low 20.5-60.[address] [facility] Comment on above: Performed By: #### P REALB, MG #### [facility] [address] [place] [address] Dr. Elvis Cifuentes MCH 29.0 pg Normal 25.9-34.[address] [facility] Comment on above: Performed By: #### P REALB, MG #### [facility] [address] [place] [address] Dr. Elvis Cifuentes MCHC 31.5 g/dl Normal 29.9-35.[address] [facility] Comment on above: Performed By: #### P REALB, MG #### [facility] [address] [place] [address] Dr. Elvis Cifuentes MCV 91.9 fL Normal 80.0-94.[address] [facility] Comment on above: Performed By: #### P REALB, MG #### [facility] [address] [place] [address] Dr. Elvis Cifuentes METAMYELOCYTE # Normal [facility] Comment on above: Performed By: #### P REALB, MG #### [facility] [address] [place] [address] Dr. Elvis Cifuentes METAMYELOCYTE % Normal [facility] Comment on above: Performed By: #### P REALB, MG #### [facility] [address] [place] [address] Dr. Elvis Cifuentes MONOM# 0.66 103/ul Normal 0.30-0.[address] [facility] Comment on above: Performed By: #### P REALB, MG #### [facility] [address] [place] [address] Dr. Elvis Cifuentes MONOM% 3.0 % Normal 1.7-12.[address] [facility] Comment on above: Performed By: #### P REALB, MG #### [facility] [address] [place] [address] [address] Elvis Cifuentes MPV 11.6 fL Normal 9.5-13.[address] [facility] Comment on above: Performed By: #### P REALB, MG #### [facility] [address] [place] [address] [address] Elvis Cifuentes MYELOCYTE # Normal [facility] Comment on above: Performed By: #### P REALB, MG #### [facility] [address] [place] [address] Dr. Elvis Cifuentes MYELOCYTE % Normal [facility] Comment on above: Performed By: #### P REALB, MG #### [facility] [address] [place] [address] Dr. Elvis Cifuentes NRBC Normal [facility] Comment on above: Performed By: #### P REALB, MG #### [facility] [address] [place] [address] Dr. Elvis Cifuentes PLT 228 103/ul Normal 150-[address] [facility] Comment on above: Performed By: #### P REALB, MG #### [facility] [address] [place] [address] Dr. Elvis Cifuentes RBC 3.59 106/ul Critically low 4.70-6.[address] [facility] Comment on above: Performed By: #### P REALB, MG #### [facility] [address] [place] [address] Dr. Elvis Cifuentes RDW 15.9 % Critically high 11.0-15.[address] [facility] Comment on above: Performed By: #### P REALB, MG #### [facility] [address] [place] [address] Dr. Elvis Cifuentes SEG # 19.05 103/ul Critically high 1.40-6.[address] [facility] Comment on above: Performed By: #### P REALB, MG #### [facility] [address] [place] [address] Dr. Elvis Cifuentes SEG % 87.0 % Critically high 43.0-75.[address] [facility] Comment on above: Performed By: #### P REALB, MG #### [facility] [address] [place], [place] [address] Dr. Elvis Cifuentes WBC 21.9 103/ul Critically high 4.0-11.0 [facility] Comment on above: Performed By: #### P REALB, MG #### [facility] [address] [place], [place] [address] ABD/PELV W CONon 05-25-20 CT ABD/PELV W CON EXAMINATION: CT ABD/ PELV W CON HISTORY: Mechanical ileus COMPARISON: 05/21/2022 TECHNIQUE: CT of abdomen/pelvis with intravenous and oral contrast. Dose reduction techniques were achieved by using automated exposure control and/or adjustment of mA and/or kV according to patient size and/or use of iterative reconstruction technique. FINDINGS: Freight Unloader: No pertinent findings, which are not already [...] Dr. Coyle discussed this study with nurse Marilin on 05/25/2022 4:56 PM MDT via telephone. Read back of the patient's information and the important finding was performed. Electronically authenticated by: KEVIN COYLE Date: 2022-05-25 18:56 Normal [facility] CULTURE BLOODon 05-25-2022 Microscopic examination of blood, culture Culture Observations: NO GROWTH AT 5 DAYS. Normal [facility] Comment on above: Performed By: #### B [id number] #### [facility] [address] [place] [address] Dr. Elvis Cifuentes Performed By: #### P OCGLUC #### [facility] [address] [place] [address] Dr. Elvis Cifuentes LIVER PROFILEon 05-25-2022 Albumin [Mass/Vol] 2.0 g/dL Critically low 3.4-5.0 [facility] Comment on above: Performed By: #### C EA. #### [facility] [address] [place] [address] Dr. Elvis Cifuentes Albumin/Globulin [Mass ratio] 0.6 {ratio} Normal [facility] Comment on above: Performed By: #### C EA. #### [facility] [address] [place] [address] Dr. Elvis Cifuentes ALP [Catalytic activity/Vol] 53 U/L Normal 46-[address] [facility] Comment on above: Performed By: #### C EA. #### [facility] [address] [place] [address] Dr. Elvis Cifuentes ALT [Catalytic activity/Vol] 17 U/L Normal 16-[address] [facility] Comment on above: Performed By: #### C EA. #### [facility] [address] [place] [address] [address] Elvis Cifuentes AST [Catalytic activity/Vol] 13 U/L Critically low 15-[address] [facility] Comment on above: Performed By: #### C EA. #### [facility] [address] [place] [address] [address] Elvis Cifuentes BILI, CONJUGATED 0.2 mg/dL Normal 0.0-0.[address] [facility] Comment on above: Performed By: #### C EA. #### [facility] [address] [place] [address] Dr. Elvis Cifuentes Bilirubin [Mass/Vol] 0.5 mg/dL Normal 0.2-1.[address] [facility] Comment on above: Performed By: #### C EA. #### [facility] [address] [place] [address] Dr. Elvis Cifuentes Globulin (S) [Mass/Vol] 3.4 g/dL Normal [facility] Comment on above: Performed By: #### C EA. #### [facility] [address] [place] [address] Dr. Elvis Cifuentes Protein [Mass/Vol] 5.4 g/dL Critically low 6.4-8.2 [facility] Comment on above: Performed By: #### C EA. #### [facility] [address] [place] [address] Dr. Elvis Cifuentes POINT OF CARE GLUCOSEon 05-08 Glucose [Mass/Vol] 224 mg/dL Critically high 74-106 [facility] Comment on above: Performed By: #### H STROPN #### [facility] [address] [place] [address] Dr. Elvis Cifuentes Glucose [Mass/Vol] 122 mg/dL Critically high 74-106 [facility] Comment on above: Performed By: #### P OCGLUC #### [facility] [address] [place] [address] Dr. Elvis Cifuentes Glucose [Mass/Vol] 123 mg/dL Critically high 74-106 [facility] Comment on above: Performed By: #### G IPANEL #### [facility] [address] [place] [address] Dr. Elvis Cifuentes PROF CHEM 8 (BAS METB)on Anion gap [Moles/Vol] 12.8 mmol/L Normal [facility] Comment on above: Performed By: #### C EA. #### [facility] [address] [place] [address] Dr. Elvis Cifuentes Anion gap [Moles/Vol] 13.9 mmol/L Normal [facility] Comment on above: Performed By: #### H STROPN #### [facility] [address] [place] [address] Dr. Elvis Cifuentes Calcium [Mass/Vol] 8.4 mg/dL Critically low 8.5-10.1 [facility] Comment on above: Performed By: #### H STROPN #### [facility] [address] [place] [address] Dr. Elvis Cifuentes Performed By: #### C EA. #### [facility] [address] [place] [address] Dr. Elvis Cifuentes Chloride [Moles/Vol] 122 mmol/L Critically high 98-[address] [facility] Comment on above: Result Comment: jTes t Repeated. Critical Value Verified Performed By: #### C EA. #### [facility] [address] [place] [address] Dr. Elvis Cifuentes Chloride [Moles/Vol] 120 mmol/L Critically high 98-[address] [facility] Comment on above: Performed By: #### H STROPN #### [facility] [address] [place] [address] Dr. Elvis Cifuentes CO2 [Moles/Vol] 22.7 mmol/L Normal 21.0-32.[address] [facility] Comment on above: Performed By: #### C EA. #### [facility] [address] [place] [address] Dr. Elvis Cifuentes CO2 [Moles/Vol] 22.6 mmol/L Normal 21.0-32.[address] [facility] Comment on above: Performed By: #### H STROPN #### [facility] [address] [address] [address] Elvis Cifuentes Creatinine [Mass/Vol] 1.38 mg/dL Critically high 0.70-1.[address] [facility] Comment on above: Performed By: #### C EA. #### [facility] [address] [place] [address] Dr. Elvis Cifuentes Creatinine [Mass/Vol] 1.48 mg/dL Critically high 0.70-1.[address] [facility] Comment on above: Performed By: #### H STROPN #### [facility] [address] [place] [address] Dr. Elvis Cifuentes EGFR-AF UKRAINIAN >60 Normal >=[address] [facility] Comment on above: Performed By: #### C EA. #### [facility] [address] [place] [address] Dr. Elvis Cifuentes EGFR-AF UKRAINIAN 56 mL/min/1.73m2 Critically low >=[address] [facility] Comment on above: Performed By: #### H STROPN #### [facility] [address] [place] [address] Dr. Elvis Cifuentes EGFR-NON AF UKRAINIAN 50 mL/min/1.73m2 Critically low >=[address] [facility] Comment on above: Performed By: #### C EA. #### [facility] [address] [place] [address] Dr. Elvis Cifuentes EGFR-NON AF UKRAINIAN 46 mL/min/1.73m2 Critically low >=[address] [facility] Comment on above: Performed By: #### H STROPN #### [facility] [address] [place] [address] Dr. Elvis Cifuentes Glucose [Mass/Vol] 196 mg/dL Critically high 74-106 [facility] Comment on above: Performed By: #### C EA. #### [facility] [address] [place] [address] Dr. Elvis Cifuentes Glucose [Mass/Vol] 213 mg/dL Critically high 74-106 [facility] Comment on above: Performed By: #### H STROPN #### [facility] [address] [place] [address] Dr. Elvis Cifuentes Potassium [Moles/Vol] 3.5 mmol/L Normal 3.5-5.[address] [facility] Comment on above: Performed By: #### H STROPN #### [facility] [address] [place] [address] Dr. Elvis Cifuentes Performed By: #### C EA. #### [facility] [address] [place] [address] Dr. Elvis Cifuentes Sodium [Moles/Vol] 154 mmol/L Critically high 136-145 [facility] Comment on above: Performed By: #### H STROPN #### [facility] [address] [place] [address] Dr. Elvis Cifuentes Performed By: #### C EA. #### [facility] [address] [place] [address] Dr. Elvis Cifuentes Urea nitrogen [Mass/Vol] 37.0 mg/dL Critically high 7.0-18.[address] [facility] Comment on above: Performed By: #### H STROPN #### [facility] [address] [place] [address] Dr. Elvis Cifuentes Performed By: #### C EA. #### [facility] [address] [place] [address] Dr. Elvis Cifuentes Urea nitrogen/Creatinin e [Mass ratio] 26.8 mg/mg Normal [facility] Comment on above: Performed By: #### C EA. #### [facility] [address] [place] [address] Dr. Elvis Cifuentes Urea nitrogen/Creatinin e [Mass ratio] 25.0 mg/mg Normal [facility] Comment on above: Performed By: #### H STROPN #### [facility] [address] [place] [address] Dr. Elvis Cifuentes XR ABD FLAT_UPon 05-25-2022 [...] GEORGETTE GOLDMAN Date: 2022-05-25 09:49 Normal [facility] CBC W MANUAL DIFFon 05-24-20 22 ATYPICAL LYMPH # Normal [facility] Comment on above: Performed By: #### P REALB, MG #### [facility] [address] [place] [address] Dr. Elvis Cifuentes ATYPICAL LYMPH % Normal [facility] Comment on above: Performed By: #### P REALB, MG #### [facility] [address] [place] [address] Dr. Elvis Cifuentes BAND # 0.3 103/ul Normal 0.0-0.[address] [facility] Comment on above: Performed By: #### P REALB, MG #### [facility] [address] [address] [address] Elvis Cifuentes BAND % 2 % Normal 0-5 [facility] Comment on above: Performed By: #### P REALB, MG #### [facility] [address] [place] [address] Dr. Elvis Cifuentes BASOM # 0.00 103/ul Normal 0.00-0.[address] [facility] Comment on above: Performed By: #### P REALB, MG #### [facility] [address] [place] [address] Dr. Elvis Cifuentes BASOM % 0.0 % Critically low 0.2-2.0 [facility] Comment on above: Performed By: #### P REALB, MG #### [facility] [address] [place] [address] Dr. Elvis Cifuentes BLAST # Normal [facility] Comment on above: Performed By: #### P REALB, MG #### [facility] [address] [place] [address] Dr. Elvis Cifuentes BLAST % Normal [facility] Comment on above: Performed By: #### P REALB, MG #### [facility] [address] [place] [address] Dr. Elvis Cifuentes CORRECTED WBC Normal 4.0-11.[address] [facility] Comment on above: Performed By: #### P REALB, MG #### [facility] [address] [place] [address] Dr. Elvis Cifuentes EOS # 0.00 103/ul Normal 0.00-0.[address] [facility] Comment on above: Performed By: #### P REALB, MG #### [facility] [address] [place] [address] Dr. Elvis Cifuentes EOS% 0.0 % Critically low 0.9-7.[address] [facility] Comment on above: Performed By: #### P REALB, MG #### [facility] [address] [place] [address] Dr. Elvis Cifuentes HCT 33.8 % Critically low 42.0-54.[address] [facility] Comment on above: Performed By: #### P REALB, MG #### [facility] [address] [place] [address] Dr. Elvis Cifuentes HGB 10.8 g/dl Critically low 14.0-18.[address] [facility] Comment on above: Performed By: #### P REALB, MG #### [facility] [address] [place] [address] Dr. Elvis Cifuentes LYMPHM # 0.80 103/ul Critically low 1.20-3.[address] [facility] Comment on above: Performed By: #### P REALB, MG #### [facility] [address] [place] [address] Dr. Elvis Cifuentes LYMPHM% 5.0 % Critically low 20.5-60.[address] [facility] Comment on above: Performed By: #### P REALB, MG #### [facility] [address] [place] [address] Dr. Elvis Cifuentes MCH 28.9 pg Normal 25.9-34.[address] [facility] Comment on above: Performed By: #### P REALB, MG #### [facility] [address] [place] [address] Dr. Elvis Cifuentes MCHC 32.0 g/dl Normal 29.9-35.[address] [facility] Comment on above: Performed By: #### P REALB, MG #### [facility] [address] [place] [address] Dr. Elvis Cifuentes MCV 90.4 fL Normal 80.0-94.[address] [facility] Comment on above: Performed By: #### P REALB, MG #### [facility] [address] [place] [address] Dr. Elvis Cifuentes METAMYELOCYTE # Normal [facility] Comment on above: Performed By: #### P REALB, MG #### [facility] [address] [place] [address] Dr. Elvis Cifuentes METAMYELOCYTE % Normal [facility] Comment on above: Performed By: #### P REALB, MG #### [facility] [address] [place] [address] Dr. Elvis Cifuentes MONOM# 1.43 103/ul Critically high 0.30-0.[address] [facility] Comment on above: Performed By: #### P REALB, MG #### [facility] [address] [place] [address] Dr. Elvis Cifuentes MONOM% 9.0 % Normal 1.7-12.[address] [facility] Comment on above: Performed By: #### P REALB, MG #### [facility] [address] [place] [address] Dr. Elvis Cifuentes MPV 10.7 fL Normal 9.5-13.[address] [facility] Comment on above: Performed By: #### P REALB, MG #### [facility] [address] [place] [address] Dr. Elvis Cifuentes MYELOCYTE # Normal [facility] Comment on above: Performed By: #### P REALB, MG #### [facility] [address] [address] [address] Elvis Cifuentes MYELOCYTE % Normal [facility] Comment on above: Performed By: #### P REALB, MG #### [facility] [address] [address] [address] Elvis Cifuentes NRBC Normal [facility] Comment on above: Performed By: #### P REALB, MG #### [facility] [address] [address] [address] Elvis Cifuentes PLT 214 103/ul Normal 150-[address] [facility] Comment on above: Performed By: #### P REALB, MG #### [facility] [address] [place] [address] Dr. Elvis Cifuentes RBC 3.74 106/ul Critically low 4.70-6.[address] [facility] Comment on above: Performed By: #### P REALB, MG #### [facility] [address] [place] [address] Dr. Elvis Cifuentes RDW 15.4 % Critically high 11.0-15.[address] [facility] Comment on above: Performed By: #### P REALB, MG #### [facility] [address] [place] [address] Dr. Elvis Cifuentes SCHISTOCYTES 2+ Normal [facility] Comment on above: Performed By: #### P REALB, MG #### [facility] [address] [place] [address] Dr. Elvis Cifuentes SEG # 13.36 103/ul Critically high 1.40-6.[address] [facility] Comment on above: Performed By: #### P REALB, MG #### [facility] [address] [place] [address] Dr. Elvis Cifuentes SEG % 84.0 % Critically high 43.0-75.[address] [facility] Comment on above: Performed By: #### P REALB, MG #### [facility] [address] [place] [address] Dr. Elvis Cifuentes WBC 15.9 103/ul Critically high 4.0-11.[address] [facility] Comment on above: Performed By: #### P REALB, MG #### [facility] [address] [place] [address] Dr. Elvis Cifuentes LIVER PROFILEon 05-24-2022 Albumin [Mass/Vol] 1.9 g/dL Critically low 3.4-5.0 [facility] Comment on above: Performed By: #### G IPANEL #### [facility] [address] [place] [address] Dr. Elvis Cifuentes Albumin/Globulin [Mass ratio] 0.5 {ratio} Normal [facility] Comment on above: Performed By: #### G IPANEL #### [facility] [address] [place] [address] Dr. Elvis Cifuentes ALP [Catalytic activity/Vol] 48 U/L Normal 46-[address] [facility] Comment on above: Performed By: #### G IPANEL #### [facility] [address] [place] [address] Dr. Elvis Cifuentes ALT [Catalytic activity/Vol] 14 U/L Critically low 16-[address] [facility] Comment on above: Performed By: #### G IPANEL #### [facility] [address] [place] [address] Dr. Elvis Cifuentes AST [Catalytic activity/Vol] 16 U/L Normal 15-[address] [facility] Comment on above: Performed By: #### G IPANEL #### [facility] [address] [place] [address] Dr. Elvis Cifuentes BILI, CONJUGATED 0.2 mg/dL Normal 0.0-0.[address] [facility] Comment on above: Performed By: #### G IPANEL #### [facility] [address] [place] [address] Dr. Elvis Cifuentes Bilirubin [Mass/Vol] 0.5 mg/dL Normal 0.2-1.[address] [facility] Comment on above: Performed By: #### G IPANEL #### [facility] [address] [place] [address] Dr. Elvis Cifuentes Globulin (S) [Mass/Vol] 3.6 g/dL Normal [facility] Comment on above: Performed By: #### G IPANEL #### [facility] [address] [address] [address] Elvis Cifuentes Protein [Mass/Vol] 5.5 g/dL Critically low 6.4-8.2 [facility] Comment on above: Performed By: #### G IPANEL #### [facility] [address] [place] [address] Dr. Elvis Cifuentes POINT OF CARE GLUCOSEon 05-08 Glucose [Mass/Vol] 234 mg/dL Critically high [address] [place] [address] Comment on above: Performed By: #### P REALB, MG #### [facility] [address] [place] [address] Dr. Elvis Cifuentes Glucose [Mass/Vol] 204 mg/dL Critically high [address] [place] [address] Comment on above: Performed By: #### P REALB, MG #### [facility] [address] [place] [address] Dr. Elvis Cifuentes Glucose [Mass/Vol] 193 mg/dL Critically high [address] [place] [address] Comment on above: Performed By: #### B [id number] #### [facility] [address] [place] [address] Dr. Elvis Cifuentes Glucose [Mass/Vol] 194 mg/dL Critically high [address] [place] [address] Comment on above: Performed By: #### B LDCX2 #### [facility] [address] [place] [address] Dr. Elvis Cifuentes PROF CHEM 8 (BAS METB)on Anion gap [Moles/Vol] 13.8 mmol/L [facility] Comment on above: Performed By: #### G IPANEL #### [facility] [address] [place] [address] Dr. Elvis Cifuentes Anion gap [Moles/Vol] 15.0 mmol/L [facility] Comment on above: Performed By: #### C EA. #### [facility] [address] [place] [address] Dr. Elvis Cifuentes Anion gap [Moles/Vol] 12.0 mmol/L [facility] Comment on above: Performed By: #### P REALB, MG #### [facility] [address] [address] [address] Elvis Cifuentes Calcium [Mass/Vol] 8.5 mg/dL Normal 8.5-10.[address] [facility] Comment on above: Performed By: #### G IPANEL #### [facility] [address] [address] [address] Elvis Cifuentes Calcium [Mass/Vol] 8.5 mg/dL Normal 8.5-10.[address] [facility] Comment on above: Performed By: #### C EA. #### [facility] [address] [place] [address] Dr. Elvis Cifuentes Calcium [Mass/Vol] 8.3 mg/dL Critically low 8.5-10.1 [facility] Comment on above: Performed By: #### P REALB, MG #### [facility] [address] [place] [address] Dr. Elvis Cifuentes Chloride [Moles/Vol] 124 mmol/L Critically high 98-[address] [facility] Comment on above: Performed By: #### G IPANEL #### [facility] [address] [place] [address] Dr. Elvis Cifuentes Chloride [Moles/Vol] 125 mmol/L Critically high 98-[address] [facility] Comment on above: Performed By: #### C EA. #### [facility] [address] [address] [address] Elvis Cifuentes Chloride [Moles/Vol] 123 mmol/L Critically high 98-[address] [facility] Comment on above: Performed By: #### P REALB, MG #### [facility] [address] [address] [address] Elvis Cifuentes CO2 [Moles/Vol] 23.2 mmol/L Normal 21.0-32.[address] [facility] Comment on above: Performed By: #### G IPANEL #### [facility] [address] [address] [address] Elvis Cifuentes CO2 [Moles/Vol] 21.5 mmol/L Normal 21.0-32.[address] [facility] Comment on above: Performed By: #### C EA. #### [facility] [address] [place] [address] Dr. Elvis Cifuentes CO2 [Moles/Vol] 23.7 mmol/L Normal 21.0-32.[address] [facility] Comment on above: Performed By: #### P REALB, MG #### [facility] [address] [place] [address] Dr. Elvis Cifuentes Creatinine [Mass/Vol] 1.38 mg/dL Critically high 0.70-1.[address] [facility] Comment on above: Performed By: #### G IPANEL #### [facility] [address] [place] [address] Dr. Elvis Cifuentes Creatinine [Mass/Vol] 1.44 mg/dL Critically high 0.70-1.[address] [facility] Comment on above: Performed By: #### C EA. #### [facility] [address] [place] [address] Dr. Elvis Cifuentes Creatinine [Mass/Vol] 1.43 mg/dL Critically high 0.70-1.[address] [facility] Comment on above: Performed By: #### P REALB, MG #### [facility] [address] [place] [address] Dr. Elvis Cifuentes EGFR-AF UKRAINIAN >60 Normal >=[address] [facility] Comment on above: Performed By: #### G IPANEL #### [facility] [address] [place] [address] Dr. Elvis Cifuentes EGFR-AF UKRAINIAN 58 mL/min/1.73m2 Critically low >=60 [facility] Comment on above: Performed By: #### C EA. #### [facility] [address] [place] [address] Dr. Elvis Cifuentes EGFR-AF UKRAINIAN 58 mL/min/1.73m2 Critically low >=60 [facility] Comment on above: Performed By: #### P REALB, MG #### [facility] [address] [place] [address] Dr. Elvis Cifuentes EGFR-NON AF UKRAINIAN 50 mL/min/1.73m2 Critically low >=[address] [facility] Comment on above: Performed By: #### G IPANEL #### [facility] [address] [place] [address] Dr. Elvis Cifuentes EGFR-NON AF UKRAINIAN 48 mL/min/1.73m2 Critically low >=[address] [facility] Comment on above: Performed By: #### C EA. #### [facility] [address] [address] [address] Elvis Cifuentes EGFR-NON AF UKRAINIAN 48 mL/min/1.73m2 Critically low >=[address] [facility] Comment on above: Performed By: #### P REALB, MG #### [facility] [address] [place] [address] Dr. Elvis Cifuentes Glucose [Mass/Vol] 214 mg/dL Critically high -106 [facility] Comment on above: Performed By: #### G IPANEL #### [facility] [address] [place] [address] Dr. Elvis Cifuentes Glucose [Mass/Vol] 202 mg/dL Critically high -106 [facility] Comment on above: Performed By: #### C EA. #### [facility] [address] [place] [address] Dr. Elvis Cifuentes Glucose [Mass/Vol] 221 mg/dL Critically high -106 [facility] Comment on above: Performed By: #### P REALB, MG #### [facility] [address] [place] [address] Dr. Elvis Cifuentes Potassium [Moles/Vol] 3.0 mmol/L Critically low 3.5-5.[address] [facility] Comment on above: Performed By: #### G IPANEL #### [facility] [address] [place] [address] Dr. Elvis Cifuentes Potassium [Moles/Vol] 3.5 mmol/L Normal 3.5-5.[address] [facility] Comment on above: Performed By: #### C EA. #### [facility] [address] [place] [address] Dr. Elvis Cifuentes Potassium [Moles/Vol] 3.7 mmol/L Normal 3.5-5.[address] [facility] Comment on above: Performed By: #### P REALB, MG #### [facility] [address] [address] [address] Elvis Cifuentes Sodium [Moles/Vol] 158 mmol/L Critically high 136-145 [facility] Comment on above: Performed By: #### G IPANEL #### [facility] [address] [address] [address] Elvis Cifuentes Sodium [Moles/Vol] 159 mmol/L Critically high 136-145 [facility] Comment on above: Performed By: #### C EA. #### [facility] [address] [place] [address] Dr. Elvis Cifuentes Sodium [Moles/Vol] 156 mmol/L Critically high 136-145 [facility] Comment on above: Performed By: #### P LULI, MG #### [facility] [address] [place] [address] Dr. Elvis Cifuentes Urea nitrogen [Mass/Vol] 36.0 mg/dL Critically high 7.0-18.[address] [facility] Comment on above: Performed By: #### G IPANEL #### [facility] [address] [place] [address] Dr. Elvis Cifuentes Urea nitrogen [Mass/Vol] 38.0 mg/dL Critically high 7.0-18.[address] [facility] Comment on above: Performed By: #### C EA. #### [facility] [address] [place] [address] Dr. Elvis Cifuentes Urea nitrogen [Mass/Vol] 36.0 mg/dL Critically high 7.0-18.[address] [facility] Comment on above: Performed By: #### P REALB, MG #### [facility] [address] [place] [address] Dr. Elvis Cifuentes Urea nitrogen/Creatinin e [Mass ratio] 26.1 mg/mg Normal [facility] Comment on above: Performed By: #### G IPANEL #### [facility] [address] [place] [address] Dr. Elvis Cifuentes Urea nitrogen/Creatinin e [Mass ratio] 26.4 mg/mg Normal [facility] Comment on above: Performed By: #### C EA. #### [facility] [address] [place] [address] Dr. Elvis Cifuentes Urea nitrogen/Creatinin e [Mass ratio] 25.2 mg/mg Normal [facility] Comment on above: Performed By: #### P REALB, MG #### [facility] [address] [place] [address] Dr. Elvis Cifuentes UA RANDOM W/MICROSCOPICon BACTERIA TRACE Abnormal NONE SEEN [facility] Comment on above: Performed By: #### C EA. #### [facility] [address] [place] [address] Dr. Elvis Cifuentes Bilirubin Ql (U) Negative Normal NEGATIVE [facility] Comment on above: Performed By: #### C EA. #### [facility] [address] [place] [address] Dr. Elvis Cifuentes CAST SEEN Abnormal NONE SEEN [facility] Comment on above: Performed By: #### C EA. #### [facility] [address] [place] [address] Dr. Elvis Cifuentes Clarity (U) CLEAR Normal CLEAR [facility] Comment on above: Performed By: #### C EA. #### [facility] [address] [place] [address] Dr. Elvis Cifuentes COARSE GRANULAR CAST FEW Normal [facility] Comment on above: Performed By: #### C EA. #### [facility] [address] [place] [address] Dr. Elvis Cifuentes Color (U) YELLOW Normal YELLOW [facility] Comment on above: Performed By: #### C EA. #### [facility] [address] [place] [address] Dr. Elvis Cifuentes Crystals LM Nom (Urine sed) NONE SEEN Normal NONE SEEN [facility] Comment on above: Performed By: #### C EA. #### [facility] [address] [place] [address] Dr. Elvis Cifuentes Epithelial cells LM Ql (Urine sed) FEW Abnormal NONE SEEN /RARE [facility] Comment on above: Performed By: #### C EA. #### [facility] [address] [place] [address] Dr. Elvsi Cifuentes Glucose Ql (U) Negative Normal NEGATIVE [facility] Comment on above: Performed By: #### C EA. #### [facility] [address] [place] [address] Dr. Elvis Cifuentes Hemoglobin Ql (U) TRACE-INTACT Abnormal NEGATIVE [facility] Comment on above: Performed By: #### C EA. #### [facility] [address] [place] [address] Dr. Elvis Cifuentes Ketones Ql (U) Negative Normal NEGATIVE [facility] Comment on above: Performed By: #### C EA. #### [facility] [address] [place] [address] Dr. Elvis Cifuentes LEUKOCYTES TRACE Abnormal NEGATIVE [facility] Comment on above: Performed By: #### C EA. #### [facility] [address] [place] [address] Dr. Elvis Cifuentes MUCOUS NONE SEEN Normal NONE SEEN [facility] Comment on above: Performed By: #### C EA. #### [facility] [address] [place] [address] Dr. Elvis Cifuentes Nitrite Ql (U) Negative Normal NEGATIVE [facility] Comment on above: Performed By: #### C EA. #### [facility] [address] [place] [address] Dr. Elvis Cifuentes pH (U) 5.5 [pH] Normal 5-9 [facility] Comment on above: Performed By: #### C EA. #### [facility] [address] [place] [address] Dr. Elvis Cifuentes RBC 0-2 Normal 0-2 [facility] Comment on above: Performed By: #### C EA. #### [facility] [address] [place] [address] Dr. Elvis Cifuentes SPEC GRAVITY 1.015 Normal 1.005-<=1.[address] [facility] Comment on above: Performed By: #### C EA. #### [facility] [address] [place] [address] Dr. Elvis Cifuentes UA PROTEIN TRACE Normal NEGATIVE/ TRACE [facility] Comment on above: Performed By: #### C EA. #### [facility] [address] [place] [address] Dr. Elvis Cifuentes Urobilinogen Qn (U) 0.2 {Geovanna'U}/dL Normal 0.2 - 1.[address] [facility] Comment on above: Performed By: #### C EA. #### [facility] [address] [place] [address] Dr. Elvis Cifuentes WBC 2-5 Abnormal NONE SEEN [facility] Comment on above: Performed By: #### C EA. #### [facility] [address] [place] [address] Dr. Elvis Cifuentes CBC W MANUAL DIFFon 05-23-20 22 ANISOCYTOSIS SLIGHT Normal [facility] Comment on above: Performed By: #### P REALB, MG #### [facility] [address] [place] [address] Dr. Elvis Cifuentes ATYPICAL LYMPH # Normal [facility] Comment on above: Performed By: #### P REALB, MG #### [facility] [address] [place] [address] Dr. Elvis Cifuentes ATYPICAL LYMPH % Normal [facility] Comment on above: Performed By: #### P REALB, MG #### [facility] [address] [place] [address] Dr. Elvis Cifuentes BAND # Normal 0.0-0.3 [facility] Comment on above: Performed By: #### P REALB, MG #### [facility] [address] [place] [address] Dr. Elvis Cifuentes BAND % Normal 0-5 [facility] Comment on above: Performed By: #### P REALB, MG #### [facility] [address] [place] [address] Dr. Elvis Cifuentes BASOM # 0.00 103/ul Normal 0.00-0.10 [facility] Comment on above: Performed By: #### P REALB, MG #### [facility] [address] [place] [address] Dr. Elvis Cifuentes BASOM % 0.0 % Critically low 0.2-2.[address] [facility] Comment on above: Performed By: #### P REALB, MG #### [facility] [address] [place] [address] Dr. Elvis Cifuentes BLAST # Normal [facility] Comment on above: Performed By: #### P REALB, MG #### [facility] [address] [place] [address] Dr. Elvis Cifuentes BLAST % Normal [facility] Comment on above: Performed By: #### P REALB, MG #### [facility] [address] [place] [address] Dr. Elvis Cifuentes CORRECTED WBC Normal 4.0-11.[address] [facility] Comment on above: Performed By: #### P REALB, MG #### [facility] [address] [place] [address] Dr. Elvis Cifuentes EOS # 0.00 103/ul Normal 0.00-0.[address] [facility] Comment on above: Performed By: #### P REALB, MG #### [facility] [address] [place] [address] Dr. Elvis Cifuentes EOS% 0.0 % Critically low 0.9-7.[address] [facility] Comment on above: Performed By: #### P REALB, MG #### [facility] [address] [place] [address] Dr. Elvis Cifuentes HCT 35.0 % Critically low 42.0-54.[address] [facility] Comment on above: Performed By: #### P REALB, MG #### [facility] [address] [place] [address] Dr. Elvis Cifuentes HGB 10.3 g/dl Critically low 14.0-18.[address] [facility] Comment on above: Performed By: #### P REALB, MG #### [facility] [address] [address] [address] Elvis Cifuentes LYMPHM # 0.48 103/ul Critically low 1.20-3.[address] [facility] Comment on above: Performed By: #### P REALB, MG #### [facility] [address] [place] [address] Dr. Elvis Cifuentes LYMPHM% 5.0 % Critically low 20.5-60.[address] [facility] Comment on above: Performed By: #### P REALB, MG #### [facility] [address] [place] [address] Dr. Elvis Cifuentes MCH 28.5 pg Normal 25.9-34.[address] [facility] Comment on above: Performed By: #### P REALB, MG #### [facility] [address] [place] [address] Dr. Elvis Cifuentes MCHC 29.4 g/dl Critically low 29.9-35.[address] [facility] Comment on above: Performed By: #### P REALB, MG #### [facility] [address] [place] [address] Dr. Elvis Cifuentes MCV 96.7 fL Critically high 80.0-94.[address] [facility] Comment on above: Performed By: #### P REALB, MG #### [facility] [address] [place] [address] Dr. Elvis Cifuentes METAMYELOCYTE # Normal [facility] Comment on above: Performed By: #### P REALB, MG #### [facility] [address] [place] [address] Dr. Elvis Cifuentes METAMYELOCYTE % Normal [facility] Comment on above: Performed By: #### P REALB, MG #### [facility] [address] [place] [address] Dr. Elvis Cifuentes MONOM# 0.39 103/ul Normal 0.30-0.[address] [facility] Comment on above: Performed By: #### P REALB, MG #### [facility] [address] [place] [address] Dr. Elvis Cifuentes MONOM% 4.0 % Normal 1.7-12.0 [facility] Comment on above: Performed By: #### P REALB, MG #### [facility] [address] [address] [address] Elvis Cifuentes MPV 10.6 fL Normal 9.5-13.[address] [facility] Comment on above: Performed By: #### P REALB, MG #### [facility] [address] [place] [address] Dr. Elvis Cifuentes MYELOCYTE # Normal [facility] Comment on above: Performed By: #### P REALB, MG #### [facility] [address] [place] [address] Dr. Elvis Cifuentes MYELOCYTE % Normal [facility] Comment on above: Performed By: #### P REALB, MG #### [facility] [address] [place] [address] Dr. Elvis Cifuentes NRBC Normal [facility] Comment on above: Performed By: #### P REALB, MG #### [facility] [address] [place] [address] Dr. Elvis Cifuentes PLT 190 103/ul Normal 150-[address] [facility] Comment on above: Performed By: #### P REALB, MG #### [facility] [address] [place] [address] Dr. Elvis Cifuentes RBC 3.62 106/ul Critically low 4.70-6.[address] [facility] Comment on above: Performed By: #### P REALB, MG #### [facility] [address] [place] [address] Dr. Elvis Cifuentes RDW 15.9 % Critically high 11.0-15.[address] [facility] Comment on above: Performed By: #### P REALB, MG #### [facility] [address] [place] [address] Dr. Elvis Cifuentes SEG # 8.83 103/ul Critically high 1.40-6.[address] [facility] Comment on above: Performed By: #### P REALB, MG #### [facility] [address] [place] [address] Dr. Elvis Cifuentes SEG % 91.0 % Critically high 43.0-75.[address] [facility] Comment on above: Performed By: #### P REALB, MG #### [facility] [address] [address] [address] Elvis Cifuentes WBC 9.7 103/ul Normal 4.0-11.[address] [facility] Comment on above: Performed By: #### P REALB, MG #### [facility] [address] [address] [address] Elvis Cifuentes CTA CHEST WO W CONon 022 CTA CHEST WO W CON EXAMINATION: [...] by: GEORGETTE GOLDMAN Date: 2022-05-23 10:[address] [facility] LIVER PROFILEon 05-23-2022 Albumin [Mass/Vol] 1.8 g/dL Critically low 3.4-5.0 [facility] Comment on above: Performed By: #### P OCGLUC #### [facility] [address] [place] [id number] Elvis Cifuentes Albumin [Mass/Vol] 2.0 g/dL Critically low 3.4-5.0 [facility] Comment on above: Performed By: #### L IVER #### [facility] [address] [address] [address] Elvis Cifuentes Albumin/Globulin [Mass ratio] 0.5 {ratio} Normal [facility] Comment on above: Performed By: #### P OCGLUC #### [facility] [address] [address] [address] Elvis Cifuentes Albumin/Globulin [Mass ratio] 0.5 {ratio} Normal [facility] Comment on above: Performed By: #### L IVER #### [facility] [address] [address] [address] Elvis Cifuentes ALP [Catalytic activity/Vol] 34 U/L Critically low 46-[address] [facility] Comment on above: Performed By: #### P OCGLUC #### [facility] [address] [place] [address] Dr. Elvis Cifuentes ALP [Catalytic activity/Vol] 41 U/L Critically low 46-[address] [facility] Comment on above: Performed By: #### L IVER #### [facility] [address] [place] [address] Dr. Elvis Cifuentes ALT [Catalytic activity/Vol] 12 U/L Critically low 16-[address] [facility] Comment on above: Performed By: #### P OCGLUC #### [facility] [address] [place] [address] Dr. Elvis Cifuentes ALT [Catalytic activity/Vol] 11 U/L Critically low 16-[address] [facility] Comment on above: Performed By: #### L IVER #### [facility] [address] [place] [address] Dr. Elvis Cifuentes AST [Catalytic activity/Vol] 14 U/L Critically low 15-[address] [facility] Comment on above: Performed By: #### P OCGLUC #### [facility] [address] [address] [address] Elvis Cifuentes AST [Catalytic activity/Vol] 13 U/L Critically low 15-[address] [facility] Comment on above: Performed By: #### L IVER #### [facility] [address] [place] [address] Dr. Elvis TINEOI, CONJUGATED 0.3 mg/dL Critically high 0.0-0.[address] [facility] Comment on above: Performed By: #### P OCGLUC #### [facility] [address] [address] [address] Elvis Cifuentes BILI, CONJUGATED 0.3 mg/dL Critically high 0.0-0.[address] [facility] Comment on above: Performed By: #### L IVER #### [facility] [address] [address] [address] Elvis Cifuentes Bilirubin [Mass/Vol] 0.6 mg/dL Normal 0.2-1.[address] [facility] Comment on above: Performed By: #### P OCGLUC #### [facility] [address] [place] [address] Dr. Elvis Cifuentes Bilirubin [Mass/Vol] 0.6 mg/dL Normal 0.2-1.[address] [facility] Comment on above: Performed By: #### L IVER #### [facility] [address] [place] [address] Dr. Elvis Cifuentes Globulin (S) [Mass/Vol] 3.3 g/dL Normal [facility] Comment on above: Performed By: #### P OCGLUC #### [facility] [address] [place] [address] Dr. Elvis Cifuentes Globulin (S) [Mass/Vol] 3.8 g/dL Normal [facility] Comment on above: Performed By: #### L IVER #### [facility] [address] [place] [address] Dr. Elvis Cifuentes Protein [Mass/Vol] 5.1 g/dL Critically low 6.4-8.2 [facility] Comment on above: Performed By: #### P OCGLUC #### [facility] [address] [place] [address] Dr. Elvis Cifuentes Protein [Mass/Vol] 5.8 g/dL Critically low 6.4-8.2 [facility] Comment on above: Performed By: #### L IVER #### [facility] [address] [place] [address] Dr. Elvis Cifuentes POINT OF CARE GLUCOSEon 05-08 Glucose [Mass/Vol] 187 mg/dL Critically high [address] [place] [address] Comment on above: Performed By: #### C EA. #### [facility] [address] [address] [address] Elvis Cifuentes Glucose [Mass/Vol] 179 mg/dL Critically high [facility] Comment on above: Performed By: #### B [id number] #### [facility] [address] [address] [address] Elvis Cifuentes Glucose [Mass/Vol] 213 mg/dL Critically high [address] [place] [address] Comment on above: Performed By: #### C EA. #### [facility] [address] [address] [address] Elvis Cifuentes Glucose [Mass/Vol] 212 mg/dL Critically high [address] [place] [address] Comment on above: Performed By: #### P REALB, MG #### [facility] [address] [address] [address] Elvis Ciufentes PROF CHEM 8 (BAS METB)on Anion gap [Moles/Vol] 14.0 mmol/L Normal [facility] Comment on above: Performed By: #### B LDCX2 #### [facility] [address] [place] [address] Dr. Elvis Cifuentes Anion gap [Moles/Vol] 13.5 mmol/L Normal [facility] Comment on above: Performed By: #### P REALB, MG #### [facility] [address] [address] [address] Elvis Cifuentes Calcium [Mass/Vol] 8.2 mg/dL Critically low 8.5-10.1 [facility] Comment on above: Performed By: #### B LDCX2 #### [facility] [address] [address] [address] Elvis Cifuentes Calcium [Mass/Vol] 8.6 mg/dL Normal 8.5-10.[address] [facility] Comment on above: Performed By: #### P REALB, MG #### [facility] [address] [address] [address] Elvis Cifuentes Chloride [Moles/Vol] 114 mmol/L Critically high 98-[address] [facility] Comment on above: Performed By: #### B LDCX2 #### [facility] [address] [place] [address] Dr. Elvis Cifuentes Chloride [Moles/Vol] 121 mmol/L Critically high 98-[address] [facility] Comment on above: Performed By: #### P REALB, MG #### [facility] [address] [place] [address] Dr. Elvis Cifuentes CO2 [Moles/Vol] 22.9 mmol/L Normal 21.0-32.[address] [facility] Comment on above: Performed By: #### B LDCX2 #### [facility] [address] [place] [address] Dr. Elvis Cifuentes CO2 [Moles/Vol] 23.8 mmol/L Normal 21.0-32.[address] [facility] Comment on above: Performed By: #### P REALB, MG #### [facility] [address] [place] [address] Dr. Elvis Cifuentes Creatinine [Mass/Vol] 1.56 mg/dL Critically high 0.70-1.[address] [facility] Comment on above: Performed By: #### B LDCX2 #### [facility] [address] [place] [address] Dr. Elvis Cifuentes Creatinine [Mass/Vol] 1.35 mg/dL Critically high 0.70-1.[address] [facility] Comment on above: Performed By: #### P REALB, MG #### [facility] [address] [place] [address] Dr. Elvis Cifuentes EGFR-AF UKRAINIAN 53 mL/min/1.73m2 Critically low >=[address] [facility] Comment on above: Performed By: #### B LDCX2 #### [facility] [address] [place] [address] Dr. Elvis Cifuentes EGFR-AF UKRAINIAN >60 Normal >=[address] [facility] Comment on above: Performed By: #### P REALB, MG #### [facility] [address] [address] [address] Elvis Cifuentes EGFR-NON AF UKRAINIAN 43 mL/min/1.73m2 Critically low >=[address] [facility] Comment on above: Performed By: #### B LDCX2 #### [facility] [address] [address] [address] Elvis Cifuentes EGFR-NON AF UKRAINIAN 51 mL/min/1.73m2 Critically low >=[address] [facility] Comment on above: Performed By: #### P REALB, MG #### [facility] [address] [address] [address] Elvis Cifuentes Glucose [Mass/Vol] 1069 mg/dL Critically high 74-106 [facility] Comment on above: Performed By: #### B LDCX2 #### [facility] [address] [address] [address] Elvis Cifuentes Glucose [Mass/Vol] 215 mg/dL Critically high 74-106 [facility] Comment on above: Performed By: #### P REALB, MG #### [facility] [address] [address] [address] Elvis Cifuentes Potassium [Moles/Vol] 4.9 mmol/L Normal 3.5-5.[address] [facility] Comment on above: Performed By: #### B LDCX2 #### [facility] [address] [address] [address] Elvis Cifuentes Potassium [Moles/Vol] 3.4 mmol/L Critically low 3.5-5.[address] [facility] Comment on above: Performed By: #### P REALB, MG #### [facility] [address] [address] [address] Elvis Cifuentes Sodium [Moles/Vol] 146 mmol/L Critically high 136-145 [facility] Comment on above: Performed By: #### B LDCX2 #### [facility] [address] [address] [address] Elvis Cifuentes Sodium [Moles/Vol] 156 mmol/L Critically high 136-145 [facility] Comment on above: Performed By: #### P REALB, MG #### [facility] [address] [place] [address] Dr. Elvis Cifuentes Urea nitrogen [Mass/Vol] 32.0 mg/dL Critically high 7.0-18.[address] [facility] Comment on above: Performed By: #### B LDCX2 #### [facility] [address] [place] [address] Dr. Elvis Cifuentes Urea nitrogen [Mass/Vol] 34.0 mg/dL Critically high 7.0-18.[address] [facility] Comment on above: Performed By: #### P REALB, MG #### [facility] [address] [place] [address] Dr. Elvis Cifuentes Urea nitrogen/Creatinin e [Mass ratio] 20.5 mg/mg Normal [facility] Comment on above: Performed By: #### B LDCX2 #### [facility] [address] [place] [address] Dr. Elvis Cifuentes Urea nitrogen/Creatinin e [Mass ratio] 25.2 mg/mg Normal [facility] Comment on above: Performed By: #### P REALB, MG #### [facility] [address] [place] [address] Dr. Elvis Cifuentes XR ABD FLAT_UPon 05-23-2022 [...] GEORGETTE GOLDMAN Date: 2022-05-23 07:29 Normal [facility] XR CHEST 1 Von 05-23-2022 XR [...] by: DOMENICO FERNANDEZ Date: 2022-05-23 03:21 Normal [facility] CBC AUTO DIFFon 05-22-2022 BASO # 0.0 103/ul Normal 0.0-0.1 [facility] Comment on above: Performed By: #### C EA. #### [facility] [address] [place] [address] Dr. Elvis Cifuentes Basophils/100 WBC (Bld) 0.1 % Critically low 0.2-2.[address] [facility] Comment on above: Performed By: #### C EA. #### [facility] [address] [address] [address] Elvis Cifuentes EO # 0.1 103/ul Normal 0.0-0.7 [facility] Comment on above: Performed By: #### C EA. #### [facility] [address] [place] [address] Dr. Elvis Cifuentes Eosinophils/100 WBC (Bld) 0.7 % Critically low 0.9-7.0 [facility] Comment on above: Performed By: #### C EA. #### [facility] [address] [address] [address] Elvis Cifuentes Erythrocyte distribution width (RBC) [Ratio] 14.7 % Normal 11.0-15.0 [facility] Comment on above: Performed By: #### C EA. #### [facility] [address] [place] [address] Dr. Elvis Cifuentes Hematocrit (Bld) [Volume fraction] 32.5 % Critically low 42.0-54.0 [facility] Comment on above: Performed By: #### C EA. #### [facility] [address] [place] [address] Dr. Elvis Cifuentes Hemoglobin (Bld) [Mass/Vol] 10.2 g/dL Critically low 14.0-18.[address] [facility] Comment on above: Performed By: #### C EA. #### [facility] [address] [place] [address] Dr. Elvis Cifuentes IG # 0.05 10e3/ul Critically high 0.00-0.[address] [facility] Comment on above: Performed By: #### C EA. #### [facility] [address] [place] [address] Dr. Elvis Cifuentes IG % 0.7 % Critically high 0.0-0.[address] [facility] Comment on above: Performed By: #### C EA. #### [facility] [address] [place] [address] Dr. Elvis Cifuentes LYMPH # 0.4 103/ul Critically low 1.2-3.8 [facility] Comment on above: Performed By: #### C EA. #### [facility] [address] [place] [address] Dr. Elvis Cifuentes Lymphocytes/100 WBC (Bld) 6.5 % Critically low 20.5-60.[address] [facility] Comment on above: Performed By: #### C EA. #### [facility] [address] [place] [address] Dr. Elvis Cifuentes MANUAL DIFF REQ NO Normal [facility] Comment on above: Performed By: #### C EA. #### [facility] [address] [place] [address] Dr. Elvis Cifuentes MCH (RBC) [Entitic mass] 28.5 pg Normal 25.9-34.0 [facility] Comment on above: Performed By: #### C EA. #### [facility] [address] [place] [address] Dr. Elvis Cifuentes MCHC (RBC) [Mass/Vol] 31.4 g/dL Normal 29.9-35.2 [facility] Comment on above: Performed By: #### C EA. #### [facility] [address] [place] [address] Dr. Elvis Cifuentes MCV (RBC) [Entitic vol] 90.8 fL Normal 80.0-94.[address] [facility] Comment on above: Performed By: #### C EA. #### [facility] [address] [place] [address] Dr. Elvis Cifuentes MONO # 0.5 103/ul Normal 0.3-0.8 [facility] Comment on above: Performed By: #### C EA. #### [facility] [address] [place] [address] Dr. Elvis Cifuentes Monocytes/100 WBC (Bld) 7.5 % Normal 1.7-12.[address] [facility] Comment on above: Performed By: #### C EA. #### [facility] [address] [place] [address] Dr. Elvis Cifuentes NEUT # 5.7 103/ul Normal 1.4-6.[address] [facility] Comment on above: Performed By: #### C EA. #### [facility] [address] [place] [address] Dr. Elvis Cifuentes Neutrophils/100 WBC (Bld) 84.5 % Critically high 43.0-75.[address] [facility] Comment on above: Performed By: #### C EA. #### [facility] [address] [place] [address] Dr. Elvis Cifuentes Platelet mean volume (Bld) [Entitic vol] 10.4 fL Normal 9.5-13.5 [facility] Comment on above: Performed By: #### C EA. #### [facility] [address] [place] [address] Dr. Elvis Cifuentes PLT 248 103/ul Normal 150-450 [facility] Comment on above: Performed By: #### C EA. #### [facility] [address] [place] [address] Dr. Elvis Cifuentes RBC 3.58 106/ul Critically low 4.70-6.10 [facility] Comment on above: Performed By: #### C EA. #### [facility] [address] [address] [address] Elvis Cifuentes WBC 6.8 103/ul Normal 4.0-11.[address] [facility] Comment on above: Performed By: #### C EA. #### [facility] [address] [address] [address] Elvis Cifuentes POINT OF CARE GLUCOSEon 05-08 Glucose [Mass/Vol] 186 mg/dL Critically high [address] [place] [address] Comment on above: Performed By: #### P REALB, MG #### [facility] [address] [address] [address] Elvis Cifuentes Glucose [Mass/Vol] 212 mg/dL Critically high [address] [place] [address] Comment on above: Performed By: #### H STROPN #### [facility] [address] [place] [address] Dr. Elvis Cifuentes Glucose [Mass/Vol] 247 mg/dL Critically high [address] [place] [address] Comment on above: Performed By: #### P OCGLUC #### [facility] [address] [address] [address] Elvis Cifuentes Glucose [Mass/Vol] 198 mg/dL Critically high [address] [place] [address] Comment on above: Performed By: #### P REALB, MG #### [facility] [address] [place] [address] Dr. Elvis Cifuentes PREALBUMINon 05-22-2022 Prealbumin [Mass/Vol] 10.3 mg/dL Critically low 20.9-45.[address] [facility] Comment on above: Performed By: #### P REALB, MG #### [facility] [address] [place] [address] Dr. Elvis Cifuentes PROF CHEM 8 (BAS METB)on Anion gap [Moles/Vol] 12.4 mmol/L Normal [facility] Comment on above: Performed By: #### H STROPN #### [facility] [address] [place] [address] Dr. Elvis Cifuentes Calcium [Mass/Vol] 8.3 mg/dL Critically low 8.5-10.1 [facility] Comment on above: Performed By: #### H STROPN #### [facility] [address] [address] [address] Elvis Cifuentes Chloride [Moles/Vol] 114 mmol/L Critically high 98-[address] [facility] Comment on above: Performed By: #### H STROPN #### [facility] [address] [address] [address] Elvis Cifuentes CO2 [Moles/Vol] 24.8 mmol/L Normal 21.0-32.[address] [facility] Comment on above: Performed By: #### H STROPN #### [facility] [address] [address] [address] Elvis Cifuentes Creatinine [Mass/Vol] 1.23 mg/dL Normal 0.70-1.[address] [facility] Comment on above: Performed By: #### H STROPN #### [facility] [address] [address] [address] Elvis Cifuentes EGFR-AF UKRAINIAN >60 Normal >=[address] [facility] Comment on above: Performed By: #### H STROPN #### [facility] [address] [place] [address] Dr. Elvis Cifuentes EGFR-NON AF UKRAINIAN 57 mL/min/1.73m2 Critically low >=[address] [facility] Comment on above: Performed By: #### H STROPN #### [facility] [address] [address] [address] Elvis Cifuentes Glucose [Mass/Vol] 222 mg/dL Critically high 74-106 [facility] Comment on above: Performed By: #### H STROPN #### [facility] [address] [address] [address] Elvis Cifuentes Potassium [Moles/Vol] 3.2 mmol/L Critically low 3.5-5.[address] [facility] Comment on above: Performed By: #### H STROPN #### [facility] [address] [address] [address] Elvis Cifuentes Sodium [Moles/Vol] 148 mmol/L Critically high 136-145 [facility] Comment on above: Performed By: #### H STROPN #### [facility] [address] [place] [address] Dr. Elvis Cifuentes Urea nitrogen [Mass/Vol] 31.0 mg/dL Critically high 7.0-18.[address] [facility] Comment on above: Performed By: #### H STROPN #### [facility] [address] [place] [address] Dr. Elvis Cifuentes Urea nitrogen/Creatinin e [Mass ratio] 25.2 mg/mg Normal [facility] Comment on above: Performed By: #### H STROPN #### [facility] [address] [place] [address] Dr. Elvis Cifuentes CBC W MANUAL DIFFon 05-21-20 22 ATYPICAL LYMPH # Normal [facility] Comment on above: Performed By: #### B LDCX2 #### [facility] [address] [place] [address] Dr. Elvis Cifuentes ATYPICAL LYMPH % Normal [facility] Comment on above: Performed By: #### B LDCX2 #### [facility] [address] [place] [address] Dr. Elvis Cifuentes BAND # 0.4 103/ul Critically high 0.0-0.[address] [facility] Comment on above: Performed By: #### B LDCX2 #### [facility] [address] [place] [address] Dr. Elvis Cifuentes BAND % 5 % Normal 0-5 [facility] Comment on above: Performed By: #### B LDCX2 #### [facility] [address] [place] [address] Dr. Elvis Cifuentes BASOM # 0.00 103/ul Normal 0.00-0.[address] [facility] Comment on above: Performed By: #### B LDCX2 #### [facility] [address] [place] [address] Dr. Elvis Cifuentes BASOM % 0.0 % Critically low 0.2-2.[address] [facility] Comment on above: Performed By: #### B LDCX2 #### [facility] [address] [place] [address] Dr. Elvis Cifuentes BLAST # Normal [facility] Comment on above: Performed By: #### B LDCX2 #### [facility] [address] [place] [address] Dr. Elvis Cifuentes BLAST % Normal [facility] Comment on above: Performed By: #### B LDCX2 #### [facility] [address] [place] [address] Dr. Elvis Cifuentes CORRECTED WBC Normal 4.0-11.[address] [facility] Comment on above: Performed By: #### B LDCX2 #### [facility] [address] [place] [address] Dr. Elvis Cifuentes EOS # 0.00 103/ul Normal 0.00-0.[address] [facility] Comment on above: Performed By: #### B LDCX2 #### [facility] [address] [place] [address] Dr. Elvis Cifuentes EOS% 0.0 % Critically low 0.9-7.[address] [facility] Comment on above: Performed By: #### B LDCX2 #### [facility] [address] [place] [address] Dr. Elvis Cifuetnes HCT 31.8 % Critically low 42.0-54.[address] [facility] Comment on above: Performed By: #### B LDCX2 #### [facility] [address] [place] [address] Dr. Elvis Cifuentes HGB 10.2 g/dl Critically low 14.0-18.[address] [facility] Comment on above: Performed By: #### B LDCX2 #### [facility] [address] [place] [address] Dr. Elvis Cifuentes HYPOCHROMASIA 2+ Normal [facility] Comment on above: Performed By: #### B LDCX2 #### [facility] [address] [place] [address] Dr. Elvis Cifuentes LYMPHM # 0.08 103/ul Critically low 1.20-3.[address] [facility] Comment on above: Performed By: #### B LDCX2 #### [facility] [address] [place] [address] Dr. Elvis Cifuentes LYMPHM% 1.0 % Critically low 20.5-60.[address] [facility] Comment on above: Performed By: #### B LDCX2 #### [facility] [address] [place] [address] Dr. Elvis Cifuentes MCH 28.8 pg Normal 25.9-34.[address] [facility] Comment on above: Performed By: #### B LDCX2 #### [facility] [address] [place] [address] Dr. Elvis Cifuentes MCHC 32.1 g/dl Normal 29.9-35.[address] [facility] Comment on above: Performed By: #### B LDCX2 #### [facility] [address] [place] [address] Dr. Elvis Cifuentes MCV 89.8 fL Normal 80.0-94.[address] [facility] Comment on above: Performed By: #### B LDCX2 #### [facility] [address] [place] [address] Dr. Elvis Cifuentes METAMYELOCYTE # Normal [facility] Comment on above: Performed By: #### B LDCX2 #### [facility] [address] [place] [address] Dr. Elvis Cifuentes METAMYELOCYTE % Normal [facility] Comment on above: Performed By: #### B LDCX2 #### [facility] [address] [place] [address] Dr. Elvis Cifuentes MONOM# 0.08 103/ul Critically low 0.30-0.[address] [facility] Comment on above: Performed By: #### B LDCX2 #### [facility] [address] [place] [address] Dr. Elvis Cifuentes MONOM% 1.0 % Critically low 1.7-12.[address] [facility] Comment on above: Performed By: #### B LDCX2 #### [facility] [address] [place] [address] Dr. Elvis Cifuentes MPV 10.7 fL Normal 9.5-13.[address] [facility] Comment on above: Performed By: #### B LDCX2 #### [facility] [address] [place] [address] Dr. Elvis Cifuentes MYELOCYTE # Normal [facility] Comment on above: Performed By: #### B LDCX2 #### [facility] [address] [place] [address] Dr. Elvis Cifuentes MYELOCYTE % Normal [facility] Comment on above: Performed By: #### B LDCX2 #### [facility] [address] [place] [address] Dr. Elvis Cifuentes NRBC Normal [facility] Comment on above: Performed By: #### B LDCX2 #### [facility] [address] [place] [address] Dr. Elvis Cifuentes PLT 247 103/ul Normal 150-[address] [facility] Comment on above: Performed By: #### B LDCX2 #### [facility] [address] [place] [address] Dr. Elvis Cifuentes POIKILOCYTOSIS 2+ Normal [facility] Comment on above: Performed By: #### B LDCX2 #### [facility] [address] [place] [address] Dr. Elvis Cifuentes RBC 3.54 106/ul Critically low 4.70-6.10 [facility] Comment on above: Performed By: #### B LDCX2 #### [facility] [address] [place] [address] Dr. Elvis Cifuentes RDW 14.6 % Normal 11.0-15.[address] [facility] Comment on above: Performed By: #### B LDCX2 #### [facility] [address] [place] [address] Dr. Elvis Cifuentes SEG # 7.81 103/ul Critically high 1.40-6.[address] [facility] Comment on above: Performed By: #### B LDCX2 #### [facility] [address] [place] [address] Dr. Elvis Cifuentes SEG % 93.0 % Critically high 43.0-75.[address] [facility] Comment on above: Performed By: #### B LDCX2 #### [facility] [address] [address] [address] Elvis Cifuentes WBC 8.4 103/ul Normal 4.0-11.[address] [facility] Comment on above: Performed By: #### B LDCX2 #### [facility] [id number] Elvis Cifuentes CT ABD/PELVIS WO CONon [...] ELIUD ELLIS Date: 2022-05-21 13:48 Normal [facility] MAGNESIUMon 05-21-2022 Magnesium [Mass/Vol] 1.8 mg/dL Normal 1.8-2.4 [facility] Comment on above: Performed By: #### P REALB, MG #### [facility] [address] [place] [address] Dr. Elvis Cifuentes PREALBUMINon 05-21-2022 Prealbumin [Mass/Vol] 11.0 mg/dL Critically low 20.9-45.[address] [facility] Comment on above: Performed By: #### P REALB, MG #### [facility] [address] [place] [address] Dr. Elvis Cifuentes PROF CHEM 8 (BAS METB)on Anion gap [Moles/Vol] 14.6 mmol/L Normal [facility] Comment on above: Performed By: #### B LDCX2 #### [facility] [address] [place] [address] Dr. Elvis Cifuentes Calcium [Mass/Vol] 8.4 mg/dL Critically low 8.5-10.1 [facility] Comment on above: Performed By: #### B LDCX2 #### [facility] [address] [place] [address] Dr. Elvis Cifuentes Chloride [Moles/Vol] 111 mmol/L Critically high 98-[address] [facility] Comment on above: Performed By: #### B LDCX2 #### [facility] [address] [place] [address] Dr. Elvis Cifuentes CO2 [Moles/Vol] 23.3 mmol/L Normal 21.0-32.[address] [facility] Comment on above: Performed By: #### B LDCX2 #### [facility] [address] [place] [address] Dr. Elvis Cifuentes Creatinine [Mass/Vol] 1.24 mg/dL Normal 0.70-1.[address] [facility] Comment on above: Performed By: #### B LDCX2 #### [facility] [address] [place] [address] Dr. Elvis Cifuentes EGFR-AF UKRAINIAN >60 Normal >=60 [facility] Comment on above: Performed By: #### B LDCX2 #### [facility] [address] [place] [address] Dr. Elvis Cifuentes EGFR-NON AF UKRAINIAN 57 mL/min/1.73m2 Critically low >=[address] [facility] Comment on above: Performed By: #### B LDCX2 #### [facility] [address] [address] [address] Elvis Cifuentes Glucose [Mass/Vol] 138 mg/dL Critically high 74-106 T [facility] Comment on above: Performed By: #### B LDCX2 #### [facility] [address] [address] [address] Elvis Cifuentes Potassium [Moles/Vol] 3.9 mmol/L Normal 3.5-5.[address] [facility] Comment on above: Performed By: #### B LDCX2 #### [facility] [address] [address] [address] Elvis Cifuentes Sodium [Moles/Vol] 145 mmol/L Normal 136-[address] [facility] Comment on above: Performed By: #### B LDCX2 #### [facility] [address] [address] [address] Elvis Cifuentes Urea nitrogen [Mass/Vol] 33.0 mg/dL Critically high 7.0-18.[address] [facility] Comment on above: Performed By: #### B LDCX2 #### [facility] [address] [place] [address] Dr. Elvis Cifuentes Urea nitrogen/Creatinin e [Mass ratio] 26.6 mg/mg Normal [facility] Comment on above: Performed By: #### B LDCX2 #### [facility] [address] [place] [address] Dr. Elvis Cifuentes XR CHEST 1 Von [...] by: ELIUD ELLIS Date: 2022-05-21 15:55 Normal [facility] XR KUB 1 VIEWon 05-21-2022 XR [...] by: ELIUD ELLIS Date: 2022-05-21 15:55 Normal [facility] CBC AUTO DIFFon 05-20-2022 BASO # 0.0 103/ul Normal 0.0-0.[address] [facility] Comment on above: Performed By: #### B LDCX2 #### [facility] [address] [address] [address] Elvis Cifuentes Basophils/100 WBC (Bld) 0.1 % Critically low 0.2-2.[address] [facility] Comment on above: Performed By: #### B LDCX2 #### [facility] [address] [place] [address] Dr. Elvis Cifuentes EO # 0.0 103/ul Normal 0.0-0.[address] [facility] Comment on above: Performed By: #### B LDCX2 #### [facility] [address] [address] [address] Elvis Cifuentes Eosinophils/100 WBC (Bld) 0.0 % Critically low 0.9-7.[address] [facility] Comment on above: Performed By: #### B LDCX2 #### [facility] [address] [place] [address] Dr. Elvis Cifuentes Erythrocyte distribution width (RBC) [Ratio] 14.6 % Normal 11.0-15.[address] [facility] Comment on above: Performed By: #### B LDCX2 #### [facility] [address] [place] [address] Dr. Elvis Cifuentes Hematocrit (Bld) [Volume fraction] 31.8 % Critically low 42.0-54.[address] [facility] Comment on above: Performed By: #### B LDCX2 #### [facility] [address] [place] [address] Dr. Elvis Cifuentes Hemoglobin (Bld) [Mass/Vol] 10.2 g/dL Critically low 14.0-18.[address] [facility] Comment on above: Performed By: #### B LDCX2 #### [facility] [address] [place] [address] Dr. Elvis Cifuentes IG # 0.07 10e3/ul Critically high 0.00-0.[address] [facility] Comment on above: Performed By: #### B LDCX2 #### [facility] [address] [place] [address] Dr. Elvis Cifuentes IG % 0.5 % Normal 0.0-0.[address] [facility] Comment on above: Performed By: #### B LDCX2 #### [facility] [address] [place] [address] Dr. Elvis Cifuentes LYMPH # 0.3 103/ul Critically low 1.2-3.[address] [facility] Comment on above: Performed By: #### B LDCX2 #### [facility] [address] [place] [address] Dr. Elvis Cifuentes Lymphocytes/100 WBC (Bld) 1.9 % Critically low 20.5-60.[address] [facility] Comment on above: Performed By: #### B LDCX2 #### [facility] [address] [place] [address] Dr. Elvis Cifuentes MANUAL DIFF REQ NO Normal [facility] Comment on above: Performed By: #### B LDCX2 #### [facility] [address] [place] [address] Dr. Elvis Cifuentes MCH (RBC) [Entitic mass] 29.1 pg Normal 25.9-34.[address] [facility] Comment on above: Performed By: #### B LDCX2 #### [facility] [address] [place] [address] Dr. Elvis Cifuentes MCHC (RBC) [Mass/Vol] 32.1 g/dL Normal 29.9-35.[address] [facility] Comment on above: Performed By: #### B LDCX2 #### [facility] [address] [place] [address] Dr. Elvis Cifuentes MCV (RBC) [Entitic vol] 90.9 fL Normal 80.0-94.0 [facility] Comment on above: Performed By: #### B LDCX2 #### [facility] [address] [place] [address] Dr. Elvis Cifuentes MONO # 0.3 103/ul Normal 0.3-0.8 [facility] Comment on above: Performed By: #### B LDCX2 #### [facility] [address] [place] [address] Dr. Elvis Cifuentes Monocytes/100 WBC (Bld) 2.1 % Normal 1.7-12.[address] [facility] Comment on above: Performed By: #### B LDCX2 #### [facility] [address] [place] [address] Dr. Elvis Cifuentes NEUT # 13.0 103/ul Critically high 1.4-6.[address] [facility] Comment on above: Performed By: #### B LDCX2 #### [facility] [address] [place] [address] Dr. Elvis Cifuentes Neutrophils/100 WBC (Bld) 95.4 % Critically high 43.0-75.[address] [facility] Comment on above: Performed By: #### B LDCX2 #### [facility] [address] [place] [address] Dr. Elvis Cifuentes Platelet mean volume (Bld) [Entitic vol] 10.4 fL Normal 9.5-13.5 [facility] Comment on above: Performed By: #### B LDCX2 #### [facility] [address] [place] [address] Dr. Elvis Cifuentes PLT 215 103/ul Normal 150-450 [facility] Comment on above: Performed By: #### B LDCX2 #### [facility] [address] [place] [address] Dr. Elvis Cifuentes RBC 3.50 106/ul Critically low 4.70-6.10 [facility] Comment on above: Performed By: #### B LDCX2 #### [facility] [address] [place] [address] Dr. Elvis Cifuentes WBC 13.6 103/ul Critically high 4.0-11.[address] [facility] Comment on above: Performed By: #### B LDCX2 #### [facility] [address] [place] [address] Dr. Elvis Cifuentes GI PANEL (PCR)on 05-20-2022 Adenovirus F 40/41 Not detected Normal NOT DETECTED [facility] Comment on above: Performed By: #### G IPANEL #### [facility] [address] [place] [address] Dr. Elvis Cifuentes Astrovirus Not detected Normal NOT DETECTED [facility] Comment on above: Performed By: #### G IPANEL #### [facility] [address] [place] [address] Dr. Elvis Cifuentes C. Diff toxin A/B Detected Critically abnormal NOT DETECTED [facility] Comment on above: Performed By: #### G IPANEL #### [facility] [address] [place] [address] Dr. Elvis Cifuentes Campylobacter Not detected Normal NOT DETECTED [facility] Comment on above: Performed By: #### G IPANEL #### [facility] [address] [place] [address] Dr. Elvis Cifuentes Cryptosporidium Not detected Normal NOT DETECTED [facility] Comment on above: Performed By: #### G IPANEL #### [facility] [address] [place] [address] Dr. Elvis Cifuentes Cyclos. Cayetanensis Not detected Normal NOT DETECTED [facility] Comment on above: Performed By: #### G IPANEL #### [facility] [address] [place] [address] Dr. Elvis Cifuentes E. Coli O157 Not Applicable Normal Not Applicable [facility] Comment on above: Performed By: #### G IPANEL #### [facility] [address] [place] [address] Dr. Elvis Cifuentes EGloria histolytica Not detected Normal NOT DETECTED [facility] Comment on above: Performed By: #### G IPANEL #### [facility] [address] [place] [address] Dr. Elvis Cifuentes EAEC Detected Abnormal NOT DETECTED [facility] Comment on above: Performed By: #### G IPANEL #### [facility] [address] [place] [address] Dr. Elvis Cifuentes EIEC Not detected Normal NOT DETECTED [facility] Comment on above: Performed By: #### G IPANEL #### [facility] [address] [place] [address] Dr. Elvis Cifuentes EPEC Not detected Normal NOT DETECTED [facility] Comment on above: Performed By: #### G IPANEL #### [facility] [address] [place] [address] Dr. Elvis Cifuentes ETEC Not detected Normal NOT DETECTED [facility] Comment on above: Performed By: #### G IPANEL #### [facility] [address] [place] [address] Dr. Elvis Chapman Lamblia Not detected Normal NOT DETECTED [facility] Comment on above: Performed By: #### G IPANEL #### [facility] [address] [place] [address] Dr. Elvis PEREZ CONTROLS PASSED Normal [facility] Comment on above: Performed By: #### G IPANEL #### [facility] [address] [place] [address] Dr. Elvis BATEMAN ANTONIO HEADER GI PANEL BACTERIA Normal T [facility] Comment on above: Performed By: #### G IPANEL #### [facility] [address] [place] [address] Dr. Elvis BATEMANHD ECOLI GI PANEL DIARRHEAGEN IC E.COLI / SHIGELLA Normal [facility] Comment on above: Performed By: #### G IPANEL #### [facility] [address] [place] [address] Dr. Elvis WILKERSON INFO SEE BELOW Normal [facility] Comment on above: Result Comment: EAEC - Enteroaggregative E. Coli EPEC- Enteropathogenic E. Coli ETEC- Enterotoxigenic E. Coli lt/st STEC- Shigella-like toxin-producing E. Coli stx1/stx2 EIEC- Shigella/Enteroinvasive E. Coli Performed By: #### G IPANEL #### [facility] [address] [place] [address] Dr. Elvis WILKERSON PARASITES GI PANEL PARASITES Normal [facility] Comment on above: Performed By: #### G IPANEL #### [facility] [address] [place] [address] Dr. Elvis WILKERSON VIRUS GI PANEL VIRUSES Normal [facility] Comment on above: Performed By: #### G IPANEL #### [facility] [address] [place] [address] Dr. Elvis Cifuentes Norovirus GI/GII Not detected Normal NOT DETECTED [facility] Comment on above: Performed By: #### G IPANEL #### [facility] [address] [place] [address] Dr. Elvis Cifuentes P. Shigelloides Not detected Normal NOT DETECTED [facility] Comment on above: Performed By: #### G IPANEL #### [facility] [address] [place] [address] Dr. Elvis Cifuentes Rotavirus A Not detected Normal NOT DETECTED [facility] Comment on above: Performed By: #### G IPANEL #### [facility] [address] [place] [address] Dr. Elvis Cifuentes Salmonella Not detected Normal NOT DETECTED [facility] Comment on above: Performed By: #### G IPANEL #### [facility] [address] [place] [address] Dr. Elvis Cifuentes Sapovirus Not detected Normal NOT DETECTED [facility] Comment on above: Performed By: #### G IPANEL #### [facility] [address] [place] [address] Dr. Elvis Cifuentes STEC Not detected Normal NOT DETECTED [facility] Comment on above: Performed By: #### G IPANEL #### [facility] [address] [place] [address] Dr. Elvis Cifuentes Vibrio Not detected Normal NOT DETECTED [facility] Comment on above: Performed By: #### G IPANEL #### [facility] [address] [place] [address] Dr. Elvis Cifuentes Vibrio Cholera Not detected Normal NOT DETECTED [facility] Comment on above: Performed By: #### G IPANEL #### [facility] [address] [place] [address] Dr. Elvis Cifuentes Y. Enterocolitica Not detected Normal NOT DETECTED [facility] Comment on above: Performed By: #### G IPANEL #### [facility] [address] [place] [address] Dr. Elvis Cifuentes PROF CHEM 8 (BAS METB)on Anion gap [Moles/Vol] 15.4 mmol/L Normal [facility] Comment on above: Performed By: #### P OCGLUC #### [facility] [address] [place] [address] Dr. Elvis Cifuentes Calcium [Mass/Vol] 8.8 mg/dL Normal 8.5-10.1 [facility] Comment on above: Performed By: #### P OCGLUC #### [facility] [address] [place] [address] Dr. Elvis Cifuentes Chloride [Moles/Vol] 110 mmol/L Critically high 98-107 [facility] Comment on above: Performed By: #### P OCGLUC #### [facility] [address] [place] [address] Dr. Elvis Cifuentes CO2 [Moles/Vol] 21.8 mmol/L Normal 21.0-32.0 [facility] Comment on above: Performed By: #### P OCGLUC #### [facility] [address] [place] [address] Dr. Elvis Cifuentes Creatinine [Mass/Vol] 1.23 mg/dL Normal 0.70-1.30 [facility] Comment on above: Performed By: #### P OCGLUC #### [facility] [address] [address] [address] Elvis Cifuentes EGFR-AF UKRAINIAN >60 Normal >=[address] [facility] Comment on above: Performed By: #### P OCGLUC #### [facility] [address] [address] [address] Elvis Cifuentes EGFR-NON AF UKRAINIAN 57 mL/min/1.73m2 Critically low >=[address] [facility] Comment on above: Performed By: #### P OCGLUC #### [facility] [address] [address] [address] Elvis Cifuentes Glucose [Mass/Vol] 146 mg/dL Critically high 74-106 [facility] Comment on above: Performed By: #### P OCGLUC #### [facility] [address] [address] [address] Elvis Cifuentes Potassium [Moles/Vol] 4.2 mmol/L Normal 3.5-5.[address] [facility] Comment on above: Performed By: #### P OCGLUC #### [facility] [address] [address] [address] Elvis Cifuentes Sodium [Moles/Vol] 143 mmol/L Normal 136-[address] [facility] Comment on above: Performed By: #### P OCGLUC #### [facility] [address] [address] [address] Elvis Cifuentes Urea nitrogen [Mass/Vol] 27.0 mg/dL Critically high 7.0-18.[address] [facility] Comment on above: Performed By: #### P OCGLUC #### [facility] [address] [address] [address] Elvis Cifuentes Urea nitrogen/Creatinin e [Mass ratio] 22.0 mg/mg Normal [facility] Comment on above: Performed By: #### P OCGLUC #### [facility] [address] [address] [address] Elvis Cifuentes XR ABD FLAT UP_PA [...] NICKI ELMORE Date: 2022-05-20 10:22 Normal [facility] CBC AUTO DIFFon 05-19-2022 BASO # 0.0 103/ul Normal 0.0-0.1 [facility] Comment on above: Performed By: #### C EA. #### [facility] [address] [place] [address] Dr. Elvis Cifuentes Basophils/100 WBC (Bld) 0.2 % Normal 0.2-2.[address] [facility] Comment on above: Performed By: #### C EA. #### [facility] [address] [place] [address] Dr. Evlis Cifuentes EO # 0.1 103/ul Normal 0.0-0.7 [facility] Comment on above: Performed By: #### C EA. #### [facility] [address] [place] [address] Dr. Elvis Cifuentes Eosinophils/100 WBC (Bld) 0.3 % Critically low 0.9-7.[address] [facility] Comment on above: Performed By: #### C EA. #### [facility] [address] [place] [address] Dr. Elvis Cifuentes Erythrocyte distribution width (RBC) [Ratio] 14.6 % Normal 11.0-15.0 [facility] Comment on above: Performed By: #### C EA. #### [facility] [address] [place] [address] Dr. Elvis Cifuentes Hematocrit (Bld) [Volume fraction] 30.0 % Critically low 42.0-54.[address] [facility] Comment on above: Performed By: #### C EA. #### [facility] [address] [place] [address] Dr. Elvis Cifuentes Hemoglobin (Bld) [Mass/Vol] 9.4 g/dL Critically low 14.0-18.0 [facility] Comment on above: Performed By: #### C EA. #### [facility] [address] [place] [address] Dr. Elvis Cifuentes IG # 0.24 10e3/ul Critically high 0.00-0.[address] [facility] Comment on above: Performed By: #### C EA. #### [facility] [address] [place] [address] Dr. Elvis Cifuentes IG % 1.4 % Critically high 0.0-0.[address] [facility] Comment on above: Performed By: #### C EA. #### [facility] [address] [place] [address] Dr. Elvis Cifuentes LYMPH # 0.6 103/ul Critically low 1.2-3.8 [facility] Comment on above: Performed By: #### C EA. #### [facility] [address] [place] [address] Dr. Elvis Cifuentes Lymphocytes/100 WBC (Bld) 3.8 % Critically low 20.5-60.[address] [facility] Comment on above: Performed By: #### C EA. #### [facility] [address] [place] [address] Dr. Elvis Cifuentes MANUAL DIFF REQ NO Normal [facility] Comment on above: Performed By: #### C EA. #### [facility] [address] [place] [address] Dr. Elvis Cifuentes MCH (RBC) [Entitic mass] 28.8 pg Normal 25.9-34.0 [facility] Comment on above: Performed By: #### C EA. #### [facility] [address] [place] [address] Dr. Elvis Cifuentes MCHC (RBC) [Mass/Vol] 31.3 g/dL Normal 29.9-35.2 [facility] Comment on above: Performed By: #### C EA. #### [facility] [address] [place] [address] Dr. Elvis Cifuentes MCV (RBC) [Entitic vol] 92.0 fL Normal 80.0-94.0 [facility] Comment on above: Performed By: #### C EA. #### [facility] [address] [place] [address] Dr. Elvis Cifuentes MONO # 0.8 103/ul Normal 0.3-0.8 [facility] Comment on above: Performed By: #### C EA. #### [facility] [address] [place] [address] Dr. Elvis Cifuentes Monocytes/100 WBC (Bld) 4.6 % Normal 1.7-12.0 [facility] Comment on above: Performed By: #### C EA. #### [facility] [address] [place] [address] Dr. Elvis Cifuentes NEUT # 15.0 103/ul Critically high 1.4-6.[address] [facility] Comment on above: Performed By: #### C EA. #### [facility] [address] [place] [address] Dr. Elvis Cifuentes Neutrophils/100 WBC (Bld) 89.7 % Critically high 43.0-75.0 [facility] Comment on above: Performed By: #### C EA. #### [facility] [address] [place] [address] Dr. Elvis Cifuentes Platelet mean volume (Bld) [Entitic vol] 9.9 fL Normal 9.5-13.5 [facility] Comment on above: Performed By: #### C EA. #### [facility] [address] [place] [address] Dr. Elvis Cifuentes PLT 193 103/ul Normal 150-450 [facility] Comment on above: Performed By: #### C EA. #### [facility] [address] [place] [address] Dr. Elvis Cifuentes RBC 3.26 106/ul Critically low 4.70-6.10 [facility] Comment on above: Performed By: #### C EA. #### [facility] [address] [address] [address] Elvis Cifuentes WBC 16.7 103/ul Critically high 4.0-11.[address] [facility] Comment on above: Performed By: #### C EA. #### [facility] [address] [place] [address] Dr. Elvis Cifuentes POINT OF CARE GLUCOSEon 05-08 Glucose [Mass/Vol] 98 mg/dL Normal 74-[address] [facility] Comment on above: Performed By: #### P OCGLUC #### [facility] [address] [place] [address] Dr. Elvis Cifuentes PROF CHEM 8 (BAS METB)on Anion gap [Moles/Vol] 13.4 mmol/L Normal [facility] Comment on above: Performed By: #### G IPANEL #### [facility] [address] [place] [address] Dr. Elvis Cifuentes Calcium [Mass/Vol] 8.6 mg/dL Normal 8.5-10.[address] [facility] Comment on above: Performed By: #### G IPANEL #### [facility] [address] [place] [address] Dr. Elvis Cifuentes Chloride [Moles/Vol] 109 mmol/L Critically high 98-[address] [facility] Comment on above: Performed By: #### G IPANEL #### [facility] [address] [place] [address] Dr. Elvis Cifuentes CO2 [Moles/Vol] 23.1 mmol/L Normal 21.0-32.0 [facility] Comment on above: Performed By: #### G IPANEL #### [facility] [address] [place] [address] Dr. Elvis Cifuentes Creatinine [Mass/Vol] 1.43 mg/dL Critically high 0.70-1.30 [facility] Comment on above: Performed By: #### G IPANEL #### [facility] [address] [place] [address] Dr. Elvis Cifuentes EGFR-AF UKRAINIAN 58 mL/min/1.73m2 Critically low >=60 [facility] Comment on above: Performed By: #### G IPANEL #### [facility] [address] [address] [address] Elvis Cifuentes EGFR-NON AF UKRAINIAN 48 mL/min/1.73m2 Critically low >=60 [facility] Comment on above: Performed By: #### G IPANEL #### [facility] [address] [address] [address] Elvis Cifuentes Glucose [Mass/Vol] 101 mg/dL Normal 74-106 [facility] Comment on above: Performed By: #### G IPANEL #### [facility] [address] [address] [address] Elvis Cifuentes Potassium [Moles/Vol] 4.5 mmol/L Normal 3.5-5.[address] [facility] Comment on above: Performed By: #### G IPANEL #### [facility] [address] [place] [address] Dr. Elvis Cifuentes Sodium [Moles/Vol] 141 mmol/L Normal 136-[address] [facility] Comment on above: Performed By: #### G IPANEL #### [facility] [address] [address] [address] Elvis Cifuentes Urea nitrogen [Mass/Vol] 25.0 mg/dL Critically high 7.0-18.[address] [facility] Comment on above: Performed By: #### G IPANEL #### [facility] [address] [address] [address] Elvis Cifuentes Urea nitrogen/Creatinin e [Mass ratio] 17.5 mg/mg Normal [facility] Comment on above: Performed By: #### G IPANEL #### [facility] [address] [address] [address] Elvis Cifuentes CBC W MANUAL DIFFon 05-18-20 22 ATYPICAL LYMPH # Normal [facility] Comment on above: Performed By: #### P OCGLUC #### [facility] [address] [address] [address] Elvis Cifuentes ATYPICAL LYMPH % Normal [facility] Comment on above: Performed By: #### P OCGLUC #### [facility] [address] [address] [address] Elvis Cifuentes BAND # 0.0 103/ul Normal 0.0-0.[address] [facility] Comment on above: Performed By: #### P OCGLUC #### [facility] [address] [place] [address] Dr. Elvis Cifuentes BAND % 0 % Normal 0-5 [facility] Comment on above: Performed By: #### P OCGLUC #### [facility] [address] [place] [address] Dr. Elvis Cifuentes BASOM # 0.00 103/ul Normal 0.00-0.[address] [facility] Comment on above: Performed By: #### P OCGLUC #### [facility] [address] [place] [address] Dr. Elvis Cifuentes BASOM % 0.0 % Critically low 0.2-2.[address] [facility] Comment on above: Performed By: #### P OCGLUC #### [facility] [address] [place] [address] Dr. Elvis Cifuentes BLAST # Normal [facility] Comment on above: Performed By: #### P OCGLUC #### [facility] [address] [place] [address] Dr. Elvis Cifuentes BLAST % Normal [facility] Comment on above: Performed By: #### P OCGLUC #### [facility] [address] [place] [address] Dr. Elvis Cifuentes CORRECTED WBC Normal 4.0-11.0 [facility] Comment on above: Performed By: #### P OCGLUC #### [facility] [address] [place] [address] Dr. Elvis Cifuentes EOS # 0.00 103/ul Normal 0.00-0.70 [facility] Comment on above: Performed By: #### P OCGLUC #### [facility] [address] [place] [address] Dr. Elvis Cifuentes EOS% 0.0 % Critically low 0.9-7.[address] [facility] Comment on above: Performed By: #### P OCGLUC #### [facility] [address] [place] [address] Dr. Elvis Cifuentes HCT 31.2 % Critically low 42.0-54.[address] [facility] Comment on above: Performed By: #### P OCGLUC #### [facility] [address] [place] [address] Dr. Elvis Cifuentes HGB 10.0 g/dl Critically low 14.0-18.[address] [facility] Comment on above: Performed By: #### P OCGLUC #### [facility] [address] [place] [address] Dr. Elvis Cifuentes HYPERSEG NEUT 2+ Normal [facility] Comment on above: Performed By: #### P OCGLUC #### [facility] [address] [place] [address] Dr. Elvis Cifuentes LYMPHM # 0.66 103/ul Critically low 1.20-3.[address] [facility] Comment on above: Performed By: #### P OCGLUC #### [facility] [address] [place] [address] Dr. Elvis Cifuentes LYMPHM% 4.0 % Critically low 20.5-60.[address] [facility] Comment on above: Performed By: #### P OCGLUC #### [facility] [address] [place] [address] Dr. Elvis Cifuentes MCH 29.3 pg Normal 25.9-34.[address] [facility] Comment on above: Performed By: #### P OCGLUC #### [facility] [address] [place] [address] Dr. Elvis Cifuentes MCHC 32.1 g/dl Normal 29.9-35.[address] [facility] Comment on above: Performed By: #### P OCGLUC #### [facility] [address] [place] [address] Dr. Elvis Cifuentes MCV 91.5 fL Normal 80.0-94.[address] [facility] Comment on above: Performed By: #### P OCGLUC #### [facility] [address] [place] [address] Dr. Elvis Cifuentes METAMYELOCYTE # Normal [facility] Comment on above: Performed By: #### P OCGLUC #### [facility] [address] [address] [address] Elvis Cifuentes METAMYELOCYTE % Normal [facility] Comment on above: Performed By: #### P OCGLUC #### [facility] [address] [address] [address] Elvis Cifuentes MONOM# 0.17 103/ul Critically low 0.30-0.[address] [facility] Comment on above: Performed By: #### P OCGLUC #### [facility] [address] [address] [address] Elvis Cifuentes MONOM% 1.0 % Critically low 1.7-12.[address] [facility] Comment on above: Performed By: #### P OCGLUC #### [facility] [address] [place] [address] Dr. Elvis Cifuentes MPV 10.0 fL Normal 9.5-13.[address] [facility] Comment on above: Performed By: #### P OCGLUC #### [facility] [address] [address] [address] Elvis Cifuentes MYELOCYTE # Normal [facility] Comment on above: Performed By: #### P OCGLUC #### [facility] [address] [place] [address] Dr. Elvis Cifuentes MYELOCYTE % Normal [facility] Comment on above: Performed By: #### P OCGLUC #### [facility] [address] [place] [address] Dr. Elvis Cifuentes NRBC Normal [facility] Comment on above: Performed By: #### P OCGLUC #### [facility] [address] [address] [address] Elvis Cifuentes PLT 201 103/ul Normal 150-450 [facility] Comment on above: Performed By: #### P OCGLUC #### [facility] [address] [place] [address] Dr. Elvis Cifuentes RBC 3.41 106/ul Critically low 4.70-6.[address] [facility] Comment on above: Performed By: #### P OCGLUC #### [facility] [address] [place] [address] Dr. Elvis Cifuentes RDW 14.2 % Normal 11.0-15.[address] [facility] Comment on above: Performed By: #### P OCGLUC #### [facility] [address] [place] [address] Dr. Elvis Cifuentes SEG # 15.68 103/ul Critically high 1.40-6.[address] [facility] Comment on above: Performed By: #### P OCGLUC #### [facility] [address] [address] [address] Elvis Cifuentes SEG % 95.0 % Critically high 43.0-75.[address] [facility] Comment on above: Performed By: #### P OCGLUC #### [facility] [address] [place] [address] Dr. Elvis Cifuentes TOXIC GRANULATION 3+ Normal [facility] Comment on above: Performed By: #### P OCGLUC #### [facility] [address] [place] [address] Dr. Elvis Cifuentes WBC 16.5 103/ul Critically high 4.0-11.[address] [facility] Comment on above: Performed By: #### P OCGLUC #### [facility] [address] [place] [address] Dr. Elvis Cifuentes PROF CHEM 8 (BAS METB)on Anion gap [Moles/Vol] 14.2 mmol/L Normal [facility] Comment on above: Performed By: #### B [id number] #### [facility] [address] [place] [address] Dr. Elvis Cifuentes Calcium [Mass/Vol] 8.4 mg/dL Critically low 8.5-10.1 [facility] Comment on above: Performed By: #### B LDCX2 #### [facility] [address] [place] [address] Dr. Elvis Cifuentes Chloride [Moles/Vol] 108 mmol/L Critically high 98-[address] [facility] Comment on above: Performed By: #### B LDCX2 #### [facility] [address] [place] [address] Dr. Elvis Cifuentes CO2 [Moles/Vol] 24.6 mmol/L Normal 21.0-32.[address] [facility] Comment on above: Performed By: #### B LDCX2 #### [facility] [address] [address] [address] Elvis Cifuentes Creatinine [Mass/Vol] 1.41 mg/dL Critically high 0.70-1.[address] [facility] Comment on above: Performed By: #### B LDCX2 #### [facility] [address] [address] [address] Elvis Cifuentes EGFR-AF UKRAINIAN 59 mL/min/1.73m2 Critically low >=[address] [facility] Comment on above: Performed By: #### B LDCX2 #### [facility] [address] [place] [address] Dr. Elvis Cifuentes EGFR-NON AF UKRAINIAN 49 mL/min/1.73m2 Critically low >=[address] [facility] Comment on above: Performed By: #### B LDCX2 #### [facility] [address] [place] [address] Dr. Elvis Cifuentes Glucose [Mass/Vol] 113 mg/dL Critically high 74-106 [facility] Comment on above: Performed By: #### B LDCX2 #### [facility] [address] [place] [address] Dr. Elvis Cifuentes Potassium [Moles/Vol] 4.8 mmol/L Normal 3.5-5.[address] [facility] Comment on above: Performed By: #### B LDCX2 #### [facility] [address] [place] [address] Dr. Elvis Cifuentes Sodium [Moles/Vol] 142 mmol/L Normal 136-[address] [facility] Comment on above: Performed By: #### B LDCX2 #### [facility] [address] [place] [address] Dr. Elvis Cifuentes Urea nitrogen [Mass/Vol] 20.0 mg/dL Critically high 7.0-18.[address] [facility] Comment on above: Performed By: #### B LDCX2 #### [facility] [address] [place] [address] Dr. Elvis Cifuentes Urea nitrogen/Creatinin e [Mass ratio] 14.2 mg/mg Normal [facility] Comment on above: Performed By: #### B LDCX2 #### [facility] [address] [place] [address] Dr. Elvis Cifuentes CBC AUTO DIFFon 05-15-2022 BASO # 0.1 103/ul Normal 0.0-0.[address] [facility] Comment on above: Performed By: #### U RCX #### [facility] [address] [place] [address] Dr. Elvis Cifuentes Basophils/100 WBC (Bld) 1.4 % Normal 0.2-2.[address] [facility] Comment on above: Performed By: #### U RCX #### [facility] [address] [place] [address] Dr. Elvis Cifuentes EO # 0.2 103/ul Normal 0.0-0.7 [facility] Comment on above: Performed By: #### U RCX #### [facility] [address] [place] [address] Dr. Elvis Cifuentes Eosinophils/100 WBC (Bld) 3.3 % Normal 0.9-7.[address] [facility] Comment on above: Performed By: #### U RCX #### [facility] [address] [place] [address] Dr. Elvis Cifuentes Erythrocyte distribution width (RBC) [Ratio] 14.2 % Normal 11.0-15.0 [facility] Comment on above: Performed By: #### U RCX #### [facility] [address] [place] [address] Dr. Elvis Cifuentes Hematocrit (Bld) [Volume fraction] 36.0 % Critically low 42.0-54.0 [facility] Comment on above: Performed By: #### U RCX #### [facility] [address] [place] [address] Dr. Elvis Cifuentes Hemoglobin (Bld) [Mass/Vol] 11.7 g/dL Critically low 14.0-18.[address] [facility] Comment on above: Performed By: #### U RCX #### [facility] [address] [place] [address] Dr. Elvis Cifuentes IG # 0.02 10e3/ul Normal 0.00-0.[address] [facility] Comment on above: Performed By: #### U RCX #### [facility] [address] [place] [address] Dr. Elvis Cifuentes IG % 0.3 % Normal 0.0-0.[address] [facility] Comment on above: Performed By: #### U RCX #### [facility] [address] [place] [address] Dr. Elvis Cifuentes LYMPH # 1.4 103/ul Normal 1.2-3.[address] [facility] Comment on above: Performed By: #### U RCX #### [facility] [address] [place] [address] Dr. Elvis Cifuentes Lymphocytes/100 WBC (Bld) 19.3 % Critically low 20.5-60.[address] [facility] Comment on above: Performed By: #### U RCX #### [facility] [address] [place] [address] Dr. Elvis Cifuentes MANUAL DIFF REQ NO Normal [facility] Comment on above: Performed By: #### U RCX #### [facility] [address] [place] [address] Dr. Elvis Cifuentes MCH (RBC) [Entitic mass] 28.8 pg Normal 25.9-34.[address] [facility] Comment on above: Performed By: #### U RCX #### [facility] [address] [place] [address] Dr. Elvis Cifuentes MCHC (RBC) [Mass/Vol] 32.5 g/dL Normal 29.9-35.2 [facility] Comment on above: Performed By: #### U RCX #### [facility] [address] [place] [address] Dr. Elvis Cifuentes MCV (RBC) [Entitic vol] 88.7 fL Normal 80.0-94.[address] [facility] Comment on above: Performed By: #### U RCX #### [facility] [address] [address] [address] Elvis Cifuentes MONO # 0.7 103/ul Normal 0.3-0.8 [facility] Comment on above: Performed By: #### U RCX #### [facility] [address] [address] [address] Elvis Cifuentes Monocytes/100 WBC (Bld) 9.0 % Normal 1.7-12.0 [facility] Comment on above: Performed By: #### U RCX #### [facility] [address] [place] [address] Dr. Elvis Cifuentes NEUT # 4.8 103/ul Normal 1.4-6.5 [facility] Comment on above: Performed By: #### U RCX #### [facility] [address] [place] [address] Dr. Elvis Cifuentes Neutrophils/100 WBC (Bld) 66.7 % Normal 43.0-75.[address] [facility] Comment on above: Performed By: #### U RCX #### [facility] [address] [place] [address] Dr. Elvis Cifuentes Platelet mean volume (Bld) [Entitic vol] 9.6 fL Normal 9.5-13.[address] [facility] Comment on above: Performed By: #### U RCX #### [facility] [address] [place] [address] Dr. Elvis Cifuentes PLT 233 103/ul Normal 150-450 [facility] Comment on above: Performed By: #### U RCX #### [facility] [address] [place] [address] Dr. Elvis Cifuentes RBC 4.06 106/ul Critically low 4.70-6.10 [facility] Comment on above: Performed By: #### U RCX #### [facility] [address] [place] [address] Dr. Elvis Cifuentes WBC 7.2 103/ul Normal 4.0-11.0 [facility] Comment on above: Performed By: #### U RCX #### [facility] [address] [place] [address] Dr. Elvis Cifuentes Covid-19 PCR (CVDTB)on SARS-CoV-2 (COVID-19) RNA WENDY+probe Ql (Unsp spec) Not detected Normal NOT DETECTED [facility] Comment on above: Result Comment: This test is not yet approved or cleared by the [place] FDA. When there are no FDA-approved or cleared tests available, and other criteria are met, FDA can make tests available under an emergency access mechanism called an Emergency Use Authorization (EUA). The EUA for this test is supported by the [place] of Health and Human Service's (HHS's) declaration [...] SARS-CoV-2. Performed By: #### P OCGLUC #### [facility] [address] [place] [address] Dr. Elvis Cifuentes PROF 14(COMP METB)on 022 Albumin [Mass/Vol] 3.7 g/dL Normal 3.4-5.[address] [facility] Comment on above: Performed By: #### P REALB, MG #### [facility] [address] [place] [address] Dr. Elvis Cifuentes Albumin/Globulin [Mass ratio] 1.2 {ratio} Normal [facility] Comment on above: Performed By: #### P REALB, MG #### [facility] [address] [place] [address] Dr. Elvis Cifuentes ALP [Catalytic activity/Vol] 76 U/L Normal 46-116 [facility] Comment on above: Performed By: #### P REALB, MG #### [facility] [address] [place] [address] Dr. Elvis Cifuentes ALT [Catalytic activity/Vol] 15 U/L Critically low 16-[address] [facility] Comment on above: Performed By: #### P REALB, MG #### [facility] [address] [place] [address] Dr. Elvis Cifuentes Anion gap [Moles/Vol] 10.6 mmol/L Normal [facility] Comment on above: Performed By: #### P REALB, MG #### [facility] [address] [place] [address] Dr. Elvis Cifuentes AST [Catalytic activity/Vol] 12 U/L Critically low 15-[address] [facility] Comment on above: Performed By: #### P BLANCOB, MG #### [facility] [address] [place] [address] Dr. Elvis Cifuentes Bilirubin [Mass/Vol] 0.5 mg/dL Normal 0.2-1.[address] [facility] Comment on above: Performed By: #### P REALB, MG #### [facility] [address] [place] [address] Dr. Elvis Cifuentes Calcium [Mass/Vol] 9.2 mg/dL Normal 8.5-10.[address] [facility] Comment on above: Performed By: #### P LULI, MG #### [facility] [address] [place] [address] Dr. Elvis Cifuenets Chloride [Moles/Vol] 111 mmol/L Critically high 98-[address] [facility] Comment on above: Performed By: #### P REALB, MG #### [facility] [address] [place] [address] Dr. Elvis Cifuentes CO2 [Moles/Vol] 27.8 mmol/L Normal 21.0-32.0 [facility] Comment on above: Performed By: #### P REALB, MG #### [facility] [address] [place] [address] Dr. Elvis Cifuentes Creatinine [Mass/Vol] 1.54 mg/dL Critically high 0.70-1.[address] [facility] Comment on above: Performed By: #### P REALB, MG #### [facility] [address] [address] [address] Elvis Cifuentes EGFR-AF UKRAINIAN 53 mL/min/1.73m2 Critically low >=60 [facility] Comment on above: Performed By: #### P REALB, MG #### [facility] [address] [address] [address] Elvis Cifuentes EGFR-NON AF UKRAINIAN 44 mL/min/1.73m2 Critically low >=60 [facility] Comment on above: Performed By: #### P REALB, MG #### [facility] [address] [address] [address] Elvis Cifuentes Globulin (S) [Mass/Vol] 3.2 g/dL Normal [facility] Comment on above: Performed By: #### P REALB, MG #### [facility] [address] [place] [address] Dr. Evlis Cifuentes Glucose [Mass/Vol] 86 mg/dL Normal 74-106 [facility] Comment on above: Performed By: #### P REALB, MG #### [facility] [address] [place] [address] Dr. Elvis Cifuentes Potassium [Moles/Vol] 4.4 mmol/L Normal 3.5-5.1 [facility] Comment on above: Performed By: #### P REALB, MG #### [facility] [address] [place] [address] Dr. Elvis Cifuentes Protein [Mass/Vol] 6.9 g/dL Normal 6.4-8.2 [facility] Comment on above: Performed By: #### P REALB, MG #### [facility] [address] [place] [address] Dr. Elvis Cifuentes Sodium [Moles/Vol] 145 mmol/L Normal 136-145 [facility] Comment on above: Performed By: #### P REALB, MG #### [facility] [address] [place] [address] Dr. Elvis Cifuentes Urea nitrogen [Mass/Vol] 16.0 mg/dL Normal 7.0-18.0 [facility] Comment on above: Performed By: #### P REALB, MG #### [facility] [address] [address] [address] Elvis Cifuentes Urea nitrogen/Creatinin e [Mass ratio] 10.4 mg/mg Normal [facility] Comment on above: Performed By: #### P REALB, MG #### [facility] [address] [address] [address] Elvis Cifuentes TYPE AND SCREENon 05-15-2022 TYPE AND SCREEN Negative Normal [facility] Comment on above: Performed By: #### P OCGLUC #### [facility] [address] [address] [address] Elvis Cifuentes US CAROTID ART BILon [...] by: GEORGETTE GOLDMAN Date: 2022-05-10 18:[address] [facility] No Panel Informationon 04-28 [facility] darron 250 DO Work Phone: STR cardiac stress/lexiscano n 04-28-2022 STR cardiac stress/lexiscan [facility] [address] Cardiac Stress Test Signed Patient: Carlo Vera MR#: [id number] [birth year] : 1945 Acct:[id number] Age/Sex: 76 / M ADM Date: 04/27/22 Loc: Room: Type: [facility] Attending Dr: Britt Lazo MD Copies to: Britt Lazo MD, FACC Ordering Provider: Britt Lazo MD, FACC Date of Service: 04/27/22 STR/STR cardiac stress/lexiscan: [...] reported separately by nuclear cardiology. Transcribed By: PERI 04/28/22 1632 Dictated By: Britt Lazo MD, [facility] 04/28/22 1538 Signed By: 05/01/22 0851 [facility] ECH echo transthoracicon [facility] echo transthoracic [facility] [address] Echocardiogram Signed Patient: Carlo Vera MR#: [id number] [birth year] : 1945 Acct:[id number] Age/Sex: 76 / M ADM Date: 04/27/22 Loc: Room: Type: [facility] Attending Dr: Britt Lazo MD Ordering Provider: Britt Lazo MD, [facility] Date of Service: 04/27/22/ [facility] echo transthoracic: ABNORMAL EKG, HTN Copies to: Britt Lazo MD, [facility] Dejuan Carranza MD BSA: 1.8 m2 HR: [...] Signed By: Dejuan Carranza MD 04/27/22 1144 Normal [facility] NM viky perf SPECT rest stron 04-27-2022 NM viky perf SPECT rest str [facility] [place] [address] Nuclear Medicine Report Signed Patient: Carlo Vera MR#: [id number] 4 : 1945 Acct:[id number] Age/Sex: 76 / M ADM Date: 04/27/22 Loc: Room: Type: [facility] Attending Dr: Britt Lazo MD Copies to: Britt Lazo MD, [facility] Ordering Provider: Britt Lazo MD, [facility] Date of Service: 04/27/22 NM/NM viky perf [...] studies are available for comparison. Transcribed By: PERI 04/28/22 1118 Dictated By: Britt Lazo MD, [facility] 04/27/22 1541 Signed By: 05/17/22 1421 [facility] No Panel Informationon 04-27 Normal [facility] lk 600 DO Work Phone: Tobacco Screening.on 022 Adult depression screening assessment No [facility] darron 250 DO Work Phone: Fall risk assessment a) No falls within the last year [facility] darron 250 DO Work Phone: Tobacco use status [facility] b) No [facility] Work Phone: BNPon 04-03-2022 Natriuretic peptide B (Bld) [Mass/Vol] 3821.0 pg/mL Critically high <=1,800.0 [facility] Comment on above: Result Comment: repe ated Performed By: #### P LULI MG #### [facility] [address] [address] [address] Elvis Cifuentes PROF 14(COMP METB)on 022 Albumin [Mass/Vol] 3.3 g/dL Critically low 3.4-5.0 [facility] Comment on above: Performed By: #### P LULI MG #### [facility] [address] [address] [address] Elvis Cifuentes Albumin/Globulin [Mass ratio] 1.0 {ratio} Normal [facility] Comment on above: Performed By: #### P REALB, MG #### [facility] [address] [address] [address] Elvis Cifuentes ALP [Catalytic activity/Vol] 72 U/L Normal 46-[address] [facility] Comment on above: Performed By: #### P REALB, MG #### [facility] [address] [address] [address] Elvis Cifuentes ALT [Catalytic activity/Vol] 18 U/L Normal 16-[address] [facility] Comment on above: Performed By: #### P REALB, MG #### [facility] [address] [place] [address] Dr. Elvis Cifuentes Anion gap [Moles/Vol] 12.6 mmol/L Normal [facility] Comment on above: Performed By: #### P REALB, MG #### [facility] [address] [place] [address] Dr. Elvis Cifuentes AST [Catalytic activity/Vol] 15 U/L Normal 15-[address] [facility] Comment on above: Performed By: #### P REALB, MG #### [facility] [address] [place] [address] Dr. Elvis Cifuentes Bilirubin [Mass/Vol] 0.6 mg/dL Normal 0.2-1.[address] [facility] Comment on above: Performed By: #### P REALB, MG #### [facility] [address] [address] [address] Elvis Cifuentes Calcium [Mass/Vol] 8.8 mg/dL Normal 8.5-10.1 [facility] Comment on above: Performed By: #### P REALB, MG #### [facility] [address] [address] [address] Elvis Cifuentes Chloride [Moles/Vol] 109 mmol/L Critically high 98-107 [facility] Comment on above: Performed By: #### P REALB, MG #### [facility] [address] [address] [address] Elvis Cifuentes CO2 [Moles/Vol] 26.0 mmol/L Normal 21.0-32.[address] [facility] Comment on above: Performed By: #### P REALB, MG #### [facility] [address] [address] [address] Elvis Cifuentes Creatinine [Mass/Vol] 1.23 mg/dL Normal 0.70-1.[address] [facility] Comment on above: Performed By: #### P REALB, MG #### [facility] [address] [address] [address] Elvis Cifuentes EGFR-AF UKRAINIAN >60 Normal >=[address] [facility] Comment on above: Performed By: #### P REALB, MG #### [facility] [address] [place] [address] Dr. Elvis Cifuentes EGFR-NON AF UKRAINIAN 57 mL/min/1.73m2 Critically low >=[address] [facility] Comment on above: Performed By: #### P REALB, MG #### [facility] [address] [place] [address] Dr. Elvis Cifuentes Globulin (S) [Mass/Vol] 3.2 g/dL Normal [facility] Comment on above: Performed By: #### P REALB, MG #### [facility] [address] [place] [address] Dr. Elvis Cifuentes Glucose [Mass/Vol] 121 mg/dL Critically high 74-106 [facility] Comment on above: Performed By: #### P REALB, MG #### [facility] [address] [address] [address] Elvis Cifuentes Potassium [Moles/Vol] 4.6 mmol/L Normal 3.5-5.[address] [facility] Comment on above: Performed By: #### P REALB, MG #### [facility] [address] [address] [address] Elvis Cifuentes Protein [Mass/Vol] 6.5 g/dL Normal 6.4-8.[address] [facility] Comment on above: Performed By: #### P REALB, MG #### [facility] [address] [address] [address] Elvis Cifuentes Sodium [Moles/Vol] 143 mmol/L Normal 136-[address] [facility] Comment on above: Performed By: #### P REALB, MG #### [facility] [address] [place] [address] Dr. Elvis Cifuentes Urea nitrogen [Mass/Vol] 15.0 mg/dL Normal 7.0-18.[address] [facility] Comment on above: Performed By: #### P REALB, MG #### [facility] [address] [place] [address] Dr. Elvis Cifuentes Urea nitrogen/Creatinin e [Mass ratio] 12.2 mg/mg Normal [facility] Comment on above: Performed By: #### P REALB, MG #### [facility] [address] [place] [address] Dr. Elvis Cifuentes TROPONIN, HIGH SENSITIVITYon 04-03-2022 HSTROP 353.2 pg/mL Critically high 4.0-76.[address] [facility] Comment on above: Result Comment: CUT- OFF POINTS HAVE BEEN ESTABLISHED BASED ON THE FOURTH UNIVERSAL DEFINITIONS OF MYOCARDIAL INFARCTION. THE UPPER REFERENCE LIMIT (URL) OF TROPONIN, DEFINED THE 99TH PERCENTILE OF cTnI DISTRIBUTION IN A REFERENCE POPULATION, HAS BEEN CONFIRMED THE DECISION THRESHOLD FOR OR DIAGNOSIS. TEST REPEATED CRITICAL RESULT VERIFIED Performed By: #### H STROPN #### [facility] [address] [place] [address] Dr. Elvis Cifuentes HSTROP 400.6 pg/mL Critically high 4.0-76.[address] [facility] Comment on above: Result Comment: CUT- OFF POINTS HAVE BEEN ESTABLISHED BASED ON THE FOURTH UNIVERSAL DEFINITIONS OF MYOCARDIAL INFARCTION. THE UPPER REFERENCE LIMIT (URL) OF TROPONIN, DEFINED THE 99TH PERCENTILE OF cTnI DISTRIBUTION IN A REFERENCE POPULATION, HAS BEEN CONFIRMED THE DECISION THRESHOLD FOR OR DIAGNOSIS. TEST REPEATED CRITICAL RESULT VERIFIED Performed By: #### G IPANEL #### [facility] [address] [place] [address] Dr. Elvis Cifuentes CEAon 04-01-2022 CEA 1.8 ng/mL Normal 0.0-4.[address] [facility] Comment on above: Result Comment: Nons mokers <3.9 Smokers <5.6 . [employer] Electrochemiluminescence Immunoassay (ECLIA) . Values obtained with different assay methods or kits cannot be used interchangeably. Results cannot be interpreted as absolute evidence of the presence or absence of malignant disease. Performed By: #### C EA. #### [facility] [address] [place] [address] Dr. Elvis Cifuentes CBC AUTO DIFFon 03-31-2022 BASO # 0.1 103/ul Normal 0.0-0.[address] [facility] Comment on above: Performed By: #### B LDCX2 #### [facility] [address] [place] [address] Dr. Elvis Cifuentes Basophils/100 WBC (Bld) 1.0 % Normal 0.2-2.[address] [facility] Comment on above: Performed By: #### B LDCX2 #### [facility] [address] [place] [address] Dr. Elvis Cifuentes EO # 0.3 103/ul Normal 0.0-0.[address] [facility] Comment on above: Performed By: #### B LDCX2 #### [facility] [address] [place] [address] Dr. Elvis Cifuentes Eosinophils/100 WBC (Bld) 3.6 % Normal 0.9-7.[address] [facility] Comment on above: Performed By: #### B LDCX2 #### [facility] [address] [place] [address] Dr. Elvis Cifuentes Erythrocyte distribution width (RBC) [Ratio] 14.1 % Normal 11.0-15.0 [facility] Comment on above: Performed By: #### B LDCX2 #### [facility] [address] [place] [address] Dr. Elvis Cifuentes Hematocrit (Bld) [Volume fraction] 37.6 % Critically low 42.0-54.[address] [facility] Comment on above: Performed By: #### B LDCX2 #### [facility] [address] [place] [address] Dr. Elvis Cifuentes Hemoglobin (Bld) [Mass/Vol] 12.0 g/dL Critically low 14.0-18.0 [facility] Comment on above: Performed By: #### B LDCX2 #### [facility] [address] [place] [address] Dr. Elvis Cifuentes IG # 0.02 10e3/ul Normal 0.00-0.[address] [facility] Comment on above: Performed By: #### B LDCX2 #### [facility] [address] [place] [address] Dr. Elvis Cifuentes IG % 0.3 % Normal 0.0-0.[address] [facility] Comment on above: Performed By: #### B LDCX2 #### [facility] [address] [place] [address] Dr. Elvis Cifuentes LYMPH # 1.0 103/ul Critically low 1.2-3.[address] [facility] Comment on above: Performed By: #### B LDCX2 #### [facility] [address] [place] [address] Dr. Elvis Cifuentes Lymphocytes/100 WBC (Bld) 14.2 % Critically low 20.5-60.[address] [facility] Comment on above: Performed By: #### B LDCX2 #### [facility] [address] [place] [address] Dr. Elvis Cifuentes MANUAL DIFF REQ NO Normal [facility] Comment on above: Performed By: #### B LDCX2 #### [facility] [address] [place] [address] Dr. Elvis Cifuentes MCH (RBC) [Entitic mass] 28.8 pg Normal 25.9-34.0 [facility] Comment on above: Performed By: #### B LDCX2 #### [facility] [address] [place] [address] Dr. Elvis Cifuentes MCHC (RBC) [Mass/Vol] 31.9 g/dL Normal 29.9-35.2 [facility] Comment on above: Performed By: #### B LDCX2 #### [facility] [address] [place] [address] Dr. Elvis Cifuentes MCV (RBC) [Entitic vol] 90.4 fL Normal 80.0-94.0 [facility] Comment on above: Performed By: #### B LDCX2 #### [facility] [address] [place] [address] Dr. Elvis Cifuentes MONO # 0.5 103/ul Normal 0.3-0.8 [facility] Comment on above: Performed By: #### B LDCX2 #### [facility] [address] [place] [address] Dr. Elvis Cifuentes Monocytes/100 WBC (Bld) 6.6 % Normal 1.7-12.0 [facility] Comment on above: Performed By: #### B LDCX2 #### [facility] [address] [place] [address] Dr. Elvis Cifuentes NEUT # 5.2 103/ul Normal 1.4-6.5 [facility] Comment on above: Performed By: #### B LDCX2 #### [facility] [address] [place] [address] Dr. Elvis Cifuentes Neutrophils/100 WBC (Bld) 74.3 % Normal 43.0-75.0 [facility] Comment on above: Performed By: #### B LDCX2 #### [facility] [address] [place] [address] Dr. Elvis Cifuentes Platelet mean volume (Bld) [Entitic vol] 9.8 fL Normal 9.5-13.5 [facility] Comment on above: Performed By: #### B LDCX2 #### [facility] [address] [place] [address] Dr. Elvis Cifuentes PLT 226 103/ul Normal 150-450 [facility] Comment on above: Performed By: #### B LDCX2 #### [facility] [address] [place] [address] Dr. Elvis Cifuentes RBC 4.16 106/ul Critically low 4.70-6.10 [facility] Comment on above: Performed By: #### B LDCX2 #### [facility] [address] [place] [address] Dr. Elvis Cifuentes WBC 7.0 103/ul Normal 4.0-11.[address] [facility] Comment on above: Performed By: #### B LDCX2 #### [facility] [address] [place] [address] Dr. Elvis Cifuentes Covid-19 PCR [facility]09 SARS-CoV-2 (COVID-19) RNA WENDY+probe Ql (Unsp spec) Not detected Normal NOT DETECTED [facility] Comment on above: Result Comment: This test is not yet approved or cleared by the [place] FDA. When there are no FDA-approved or cleared tests available, and other criteria are met, FDA can make tests available under an emergency access mechanism called an Emergency Use Authorization (EUA). The EUA for this test is supported by the [employer] of Health and Human Service's (HHS's) declaration [...] Performed By: #### P REALB, MG #### [facility] [address] [place] [address] Dr. Elvis Cifuentes PROF 14(COMP METB)on 022 Albumin [Mass/Vol] 3.2 g/dL Critically low 3.4-5.0 [facility] Comment on above: Performed By: #### B LDCX2 #### [facility] [address] [place] [address] Dr. Elvis Cifuentes Albumin/Globulin [Mass ratio] 1.0 {ratio} Normal [facility] Comment on above: Performed By: #### B LDCX2 #### [facility] [address] [place] [address] Dr. Elvis Cifuentes ALP [Catalytic activity/Vol] 64 U/L Normal 46-116 [facility] Comment on above: Performed By: #### B LDCX2 #### [facility] [address] [place] [address] Dr. Elvis Cifuentes ALT [Catalytic activity/Vol] 18 U/L Normal 16-63 [facility] Comment on above: Performed By: #### B LDCX2 #### [facility] [address] [address] [address] Elvis Cifuentes Anion gap [Moles/Vol] 9.8 mmol/L Normal [facility] Comment on above: Performed By: #### B LDCX2 #### [facility] [address] [place] [address] Dr. Elvis Cifuentes AST [Catalytic activity/Vol] 10 U/L Critically low 15-[address] [facility] Comment on above: Performed By: #### B LDCX2 #### [facility] [address] [place] [address] Dr. Elvis Cifuentes Bilirubin [Mass/Vol] 0.9 mg/dL Normal 0.2-1.[address] [facility] Comment on above: Performed By: #### B LDCX2 #### [facility] [address] [place] [address] Dr. Elvis Cifuentes Calcium [Mass/Vol] 8.7 mg/dL Normal 8.5-10.[address] [facility] Comment on above: Performed By: #### B LDCX2 #### [facility] [address] [place] [address] Dr. Elvis Cifuentes Chloride [Moles/Vol] 109 mmol/L Critically high 98-107 [facility] Comment on above: Performed By: #### B LDCX2 #### [facility] [address] [place] [address] Dr. Elvis Cifuentes CO2 [Moles/Vol] 29.9 mmol/L Normal 21.0-32.0 [facility] Comment on above: Performed By: #### B LDCX2 #### [facility] [address] [place] [address] Dr. Elvis Cifuentes Creatinine [Mass/Vol] 1.23 mg/dL Normal 0.70-1.[address] [facility] Comment on above: Performed By: #### B LDCX2 #### [facility] [address] [place] [address] Dr. Elvis Cifuentes EGFR-AF UKRAINIAN >60 Normal >=[address] [facility] Comment on above: Performed By: #### B LDCX2 #### [facility] [address] [address] [address] Elvis Cifuentes EGFR-NON AF UKRAINIAN 57 mL/min/1.73m2 Critically low >=[address] [facility] Comment on above: Performed By: #### B LDCX2 #### [facility] [address] [place] [address] Dr. Elvis Cifuentes Globulin (S) [Mass/Vol] 3.3 g/dL Normal [facility] Comment on above: Performed By: #### B LDCX2 #### [facility] [address] [place] [address] Dr. Elvis Cifuentes Glucose [Mass/Vol] 115 mg/dL Critically high 74-106 T [facility] Comment on above: Performed By: #### B LDCX2 #### [facility] [address] [place] [address] Dr. Elvis Cifuentes Potassium [Moles/Vol] 3.7 mmol/L Normal 3.5-5.[address] [facility] Comment on above: Performed By: #### B LDCX2 #### [facility] [address] [place] [address] Dr. Evlis Cifuentes Protein [Mass/Vol] 6.5 g/dL Normal 6.4-8.2 [facility] Comment on above: Performed By: #### B LDCX2 #### [facility] [address] [place] [address] Dr. Elvis Cifuentes Sodium [Moles/Vol] 145 mmol/L Normal 136-[address] [facility] Comment on above: Performed By: #### B LDCX2 #### [facility] [address] [place] [address] Dr. Elvis Cifuentes Urea nitrogen [Mass/Vol] 11.0 mg/dL Normal 7.0-18.[address] [facility] Comment on above: Performed By: #### B LDCX2 #### [facility] [address] [address] [address] Elvis Cifuentes Urea nitrogen/Creatinin e [Mass ratio] 8.9 mg/mg Normal [facility] Comment on above: Performed By: #### B LDCX2 #### [facility] [address] [address] [address] Elvis Cifuentes TYPE AND SCREENon 03-31-2022 TYPE AND SCREEN Negative Normal [facility] Comment on above: Performed By: #### T NS #### [facility] [address] [place] [address] Dr. Elvis Cifuentes H PYLORI TISSUEon 02-08-2022 H PYL TISSUE, UREASE Negative Normal NEGATIVE [facility] Comment on above: Performed By: #### G IPANEL #### [facility] [address] [place] [address] ABD/PELV W CONon 12-28-19 CT ABD/PELV W CON EXAMINATION: CT ABD/ [...] by: MATTHEW CHATMAN Date: 2021-12-27 10:[address] [facility] PROF CHEM 8 (BAS METB)on Anion gap [Moles/Vol] 11.7 mmol/L Normal [facility] Comment on above: Performed By: #### C EA. #### [facility] [address] [place] [address] Dr. Elvis Cifuentes Calcium [Mass/Vol] 8.6 mg/dL Normal 8.5-10.1 [facility] Comment on above: Performed By: #### C EA. #### [facility] [address] [place] [address] Dr. Elvis Cifuentes Chloride [Moles/Vol] 106 mmol/L Normal 98-107 [facility] Comment on above: Performed By: #### C EA. #### [facility] [address] [address] [address] Elvis Cifuentes CO2 [Moles/Vol] 28.2 mmol/L Normal 22.0-30.[address] [facility] Comment on above: Performed By: #### C EA. #### [facility] [address] [place] [address] Dr. Elvis Cifuentes Creatinine [Mass/Vol] 1.24 mg/dL Normal 0.66-1.[address] [facility] Comment on above: Performed By: #### C EA. #### [facility] [address] [place] [address] Dr. Elvis Cifuentes EGFR-AF UKRAINIAN >60 Normal >=[address] [facility] Comment on above: Performed By: #### C EA. #### [facility] [address] [place] [address] Dr. Elvis Cifuentes EGFR-NON AF UKRAINIAN 57 mL/min/1.73m2 Critically low >=[address] [facility] Comment on above: Performed By: #### C EA. #### [facility] [address] [place] [address] Dr. Elvis Cifuentes Glucose [Mass/Vol] 110 mg/dL Critically high 74-106 T [facility] Comment on above: Performed By: #### C EA. #### [facility] [address] [place] [address] Dr. Elvis Cifuentes Potassium [Moles/Vol] 3.9 mmol/L Normal 3.4-5.[address] [facility] Comment on above: Performed By: #### C EA. #### [facility] [address] [place] [address] Dr. Elvis Cifuentes Sodium [Moles/Vol] 142 mmol/L Normal 137-[address] [facility] Comment on above: Performed By: #### C EA. #### [facility] [address] [place] [address] Dr. Elvis Cifuentes Urea nitrogen [Mass/Vol] 17.0 mg/dL Normal 7.0-18.[address] [facility] Comment on above: Performed By: #### C EA. #### [facility] [address] [place] [address] Dr. Elvis Cifuentes Urea nitrogen/Creatinin e [Mass ratio] 13.7 mg/mg Normal [facility] Comment on above: Performed By: #### C EA. #### [facility] [address] [place] [address] Dr. Elvis Cifuentes CBC AUTO DIFFon 08-03-2021 BASO # 0.1 103/ul Normal 0.0-0.[address] [facility] Comment on above: Performed By: #### U RCX #### [facility] [address] [place] [address] Dr. Elvis Cifuentes Basophils/100 WBC (Bld) 1.6 % Normal 0.2-2.[address] [facility] Comment on above: Performed By: #### U RCX #### [facility] [address] [place] [address] Dr. Elvis Cifuentes EO # 0.3 103/ul Normal 0.0-0.[address] [facility] Comment on above: Performed By: #### U RCX #### [facility] [address] [place] [address] Dr. Elvis Cifuentes Eosinophils/100 WBC (Bld) 4.6 % Normal 0.9-7.[address] [facility] Comment on above: Performed By: #### U RCX #### [facility] [address] [place] [address] Dr. Elvis Cifuentes Erythrocyte distribution width (RBC) [Ratio] 12.5 % Normal 11.0-15.[address] [facility] Comment on above: Performed By: #### U RCX #### [facility] [address] [place] [address] Dr. Elvis Cifuentes Hematocrit (Bld) [Volume fraction] 36.0 % Critically low 42.0-54.[address] [facility] Comment on above: Performed By: #### U RCX #### [facility] [address] [place] [address] Dr. Elvis Cifuentes Hemoglobin (Bld) [Mass/Vol] 11.8 g/dL Critically low 14.0-18.[address] [facility] Comment on above: Performed By: #### U RCX #### [facility] [address] [place] [address] Dr. Elvis Cifuentes IG # 0.02 10e3/ul Normal 0.00-0.[address] [facility] Comment on above: Performed By: #### U RCX #### [facility] [address] [place] [address] Dr. Elvis Cifuentes IG % 0.3 % Normal 0.0-0.[address] [facility] Comment on above: Performed By: #### U RCX #### [facility] [address] [place] [address] Dr. Elvis Cifuentes LYMPH # 1.4 103/ul Normal 1.2-3.[address] [facility] Comment on above: Performed By: #### U RCX #### [facility] [address] [place] [address] Dr. Elvis Cifuentes Lymphocytes/100 WBC (Bld) 21.3 % Normal 20.5-60.[address] [facility] Comment on above: Performed By: #### U RCX #### [facility] [address] [place] [address] Dr. Elvis Cifuentes MANUAL DIFF REQ NO Normal [facility] Comment on above: Performed By: #### U RCX #### [facility] [address] [place] [address] Dr. Elvis Cifuentes MCH (RBC) [Entitic mass] 29.2 pg Normal 25.9-34.[address] [facility] Comment on above: Performed By: #### U RCX #### [facility] [address] [place] [address] Dr. Elvis Cifuentes MCHC (RBC) [Mass/Vol] 32.8 g/dL Normal 29.9-35.[address] [facility] Comment on above: Performed By: #### U RCX #### [facility] [address] [place] [address] Dr. Elvis Cifuentes MCV (RBC) [Entitic vol] 89.1 fL Normal 80.0-94.[address] [facility] Comment on above: Performed By: #### U RCX #### [facility] [address] [place] [address] Dr. Elvis Cifuentes MONO # 0.6 103/ul Normal 0.3-0.[address] [facility] Comment on above: Performed By: #### U RCX #### [facility] [address] [place] [address] Dr. Elvis Cifuentes Monocytes/100 WBC (Bld) 8.8 % Normal 1.7-12.[address] [facility] Comment on above: Performed By: #### U RCX #### [facility] [address] [place] [address] Dr. Elvis Cifuentes NEUT # 4.0 103/ul Normal 1.4-6.[address] [facility] Comment on above: Performed By: #### U RCX #### [facility] [address] [place] [address] Dr. Elvis Cifuentes Neutrophils/100 WBC (Bld) 63.4 % Normal 43.0-75.[address] [facility] Comment on above: Performed By: #### U RCX #### [facility] [address] [place] [address] Dr. Elvis Cifuentes Platelet mean volume (Bld) [Entitic vol] 9.7 fL Normal 9.5-13.[address] [facility] Comment on above: Performed By: #### U RCX #### [facility] [address] [place] [address] Dr. Elvis Cifuentes PLT 347 103/ul Normal 150-450 [facility] Comment on above: Performed By: #### U RCX #### [facility] [address] [place] [address] Dr. Elvis Cifuentes RBC 4.04 106/ul Critically low 4.70-6.[address] [facility] Comment on above: Performed By: #### U RCX #### [facility] [address] [place] [address] Dr. Elvis Cifuentes WBC 6.3 103/ul Normal 4.0-11.[address] [facility] Comment on above: Performed By: #### U RCX #### [facility] [address] [place] [address] Dr. Elvis Cifuentes LIPID PROFILEon 08-03-2021 CHOL-HDL RATIO NORM SEE BELOW Normal [facility] Comment on above: Result Comment: 3.3 - 4.4 LOW RISK 4.4 - 7.1 AVERAGE RISK 7.1 - 11.0 MODERATE RISK >11.0 HIGH RISK Performed By: #### G IPANEL #### [facility] [address] [address] [address] Elvis Cifuentes Cholesterol [Mass/Vol] 175 mg/dL Normal <=[address] [facility] Comment on above: Performed By: #### G IPANEL #### [facility] [address] [address] [address] Elvis Cifuentes Cholesterol in HDL [Mass/Vol] 45 mg/dL Normal [facility] Comment on above: Performed By: #### G IPANEL #### [facility] [address] [address] [address] Elvis Cifuentes Cholesterol in LDL [Mass/Vol] 111.8 mg/dL Normal [facility] Comment on above: Performed By: #### G IPANEL #### [facility] [address] [address] [address] Elvis Cifuentes Cholesterol.total/ Cholesterol in HDL [Mass ratio] 3.9 {ratio} Normal [facility] Comment on above: Performed By: #### G IPANEL #### [facility] [address] [address] [address] Elvis Cifuentes HDL NORMAL > or = 60 mg/dl - LO W CARDIOVASCULAR RISK <40 mg/dl - HIGH CARDIOVASCULAR RISK Normal [facility] Comment on above: Performed By: #### G IPANEL #### [facility] [address] [place] [address] Dr. Elvis Cifuentes LDL CALC NORMAL SEE BELOW Normal [facility] Comment on above: Result Comment: <100 mg/dl OPTIMAL 100 - 129 mg/dl NEAR OR ABOVE OPTIMAL 130 - 159 mg/dl BORDERLINE HIGH 160 - 189 mg/dl HIGH >190 mg/dl VERY HIGH Performed By: #### G IPANEL #### [facility] [address] [address] [address] Elvis Cifuentes Triglyceride [Mass/Vol] 91 mg/dL Normal <=150 [facility] Comment on above: Performed By: #### G IPANEL #### [facility] [address] [address] [address] Elvis Cifuentes VLDL CALC 18.2 mg/dL Normal [facility] Comment on above: Performed By: #### G IPANEL #### [facility] [address] [address] [address] Elvis Cifuentes PROF CHEM 8 (BAS METB)on Anion gap [Moles/Vol] 11.4 mmol/L Normal [facility] Comment on above: Performed By: #### G IPANEL #### [facility] [address] [address] [address] Elvis Cifuentes Calcium [Mass/Vol] 8.8 mg/dL Normal 8.4-10.[address] [facility] Comment on above: Performed By: #### G IPANEL #### [facility] [address] [address] [address] Elvis Cifuentes Chloride [Moles/Vol] 105 mmol/L Normal 98-[address] [facility] Comment on above: Performed By: #### G IPANEL #### [facility] [address] [place] [address] Dr. Elvis Cifuentes CO2 [Moles/Vol] 31.7 mmol/L Critically high 22.0-30.[address] [facility] Comment on above: Performed By: #### G IPANEL #### [facility] [address] [place] [address] Dr. Elvis Cifuentes Creatinine [Mass/Vol] 1.48 mg/dL Critically high 0.66-1.[address] [facility] Comment on above: Performed By: #### G IPANEL #### [facility] [address] [place] [address] Dr. Elvis Cifuentes EGFR-AF UKRAINIAN 56 mL/min/1.73m2 Critically low >=60 [facility] Comment on above: Performed By: #### G IPANEL #### [facility] [address] [place] [address] Dr. Elvis Cifuentes EGFR-NON AF UKRAINIAN 46 mL/min/1.73m2 Critically low >=[address] [facility] Comment on above: Performed By: #### G IPANEL #### [facility] [address] [address] [address] Elvis Cifuentes Glucose [Mass/Vol] 115 mg/dL Critically high 74-106 [facility] Comment on above: Performed By: #### G IPANEL #### [facility] [address] [address] [address] Elvis Cifuentes Potassium [Moles/Vol] 3.1 mmol/L Critically low 3.4-5.[address] [facility] Comment on above: Performed By: #### G IPANEL #### [facility] [address] [address] [address] Elvis Cifuentes Sodium [Moles/Vol] 145 mmol/L Normal 137-[address] [facility] Comment on above: Performed By: #### G IPANEL #### [facility] [address] [address] [address] Elvis Cifuentes Urea nitrogen [Mass/Vol] 22.0 mg/dL Critically high 9.0-20.[address] [facility] Comment on above: Performed By: #### G IPANEL #### [facility] [address] [address] [address] Elvis Cifuentes Urea nitrogen/Creatinin e [Mass ratio] 14.9 mg/mg Normal [facility] Comment on above: Performed By: #### G IPANEL #### [facility] [address] [address] [address] Elvis Cifuentes [facility] 08-03-2021 ALT [Catalytic activity/Vol] 14 U/L Critically low 21-[address] [facility] Comment on above: Performed By: #### G IPANEL #### [facility] [address] [address] [address] Elvis Cifuentes Social History Date Type Detail Facility Start: 1945 Sex Assigned At Male [facility] No alcohol use No alcohol use [facility] [address] DO Work Phone: Comment on above: Quit in 1996; Vital Signs Date Time Vital Sign Value Performing Clinician Facility 03-20-2024 [id number] Body height 157.48 cm [facility] 03-20-2024 11:27-0400 Body mass index (BMI) [Ratio] 28 kg/m2 [facility] 03-20-2024 11:27 Body weight 69.62 kg [facility] 03-20-2024 11:27-0400 Diastolic blood pressure 72 mm[Hg] [facility] 03-20-2024 11:27-0400 Heart rate 46 /min [facility] 03-20-2024 11:27-0400 Respiratory rate 20 /min [facility] 03-20-2024 11:27-0400 SaO2% (BldA) [Mass fraction] 96 % [facility] 03-20-2024 11:27-0400 Systolic blood pressure 164 mm[Hg] [facility] 04-27-2022 14:15-0400 Diastolic blood pressure 64 mm[Hg] MD Britt Lazo Work Phone: [facility] 04-27-2022 14:15-0400 Heart rate 88 /min MD Britt Lazo Work Phone: [facility] 04-27-2022 14:15-0400 Systolic blood pressure 120 mm[Hg] MD Britt Lazo Work Phone: [facility] 04-27-2022 12:24-0400 Body height 170.18 cm MD Britt Lazo Work Phone: [facility] 04-27-2022 12:24-0400 Body weight 154 kg MD Britt Lazo Work Phone: [facility] 04-27-2022 00:00-0400 60 1 Aristeo Hernandez Work Phone: [facility] [employer] DO Work Phone: Comment on above: [id number] 04-05-2022 09:52-0400 Diastolic blood pressure 72 mm[Hg] Aristeo Hernandez Work Phone: [facility] [employer] DO Work Phone: 04-05-2022 09:52-0400 Systolic blood pressure 150 mm[Hg] [facility] Work Phone: 04-05-2022 09:48-0400 Body height 170.18 cm Aristeo Perez Ball Work Phone: [facility] [employer] DO Work Phone: 04-05-2022 09:48-0400 Body mass index (BMI) [Ratio] 23.81 kg/m2 Aristeo Perez Ball Work Phone: [facility] [employer] DO Work Phone: 04-05-2022 09:48-0400 Body surface area Derived from formula 1.8 m2 Aristeo E Ball Work Phone: [facility] [employer] DO Work Phone: 04-05-2022 09:48-0400 Body weight 68.95 kg Aristeo Perez Ball Work Phone: [facility] [employer] 250 DO Work Phone: 04-05-2022 09:48-0400 Diastolic blood pressure 70 mm[Hg] Aristeo Perez Ball Work Phone: [facility] [employer] 250 DO Work Phone: 04-05-2022 09:48-0400 Heart rate 78 /min Aristeo Perez Ball Work Phone: [facility] [employer] DO Work Phone: 04-05-2022 09:48-0400 Systolic blood pressure 158 mm[Hg] Aristeo Perez Ball Work Phone: [facility] [employer] 250 DO Work Phone: Discharge summary note 05-17-2022 Note Date & Type Note Facility 05-17-[address] Rashawn Lweis DATE OF TRANSFER/DISCHARGE: 05/26/2022 DATE OF ADMISSION: [...] suction. I spoke with Dr. Rai from [facility], who agreed to take the patient in transfer, and that is being arranged. [facility] Chief complaint Narrative - Reported 04-03-2022 Note Date & Type Note Facility 04-03-2022 Chief complaint Narrative - Reported ANASTASIYA VERA is being seen for an initial evaluation of D/C 04/03/22-Abnormal EKG. [facility] 250 DO Work Phone: Chief complaint Narrative - [...] significance. We will assess with noninvasive investigations [facility] [employer] 250 DO Work Phone: Evaluation note Note Date & Type Note Facility Evaluation note No assessment information availa [facility] Ctr Work Phone: Family History No Family [...] Chief Complaint abn ekg/htn r94.31 r 06.00 Chief Complaint Shortness of Breath Advance Directives No Advanced Directives Records Found [...] Status Dates Aristeo Hernandez DO Primary Care Provide r, Attending Provider Active Start: February 08, 2024 Team Status: Inactive Member Role Status Dates Aristeo David , Primary Care Provide r, Attending Provider Active Start: March 20, 2024 End: March 20, 2024 Goals (unrecognized section and content) Goals may be documented in a n alternate sectionGoals may be documented in an alternate section (unrecognized sect ion and content) No Status Records FoundNo Status Records FoundNo Status Records Found INFORMATION SOURCE (unrecogn ized section and content) DATE CREATED AUTHOR 07/13/2022 [facility] DATE CREATED AUTHOR AUTHOR'S ORGANIZ ATION 11/11/2022 [facility] DATE CREATED AUTHOR AUTHOR'S ORGANIZ ATION 03/26/2024 [facility] FOR RECORDS PERTAINING TO PATIENTS WHO ARE [...] BE BASED ON THE PRIMARY CLINICAL RECORDS. [facility]. provides no warranty or guarantee of the accuracy or completeness of information in this document.
[2024-03-27 13:26] LABS: Estimated GFR (African America >60 (>=60); Estimated GFR (Non-African Ame 56 (>=60)
== END 2024-03-27 13:09 | disposition home or self-care (01) ==
LOC: LAB 13:08
PROVIDERS: PCP Internal Medicine; Visit Provider Internal Medicine
DX: R91.8 Other nonspecific abnormal finding of lung field (principal)
CPT/HCPCS: 36415; 71260; 82565; Q9967

== ENCOUNTER 2024-04-15 09:12 | Outpatient (RCR) | payer MEDICARE, OTHER, SELFPAY ==
--- NOTE | 2024-04-21 07:23 | PC.NURSE ---
0630 Arrival per wheelchair to 271. Alert oriented, transfers self to bed, assisted with taking shirt off and donning gown. 0635 Alert oriented, Color pallor, noted exertional dyspnea, Cardiac, NIBP, SPO2 monitoring initiated, monitor shows sinus with bigeminy of PAC's. Lungs sound clear posteriorly rt lung martinez, very diminished throughout left posterior lung martinez. Denies any any pain or discomfort at this time. 0650 Sitting on side of bed, arms supported with tray table and pillow. [address] Membreno arrives. Procedure discussed,verbalizes understanding. 0710 Consent verified. 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 Membreno 0712 Site verification using ultrasound per Dr. Membreno. Thoracentesis in progress. Patient tolerataing well bloody fluid returned, placed in collection vials per Dr. Membreno then connected to vacuum bottle. 0718 1050cc of bloody pleural fluid removed. Patient feels need to cough. Procedure completed. Bandaid applied to left posterior back at procedure site. 0720 Patient requests to lay down, assisted to lay in bed on rt side. Monitor shows sinus shaheen to sinus rhythm, bp lower than at beginning of procedure. Patient states he took all his meds at 530 this moring. 0720 Resting quietly, talking with . offers no complaints at this time vital signs stable. 0730 No change in status respirations easier per patient, R-24. HR 72, bp 121/52
== END 2024-05-07 23:59 | disposition home or self-care (01) ==
LOC: ICU 09:12
PROVIDERS: PCP Internal Medicine; Visit Provider Internal Medicine Hematology & Oncology
DX: C34.92 Malignant neoplasm of unspecified part of left bronchus or lung (principal); Z87.891 Personal history of nicotine dependence; Z93.3 Colostomy status; J90 Pleural effusion, not elsewhere classified
CPT/HCPCS: G0463

== ENCOUNTER 2024-04-21 07:29 | Outpatient (RCR) | payer MEDICARE, OTHER, SELFPAY ==
[2024-04-21] VITALS (27 sets, daily range): BP systolic 89–148; BP diastolic 29–71; PULSE 45–105; O2SAT 94–97
--- NOTE | 2024-04-21 07:25 | XR_ITS ---
The [address] [address] Patient Name: MARIBELL VERA MRN: [id number] date: 1945 Sex: M Assigned Patient Location: INF Current Patient Location: INF Accession/Order Number: [id number] Exam Date: 04/21/2024 07:45 Report Date: 04/21/2024 08:01 At the request of: BROCK JAMES Procedure: XR chest 1V EXAMINATION: XR chest 1V HISTORY: Left pleural effusion - s/p thoracentesis COMPARISON: 03/27/2024 TECHNIQUE: AP portable erect FINDINGS: LUNGS: The right lung is clear. Moderate left basilar opacity obscuring the hemidiaphragm and heart border. Linear opacity left lateral midlung likely atelectasis VASCULATURE: No increased pulmonary vasculature. PLEURA: No pneumothorax. Left pleural effusion CARDIAC: No cardiomegaly or cardiac silhouette abnormality. MEDIASTINUM: No visible mass or adenopathy. BONES: No fracture or visible bone lesion. OTHER: Negative. XR/XR chest 1V IMPRESSION: Left basilar opacity and pleural effusion, indeterminate Electronically authenticated by: MATTHEW CHATMAN Date: 04/21/2024 08:01
--- NOTE | 2024-04-21 07:26 | W.PM.PROCNOT ---
Date of procedure: 04/21/24 Procedure: Procedure: Diagnostic & therapeutic ultrasound-guided left-sided thoracentesis Pre/Post-Diagnosis: Left pleural effusion Surgeon: Ovi Membreno DO Anesthesia: Lidocaine 1% 10mL Estimated Blood Loss: <1mL Specimens: Pleural fluid sent of analysis Complications: None Consent: Informed consent was obtained after risks, benefits, and alternatives were discussed with the patient. Time out was initiated to confirm the correct patient, site, and procedure with all present voicing in the affirmative. Procedure: The patient was placed in the seated position in the hospital bed. Ultrasound was utilized to identify the hemidiaphragm and pleural fluid on the left. Tongue sign was present on ultrasound, indicating a large pleural effusion. An appropriate drainage site was marked via marking pen, based on anatomical landmarks and the ultrasound findings. Chloraprep was used to cleanse the lower left hemithorax. Sterile drapes were applied. Lidocaine 1% mL was injected, first as superficial skin wheal, and then using aspiration technique, advanced over the superior aspect of the lower rib subcutaneously at the periosteum and then parietal pleura. Easy return of dark red pleural fluid was aspirated. Next, a small incision was made to the anesthetized area with the blade provided in the prepackaged thoracentesis kit. Hemostasis was achieved. A ousahmsc-vnei-jeqnmu apparatus was advanced as a unit over the superior aspect of the lower rib into the pleural space with great care to prevent further progression of the needle into the pleural cavity. The needle was then retracted completely and discarded. A vacuum collection system was attached to the catheter and pleural fluid was collected for analysis. A total of 1050mL of pleural fluid was removed. The procedure was terminated due to coughing. The catheter was then removed during an expiratory breath-hold maneuver. The patient tolerated the procedure well. Post-procedural ultrasound noted reduction in pleural fluid. post-procedural portable chest x-ray was ordered to assess adequacy of pleural fluid drainage and to evaluate for iatrogenic pneumothorax; results are pending at the time of this report. Surgeon: Ovi Membreno
--- NOTE | 2024-04-21 08:12 | PC.NURSE ---
0745 Sitting in bed, hob elevated, eating crackers and water, offers no complaints at this time. dressing(bandaid) to left posterior thorax clean dry and intact. Lungs remain very diminished left posterior martinez and clear on rt with gd air exchange.
--- NOTE | 2024-04-21 08:14 | PC.NURSE ---
0744 [facility] obtained
--- NOTE | 2024-04-21 08:14 | PC.NURSE ---
0800 Resting quietly at this time.
--- NOTE | 2024-04-21 08:15 | PC.NURSE ---
0810 Dr. Membreno in and speaks with patient orders to release to home 0817 monitoring removed, sitting on side of bed. assisted to dress 0820 released per wheelchair to private auto
[2024-04-23 07:09] LABS: Amylase, Body Fluid 21 U/L (.); Glucose, Body Fluid 100 mg/dL (.); LD, Body Fluid 480 IU/L (.); Protein, Body Fluid 4.4 g/dL (.); Triglycerides, Fluid 36 mg/dL (Not Estab.)
== END 2024-04-21 08:39 | disposition home or self-care (01) ==
LOC: INF 07:29
PROVIDERS: PCP Internal Medicine; Visit Provider Internal Medicine
DX: J90 Pleural effusion, not elsewhere classified (principal)
CPT/HCPCS: 32554; 32555; 36415; 71045; 82150; 82945; 83615; 83986; 84157; 84478; 87070; 87205; 88112; 88305; 89051

== ENCOUNTER 2024-05-06 07:25 | Outpatient (RCR) | payer MEDICARE, OTHER, SELFPAY | END 2024-05-07 23:59 | disposition home or self-care (01) | LOC: HEMC 07:25 | PROVIDERS: PCP Internal Medicine; Visit Provider Internal Medicine Hematology & Oncology | DX: C34.92 Malignant neoplasm of unspecified part of left bronchus or lung (principal); Z93.3 Colostomy status | CPT/HCPCS: G0463 ==

== ENCOUNTER 2024-05-16 12:48 | Outpatient (OUT) | payer MEDICARE, OTHER, SELFPAY ==
--- NOTE | 2024-05-16 12:58 | XR_ITS ---
The [place] [id number] Patient Name: MARIBELL VERA MRN: [id number] date: 1945 Sex: M Assigned Patient Location: [employer] Current Patient Location: Accession/Order Number: [id number] Exam Date: 05/16/2024 13:01 Report Date: 05/19/2024 09:37 At the request of: YONIS PIMENTEL Procedure: XR chest 2V EXAMINATION: XR chest 2V HISTORY: Lung Cancer, Pleural Effusion, High White Blood Count COMPARISON: No relevant comparison available. TECHNIQUE: 04/21/2024, 03/27/2024 FINDINGS: LUNGS: The right lung is clear. Persistent left basilar infiltrate occupying approximately 40% of the lung volumes. The diaphragm and heart border, stable. VASCULATURE: No increased pulmonary vasculature. PLEURA: No pneumothorax, effusion, or pleural thickening. CARDIAC: No cardiomegaly or cardiac silhouette abnormality. MEDIASTINUM: No visible mass or adenopathy. BONES: No fracture or visible bone lesion. OTHER: Negative. XR/XR chest 2V IMPRESSION: Stable 40% opacification of the left lung at the base consistent with known mass/consolidation/pleural effusion Electronically authenticated by: MATTHEW CHATMAN Date: 05/19/2024 09:37
--- OUTSIDE RECORDS SUMMARY | 2024-05-16 13:00 | XMS_ITS | CCD ---
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 Name Role Phone Aristeo Hernandez Unavailable Unavailable Unavailable MD Britt Lazo Attending Provider [phone] DO Aristeo Hernandez Primary Care Provider DR ARISTEO HERNANDEZ Primary Care Unavailable JOSH, DR ALBERTS Consulting Unavailable JOSH, DR ALBERTS Attending Unavailable JOSH, DR ALBERTS Admitting Unavailable Akhil, DR Simpson Consulting Unavailable JOSH, DR ALBERTS Referring Unavailable DEBBIE, DR RASHAWN Perez Consulting Unavailabl e DEBBIE, DR RASHAWN Perez Attending Unavailabl e JOSH, DR ALBERTS Primary Care Unavailable DEBBIE, DR RASHAWN Perez Admitting Unavailabl e CHAN, DR ZAIDI Consulting Unavailable ZIEBER, DR GEORGETTE Holman Consulting Unavailable NADERER, DR JOSE ROBRETO Martinez Consulting Unavailable DEBBIE, DR RASHAWN Perez Procedure Practitioner Kami bekah NICE, DR MOROCHO Consulting Unavailable AGUBOSIM, DASH Consulting Unavailable LONG, BRYSON Consulting Unavailable REIER, KANU Consulting Unavailable RAMÍREZ, NICKI Consulting Unavailable FERNANDEZ, DOMENICO Consulting Unavailable SHAYY, KEVIN Consulting Unavailable GOETZ, THOR Consulting Unavailable DARAMOLATAMMI Consulting Unavailable DEBBIE, DR RASHAWN Perez Attending Unavailabl e DEBBIE, DR RASHAWN Perez Admitting Unavailabl e JOSH, DR ALBERTS Attending Unavailable JOSH, DR ALBERTS Admitting Unavailable DEBBIE, DR RASHAWN Perez Consulting Unavailabl e DEBBIE, DR RASHAWN Perez Attending Unavailabl e DEBBIE, DR RASHAWN Perez Admitting Unavailabl e JOSH, DR ALBERTS Primary Care Unavailable AGUBOSIM, DASH Consulting Unavailable DORKOSKFABRICE CANCHOLA Consulting Unavailable JOSH, DR ALBERTS Primary Care Unavailable DEBBIE, DR RASHAWN Perez Attending Unavailabl e DEBBIE, DR RASHAWN Perez Admitting Unavailabl e JOSH, DR ALBERTS Primary Care Unavailable DEBBIE, DR RASHAWN Perez Consulting Unavailabl e DEBBIE, DR RASHAWN Perez Attending Unavailabl e GRFAY, DR RASHAWN Perez Admitting Unavailabl e DEBBIE, DR RASHAWN Perez Consulting Unavailabl e DEBBIE, DR RASHAWN Perez Attending Unavailabl e BALL, DR ALBERTS Primary Care Unavailable GRILLIS, DR RASHAWN Perez Admitting Unavailabl e BALL, DR ALBERTS Primary Care Unavailable PAY, DR BARAJAS Consulting Unavailable PAY, DR BARAJAS Attending Unavailable PAY, DR BARAJAS Admitting Unavailable ABBAS, DR RIOJAS Consulting Unavailable ABBAS, DR RIOJAS Attending Unavailable BALL, DR ALBERTS Primary Care Unavailable ABBAS, DR RIOJAS Admitting Unavailable ZIEBER, DR GEORGETTE Holman Consulting Unavailable BALL, DR ALBERTS Consulting Unavailable BALL, DR ALBERTS Attending Unavailable BALL, DR ALBERTS Admitting Unavailable BALL, DR ALBERTS Primary Care Unavailable ZIEBER, DR GEORGETTE Holman Consulting Unavailable BALL, DR ALBERTS Consulting Unavailable BALL, DR ALBERTS Attending Unavailable BALL, DR ALBERTS Admitting Unavailable SHANIQUA, VICKI Long Attending Unavailable JOSH, ARISTEO Perez Referring Unavailable BALL, ARISTEO Perez Primary Care Unavailable BALL, ARISTEO Perez Referring Unavailable BALL, ARISTEO Perez Primary Care Unavailable BALL, ARISTEO Perez Referring Unavailable BALL, ARISTEO E Primary Care Unavailable SHANIQUA, VICKI F Attending Unavailable BALL, ARISTEO Perez Referring Unavailable BALL, ARISTEO Perez Primary Care Unavailable Ball, DO Alberts Primary Care Provider DO Aristeo Hernandez Attending Provider [facility], DO Ovi Sahni Attending Provider [phone] [facility], DO Dior Attending Provider Aristeo Hernandez Primary Care Unavailable Ovi Membreno Attending Unavailable Haseeb, Ovi Sahni Admitting Unavailable Josh, Aristeo Primary Care Unavailable [facility], Ovi Attending Unavailable [facility], Ovi Admitting Unavailable Josh, Aristeo Primary Care Unavailable Josh, Aristeo Admitting Unavailable Josh, Aristeo Attending Unavailable JOSH, ARISTEO E Referring Unavailable JOSH, ARISTEO Perez Primary Care Unavailable Medications Current Medications Medication Drug Class(es) Dates Sig (Normalized) Sig (Original) folic acid 0.4 mg / vitamin b12 0.5 mg oral tablet (1 source) Vitamin B12 Start: 04-30-2024 take 1 tablet by mouth once daily Vitamin R31-[id number] Acid Active 1 TAB PO Daily April 30, 2024 12:00am administer with a meal labetalol hydrochloride 100 mg oral tablet (11 sources) beta-Adrenergic Jatinder Start: 03-20-2024 take 50 mg by mouth twice daily Labetalol Active 50 MG PO Twice daily March 20, 2024 12:00am take 1 tablet by mouth once diaz y Labetalol HCl - 100 MG Oral Tablet TAKE 1 TABLET EVERY 12 HOURS DAILY. Quantity: 0 Refills: 0 Ordered: 05-Apr-2022 DO Active lisinopril 10 mg oral tablet (5 sources) Angiotensin Converting Enzyme Inhibitor Start: 03-20-2024 take 10 mg by mouth once daily Lisinopril Active 10 MG PO Daily March 20, 2024 12:00am Completed/Discontinued Medications Medication Drug Class(es) Dates Sig (Normalized) Sig (Original) amLODIPine 5 mg / benazepril hydrochloride 20 mg oral capsule (12 sources) Dihydropyridine Calcium Channel Jatinder, Angiotensin Converting [...] Episodic Aortic; peripheral; and visceral artery aneurysms (20 sources) Abdominal aortic aneurysm; Translations: [Abdominal aneurysm [...] [MAL NEOPLASM RECTOSIGMOID JUNCT] Onset: 04-05-20 Chronic Cardiac dysrhythmias (11 sources) Bradycardia; Translations: [Bradycardia, unspecified] 03-20-2024 Episodic Chronic kidney disease (13 sources) Chronic kidney disease, unspecified; Translations: [Chronic kidney disease] Onset: 05-17-2003-12-2024 Chronic Chronic kidney disease (1 source) Chronic kidney disease; Translations: [CHRONIC KIDNEY DISEASE STAGE 3A] Onset: 06-26-20 Chronic obstructive pulmonary disease and bronchiectasis (1 source) Centrilobular emphysema; Translations: [Centrilobular emphysema] Onset: 05-13-20 Chronic Complications of surgical procedures or medical care [...] WITHOUT ESOPHAGITIS] Onset: 06-26-20 Chronic Essential hypertension (20 sources) Benign essential hypertension; Translations: [Benign essential [...] 06-26-20 Chronic Other aftercare (1 source) Other snf (current) drug therapy; Translations: [OTH ARSON INVESTIGATOR CURRENT DRUG THERAPY] Onset: 06-26-20 Episodic Other [...] respiratory abnormalities] Episodic Other lower respiratory disease (8 sources) Lung mass; Translations: [Other nonspecific abnormal finding of lung field] 02-08-2024 Episodic Other lower respiratory disease (4 sources) Dyspnea on exertion; Translations: [Other forms of dyspnea] 03-20-2024 Episodic Other lower respiratory disease (7 sources) Other forms of dyspnea; Translations: [Other respiratory abnormalities] 03-20-2024 Episodic Other lower respiratory disease (8 sources) Other nonspecific abnormal finding of lung field; Translations: [Swelling, mass, or lump in chest] Onset: 04-07-2003-20-2024 Episodic Other screening for suspected conditions (not [...] Respiratory failure; insufficiency; arrest (adult) (1 source) Chronic respiratory failure with hypoxia; Translations: [Chronic respiratory failure with hypoxia] Onset: 05-13-20 Chronic Respiratory failure; insufficiency; arrest (adult) (1 source) [...] PELV SWELL MASS LUMP] Onset: 02-10-2022 Episodic Results Test Name Value Interpretation Reference Range Facility Activated partial thrombopla stin time (aPTT) in platelet poor plasma by coagulation aOrdered By: Ovi Membreno on 04-30-2024 aPTT Coag (PPP) [Time] 29.9 s 25.1-36.5 [facility] Comment on above: A hematocrit value g reater than 55% may lead to inaccurate results in coagulation testing. Patients having hematocrit values >55% require a special collection tube for coagulation studies. Please contact the laboratory at [phone] guided biopsyon CT guided biopsy [facility] [place] [address] [place] [address] CT Scan Report Signed Patient: Carlo Vera MR#: [id number] 224 : 1945 Acct:[id number] Age/Sex: 78 / M ADM Date: 04/30/24 Loc: CT Room: Type: [facility] Attending Dr: Ovi Burns [facility] DO Copies to: DO Casper Beyer Jeffrey S DO Ordering Provider: Ovi Membreno DO; Rogerio Shirley DO Date of Service: 04/30/24 CT/CT guided biopsy: R91.8 ([id number]) XR/XR chest 1V: POST LUNG BX CT-GUIDED LUNG BIOPSY HISTORY: Left lung mass Informed consent was obtained. Complications of pneumothorax and bleeding discussed. Potential for chest tube for pneumothorax and potential hospital admission for this complication discussed. A discussion for monitoring the patient at home by family member friend performed. CT was utilized for localization of skin entry site. The skin entry site was prepped and draped in sterile fashion. Local lidocaine was utilized. Anesthetic needle was utilized to confirm adequate position. 2 Core biopsy samples were obtained. Samples given to pathology for further assessment. Preliminary results positive for potential malignant cells. The needle was removed with adequate hemostasis obtained. Tiny localized basilar pneumothorax identified. Patient expressed no immediate complications. Patient was held for 2 hours without symptoms and discharged to home in satisfactory condition. Orders and instructions given. CT/CT guided biopsy IMPRESSION: SUCCESSFUL CT-GUIDED LUNG BIOPSY Single view chest obtained post biopsy. Small basilar pneumothorax on the left persists. No apical pneumothorax. No developing pleural effusion. IMPRESSION: Similar loculated appearing left basilar pneumothorax. Single view chest obtained 2 hours post biopsy. Small left basilar pneumothorax and no longer seen. No developing apical pneumothorax. No developing pleural effusion. Continued left basilar pleural-parenchymal changes. IMPRESSION: No developing apical pneumothorax or large pleural effusion. Impression dictated by: Rogerio Shirley M.D.04/30/2024 3:23 PM Dictation Location: [place] [address] Transcribed By: [facility] 04/30/24 1523 Dictated By: Rogerio Shirley DO 04/30/24 1517 Signed By: 04/30/24 1523 Normal [facility] Coagulation Profileon 2023 aPTT Coag (Bld) [Time] 29.9 s Normal 25.1-36.5 [facility] Comment on above: Order Comment: STAT FOR CT BX Result Comment: A he matocrit value greater than 55% may lead to inaccurate results in coagulation testing. Patients having hematocrit values >55% require a special collection tube for coagulation studies. Please contact the laboratory at [phone] for redraw instructions. PERFORMED BY: [place] [address] PATHOLOGIST BEHAVIOR ANALYST JASMIN CEVALLOS M.D. Performed By: #### P LT, PP #### [address] INR in Platelet poor plasma by Coagulation assayOrdered By: Ovi Membreno on 04-30-2024 INR Coag (PPP) [Relative time] 1.3 {INR} Normal [facility] Comment on above: INR Therapeutic Rang e A) Pre- and Peroperative OAT started two weeks before surgery. NOT HIP SURGERY: 1.5 - 2.5 HIP SURGERY: 2 - 3B) Primary and secondary prevention of venous THROMBOSIS: 2 - 3C) Active venous thrombosis, pulmonary embolismand prevention of recurrent venous thrombosis: 2 - 3D) Prevention of arterial thromboembolismincluding patients with mechanical heart valves: 3 - 4.5 Order Comment: STAT FOR CT BX Result Comment: INR Therapeutic Range A) Pre- and Peroperative OAT started two weeks before surgery. NOT HIP SURGERY: 1.5 - 2.5 HIP SURGERY: 2 - 3 B) Primary and secondary prevention of venous THROMBOSIS: 2 - 3 C) Active venous thrombosis, pulmonary embolism and prevention of recurrent venous thrombosis: 2 - 3 D) Prevention of arterial thromboembolism including patients with mechanical heart valves: 3 - 4.5 Performed By: #### P LT, PP #### [facility] [address] [place] [address] 04-30-2024 L Specimen: [id number] Received: 04/30/24 Status: JENNIE Mary Num: [id number] Spec Type: Surgical Subm Dr: Rogerio Shirley DO Tissues: A Lung - Transbroncial Biopsy (LT LOWER LOBE LUNG TISSUE) Procedures: HE/2, Gross/Micro L4, AE1-AE3, CK20, CK 7, NAPSIN A, TTF1, SOX-10, p40, DIFF QWIK/2 Age/ Patient Sex Location Account Attending Physician Carlo eVra 78/M CT [id number] Ovi Membreno DO SPEC NUM: [id number] RECD: 04/30/24 STATUS: JENNIE MARY NUM: [id number] KELLY: 04/30/[address]: Rogerio Shirley DO ENTERED: 04/30/24 [facility] DR: SPEC TYPE: Surgical DEPT: S ORDERED: HE/2, Gross/Micro L4, AE1-AE3, CK20, CK 7, NAPSIN A, TTF1, SOX-10, p40, DIFF QWIK/2 ORDERED: HE/2, Gross/Micro L4, AE1-AE3, CK20, CK 7, NAPSIN A, TTF1, SOX-10, p40, DIFF QWIK/2 Pathological Diagnosis Lung, left lower lobe mass (CT-guided needle biopsies with touch preparations and immediate evaluation): Adenocarcinoma, poorly differentiated consistent with lung primary See microscopic description Clinical Information Left lower lobe lung mass Gross Description Received in formalin labeled with the patient's name, date of and left lower lung lobe are 2 delicate prasad tissue cores ranging from 0.7 to 0.5 cm in length by 0.1 cm in diameter, entirely submitted in A1. Intraoperative Diagnosis Lung, left lower lobe; mass (CT guided needle biopsy with touch preparations and immediate evaluation): Malignant cells present Read by Zbigniew Birmingham Jr., M.D. Specimen: [id number] Received: 04/30/24 Status: JENNIE Mary Num: [id number] Spec Type: Surgical Subm Dr: Rogerio Shirley DO Tissues: A Lung - Transbroncial Biopsy (LT LOWER LOBE LUNG TISSUE) Procedures: HE/2, Gross/Micro L4, AE1-AE3, CK20, CK 7, NAPSIN A, TTF1, SOX-10, p40, DIFF QWIK/2 Patient: Carlo Vera [id number] (Continued) Specimen: [id number] Received: 04/30/24 (Continued) Signed (signature on file) Zbigniew Birmingham Jr., MD 05/06/24 1100 Specimen: [id number] Received: 04/30/24 Status: JENNIE Mary Num: [id number] Spec Type: Surgical Subm Dr: Rogerio Shirley DO Tissues: A Lung - Transbroncial Biopsy (LT LOWER LOBE LUNG TISSUE) Procedures: HE/2, Gross/Micro L4, AE1-AE3, CK20, CK 7, NAPSIN A, TTF1, SOX-10, p40, DIFF QWIK/2 Patient: Carlo Vera [id number] (Continued) Specimen: [id number] Received: 04/30/24 (Continued) Microscopic Description Immunoperoxidase stains performed on formalin fixed and paraffin-embedded tissue sections (block A1) reveal strong and diffuse membranous reactivity for cytokeratin subtype 7 and strong diffuse nuclear reactivity for lung marker TTF-1. Napsin A is equivocal. The malignant cells are negative for cytokeratin subtype 20, p40, and SOX10. The controls stain appropriately. These immunophenotypic results support the histologic interpretation of an adenocarcinoma of lung origin. CPT Codes 95141, 51442, 00194, 07596 x 5 Specimen: [id number] Received: 04/30/24 Status: JENNIE Mary Num: [id number] Spec Type: Surgical Subm Dr: Rogerio Shirley DO Tissues: A Lung - Transbroncial Biopsy (LT LOWER LOBE LUNG TISSUE) Procedures: HE/2, Gross/Micro L4, AE1-AE3, CK20, CK 7, NAPSIN A, TTF1, SOX-10, p40, DIFF QWIK/2 Patient: Carlo Vera [id number] (Continued) Signed (signature on file) Zbigniew Birmingham Jr., MD 05/06/24 1100 Normal [facility] Platelets [#/volume] in Bloo d by Automated countOrdered By: Ovi Membreno on 04-30-2024 Platelets (Bld) [#/Vol] 411 10*3/uL Normal 150-450 [facility] Comment on above: Order Comment: STAT FOR CT BX Result Comment: PERF ORMED BY: [place] [address] PATHOLOGIST BEHAVIOR ANALYST JASMIN CEVALLOS M.D. Performed By: #### P LT, PP #### [facility] [address] [place], [place] [id number] [facility] Prothrombin time (PT)Ordered By: Ovi Membreno on 04-30-2024 PT Coag (PPP) [Time] 14.7 s High 9.0-12.9 [facility] Comment on above: A hematocrit value g reater than 55% may lead to inaccurate results in coagulation testing. Patients having hematocrit values >55% require a special collection tube for coagulation studies. Please contact the laboratory at [phone] for redraw instructions. Order Comment: STAT FOR CT BX Result Comment: A he matocrit value greater than 55% may lead to inaccurate results in coagulation testing. Patients having hematocrit values >55% require a special collection tube for coagulation studies. Please contact the laboratory at [phone] for redraw instructions. Performed By: #### P LT, PP #### [facility] [address] [place] [address] [facility] XR chest 1Von 04-30-2024 XR chest 1V [facility] [place] [address] [place] [address] XRay Report Signed Patient: Carlo Vera MR#: [id number] 224 : 1945 Acct:[id number] Age/Sex: 78 / M ADM Date: 04/30/24 Loc: CT Room: Type: [facility] Attending Dr: Ovi Membreno [facility] DO Copies to: DO Casper Beyer Jeffrey S DO Ordering Provider: Rogerio Shirley DO Date of Service: 04/30/24 XR/XR chest 1V: Pneumothorax Post Lung Bx Single view chest 2 hours postbiopsy No apical pneumothorax. Left basilar pneumothorax not seen. Continued left basilar pleural- parenchymal changes. XR/XR chest 1V IMPRESSION: No developing pneumothorax or large pleural effusion. Impression dictated by: Rogerio Shirley M.D.04/30/2024 4:01 PM Dictation Location: [place] [address] Transcribed By: [facility] 04/30/24 1601 Dictated By: Rogerio Shirley DO 04/30/24 1600 Signed By: 04/30/24 1601 Normal [facility] [place] 04-21-2024 L Specimen: Received: 04/22/24 Status: JENNIE Mary Num: [id number] Spec Type: Cytology Subm Dr: Ovi Membreno DO Tissues: A PLEURAL FLUID (LT LUNG) Procedures: HE/2, Gross/Micro L4, Cyto Prepstain, PAPSTN Age/ Patient Sex Location Account Attending Physician Carlo Vera 78/M LABE[facility] [id number] Ovi Membreno DO SPEC NUM: [id number] RECD: 04/22/24 STATUS: JENNIE MARY NUM: [id number] KELLY: 04/21/[address]: Ovi Membreno DO ENTERED: 04/22/[address]: SrikanthLab SPEC TYPE: Cytology DEPT: DOTTY WALTER ENTERED BY: [id number] RECV BY: [id number] ORDERED: HE/2, Gross/Micro L4, Cyto Prepstain, PAPSTN ORDERED: HE/2, Gross/Micro L4, Cyto Prepstain, PAPSTN Pathological Diagnosis Thoracocentesis fluid, cytology: -No features of malignant cells -Many acute and chronic inflammatory cells including occasional eosinophils, and occasional mesothelial cells and/or histiocytes also randomly admixed -Cell block section also showing similar findings, except much less cellularity, some admixed fibrin, and rare degenerated cell Clinical Information Mass on lung Gross Description Received is 1000 ml red cloudy mucinous unfixed fluid for cytology said to have been obtained as Thoracentesis. ThinPrep and cell block preparations are prepared for microscopic examination.(CC/nh) Specimen: [id number] Received: 04/22/24 Status: JENNIE Mary Num: [id number] Spec Type: Cytology Subm Dr: Ovi Membreno DO Tissues: A PLEURAL FLUID (LT LUNG) Procedures: HE/2, Gross/Micro L4, Cyto Prepstain, PAPSTN Patient: Carlo Vera [id number] (Continued) Specimen: [id number] Received: 04/22/24 (Continued) Signed (signature on file) Neel Cifuentes MD 04/23/241443 Specimen: [id number] Received: 04/22/24 Status: JENNIE Usman Num: [id number] Spec Type: Cytology Subm Dr: Ovi Membreno DO Tissues: A PLEURAL FLUID (LT LUNG) Procedures: HE/2, Gross/Micro L4, Cyto Prepstain, PAPSTN Patient: Carlo Vera [id number] (Continued) Specimen: [id number] Received: 04/22/24 (Continued) Microscopic Description Microscopic examinations are performed supporting the above interpretation CPT Codes 92241 95136 Specimen: [id number] Received: 04/22/24 Status: JENNIE Chaudhariyves Num: [id number] Spec Type: Cytology Subm Dr: Ovi Membreno DO Tissues: A PLEURAL FLUID (LT LUNG) Procedures: HE/2, Gross/Micro L4, Cyto Prepstain, PAPSTN Patient: Carlo Vera [id number] (Continued) Signed (signature on file) Neel Cifuentes MD 04/23/241443 Normal [facility] Laboratory - Microbiology an d Antimicrobial susceptibilityOrdered By: Ovi Membreno on 04-21-2024 Microscopic observation Gram stain Nom (Unsp spec) [facility] No Panel Informationon 04-21 Body Fluid Amylase 21 U/L . [facility] Comment on above: : BODY FLUID TYPE : AMYLASE : : : : : Lymph : 50 - 83 : : : : : Peritoneal : : : Fluid : 88 - 109 : : : : : Saliva : : : (Mixed Glands) : 35480 - [id number] : : : : Jose Juan Jackson V. Reference Intervals for Adults and Children 2007. Ninth Edition (V9.1) [facility] [place]: April 2009. Body Fluid Glucose 100 mg/dL . [facility] Comment on above: : BODY FLUID TYPE : GLUCOSE : : : : : Amniotic Fluid : 45 - 76 : : : : : Bile, Clear : < 5 : : : : : Bile, Yellow : < 8 : : : : : Lymph : 48 - 200 : : : : : Nasal Secretion : < 10 : : : : : Pleural Fluid : 65 - 99 : : : : : Saliva : < 2 : : (Mixed Glands) : : : : : : Sweat : < 7 : : : : : Synovial Fluid : 65 - 99 : : : : : Tears : 76 - 288 : : : : Jose Juan Jackson V. Reference Intervals for Adults and Children 2007. Ninth edition (V9.1) [employer], [facility]; [place]: April 2009. Body Fluid Lactate Dehydrogenase 480 IU/L . [facility] Comment on above: : BODY FLUID TYPE : LDH : : : : : : Nonmalignant: < 60% : : : of the serum LDH : : Ascitic Fluid : Malignant: > 60% : : : of the serum LDH : : : : : Gastric Juice : < 35 : : : : : : Transudate: <200 : : Pleural Fluid : Exudate: >200 : : : : : Saliva : 113 - 609 : : (Mixed Glands) : : : : : : Synovial Fluid : <240 : : : : Jose Juan Jackson V. Reference Intervals for Adults and Children 2007. Ninth Edition (V9.1) [employer], [facility]; [place]: April 2009.Performed at: CB - [facility] [id number] [place], [place] [id number] Director: Randy Tucker PhD, Phone: [phone] Body Fluid Total Protein 4.4 g/dL . [facility] Comment on above: : BODY FLUID TYPE : TOTAL PROTEIN : : : : : Amniotic Fluid : <0.4 : : : : : : Nonmalignant: <3.0 : : Ascitic Fluid : Malignant: >3.0 : : : : : Bile, Clear : <0.9 : : : : : Bile, Yellow : 0.2 - 0.6 : : : : : Lymph : 2.2 - 6.0 : : : : : Human Milk : 1.9 - 2.0 : : : : : Nasal Secretion : 0.1 - 3.5 : : : : : Pancreatic : 0.0 - 0.1 : : Juice : (post stimulation) : : : : : : Transudate: <0.3 : : Pleural Fluid : Exudate: >0.3 : : : : : Saliva : 0.1 - 0.2 : : (Mixed Glands) : : : : : : Synovial Fluid : <2.5 : : : : : Tears : 0.8 - 0.9 : : : : Rebecca W, Jose Juan V. Reference Intervals for Adults and Children 2008. Ninth Edition (V9.1) [employer], [facility]; [place]: April 2009. Body Fluid Triglycerides 36 mg/dL Not Estab. [facility] Comment on above: The reference interv al(s) and other method performance specificationshave not been established for this body fluid. The test result must beintegrated into the clinical context for interpretation.Performed at: - [facility] [address] [id number] Director: Randy Tucker PhD, Phone: [phone] Reference Lab Order Code See comment [facility] Comment on above: SEE SCANNED REPORT Capillary blood glucose torri urement by glucometer (mass/volume)Ordered By: Aristeo Hernandez on 04-07-2024 Glucose [Mass/Vol] 89 mg/dL Normal [facility] Comment on above: Random Glucose Refer ence Range is dependent on time and content of last meal. Glucose of more than 200 mg/dL in a nonstressed, ambulatory subject supports the diagnosis of Diabetes Mellitus. Result Comment: [facility] Glucose Reference Range is dependent on time and content of last meal. Glucose of more than 200 mg/dL in a nonstressed, ambulatory subject supports the diagnosis of Diabetes Mellitus. PERFORMED BY: [place] [id number] PATHOLOGIST BEHAVIOR ANALYST JASMIN CEVALLOS M.D. Performed By: #### G LULS #### Point of Care testing , PET tumor init tx strat sb-m ton 04-07-2024 PET tumor init tx strat sb-mt [facility] [place] [address] [place] [id number] Nuclear Medicine Report Signed Patient: Carlo Vera MR#: [id number] : 1945 Acct:[id number] Age/Sex: 78 / M ADM Date: 04/07/24 Loc: Room: Type: [facility] [address] Attending Dr: Aristeo Hernandez DO Copies to: DO Bean Degroot Jr, DO Ordering Provider: Aristeo Hernandez DO Date of Service: 04/07/24 PET/PET tumor init tx strat sb-mt: R91.8 - Other nonspecific abnormal finding of lung field PET/CT FUSION IMAGING CLINICAL INFORMATION: Lung mass. COMPARISON : Outside CT chest 03/27/2024 TECHNIQUE: Noncontrasted CT scan from the base of the skull to the upper thigh followed by PET imaging. Multiplanar PET/CT fusion images. Blood Glucose : 89 mg/dL The F-18 FDG 11.75mCi. FINDINGS: Neck: No abnormal activity is seen. Chest:The patient's known left basilar lung mass is FDG avid, SUV max of 9.3. FDG avid two pleural-based masses are seen involving the left basilar pleura, SUV max 14.8. No abnormal activity is seen involving the right lung, mediastinum or hilar regions. Moderate left-sided pleural effusion which is not FDG avid. Abdomen/pelvis: No abnormal activity. Soft tissue/bones: No abnormal activity. CT findings: Moderate left-sided pleural effusion which is not FDG avid. No pneumothorax. No free air or free fluid. 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 Prostatomegaly. 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 PET/PET tumor init tx strat sb-mt IMPRESSION: 1. The patient's known left basilar lung mass is FDG avid suspicious for malignancy. Tissue sampling is recommended. 2. Two FDG avid pleural-based masses are seen involving the left basilar pleura suspicious for metastatic disease. 3. 4 cm infrarenal abdominal aortic aneurysm. Please see follow recommendations below. For management of fusiform AAA: ? 4.0-4.4 cm AAA, recommend follow-up every 12 months and recommend vascular consultation. ? ? References: J Am Kelly Radiol 2013; 10(10):789-794; J Vasc Surg. 2018; 67:2-77 Impression dictated by: Bean Acharya Jr., D.O.04/07/2024 2:28 PM Dictation Location: [place] [address] Transcribed By: [facility] 04/07/24 1428 Dictated By: Bean Acharya Jr, DO 04/07/24 1417 Signed By: 04/07/24 1428 Normal [facility] Estimated glomerular filtrat ion rate (GFR) non- Americanon 03-27-2024 GFR/1.73 sq M.predicted among non-blacks MDRD (S/P/Bld) [Vol rate/Area] 56 mL/min/{1.73_m2} Low >=60 [facility] - Chemistry and C hemistry - challengeon 03-27-2024 Creatinine [Mass/Vol] 1.25 mg/dL 0.70-1.30 [facility] GFR/1.73 sq M.predicted MDRD (S/P/Bld) [Vol rate/Area] mL/min/{1.73_m2} >=60 [facility] Estimated glomerular filtrat ion rate (GFR) non- Americanon 02-08-2024 GFR/1.73 sq M.predicted among non-blacks MDRD (S/P/Bld) [Vol rate/Area] 54 mL/min/{1.73_m2} Low >=60 [facility] - Chemistry and C hemistry - challengeon 02-08-2024 Creatinine [Mass/Vol] 1.30 mg/dL 0.70-1.30 [facility] GFR/1.73 sq M.predicted MDRD (S/P/Bld) [Vol rate/Area] mL/min/{1.73_m2} >=60 [facility] XR MODIFIED BARIUM SWALLOWon 06-29-2022 XR MODIFIED [...] by: GEORGETTE GOLDMAN Date: 2022-06-29 13:34 Normal [facility] CULTURE URINEon 05-28-2022 CULTURE URINE Culture Observations [...] <=0.12 S F Nitrofurantoin 128 R F Trimethoprim/Sulfamethoxaz ole <=20 S F ORGANISM 3 Proteus vulgaris [...] <=0.12 S F Nitrofurantoin 128 R F Trimethoprim/Sulfamethoxaz ole <=20 S F ORGANISM 2 Klebsiella oxytoca [...] <=0.12 S F Nitrofurantoin <=16 S F Trimethoprim/Sulfamethoxaz ole <=20 S F Normal [facility] Comment on above: Performed By: #### U RCX #### [facility] [address] [place] [address] Dr. Elvis Cifuentes WOUND CULTUREon 05-28-2022 Bacteria identified Aer cx Nom (Unsp spec) Final report Normal [facility] Comment on above: Performed By: #### G IPANEL #### [facility] [address] [place] [address] Dr. Elvis Cifuentes Result 1 Comment Normal [facility] Comment on above: Result Comment: Mixe d skin zahra including multiple gram negative rods. Performed By: #### G IPANEL #### [facility] [address] [place] [address] Dr. Elvis Cifuentes C. DIFF PCRon 05-25-2022 C. DIFFICILE PCR Negative Normal NEGATIVE [facility] Comment on above: Performed By: #### U RCX #### [facility] [address] [address] [address] Elvis Cifuentes CBC W MANUAL DIFFon 05-25-20 ATYPICAL LYMPH # Normal [facility] Comment on above: Performed By: #### P REALB, MG #### [facility] [address] [place] [address] Dr. Elvis Cifuentes ATYPICAL LYMPH % Normal [facility] Comment on above: Performed By: #### P REALB, MG #### [facility] [address] [place] [address] Dr. Elvis Cifuentes BAND # 1.1 103/ul Critically high 0.0-0.3 [facility] Comment on above: Performed By: #### P REALB, MG #### [facility] [address] [place] [address] Dr. Elvis Cifuentes BAND % 5 % Normal 0-5 [facility] Comment on above: Performed By: #### P REALB, MG #### [facility] [address] [place] [address] Dr. Elvis Cifuentes BASOM # 0.00 103/ul Normal 0.00-0.10 [facility] Comment on above: Performed By: #### P REALB, MG #### [facility] [address] [place] [address] Dr. Elvis Cifuentes BASOM % 0.0 % Critically low 0.2-2.0 [facility] Comment on above: Performed By: #### P REALB, MG #### [facility] [address] [place] [address] Dr. Elvis Cifuentes BLAST # Normal [facility] Comment on above: Performed By: #### P REALB, MG #### [facility] [address] [place] [address] Dr. Elvis Cifuentes BLAST % Normal [facility] Comment on above: Performed By: #### P REALB, MG #### [facility] [address] [place] [address] Dr. Elvis Cifuentes CORRECTED WBC Normal 4.0-11.0 [facility] Comment on above: Performed By: #### P REALB, MG #### [facility] [address] [place] [address] Dr. Elvis Cifuentes EOS # 0.22 103/ul Normal 0.00-0.70 [facility] Comment on above: Performed By: #### P REALB, MG #### [facility] [address] [place] [address] Dr. Elvis Cifuentes EOS% 1.0 % Normal 0.9-7.0 [facility] Comment on above: Performed By: #### P REALB, MG #### [facility] [address] [address] [address] Elvis Cifuentes HCT 33.0 % Critically low 42.0-54.0 [facility] Comment on above: Performed By: #### P REALB, MG #### [facility] [address] [address] [address] Elvis Cifuentes HGB 10.4 g/dl Critically low 14.0-18.0 [facility] Comment on above: Performed By: #### P REALB, MG #### [facility] [address] [place] [address] Dr. Elvis Cifuentes LYMPHM # 0.88 103/ul Critically low 1.20-3.80 [facility] Comment on above: Performed By: #### P REALB, MG #### [facility] [address] [place] [address] Dr. Elvis Cifuentes LYMPHM% 4.0 % Critically low 20.5-60.0 [facility] Comment on above: Performed By: #### P REALB, MG #### [facility] [address] [place] [address] Dr. Elvis Cifuentes MCH 29.0 pg Normal 25.9-34.0 [facility] Comment on above: Performed By: #### P REALB, MG #### [facility] [address] [place] [address] Dr. Elvis Cifuentes MCHC 31.5 g/dl Normal 29.9-35.2 [facility] Comment on above: Performed By: #### P REALB, MG #### [facility] [address] [place] [address] Dr. Elvis Cifuentes MCV 91.9 fL Normal 80.0-94.0 [facility] Comment on above: Performed By: #### P REALB, MG #### [facility] [address] [place] [address] Dr. Elvis Cifuentes METAMYELOCYTE # Normal [facility] Comment on above: Performed By: #### P REALB, MG #### [facility] [address] [place] [address] Dr. Elvis Cifuentes METAMYELOCYTE % Normal [facility] Comment on above: Performed By: #### P REALB, MG #### [facility] [address] [place] [address] Dr. Elvis Cifuentes MONOM# 0.66 103/ul Normal 0.30-0.80 [facility] Comment on above: Performed By: #### P REALB, MG #### [facility] [address] [place] [address] Dr. Elvis Cifuentes MONOM% 3.0 % Normal 1.7-12.0 [facility] Comment on above: Performed By: #### P REALB, MG #### [facility] [address] [place] [address] Dr. Elvis Cifuentes MPV 11.6 fL Normal 9.5-13.5 [facility] Comment on above: Performed By: #### P REALB, MG #### [facility] [address] [place] [address] Dr. Elvis Cifuentes MYELOCYTE # Normal [facility] Comment on above: Performed By: #### P REALB, MG #### [facility] [address] [place] [address] Dr. Elvis Cifuentes MYELOCYTE % Normal [facility] Comment on above: Performed By: #### P REALB, MG #### [facility] [address] [place] [address] Dr. Elvis Cifuentes NRBC Normal [facility] Comment on above: Performed By: #### P REALB, MG #### [facility] [address] [place] [address] Dr. Elvis Cifuentes PLT 228 103/ul Normal 150-450 [facility] Comment on above: Performed By: #### P REALB, MG #### [facility] [address] [place] [address] Dr. Elvis Cifuentes RBC 3.59 106/ul Critically low 4.70-6.10 [facility] Comment on above: Performed By: #### P REALB, MG #### [facility] [address] [address] [address] Elvis Cifuentes RDW 15.9 % Critically high 11.0-15.0 [facility] Comment on above: Performed By: #### P REALB, MG #### [facility] [address] [address] [address] Elvis Cifuentes SEG # 19.05 103/ul Critically high 1.40-6.50 [facility] Comment on above: Performed By: #### P REALB, MG #### [facility] [address] [place] [address] Dr. Elvis Cifuentes SEG % 87.0 % Critically high 43.0-75.0 [facility] Comment on above: Performed By: #### P REALB, MG #### [facility] [address] [place] [address] Dr. Elvis Cifuentes WBC 21.9 103/ul Critically high 4.0-11.0 [facility] Comment on above: Performed By: #### P REALB, MG #### [facility] [address] [place] [address] ABD/PELV W CONon 05-25-20 CT ABD/PELV W CON EXAMINATION: CT ABD/ PELV W CON HISTORY: Mechanical ileus COMPARISON: 05/21/2022 TECHNIQUE: CT of abdomen/pelvis with intravenous and oral contrast. Dose reduction techniques were achieved by using automated exposure control and/or adjustment of mA and/or kV according to patient size and/or use of iterative reconstruction technique. FINDINGS: Angular Developer: No pertinent findings, which are not already [...] by: KEVIN COYLE Date: 2022-05-25 18:56 Normal [facility] CULTURE BLOODon 05-25-2022 Microscopic examination of blood, culture Culture Observations: NO GROWTH AT 5 DAYS. Normal [facility] Comment on above: Performed By: #### B LDCX2 #### [facility] [address] [place] [address] Dr. Elvis Cifuentes Microscopic examination of blood, culture Culture Observations: NO GROWTH AT 5 DAYS. Normal [facility] Comment on above: Performed By: #### P OCGLUC #### [facility] [address] [place] [address] Dr. Elvis Cifuentes LIVER PROFILEon 05-25-2022 Albumin [Mass/Vol] 2.0 g/dL Critically low 3.4-5.0 [facility] Comment on above: Performed By: #### C EA. #### [facility] [address] [place] [address] Dr. Elvis Cifuentes Albumin/Globulin [Mass ratio] 0.6 {ratio} Normal [facility] Comment on above: Performed By: #### C EA. #### [facility] [address] [place] [address] Dr. Elvis Cifuentes ALP [Catalytic activity/Vol] 53 U/L Normal 46-116 [facility] Comment on above: Performed By: #### C EA. #### [facility] [address] [place] [address] Dr. Elvis Cifuentes ALT [Catalytic activity/Vol] 17 U/L Normal 16-63 [facility] Comment on above: Performed By: #### C EA. #### [facility] [address] [place] [address] Dr. Elvis Cifuentes AST [Catalytic activity/Vol] 13 U/L Critically low 15-37 [facility] Comment on above: Performed By: #### C EA. #### [facility] [address] [place] [address] Dr. Elvis Cifuentes BILI, CONJUGATED 0.2 mg/dL Normal 0.0-0.2 [facility] Comment on above: Performed By: #### C EA. #### [facility] [address] [place] [address] Dr. Elvis Cifuentes Bilirubin [Mass/Vol] 0.5 mg/dL Normal 0.2-1.0 [facility] Comment on above: Performed By: #### C EA. #### [facility] [address] [place] [address] Dr. Elvis Cifuentes Globulin (S) [Mass/Vol] 3.4 g/dL Normal T [facility] Comment on above: Performed By: #### C EA. #### [facility] [address] [place] [address] Dr. Elvis Cifuentes Protein [Mass/Vol] 5.4 g/dL Critically low 6.4-8.2 [facility] Comment on above: Performed By: #### C EA. #### [facility] [address] [place] [address] Dr. lEvis Cifuentes POINT OF CARE GLUCOSEon 05-08 Glucose [Mass/Vol] 123 mg/dL Critically high 74-106 [facility] Comment on above: Performed By: #### G IPANEL #### [facility] [address] [address] [address] Elvis Cifuentes Glucose [Mass/Vol] 122 mg/dL Critically high 74-106 [facility] Comment on above: Performed By: #### P OCGLUC #### [facility] [address] [address] [address] Elvis Cifuentes Glucose [Mass/Vol] 224 mg/dL Critically high 74-106 [facility] Comment on above: Performed By: #### H STROPN #### [facility] [address] [place] [address] Dr. Elvis Cifuentes PROF CHEM 8 (BAS METB)on Anion gap [Moles/Vol] 13.9 mmol/L Normal [facility] Comment on above: Performed By: #### H STROPN #### [facility] [address] [address] [address] Elvis Cifuentes Chloride [Moles/Vol] 120 mmol/L Critically high 98-107 [facility] Comment on above: Performed By: #### H STROPN #### [facility] [address] [address] [address] Elvis Cifuentes CO2 [Moles/Vol] 22.6 mmol/L Normal 21.0-32.0 [facility] Comment on above: Performed By: #### H STROPN #### [facility] [address] [address] [address] Elvis Cifuentes Creatinine [Mass/Vol] 1.48 mg/dL Critically high 0.70-1.30 [facility] Comment on above: Performed By: #### H STROPN #### [facility] [address] [address] [address] Elvis Cifuentes EGFR-AF CITIZEN [place] 56 mL/min/1.73m2 Critically low >=60 [facility] Comment on above: Performed By: #### H STROPN #### [facility] [address] [address] [address] Elvis Cifuentes EGFR-NON AF CITIZEN [place] 46 mL/min/1.73m2 Critically low >=60 [facility] Comment on above: Performed By: #### H STROPN #### [facility] [address] [address] [address] Elvis Cifuentes Glucose [Mass/Vol] 213 mg/dL Critically high 74-106 [facility] Comment on above: Performed By: #### H STROPN #### [facility] [address] [address] [address] Elvis Cifuentes Urea nitrogen/Creatinine [Mass ratio] 25.0 mg/mg Normal [facility] Comment on above: Performed By: #### H STROPN #### [facility] [address] [address] [address] Elvis Cifuentes Anion gap [Moles/Vol] 12.8 mmol/L Normal [facility] Comment on above: Performed By: #### C EA. #### [facility] [address] [address] [address] Elvis Cifuentes Calcium [Mass/Vol] 8.4 mg/dL Critically low 8.5-10.1 [facility] Comment on above: Performed By: #### H STROPN #### [facility] [address] [place] [address] Dr. Elvis Cifuentes Performed By: #### C EA. #### [facility] [address] [address] [address] Elvis Cifuentes Chloride [Moles/Vol] 122 mmol/L Critically high 98-107 [facility] Comment on above: Result Comment: jTes t Repeated. Critical Value Verified Performed By: #### C EA. #### [facility] [address] [address] [address] Elvis Cifuentes CO2 [Moles/Vol] 22.7 mmol/L Normal 21.0-32.0 [facility] Comment on above: Performed By: #### C EA. #### [facility] [address] [address] [address] Elvis Cifuentes Creatinine [Mass/Vol] 1.38 mg/dL Critically high 0.70-1.30 [facility] Comment on above: Performed By: #### C EA. #### [facility] [address] [place] [address] Dr. Elvis Cifuentes EGFR-AF CITIZEN [place] >60 Normal >=60 [facility] Comment on above: Performed By: #### C EA. #### [facility] [address] [place] [address] Dr. Elvis Cifuentes EGFR-NON AF CITIZEN [place] 50 mL/min/1.73m2 Critically low >=60 [facility] Comment on above: Performed By: #### C EA. #### [facility] [address] [place] [address] Dr. Elvis Cifuentes Glucose [Mass/Vol] 196 mg/dL Critically high 74-106 [facility] Comment on above: Performed By: #### C EA. #### [facility] [address] [place] [address] Dr. Elvis Cifuentes Potassium [Moles/Vol] 3.5 mmol/L Normal 3.5-5.1 [facility] Comment on above: Performed By: #### H STROPN #### [facility] [address] [place] [address] Dr. Elvis Cifuentes Performed By: #### C EA. #### [facility] [address] [place] [address] Dr. Elvis Cifuentes Sodium [Moles/Vol] 154 mmol/L Critically high 136-145 [facility] Comment on above: Performed By: #### H STROPN #### [facility] [address] [place] [address] Dr. Elvis Cifuentes Performed By: #### C EA. #### [facility] [address] [place] [address] Dr. Elvis Cifuentes Urea nitrogen [Mass/Vol] 37.0 mg/dL Critically high 7.0-18.0 [facility] Comment on above: Performed By: #### H STROPN #### [facility] [address] [place] [address] Dr. Elvis Cifuentes Performed By: #### C EA. #### [facility] [address] [address] [address] Elvis Cifuentes Urea nitrogen/Creatinine [Mass ratio] 26.8 mg/mg Normal [facility] Comment on above: Performed By: #### C EA. #### [facility] [address] [address] [address] Elvis Cifuentes XR ABD FLAT_UPon 05-25-2022 [...] GEORGETTE GOLDMAN Date: 2022-05-25 09:49 Normal [facility] CBC W MANUAL DIFFon 05-24-20 22 ATYPICAL LYMPH # Normal [facility] Comment on above: Performed By: #### P REALB, MG #### [facility] [address] [place] [address] Dr. Elvis Cifuentes ATYPICAL LYMPH % Normal [facility] Comment on above: Performed By: #### P REALB, MG #### [facility] [address] [address] [address] Elvis Cifuentes BAND # 0.3 103/ul Normal 0.0-0.3 [facility] Comment on above: Performed By: #### P REALB, MG #### [facility] [address] [address] [address] Elvis Cifuentes BAND % 2 % Normal 0-5 [facility] Comment on above: Performed By: #### P REALB, MG #### [facility] [address] [place] [address] Dr. Elvis Cifuentes BASOM # 0.00 103/ul Normal 0.00-0.10 [facility] Comment on above: Performed By: #### P REALB, MG #### [facility] [address] [place] [address] Dr. Elvis Cifuentes BASOM % 0.0 % Critically low 0.2-2.0 [facility] Comment on above: Performed By: #### P REALB, MG #### [facility] [address] [place] [address] Dr. Elvis Cifuentes BLAST # Normal [facility] Comment on above: Performed By: #### P REALB, MG #### [facility] [address] [place] [address] Dr. Elvis Cifuentse BLAST % Normal [facility] Comment on above: Performed By: #### P REALB, MG #### [facility] [address] [place] [address] Dr. Elvis Cifuentes CORRECTED WBC Normal 4.0-11.0 [facility] Comment on above: Performed By: #### P REALB, MG #### [facility] [address] [place] [address] Dr. Elvis Cifuentes EOS # 0.00 103/ul Normal 0.00-0.70 [facility] Comment on above: Performed By: #### P REALB, MG #### [facility] [address] [place] [address] Dr. Elvis Cifuentes EOS% 0.0 % Critically low 0.9-7.0 [facility] Comment on above: Performed By: #### P REALB, MG #### [facility] [address] [place] [address] Dr. Elvis Cifuentes HCT 33.8 % Critically low 42.0-54.0 [facility] Comment on above: Performed By: #### P REALB, MG #### [facility] [address] [place] [address] Dr. Elvis Cifuentes HGB 10.8 g/dl Critically low 14.0-18.0 [facility] Comment on above: Performed By: #### P REALB, MG #### [facility] [address] [place] [address] Dr. Elvis Cifuentes LYMPHM # 0.80 103/ul Critically low 1.20-3.80 [facility] Comment on above: Performed By: #### P REALB, MG #### [facility] [address] [place] [address] Dr. Elvis Cifuentes LYMPHM% 5.0 % Critically low 20.5-60.0 [facility] Comment on above: Performed By: #### P REALB, MG #### [facility] [address] [place] [address] Dr. Elvis Cifuentes MCH 28.9 pg Normal 25.9-34.0 [facility] Comment on above: Performed By: #### P REALB, MG #### [facility] [address] [place] [address] Dr. Elvis Cifuentes MCHC 32.0 g/dl Normal 29.9-35.2 [facility] Comment on above: Performed By: #### P REALB, MG #### [facility] [address] [place] [address] Dr. Elvis Cifuentes MCV 90.4 fL Normal 80.0-94.0 [facility] Comment on above: Performed By: #### P REALB, MG #### [facility] [address] [place] [address] Dr. Elvis Cifuentes METAMYELOCYTE # Normal [facility] Comment on above: Performed By: #### P REALB, MG #### [facility] [address] [place] [address] Dr. Elvis Cifuentes METAMYELOCYTE % Normal [facility] Comment on above: Performed By: #### P REALB, MG #### [facility] [address] [place] [address] Dr. Elvis Cifuentes MONOM# 1.43 103/ul Critically high 0.30-0.80 [facility] Comment on above: Performed By: #### P REALB, MG #### [facility] [address] [address] [address] Elvis Cifuentes MONOM% 9.0 % Normal 1.7-12.0 [facility] Comment on above: Performed By: #### P REALB, MG #### [facility] [address] [address] [address] Elvis Cifuentes MPV 10.7 fL Normal 9.5-13.5 [facility] Comment on above: Performed By: #### P REALB, MG #### [facility] [address] [place] [address] Dr. Elvis Cifuentes MYELOCYTE # Normal [facility] Comment on above: Performed By: #### P REALB, MG #### [facility] [address] [place] [address] Dr. Elvis Cifuentes MYELOCYTE % Normal [facility] Comment on above: Performed By: #### P REALB, MG #### [facility] [address] [place] [address] Dr. Elvis Cifuentes NRBC Normal [facility] Comment on above: Performed By: #### P REALB, MG #### [facility] [address] [place] [address] Dr. Elvis Cifuentes PLT 214 103/ul Normal 150-450 [facility] Comment on above: Performed By: #### P REALB, MG #### [facility] [address] [place] [address] Dr. Elvis Cifuentes RBC 3.74 106/ul Critically low 4.70-6.10 [facility] Comment on above: Performed By: #### P REALB, MG #### [facility] [address] [place] [address] Dr. Elvis Cifuentes RDW 15.4 % Critically high 11.0-15.0 [facility] Comment on above: Performed By: #### P REALB, MG #### [facility] [address] [place] [address] Dr. Elvis Cifuentes SCHISTOCYTES 2+ Normal [facility] Comment on above: Performed By: #### P REALB, MG #### [facility] [address] [address] [address] Elvis Cifuentes SEG # 13.36 103/ul Critically high 1.40-6.50 [facility] Comment on above: Performed By: #### P REALB, MG #### [facility] [address] [address] [address] Elvis Cifuentes SEG % 84.0 % Critically high 43.0-75.0 [facility] Comment on above: Performed By: #### P REALB, MG #### [facility] [address] [address] [address] Elvis Cifuentes WBC 15.9 103/ul Critically high 4.0-11.0 [facility] Comment on above: Performed By: #### P REALB, MG #### [facility] [address] [place] [address] Dr. Elvis Cifuentes LIVER PROFILEon 05-24-2022 Albumin [Mass/Vol] 1.9 g/dL Critically low 3.4-5.0 [facility] Comment on above: Performed By: #### G IPANEL #### [facility] [address] [place] [address] Dr. Elvis Cifuentes Albumin/Globulin [Mass ratio] 0.5 {ratio} Normal [facility] Comment on above: Performed By: #### G IPANEL #### [facility] [address] [place] [address] Dr. Elvis Cifuentes ALP [Catalytic activity/Vol] 48 U/L Normal 46-116 [facility] Comment on above: Performed By: #### G IPANEL #### [facility] [address] [place] [address] Dr. Elvis Cifuentes ALT [Catalytic activity/Vol] 14 U/L Critically low 16-63 [facility] Comment on above: Performed By: #### G IPANEL #### [facility] [address] [place] [address] Dr. Elvis Cifuentes AST [Catalytic activity/Vol] 16 U/L Normal 15-37 [facility] Comment on above: Performed By: #### G IPANEL #### [facility] [address] [address] [address] Elvis Cifuentes BILI, CONJUGATED 0.2 mg/dL Normal 0.0-0.2 [facility] Comment on above: Performed By: #### G IPANEL #### [facility] [address] [address] [address] Elvis Cifuentes Bilirubin [Mass/Vol] 0.5 mg/dL Normal 0.2-1.0 [facility] Comment on above: Performed By: #### G IPANEL #### [facility] [address] [address] [address] Elvis Cifuentes Globulin (S) [Mass/Vol] 3.6 g/dL Normal [facility] Comment on above: Performed By: #### G IPANEL #### [facility] [address] [place] [address] Dr. Elvis Cifuentes Protein [Mass/Vol] 5.5 g/dL Critically low 6.4-8.2 [facility] Comment on above: Performed By: #### G IPANEL #### [facility] [address] [place] [address] Dr. Elvis Cifuentes POINT OF CARE GLUCOSEon 05-08 Glucose [Mass/Vol] 194 mg/dL Critically high [address] [place] [address] Comment on above: Performed By: #### B [id number] #### [facility] [address] [place] [address] Dr. Elvis Cifuentes Glucose [Mass/Vol] 193 mg/dL Critically high [address] [place] [address] Comment on above: Performed By: #### B LDCX2 #### [facility] [address] [place] [address] Dr. Elvis Cifuentes Glucose [Mass/Vol] 204 mg/dL Critically high [address] [place] [address] Comment on above: Performed By: #### P REALB, MG #### [facility] [address] [place] [address] Dr. Elvis Cifuentes Glucose [Mass/Vol] 234 mg/dL Critically high [facility] Comment on above: Performed By: #### P REALB, MG #### [facility] [address] [place] [address] Dr. Elvis Cifuentes PROF CHEM 8 (BAS METB)on Anion gap [Moles/Vol] 12.0 mmol/L Normal [facility] Comment on above: Performed By: #### P REALB, MG #### [facility] [address] [place] [address] Dr. Elvis Cifuentes Calcium [Mass/Vol] 8.3 mg/dL Critically low 8.5-10.1 [facility] Comment on above: Performed By: #### P REALB, MG #### [facility] [address] [place] [address] Dr. Elvis Cifuentes Chloride [Moles/Vol] 123 mmol/L Critically high 98-107 [facility] Comment on above: Performed By: #### P REALB, MG #### [facility] [address] [place] [address] Dr. Elvis Cifuentes CO2 [Moles/Vol] 23.7 mmol/L Normal 21.0-32.0 [facility] Comment on above: Performed By: #### P REALB, MG #### [facility] [address] [place] [address] Dr. Elvis Cifuentes Creatinine [Mass/Vol] 1.43 mg/dL Critically high 0.70-1.30 [facility] Comment on above: Performed By: #### P REALB, MG #### [facility] [address] [place] [address] Dr. Elvis Cifuentes EGFR-AF CITIZ[place] 58 mL/min/1.73m2 Critically low >=60 [facility] Comment on above: Performed By: #### P REALB, MG #### [facility] [address] [place] [address] Dr. Elvis Cifuentes EGFR-NON AF CITIZEN OF [place] 48 mL/min/1.73m2 Critically low >=60 [facility] Comment on above: Performed By: #### P REALB, MG #### [facility] [address] [place] [address] Dr. Elvis Cifuentes Glucose [Mass/Vol] 221 mg/dL Critically high 74-106 [facility] Comment on above: Performed By: #### P LULI, MG #### [facility] [address] [place] [address] Dr. Elvis Cifuentes Potassium [Moles/Vol] 3.7 mmol/L Normal 3.5-5.1 [facility] Comment on above: Performed By: #### P BLANCOB, MG #### [facility] [address] [place] [address] Dr. Elvis Cifuentes Sodium [Moles/Vol] 156 mmol/L Critically high 136-145 [facility] Comment on above: Performed By: #### P LULI, MG #### [facility] [address] [place] [address] Dr. Elvis Cifuentes Urea nitrogen [Mass/Vol] 36.0 mg/dL Critically high 7.0-18.0 [facility] Comment on above: Performed By: #### Kaitlyn ROCKWELL, MG #### [facility] [address] [place] [address] Dr. Elvis Cifuentes Urea nitrogen/Creatinine [Mass ratio] 25.2 mg/mg Normal [facility] Comment on above: Performed By: #### P LULI, MG #### [facility] [address] [place] [address] Dr. Elvis Cifuentes Anion gap [Moles/Vol] 15.0 mmol/L Normal [facility] Comment on above: Performed By: #### C EA. #### [facility] [address] [place] [address] Dr. Elvis Cifuentes Calcium [Mass/Vol] 8.5 mg/dL Normal 8.5-10.1 [facility] Comment on above: Performed By: #### C EA. #### [facility] [address] [place] [address] Dr. Elvis Cifuentes Chloride [Moles/Vol] 125 mmol/L Critically high 98-107 [facility] Comment on above: Performed By: #### C EA. #### [facility] [address] [place] [address] Dr. Elvis Cifuentes CO2 [Moles/Vol] 21.5 mmol/L Normal 21.0-32.0 [facility] Comment on above: Performed By: #### C EA. #### [facility] [address] [address] [address] Elvis Cifuentes Creatinine [Mass/Vol] 1.44 mg/dL Critically high 0.70-1.30 [facility] Comment on above: Performed By: #### C EA. #### [facility] [address] [address] [address] Elvis Cifuentes EGFR-AF CITIZ[place] 58 mL/min/1.73m2 Critically low >=60 [facility] Comment on above: Performed By: #### C EA. #### [facility] [address] [place] [address] Dr. Elvis Cifuentes EGFR-NON AF CITIZEN [place] 48 mL/min/1.73m2 Critically low >=60 [facility] Comment on above: Performed By: #### C EA. #### [facility] [address] [place] [address] Dr. Elvis Cifuentes Glucose [Mass/Vol] 202 mg/dL Critically high 74-106 [facility] Comment on above: Performed By: #### C EA. #### [facility] [address] [place] [address] Dr. Elvis Cifuentes Potassium [Moles/Vol] 3.5 mmol/L Normal 3.5-5.1 [facility] Comment on above: Performed By: #### C EA. #### [facility] [address] [place] [address] Dr. Elvis Cifuentes Sodium [Moles/Vol] 159 mmol/L Critically high 136-145 [facility] Comment on above: Performed By: #### C EA. #### [facility] [address] [address] [address] Evlis Cifuentes Urea nitrogen [Mass/Vol] 38.0 mg/dL Critically high 7.0-18.0 [facility] Comment on above: Performed By: #### C EA. #### [facility] [address] [address] [address] Elvis Cifuentes Urea nitrogen/Creatinine [Mass ratio] 26.4 mg/mg Normal [facility] Comment on above: Performed By: #### C EA. #### [facility] [address] [address] [address] Elvis Cifuentes Anion gap [Moles/Vol] 13.8 mmol/L Normal [facility] Comment on above: Performed By: #### G IPANEL #### [facility] [address] [address] [address] Elvis Cifuentes Calcium [Mass/Vol] 8.5 mg/dL Normal 8.5-10.1 [facility] Comment on above: Performed By: #### G IPANEL #### [facility] [address] [place] [address] Dr. Elvis Cifuentes Chloride [Moles/Vol] 124 mmol/L Critically high 98-107 [facility] Comment on above: Performed By: #### G IPANEL #### [facility] [address] [place] [address] Dr. Elvis Cifuentes CO2 [Moles/Vol] 23.2 mmol/L Normal 21.0-32.0 [facility] Comment on above: Performed By: #### G IPANEL #### [facility] [address] [place] [address] Dr. Elvis Cifuentes Creatinine [Mass/Vol] 1.38 mg/dL Critically high 0.70-1.30 [facility] Comment on above: Performed By: #### G IPANEL #### [facility] [address] [place] [address] Dr. Elvis Cifuentes EGFR-AF CITIZ[place] >60 Normal >=60 [facility] Comment on above: Performed By: #### G IPANEL #### [facility] [address] [place] [address] Dr. Elvis Cifuentes EGFR-NON AF CITIZ[place] 50 mL/min/1.73m2 Critically low >=60 [facility] Comment on above: Performed By: #### G IPANEL #### [facility] [address] [place] [address] Dr. Elvis Cifuentes Glucose [Mass/Vol] 214 mg/dL Critically high 74-106 [facility] Comment on above: Performed By: #### G IPANEL #### [facility] [address] [place] [address] Dr. Elvis Cifuentes Potassium [Moles/Vol] 3.0 mmol/L Critically low 3.5-5.1 [facility] Comment on above: Performed By: #### G IPANEL #### [facility] [address] [place] [address] Dr. Elvis Cifuentes Sodium [Moles/Vol] 158 mmol/L Critically high 136-145 [facility] Comment on above: Performed By: #### G IPANEL #### [facility] [address] [place] [address] Dr. Elvis Cifuentes Urea nitrogen [Mass/Vol] 36.0 mg/dL Critically high 7.0-18.0 [facility] Comment on above: Performed By: #### G IPANEL #### [facility] [address] [place] [address] Dr. Elvis Cifuentes Urea nitrogen/Creatinine [Mass ratio] 26.1 mg/mg Normal [facility] Comment on above: Performed By: #### G IPANEL #### [facility] [address] [place] [address] Dr. Elvis Cifuentes UA RANDOM W/MICROSCOPICon BACTERIA TRACE Abnormal NONE SEEN [facility] Comment on above: Performed By: #### C EA. #### [facility] [address] [place] [address] Dr. Elvis Cifuentes Bilirubin Ql (U) Negative Normal NEGATIVE [facility] Comment on above: Performed By: #### C EA. #### [facility] [address] [place] [address] Dr. Elvis Cifuentes CAST SEEN Abnormal NONE SEEN [facility] Comment on above: Performed By: #### C EA. #### [facility] [address] [place] [address] Dr. Elvis Cifuentes Clarity (U) CLEAR Normal CLEAR [facility] Comment on above: Performed By: #### C EA. #### [facility] [address] [place] [address] Dr. Elvis Cifuentes COARSE GRANULAR CAST FEW Normal [facility] Comment on above: Performed By: #### C EA. #### [facility] [address] [place] [address] Dr. Elvis Cifuentes Color (U) YELLOW Normal YELLOW [facility] Comment on above: Performed By: #### C EA. #### [facility] [address] [place] [address] Dr. Elvis Cifuentes Crystals LM Nom (Urine sed) NONE SEEN Normal NONE SEEN [facility] Comment on above: Performed By: #### C EA. #### [facility] [address] [place] [address] Dr. Elvis Cifuentes Epithelial cells LM Ql (Urine sed) FEW Abnormal NONE SEEN /RARE [facility] Comment on above: Performed By: #### C EA. #### [facility] [address] [place] [address] Dr. Elvis Cifuentes Glucose Ql (U) Negative Normal NEGATIVE [facility] Comment on above: Performed By: #### C EA. #### [facility] [address] [place] [address] Dr. Elvis Cifuentes Hemoglobin Ql (U) TRACE-INTACT Abnormal NEGATIVE [facility] Comment on above: Performed By: #### C EA. #### [facility] [address] [place] [address] Dr. Elvis Cifuentes Ketones Ql (U) Negative Normal NEGATIVE [facility] Comment on above: Performed By: #### C EA. #### [facility] [address] [place] [address] Dr. Elvis Cifuentes LEUKOCYTES TRACE Abnormal NEGATIVE [facility] Comment on above: Performed By: #### C EA. #### [facility] [address] [place] [address] Dr. Elvis Cifuentes MUCOUS NONE SEEN Normal NONE SEEN [facility] Comment on above: Performed By: #### C EA. #### [facility] [address] [place] [address] Dr. Elvis Cifuentes Nitrite Ql (U) Negative Normal NEGATIVE [facility] Comment on above: Performed By: #### C EA. #### [facility] [address] [place] [address] Dr. Elvis Cifuentes pH (U) 5.5 [pH] Normal 5-9 [facility] Comment on above: Performed By: #### C EA. #### [facility] [address] [place] [address] Dr. Elvis Cifuentes RBC 0-2 Normal 0-2 [facility] Comment on above: Performed By: #### C EA. #### [facility] [address] [place] [address] Dr. Elvis Cifuentes SPEC GRAVITY 1.015 Normal 1.005-<=1.0 25 [facility] Comment on above: Performed By: #### C EA. #### [facility] [address] [place] [address] Dr. Elvis Cifuentes UA PROTEIN TRACE Normal NEGATIVE/ TRACE [facility] Comment on above: Performed By: #### C EA. #### [facility] [address] [place] [address] Dr. Elvis Cifuentes Urobilinogen Qn (U) 0.2 {Geovanna'U}/dL Normal 0.2 - 1. 0 [facility] Comment on above: Performed By: #### C EA. #### [facility] [address] [place] [address] Dr. Elvis Cifuentes WBC 2-5 Abnormal NONE SEEN [facility] Comment on above: Performed By: #### C EA. #### [facility] [address] [place] [address] Dr. Elvis Cifuentes CBC W MANUAL DIFFon 05-23-20 ANISOCYTOSIS SLIGHT Normal [facility] Comment on above: Performed By: #### P REALB, MG #### [facility] [address] [place] [address] Dr. Elvis Cifuentes ATYPICAL LYMPH # Normal [facility] Comment on above: Performed By: #### P REALB, MG #### [facility] [address] [place] [address] Dr. Elvis Cifuentes ATYPICAL LYMPH % Normal [facility] Comment on above: Performed By: #### P REALB, MG #### [facility] [address] [place] [address] Dr. Elvis Cifuentes BAND # Normal 0.0-0.3 [facility] Comment on above: Performed By: #### P REALB, MG #### [facility] [address] [place] [address] Dr. Elvis Cifuentes BAND % Normal 0-5 [facility] Comment on above: Performed By: #### P REALB, MG #### [facility] [address] [place] [address] Dr. Elvis Cifuentes BASOM # 0.00 103/ul Normal 0.00-0.10 [facility] Comment on above: Performed By: #### P REALB, MG #### [facility] [address] [place] [address] Dr. Elvis Cifuentes BASOM % 0.0 % Critically low 0.2-2.0 [facility] Comment on above: Performed By: #### P REALB, MG #### [facility] [address] [place] [address] Dr. Elvis Cifuentes BLAST # Normal [facility] Comment on above: Performed By: #### P REALB, MG #### [facility] [address] [place] [address] Dr. Elvis Cifuentes BLAST % Normal [facility] Comment on above: Performed By: #### P REALB, MG #### [facility] [address] [place] [address] Dr. Elvis Cifuentes CORRECTED WBC Normal 4.0-11.0 [facility] Comment on above: Performed By: #### P REALB, MG #### [facility] [address] [place] [address] Dr. Elvis Cifuentes EOS # 0.00 103/ul Normal 0.00-0.70 [facility] Comment on above: Performed By: #### P REALB, MG #### [facility] [address] [place] [address] Dr. Elvis Cifuentes EOS% 0.0 % Critically low 0.9-7.0 [facility] Comment on above: Performed By: #### P REALB, MG #### [facility] [address] [place] [address] Dr. Elvis Cifuentes HCT 35.0 % Critically low 42.0-54.0 [facility] Comment on above: Performed By: #### P REALB, MG #### [facility] [address] [address] [address] Elvis Cifuentes HGB 10.3 g/dl Critically low 14.0-18.0 [facility] Comment on above: Performed By: #### P REALB, MG #### [facility] [address] [place] [address] Dr. Elvis Cifuentes LYMPHM # 0.48 103/ul Critically low 1.20-3.80 [facility] Comment on above: Performed By: #### P REALB, MG #### [facility] [address] [place] [address] Dr. Elvis Cifuentes LYMPHM% 5.0 % Critically low 20.5-60.0 [facility] Comment on above: Performed By: #### P REALB, MG #### [facility] [address] [place] [address] Dr. Elvis Cifuentes MCH 28.5 pg Normal 25.9-34.0 [facility] Comment on above: Performed By: #### P REALB, MG #### [facility] [address] [place] [address] Dr. Elvis Cifuentes MCHC 29.4 g/dl Critically low 29.9-35.2 [facility] Comment on above: Performed By: #### P REALB, MG #### [facility] [address] [place] [address] Dr. Elvis Cifuentes MCV 96.7 fL Critically high 80.0-94.0 [facility] Comment on above: Performed By: #### P REALB, MG #### [facility] [address] [place] [address] Dr. Elvis Cifuentes METAMYELOCYTE # Normal [facility] Comment on above: Performed By: #### P REALB, MG #### [facility] [address] [place] [address] Dr. Elvis Cifuentes METAMYELOCYTE % Normal [facility] Comment on above: Performed By: #### P REALB, MG #### [facility] [address] [place] [address] Dr. Elvis Cifuentes MONOM# 0.39 103/ul Normal 0.30-0.80 [facility] Comment on above: Performed By: #### P REALB, MG #### [facility] [address] [place] [address] Dr. Elvis Cifuentes MONOM% 4.0 % Normal 1.7-12.0 [facility] Comment on above: Performed By: #### P REALB, MG #### [facility] [address] [place] [address] Dr. Elvis Cifuentes MPV 10.6 fL Normal 9.5-13.5 [facility] Comment on above: Performed By: #### P REALB, MG #### [facility] [address] [place] [address] Dr. Elvis Cifuentes MYELOCYTE # Normal [facility] Comment on above: Performed By: #### P REALB, MG #### [facility] [address] [place] [address] Dr. Elvis Cifuentes MYELOCYTE % Normal [facility] Comment on above: Performed By: #### P REALB, MG #### [facility] [address] [place] [address] Dr. Elvis Cifuentes NRBC Normal [facility] Comment on above: Performed By: #### P REALB, MG #### [facility] [address] [place] [address] Dr. Elvis Cifuentes PLT 190 103/ul Normal 150-450 [facility] Comment on above: Performed By: #### P REALB, MG #### [facility] [address] [place] [address] Dr. Elvis Cifuentes RBC 3.62 106/ul Critically low 4.70-6.10 [facility] Comment on above: Performed By: #### P REALB, MG #### [facility] [address] [address] [address] Elvis Cifuentes RDW 15.9 % Critically high 11.0-15.0 [facility] Comment on above: Performed By: #### P REALB, MG #### [facility] [address] [address] [address] Elvis Cifuentes SEG # 8.83 103/ul Critically high 1.40-6.50 [facility] Comment on above: Performed By: #### P REALB, MG #### [facility] [address] [address] [address] Elvis Cifuentes SEG % 91.0 % Critically high 43.0-75.0 [facility] Comment on above: Performed By: #### P REALB, MG #### [facility] [address] [address] [address] Elvis Cifuentes WBC 9.7 103/ul Normal 4.0-11.0 [facility] Comment on above: Performed By: #### P REALB, MG #### [facility] [address] [address] [address] Elvis Cifuentes CTA CHEST WO W CONon 08-16-2 022 CTA CHEST WO W CON EXAMINATION: [...] by: GEORGETTE GOLDMAN Date: 2022-05-23 10:55 Normal [facility] LIVER PROFILEon 05-23-2022 Albumin [Mass/Vol] 2.0 g/dL Critically low 3.4-5.0 [facility] Comment on above: Performed By: #### L IVER #### [facility] [address] [address] [address] Elvis Cifuentes Albumin/Globulin [Mass ratio] 0.5 {ratio} Normal [facility] Comment on above: Performed By: #### L IVER #### [facility] [address] [place] [address] Dr. Elvis Cifuentes ALP [Catalytic activity/Vol] 41 U/L Critically low 46-116 [facility] Comment on above: Performed By: #### L IVER #### [facility] [address] [address] [address] Elvis Cifuentes ALT [Catalytic activity/Vol] 11 U/L Critically low 16-63 [facility] Comment on above: Performed By: #### L IVER #### [facility] [address] [address] [address] Elvis Cifuentes AST [Catalytic activity/Vol] 13 U/L Critically low 15-37 [facility] Comment on above: Performed By: #### L IVER #### [facility] [address] [address] [address] Elvis Cifuentes BILI, CONJUGATED 0.3 mg/dL Critically high 0.0-0.2 [facility] Comment on above: Performed By: #### L IVER #### [facility] [address] [address] [address] Elvis Cifuentes Bilirubin [Mass/Vol] 0.6 mg/dL Normal 0.2-1.0 [facility] Comment on above: Performed By: #### L IVER #### [facility] [address] [place] [address] Dr. Elvis Cifuentes Globulin (S) [Mass/Vol] 3.8 g/dL Normal [facility] Comment on above: Performed By: #### L IVER #### [facility] [address] [place] [address] Dr. Elvis Cifuentes Protein [Mass/Vol] 5.8 g/dL Critically low 6.4-8.2 [facility] Comment on above: Performed By: #### L IVER #### [facility] [address] [place] [address] Dr. Elvis Cifuentes Albumin [Mass/Vol] 1.8 g/dL Critically low 3.4-5.0 [facility] Comment on above: Performed By: #### P OCGLUC #### [facility] [address] [place] [address] Dr. Elvis Cifuentes Albumin/Globulin [Mass ratio] 0.5 {ratio} Normal [facility] Comment on above: Performed By: #### P OCGLUC #### [facility] [address] [place] [address] Dr. Elvis Cifuentes ALP [Catalytic activity/Vol] 34 U/L Critically low 46-116 [facility] Comment on above: Performed By: #### P OCGLUC #### [facility] [address] [place] [address] Dr. Elvis Cifuentes ALT [Catalytic activity/Vol] 12 U/L Critically low 16-63 [facility] Comment on above: Performed By: #### P OCGLUC #### [facility] [address] [place] [address] Dr. Elvis Cifuentes AST [Catalytic activity/Vol] 14 U/L Critically low 15-37 [facility] Comment on above: Performed By: #### P OCGLUC #### [facility] [address] [place] [address] Dr. Elvis Cifuentes BILI, CONJUGATED 0.3 mg/dL Critically high 0.0-0.2 [facility] Comment on above: Performed By: #### P OCGLUC #### [facility] [address] [place] [address] Dr. Elvis Cifuentes Bilirubin [Mass/Vol] 0.6 mg/dL Normal 0.2-1.0 [facility] Comment on above: Performed By: #### P OCGLUC #### [facility] [address] [place] [address] Dr. Elvis Cifuentes Globulin (S) [Mass/Vol] 3.3 g/dL Normal [facility] Comment on above: Performed By: #### P OCGLUC #### [facility] [address] [place] [address] Dr. Elvis Cifuentes Protein [Mass/Vol] 5.1 g/dL Critically low 6.4-8.2 [facility] Comment on above: Performed By: #### P OCGLUC #### [facility] [address] [place] [address] Dr. Elvis Cifuentes POINT OF CARE GLUCOSEon 05-08 Glucose [Mass/Vol] 212 mg/dL Critically high [address] [place] [address] Comment on above: Performed By: #### P REALB, MG #### [facility] [address] [place] [address] Dr. Elvis Cifuentes Glucose [Mass/Vol] 213 mg/dL Critically high [address] [place] [address] Comment on above: Performed By: #### C EA. #### [facility] [address] [place] [address] Dr. Elvis Cifuentes Glucose [Mass/Vol] 179 mg/dL Critically high [address] [place] [address] Comment on above: Performed By: #### B LDCX2 #### [facility] [address] [place] [address] Dr. Elvis Cifuentes Glucose [Mass/Vol] 187 mg/dL Critically high [address] [place] [address] Comment on above: Performed By: #### C EA. #### [facility] [address] [place] [address] Dr. Elvis Cifuentes PROF CHEM 8 (BAS METB)on Anion gap [Moles/Vol] 13.5 mmol/L Normal [facility] Comment on above: Performed By: #### P REALB, MG #### [facility] [address] [address] [address] Elvis Cifuentes Calcium [Mass/Vol] 8.6 mg/dL Normal 8.5-10.1 [facility] Comment on above: Performed By: #### P REALB, MG #### [facility] [address] [address] [address] Elvis Cifuentes Chloride [Moles/Vol] 121 mmol/L Critically high 98-107 [facility] Comment on above: Performed By: #### P REALB, MG #### [facility] [address] [address] [address] Elvis Cifuentes CO2 [Moles/Vol] 23.8 mmol/L Normal 21.0-32.0 [facility] Comment on above: Performed By: #### P REALB, MG #### [facility] [address] [place] [address] Dr. Elvis Cifuentes Creatinine [Mass/Vol] 1.35 mg/dL Critically high 0.70-1.30 [facility] Comment on above: Performed By: #### P REALB, MG #### [facility] [address] [place] [address] Dr. Elvis Cifuentes EGFR-AF CITIZEN OF [place] >60 Normal >=60 [facility] Comment on above: Performed By: #### P REALB, MG #### [facility] [address] [place] [address] Dr. Elvis Cifuentes EGFR-NON AF CITIZEN OF [place] 51 mL/min/1.73m2 Critically low >=60 [facility] Comment on above: Performed By: #### P REALB, MG #### [facility] [address] [place] [address] Dr. Elvis Cifuentes Glucose [Mass/Vol] 215 mg/dL Critically high 74-106 [facility] Comment on above: Performed By: #### P REALB, MG #### [facility] [address] [address] [address] Elvis Cifuentes Potassium [Moles/Vol] 3.4 mmol/L Critically low 3.5-5.1 [facility] Comment on above: Performed By: #### P REALB, MG #### [facility] [address] [address] [address] Elvis Cifuentes Sodium [Moles/Vol] 156 mmol/L Critically high 136-145 [facility] Comment on above: Performed By: #### P REALB, MG #### [facility] [address] [address] [address] Elvis Cifuentes Urea nitrogen [Mass/Vol] 34.0 mg/dL Critically high 7.0-18.0 [facility] Comment on above: Performed By: #### P REALB, MG #### [facility] [address] [address] [address] Elvis Cifuentes Urea nitrogen/Creatinine [Mass ratio] 25.2 mg/mg Normal [facility] Comment on above: Performed By: #### P REALB, MG #### [facility] [address] [place] [address] Dr. Elvis Cifuentes Anion gap [Moles/Vol] 14.0 mmol/L Normal [facility] Comment on above: Performed By: #### B LDCX2 #### [facility] [address] [place] [address] Dr. Elvis Cifuentes Calcium [Mass/Vol] 8.2 mg/dL Critically low 8.5-10.1 [facility] Comment on above: Performed By: #### B LDCX2 #### [facility] [address] [place] [address] Dr. Elvis Cifuentes Chloride [Moles/Vol] 114 mmol/L Critically high 98-107 [facility] Comment on above: Performed By: #### B LDCX2 #### [facility] [address] [place] [address] Dr. Elvis Cifuentes CO2 [Moles/Vol] 22.9 mmol/L Normal 21.0-32.0 [facility] Comment on above: Performed By: #### B LDCX2 #### [facility] [address] [place] [address] Dr. Elvis Cifuentes Creatinine [Mass/Vol] 1.56 mg/dL Critically high 0.70-1.30 [facility] Comment on above: Performed By: #### B LDCX2 #### [facility] [address] [address] [address] Elvis Cifuentes EGFR-AF CITIZEN [place] 53 mL/min/1.73m2 Critically low >=60 [facility] Comment on above: Performed By: #### B LDCX2 #### [facility] [address] [address] [address] Elvis Cifuentes EGFR-NON AF CITIZEN [place] 43 mL/min/1.73m2 Critically low >=60 [facility] Comment on above: Performed By: #### B LDCX2 #### [facility] [address] [place] [address] Dr. Elvis Cifuentes Glucose [Mass/Vol] 1069 mg/dL Critically high 74-106 [facility] Comment on above: Performed By: #### B LDCX2 #### [facility] [address] [place] [address] Dr. Elvis Cifuentes Potassium [Moles/Vol] 4.9 mmol/L Normal 3.5-5.1 [facility] Comment on above: Performed By: #### B LDCX2 #### [facility] [address] [place] [address] Dr. Elvis Cifuentes Sodium [Moles/Vol] 146 mmol/L Critically high 136-145 [facility] Comment on above: Performed By: #### B LDCX2 #### [facility] [address] [place] [address] Dr. Elvis Cifuentes Urea nitrogen [Mass/Vol] 32.0 mg/dL Critically high 7.0-18.0 [facility] Comment on above: Performed By: #### B LDCX2 #### [facility] [address] [place] [address] Dr. Elvis Cifuentes Urea nitrogen/Creatinine [Mass ratio] 20.5 mg/mg Normal [facility] Comment on above: Performed By: #### B LDCX2 #### [facility] [address] [place] [address] Dr. Elvis Cifuentes XR ABD FLAT_UPon 05-23-2022 [...] GEORGETTE GOLDMAN Date: 2022-05-23 07:29 Normal [facility] XR CHEST 1 Von 05-23-2022 XR [...] DOMENICO FERNANDEZ Date: 2022-05-23 03:21 Normal [facility] CBC AUTO DIFFon 05-22-2022 BASO # 0.0 103/ul Normal 0.0-0.1 [facility] Comment on above: Performed By: #### C EA. #### [facility] [address] [place] [address] Dr. Elvis Cifuentes Basophils/100 WBC (Bld) 0.1 % Critically low 0.2-2.0 [facility] Comment on above: Performed By: #### C EA. #### [facility] [address] [place] [address] Dr. Elvis Cifuentes EO # 0.1 103/ul Normal 0.0-0.7 [facility] Comment on above: Performed By: #### C EA. #### [facility] [address] [place] [address] Dr. Elvis Cifuentes Eosinophils/100 WBC (Bld) 0.7 % Critically low 0.9-7.0 [facility] Comment on above: Performed By: #### C EA. #### [facility] [address] [place] [address] Dr. Elvis Cifuentes Erythrocyte distribution width (RBC) [Ratio] 14.7 % Normal 11.0-15.0 [facility] Comment on above: Performed By: #### C EA. #### [facility] [address] [place] [address] Dr. Elvis Cifuentes Hematocrit (Bld) [Volume fraction] 32.5 % Critically low 42.0-54.0 [facility] Comment on above: Performed By: #### C EA. #### [facility] [address] [place] [address] Dr. Elvis Cifuentes Hemoglobin (Bld) [Mass/Vol] 10.2 g/dL Critically low 14.0-18.0 [facility] Comment on above: Performed By: #### C EA. #### [facility] [address] [place] [address] Dr. Elvis Cifuentes IG # 0.05 10e3/ul Critically high 0.00-0.03 [facility] Comment on above: Performed By: #### C EA. #### [facility] [address] [place] [address] Dr. Elvis Cifuentes IG % 0.7 % Critically high 0.0-0.5 [facility] Comment on above: Performed By: #### C EA. #### [facility] [address] [place] [address] Dr. Elvis Cifuentes LYMPH # 0.4 103/ul Critically low 1.2-3.8 [facility] Comment on above: Performed By: #### C EA. #### [facility] [address] [place] [address] Dr. Elvis Cifuentes Lymphocytes/100 WBC (Bld) 6.5 % Critically low 20.5-60.0 [facility] Comment on above: Performed By: #### C EA. #### [facility] [address] [place] [address] Dr. Elvis Cifuentes MANUAL DIFF REQ NO Normal [facility] Comment on above: Performed By: #### C EA. #### [facility] [address] [place] [address] Dr. Elvis Cifuentes MCH (RBC) [Entitic mass] 28.5 pg Normal 25.9-34.0 [facility] Comment on above: Performed By: #### C EA. #### [facility] [address] [place] [address] Dr. Elvis Cifuentes MCHC (RBC) [Mass/Vol] 31.4 g/dL Normal 29.9-35.2 [facility] Comment on above: Performed By: #### C EA. #### [facility] [address] [place] [address] Dr. Elvis Cifuentes MCV (RBC) [Entitic vol] 90.8 fL Normal 80.0-94.0 [facility] Comment on above: Performed By: #### C EA. #### [facility] [address] [place] [address] Dr. Elvis Cifuentes MONO # 0.5 103/ul Normal 0.3-0.8 [facility] Comment on above: Performed By: #### C EA. #### [facility] [address] [place] [address] Dr. Elvis Cifuentes Monocytes/100 WBC (Bld) 7.5 % Normal 1.7-12.0 [facility] Comment on above: Performed By: #### C EA. #### [facility] [address] [place] [address] Dr. Elvis Cifuentes NEUT # 5.7 103/ul Normal 1.4-6.5 [facility] Comment on above: Performed By: #### C EA. #### [facility] [address] [place] [address] Dr. Elvis Cifuentes Neutrophils/100 WBC (Bld) 84.5 % Critically high 43.0-75.0 [facility] Comment on above: Performed By: #### C EA. #### [facility] [address] [place] [address] Dr. Elvis Cifuentes Platelet mean volume (Bld) [Entitic vol] 10.4 fL Normal 9.5-13.5 [facility] Comment on above: Performed By: #### C EA. #### [facility] [address] [place] [address] Dr. Elvis Cifuentes PLT 248 103/ul Normal 150-450 [facility] Comment on above: Performed By: #### C EA. #### [facility] [address] [place] [address] Dr. Elvis Cifuentes RBC 3.58 106/ul Critically low 4.70-6.10 [facility] Comment on above: Performed By: #### C EA. #### [facility] [address] [place] [address] Dr. Elvis Cifuentes WBC 6.8 103/ul Normal 4.0-11.0 [facility] Comment on above: Performed By: #### C EA. #### [facility] [address] [place] [address] Dr. Elvis Cifuentes POINT OF CARE GLUCOSEon 05-08 Glucose [Mass/Vol] 198 mg/dL Critically high -106 [facility] Comment on above: Performed By: #### P REALB, MG #### [facility] [address] [place] [address] Dr. Elvis Cifuentes Glucose [Mass/Vol] 247 mg/dL Critically high -106 [facility] Comment on above: Performed By: #### P OCGLUC #### [facility] [address] [place] [address] Dr. Elvis Cifuentes Glucose [Mass/Vol] 212 mg/dL Critically high -106 [facility] Comment on above: Performed By: #### H STROPN #### [facility] [address] [place] [address] Dr. Elvis Cifuentes Glucose [Mass/Vol] 186 mg/dL Critically high -106 [facility] Comment on above: Performed By: #### P REALB, MG #### [facility] [address] [address] [address] Elvis Cifuentes PREALBUMINon 05-22-2022 Prealbumin [Mass/Vol] 10.3 mg/dL Critically low 20.9-45.5 [facility] Comment on above: Performed By: #### P REALB, MG #### [facility] [address] [place] [address] Dr. Elvis Cifuentes PROF CHEM 8 (BAS METB)on Anion gap [Moles/Vol] 12.4 mmol/L Normal [facility] Comment on above: Performed By: #### H STROPN #### [facility] [address] [place] [address] Dr. Elvis Cifuentes Calcium [Mass/Vol] 8.3 mg/dL Critically low 8.5-10.1 [facility] Comment on above: Performed By: #### H STROPN #### [facility] [address] [place] [address] Dr. Elvis Cifuentes Chloride [Moles/Vol] 114 mmol/L Critically high 98-107 [facility] Comment on above: Performed By: #### H STROPN #### [facility] [address] [place] [address] Dr. Elvis Cifuentes CO2 [Moles/Vol] 24.8 mmol/L Normal 21.0-32.0 [facility] Comment on above: Performed By: #### H STROPN #### [facility] [address] [place] [address] Dr. Elvis Cifuentes Creatinine [Mass/Vol] 1.23 mg/dL Normal 0.70-1.30 [facility] Comment on above: Performed By: #### H STROPN #### [facility] [address] [place] [address] Dr. Elvis Cifuentes EGFR-AF CITIZ[place] >60 Normal >=60 [facility] Comment on above: Performed By: #### H STROPN #### [facility] [address] [place] [address] Dr. Elvis Cifuentes EGFR-NON AF CITIZEN OF [place] 57 mL/min/1.73m2 Critically low >=60 [facility] Comment on above: Performed By: #### H STROPN #### [facility] [address] [address] [address] Elvis Cifuentes Glucose [Mass/Vol] 222 mg/dL Critically high 74-106 [facility] Comment on above: Performed By: #### H STROPN #### [facility] [address] [place] [address] Dr. Elvis Cifuentes Potassium [Moles/Vol] 3.2 mmol/L Critically low 3.5-5.1 [facility] Comment on above: Performed By: #### H STROPN #### [facility] [address] [place] [address] Dr. Elvis Cifuentes Sodium [Moles/Vol] 148 mmol/L Critically high 136-145 [facility] Comment on above: Performed By: #### H STROPN #### [facility] [address] [place] [address] Dr. Elvis Cifuentes Urea nitrogen [Mass/Vol] 31.0 mg/dL Critically high 7.0-18.0 [facility] Comment on above: Performed By: #### H STROPN #### [facility] [address] [place] [address] Dr. Elvis Cifuentes Urea nitrogen/Creatinine [Mass ratio] 25.2 mg/mg Normal [facility] Comment on above: Performed By: #### H STROPN #### [facility] [address] [place] [address] Dr. Elvis iCfuentes CBC W MANUAL DIFFon 05-21-20 22 ATYPICAL LYMPH # Normal [facility] Comment on above: Performed By: #### B [id number] #### [facility] [address] [place] [address] Dr. Elvis Cifuentes ATYPICAL LYMPH % Normal [facility] Comment on above: Performed By: #### B LDCX2 #### [facility] [address] [place] [address] Dr. Elvis Cifuentes BAND # 0.4 103/ul Critically high 0.0-0.3 [facility] Comment on above: Performed By: #### B LDCX2 #### [facility] [address] [address] [address] Elvis Cifuentes BAND % 5 % Normal 0-5 [facility] Comment on above: Performed By: #### B LDCX2 #### [facility] [address] [place] [address] Dr. Elvis Cifuentes BASOM # 0.00 103/ul Normal 0.00-0.10 [facility] Comment on above: Performed By: #### B LDCX2 #### [facility] [address] [place] [address] Dr. Elvis Cifuentes BASOM % 0.0 % Critically low 0.2-2.0 [facility] Comment on above: Performed By: #### B LDCX2 #### [facility] [address] [place] [address] Dr. Elvis Cifuentes BLAST # Normal [facility] Comment on above: Performed By: #### B LDCX2 #### [facility] [address] [place] [address] Dr. Elvis Cifuentes BLAST % Normal [facility] Comment on above: Performed By: #### B LDCX2 #### [facility] [address] [place] [address] Dr. Elvis Cifuentes CORRECTED WBC Normal 4.0-11.0 [facility] Comment on above: Performed By: #### B LDCX2 #### [facility] [address] [place] [address] Dr. Elvis Cifuentes EOS # 0.00 103/ul Normal 0.00-0.70 [facility] Comment on above: Performed By: #### B LDCX2 #### [facility] [address] [place] [address] Dr. Elvis Cifuentes EOS% 0.0 % Critically low 0.9-7.0 [facility] Comment on above: Performed By: #### B LDCX2 #### [facility] [address] [place] [address] Dr. Elvis Cifuentes HCT 31.8 % Critically low 42.0-54.0 [facility] Comment on above: Performed By: #### B LDCX2 #### [facility] [address] [place] [address] Dr. Elvis Cifuentes HGB 10.2 g/dl Critically low 14.0-18.0 [facility] Comment on above: Performed By: #### B LDCX2 #### [facility] [address] [place] [address] Dr. Elvis Cifuentes HYPOCHROMASIA 2+ Normal [facility] Comment on above: Performed By: #### B LDCX2 #### [facility] [address] [place] [address] Dr. Elvis Cifuentes LYMPHM # 0.08 103/ul Critically low 1.20-3.80 [facility] Comment on above: Performed By: #### B LDCX2 #### [facility] [address] [place] [address] Dr. Elvis Cifuentes LYMPHM% 1.0 % Critically low 20.5-60.0 [facility] Comment on above: Performed By: #### B LDCX2 #### [facility] [address] [place] [address] Dr. Elvis Cifuentes MCH 28.8 pg Normal 25.9-34.0 [facility] [facility] Comment on above: Performed By: #### B LDCX2 #### [facility] [address] [place] [address] Dr. Elvis Cifuentes MCHC 32.1 g/dl Normal 29.9-35.2 [facility] Comment on above: Performed By: #### B LDCX2 #### [facility] [address] [place] [address] Dr. Elvis Cifuentes MCV 89.8 fL Normal 80.0-94.0 [facility] Comment on above: Performed By: #### B LDCX2 #### [facility] [address] [place] [address] Dr. Elvis Cifuentes METAMYELOCYTE # Normal [facility] Comment on above: Performed By: #### B LDCX2 #### [facility] [address] [place] [address] Dr. Elvsi Cifuentes METAMYELOCYTE % Normal [facility] Comment on above: Performed By: #### B LDCX2 #### [facility] [address] [address] [address] Elvis Cifuentes MONOM# 0.08 103/ul Critically low 0.30-0.80 [facility] Comment on above: Performed By: #### B LDCX2 #### [facility] [address] [place] [address] Dr. Elvis Cifuentes MONOM% 1.0 % Critically low 1.7-12.0 [facility] Comment on above: Performed By: #### B LDCX2 #### [facility] [address] [place] [address] Dr. Elvis Cifuentes MPV 10.7 fL Normal 9.5-13.5 [facility] Comment on above: Performed By: #### B LDCX2 #### [facility] [address] [place] [address] Dr. Elvis Cifuentes MYELOCYTE # Normal [facility] Comment on above: Performed By: #### B LDCX2 #### [facility] [address] [place] [address] Dr. Elvis Cifuentes MYELOCYTE % Normal [facility] Comment on above: Performed By: #### B LDCX2 #### [facility] [address] [place] [address] Dr. Elvis Cifuentes NRBC Normal [facility] Comment on above: Performed By: #### B LDCX2 #### [facility] [address] [address] [address] Elvis Cifuentes PLT 247 103/ul Normal 150-450 [facility] Comment on above: Performed By: #### B LDCX2 #### [facility] [address] [place] [address] Dr. Elvis Cifuenets POIKILOCYTOSIS 2+ Normal [facility] Comment on above: Performed By: #### B LDCX2 #### [facility] [address] [place] [address] Dr. Elvis Cifuentes RBC 3.54 106/ul Critically low 4.70-6.10 [facility] Comment on above: Performed By: #### B LDCX2 #### [facility] [address] [address] [address] Elvis Cifuenets RDW 14.6 % Normal 11.0-15.0 [facility] Comment on above: Performed By: #### B LDCX2 #### [facility] [address] [place], [place] [address] Dr. Elvis Cifuentes SEG # 7.81 103/ul Critically high 1.40-6.50 [facility] Comment on above: Performed By: #### B LDCX2 #### [facility] [address] [address] [address] Elvis Cifuentes SEG % 93.0 % Critically high 43.0-75.0 [facility] Comment on above: Performed By: #### B LDCX2 #### [facility] [address] [address] [address] Elvis Cifuentes WBC 8.4 103/ul Normal 4.0-11.0 [facility] Comment on above: Performed By: #### B LDCX2 #### [facility] [id number] Elvis Cifuentes [address] ABD/PELVIS WO CONon 05-21 CT ABD/PELVIS WO CON EXAMINATION: CT ABD /PELVIS WO CON, 05/21/2022 8:20 AM EDT HISTORY: [...] by: ELIUD ELLIS Date: 2022-05-21 13:48 Normal [facility] MAGNESIUMon 05-21-2022 Magnesium [Mass/Vol] 1.8 mg/dL Normal 1.8-2.4 [facility] Comment on above: Performed By: #### P REALB, MG #### [facility] [address] [place] [address] Dr. Elvis Cifuentes PREALBUMINon 05-21-2022 Prealbumin [Mass/Vol] 11.0 mg/dL Critically low 20.9-45.5 [facility] Comment on above: Performed By: #### P REALB, MG #### [facility] [address] [place] [address] Dr. Elvis Cifuentes PROF CHEM 8 (BAS METB)on Anion gap [Moles/Vol] 14.6 mmol/L Normal [facility] Comment on above: Performed By: #### B [id number] #### [facility] [address] [place] [address] Dr. Elvis Cifuentes Calcium [Mass/Vol] 8.4 mg/dL Critically low 8.5-10.1 [facility] Comment on above: Performed By: #### B LDCX2 #### [facility] [address] [place] [address] Dr. Elvis Cifuentes Chloride [Moles/Vol] 111 mmol/L Critically high 98-107 [facility] Comment on above: Performed By: #### B LDCX2 #### [facility] [address] [place] [address] Dr. Elvis Cifuentes CO2 [Moles/Vol] 23.3 mmol/L Normal 21.0-32.0 [facility] Comment on above: Performed By: #### B LDCX2 #### [facility] [address] [address] [address] Elvis Cifuentes Creatinine [Mass/Vol] 1.24 mg/dL Normal 0.70-1.30 [facility] Comment on above: Performed By: #### B LDCX2 #### [facility] [address] [address] [address] Elvis Cifuentes EGFR-AF CITIZEN [place] >60 Normal >=60 [facility] Comment on above: Performed By: #### B LDCX2 #### [facility] [address] [address] [address] Elvis Cifuentes EGFR-NON AF CITIZEN [place] 57 mL/min/1.73m2 Critically low >=60 [facility] Comment on above: Performed By: #### B LDCX2 #### [facility] [address] [address] [address] Elvis Cifuentes Glucose [Mass/Vol] 138 mg/dL Critically high 74-106 [facility] Comment on above: Performed By: #### B LDCX2 #### [facility] [address] [address] [address] Elvis Cifuentes Potassium [Moles/Vol] 3.9 mmol/L Normal 3.5-5.1 [facility] Comment on above: Performed By: #### B LDCX2 #### [facility] [address] [address] [address] Elvis Cifuentes Sodium [Moles/Vol] 145 mmol/L Normal 136-145 [facility] Comment on above: Performed By: #### B LDCX2 #### [facility] [address] [address] [address] Elvis Cifuentes Urea nitrogen [Mass/Vol] 33.0 mg/dL Critically high 7.0-18.0 [facility] Comment on above: Performed By: #### B LDCX2 #### [facility] [address] [address] [address] Elvis Cifuentes Urea nitrogen/Creatinine [Mass ratio] 26.6 mg/mg Normal [facility] Comment on above: Performed By: #### B LDCX2 #### [facility] [address] [address] [address] Elvis Cifuentes XR CHEST 1 Von [...] by: ELIUD ELLIS Date: 2022-05-21 15:55 Normal [facility] XR KUB 1 VIEWon 05-21-2022 XR KUB [...] by: ELIUD ELLIS Date: 2022-05-21 15:55 Normal [facility] CBC AUTO DIFFon 05-20-2022 BASO # 0.0 103/ul Normal 0.0-0.1 [facility] Comment on above: Performed By: #### B LDCX2 #### [facility] [address] [address] [address] Elvis Cifuentes Basophils/100 WBC (Bld) 0.1 % Critically low 0.2-2.0 [facility] Comment on above: Performed By: #### B LDCX2 #### [facility] [address] [address] [address] Elvis Cifuentes EO # 0.0 103/ul Normal 0.0-0.7 [facility] Comment on above: Performed By: #### B LDCX2 #### [facility] [address] [place] [address] Dr. Elvis Cifuentes Eosinophils/100 WBC (Bld) 0.0 % Critically low 0.9-7.0 [facility] Comment on above: Performed By: #### B LDCX2 #### [facility] [address] [place] [address] Dr. Elvis Cifuentes Erythrocyte distribution width (RBC) [Ratio] 14.6 % Normal 11.0-15.0 [facility] Comment on above: Performed By: #### B LDCX2 #### [facility] [address] [place] [address] Dr. Elvis Cifuentes Hematocrit (Bld) [Volume fraction] 31.8 % Critically low 42.0-54.0 [facility] Comment on above: Performed By: #### B LDCX2 #### [facility] [address] [place] [address] Dr. Elvis Cifuentes Hemoglobin (Bld) [Mass/Vol] 10.2 g/dL Critically low 14.0-18.0 [facility] Comment on above: Performed By: #### B LDCX2 #### [facility] [address] [place] [address] Dr. Elvis Cifuentes IG # 0.07 10e3/ul Critically high 0.00-0.03 [facility] Comment on above: Performed By: #### B LDCX2 #### [facility] [address] [place] [address] Dr. Elvis Cifuentes IG % 0.5 % Normal 0.0-0.5 [facility] Comment on above: Performed By: #### B LDCX2 #### [facility] [address] [place] [address] Dr. Elvis Cifuentes LYMPH # 0.3 103/ul Critically low 1.2-3.8 [facility] Comment on above: Performed By: #### B LDCX2 #### [facility] [address] [place] [address] Dr. Elvis Cifuentes Lymphocytes/100 WBC (Bld) 1.9 % Critically low 20.5-60.0 [facility] Comment on above: Performed By: #### B LDCX2 #### [facility] [address] [place] [address] Dr. Elvis Cifuentes MANUAL DIFF REQ NO Normal [facility] Comment on above: Performed By: #### B LDCX2 #### [facility] [address] [place] [address] Dr. Elvis Cifuentes MCH (RBC) [Entitic mass] 29.1 pg Normal 25.9-34.0 [facility] Comment on above: Performed By: #### B LDCX2 #### [facility] [address] [place] [address] Dr. Elvis Cifuentes MCHC (RBC) [Mass/Vol] 32.1 g/dL Normal 29.9-35.2 [facility] Comment on above: Performed By: #### B LDCX2 #### [facility] [address] [place] [address] Dr. Elvis Cifuentes MCV (RBC) [Entitic vol] 90.9 fL Normal 80.0-94.0 [facility] Comment on above: Performed By: #### B LDCX2 #### [facility] [address] [place] [address] Dr. Elvis Cifuentes MONO # 0.3 103/ul Normal 0.3-0.8 [facility] Comment on above: Performed By: #### B LDCX2 #### [facility] [address] [place] [address] Dr. Elvis Cifuentes Monocytes/100 WBC (Bld) 2.1 % Normal 1.7-12.0 [facility] Comment on above: Performed By: #### B LDCX2 #### [facility] [address] [place] [address] Dr. Elvis Cifuentes NEUT # 13.0 103/ul Critically high 1.4-6.5 [facility] Comment on above: Performed By: #### B LDCX2 #### [facility] [address] [place] [address] Dr. Elvis Cifuentes Neutrophils/100 WBC (Bld) 95.4 % Critically high 43.0-75.0 [facility] Comment on above: Performed By: #### B LDCX2 #### [facility] [address] [place] [address] Dr. Elvis Cifuentes Platelet mean volume (Bld) [Entitic vol] 10.4 fL Normal 9.5-13.5 [facility] Comment on above: Performed By: #### B LDCX2 #### [facility] [address] [place] [address] Dr. Elvis Cifuentes PLT 215 103/ul Normal 150-450 [facility] Comment on above: Performed By: #### B LDCX2 #### [facility] [address] [place] [address] Dr. Elvis Cifuentes RBC 3.50 106/ul Critically low 4.70-6.10 [facility] Comment on above: Performed By: #### B LDCX2 #### [facility] [address] [place] [address] Dr. Elvis Cifuentes WBC 13.6 103/ul Critically high 4.0-11.0 [facility] Comment on above: Performed By: #### B LDCX2 #### [facility] [address] [place] [address] Dr. Elvis Cifuentes GI PANEL (PCR)on 05-20-2022 Adenovirus F 40/41 Not detected Normal NOT DETECTED [facility] Comment on above: Performed By: #### G IPANEL #### [facility] [address] [place] [address] Dr. Elvis Cifuentes Astrovirus Not detected Normal NOT DETECTED [facility] Comment on above: Performed By: #### G IPANEL #### [facility] [address] [place] [address] Dr. Elvis Cifuentes C. Diff toxin A/B Detected Critically abnormal NOT DETECTED [facility] Comment on above: Performed By: #### G IPANEL #### [facility] [address] [place] [address] Dr. Elvis Cifuentes Campylobacter Not detected Normal NOT DETECTED [facility] Comment on above: Performed By: #### G IPANEL #### [facility] [address] [address] [address] Elvis Cifuentes Cryptosporidium Not detected Normal NOT DETECTED [facility] Comment on above: Performed By: #### G IPANEL #### [facility] [address] [address] [address] Elvis Cifuentes Cyclos. Cayetanensis Not detected Normal NOT DETECTED [facility] Comment on above: Performed By: #### G IPANEL #### [facility] [address] [address] [address] Elvis Cifuentes E. Coli O157 Not Applicable Normal Not Applicable [facility] Comment on above: Performed By: #### G IPANEL #### [facility] [address] [place] [address] Dr. Elvis Cifuentes E. histolytica Not detected Normal NOT DETECTED [facility] Comment on above: Performed By: #### G IPANEL #### [facility] [address] [place] [address] Dr. Elvis Cifuentes EAEC Detected Abnormal NOT DETECTED [facility] Comment on above: Performed By: #### G IPANEL #### [facility] [address] [address] [address] Elvis Cifuentes EIEC Not detected Normal NOT DETECTED [facility] Comment on above: Performed By: #### G IPANEL #### [facility] [address] [place] [address] Dr. Elvis Cifuentes EPEC Not detected Normal NOT DETECTED [facility] Comment on above: Performed By: #### G IPANEL #### [facility] [address] [address] [address] Elvis Cifuentes ETEC Not detected Normal NOT DETECTED [facility] Comment on above: Performed By: #### G IPANEL #### [facility] [address] [address] [address] Elvis Cifuentes G. Lamblia Not detected Normal NOT DETECTED [facility] Comment on above: Performed By: #### G IPANEL #### [facility] [address] [address] [address] Elvis PEREZ CONTROLS PASSED Normal [facility] Comment on above: Performed By: #### G IPANEL #### [facility] [address] [address] [address] Elvis [facility] HEADER GI PANEL BACTERIA Normal [facility] Comment on above: Performed By: #### G IPANEL #### [facility] [address] [address] [address] Elvis WILKERSON ECOLI GI PANEL DIARRHEAGEN IC E.COLI / SHIGELLA Normal [facility] Comment on above: Performed By: #### G IPANEL #### [facility] [address] [address] [address] Elvis WILKERSON INFO SEE BELOW Normal [facility] Comment on above: Result Comment: EAEC - Enteroaggregative E. Coli EPEC- Enteropathogenic E. Coli ETEC- Enterotoxigenic E. Coli lt/st STEC- Shigella-like toxin-producing E. Coli stx1/stx2 EIEC- Shigella/Enteroinvasive E. Coli Performed By: #### G IPANEL #### [facility] [address] [place] [address] Dr. Elvis WILKERSON PARASITES GI PANEL PARASITES Normal [facility] Comment on above: Performed By: #### G IPANEL #### [facility] [address] [address] [address] Elvis WILKERSON VIRUS GI PANEL VIRUSES Normal [facility] Comment on above: Performed By: #### G IPANEL #### [facility] [address] [address] [address] Elvis Cifuentes Norovirus GI/GII Not detected Normal NOT DETECTED [facility] Comment on above: Performed By: #### G IPANEL #### [facility] [address] [place] [address] Dr. Elvis Cifuentes P. Shigelloides Not detected Normal NOT DETECTED [facility] Comment on above: Performed By: #### G IPANEL #### [facility] [address] [address] [address] Elvis Cifuentes Rotavirus A Not detected Normal NOT DETECTED [facility] Comment on above: Performed By: #### G IPANEL #### [facility] [address] [place] [address] Dr. Elvis Cifuentes Salmonella Not detected Normal NOT DETECTED [facility] Comment on above: Performed By: #### G IPANEL #### [facility] [address] [place] [address] Dr. Elvis Cifuentes Sapovirus Not detected Normal NOT DETECTED [facility] Comment on above: Performed By: #### G IPANEL #### [facility] [address] [place] [address] Dr. Elvis Cifuentes STEC Not detected Normal NOT DETECTED [facility] Comment on above: Performed By: #### G IPANEL #### [facility] [address] [place] [address] Dr. Elvis Cifuentes Vibrio Not detected Normal NOT DETECTED [facility] Comment on above: Performed By: #### G IPANEL #### [facility] [address] [place] [address] Dr. Elvis Cifuentes Vibrio Cholera Not detected Normal NOT DETECTED [facility] Comment on above: Performed By: #### G IPANEL #### [facility] [address] [place] [address] Dr. Elvis Cifuentes Y. Enterocolitica Not detected Normal NOT DETECTED [facility] Comment on above: Performed By: #### G IPANEL #### [facility] [address] [place] [address] Dr. Elvis Cifuentes PROF CHEM 8 (BAS METB)on Anion gap [Moles/Vol] 15.4 mmol/L Normal [facility] Comment on above: Performed By: #### P OCGLUC #### [facility] [address] [place] [address] Dr. Elvis Cifuentes Calcium [Mass/Vol] 8.8 mg/dL Normal 8.5-10.1 [facility] Comment on above: Performed By: #### P OCGLUC #### [facility] [address] [place] [address] Dr. Elvis Cifuentes Chloride [Moles/Vol] 110 mmol/L Critically high 98-107 [facility] Comment on above: Performed By: #### P OCGLUC #### [facility] [address] [address] [address] Elvis Cifuentes CO2 [Moles/Vol] 21.8 mmol/L Normal 21.0-32.0 [facility] Comment on above: Performed By: #### P OCGLUC #### [facility] [address] [address] [address] Elvis Cifuentes Creatinine [Mass/Vol] 1.23 mg/dL Normal 0.70-1.30 [facility] Comment on above: Performed By: #### P OCGLUC #### [facility] [address] [place] [address] Dr. Elvis Cifuentes EGFR-AF [place]IZ[place] >60 Normal >=60 [facility] Comment on above: Performed By: #### P OCGLUC #### [facility] [address] [address] [address] Elvis Cifuentes EGFR-NON AF [place]IZ[place] 57 mL/min/1.73m2 Critically low >=60 [facility] Comment on above: Performed By: #### P OCGLUC #### [facility] [address] [address] [address] Elvis Cifuentes Glucose [Mass/Vol] 146 mg/dL Critically high 74-106 [facility] Comment on above: Performed By: #### P OCGLUC #### [facility] [address] [address] [address] Elvis Cifuentes Potassium [Moles/Vol] 4.2 mmol/L Normal 3.5-5.1 [facility] Comment on above: Performed By: #### P OCGLUC #### [facility] [address] [address] [address] Elvis Cifuentes Sodium [Moles/Vol] 143 mmol/L Normal 136-145 [facility] Comment on above: Performed By: #### P OCGLUC #### [facility] [address] [place] [address] Dr. Elvis Cifuentes Urea nitrogen [Mass/Vol] 27.0 mg/dL Critically high 7.0-18.0 [facility] Comment on above: Performed By: #### P OCGLUC #### [facility] [address] [place] [address] Dr. Elvis Cifuentse Urea nitrogen/Creatinine [Mass ratio] 22.0 mg/mg Normal [facility] Comment on above: Performed By: #### P OCGLUC #### [facility] [address] [place] [address] Dr. Elvis Cifuentes XR ABD FLAT UP_PA [...] by: NICKI ELMORE Date: 2022-05-20 10:22 Normal [facility] CBC AUTO DIFFon 05-19-2022 BASO # 0.0 103/ul Normal 0.0-0.1 [facility] Comment on above: Performed By: #### C EA. #### [facility] [address] [place] [address] Dr. Elvis Cifuentes Basophils/100 WBC (Bld) 0.2 % Normal 0.2-2.0 [facility] Comment on above: Performed By: #### C EA. #### [facility] [address] [place] [address] Dr. Elvis Cifuentes EO # 0.1 103/ul Normal 0.0-0.7 [facility] Comment on above: Performed By: #### C EA. #### [facility] [address] [place] [address] Dr. Elvis Cifuentes Eosinophils/100 WBC (Bld) 0.3 % Critically low 0.9-7.0 [facility] Comment on above: Performed By: #### C EA. #### [facility] [address] [place] [address] Dr. Elvis Cifuentes Erythrocyte distribution width (RBC) [Ratio] 14.6 % Normal 11.0-15.0 [facility] Comment on above: Performed By: #### C EA. #### [facility] [address] [place] [address] Dr. Elvis Cifuentes Hematocrit (Bld) [Volume fraction] 30.0 % Critically low 42.0-54.0 [facility] Comment on above: Performed By: #### C EA. #### [facility] [address] [place] [address] Dr. Elvis Cifuentes Hemoglobin (Bld) [Mass/Vol] 9.4 g/dL Critically low 14.0-18.0 [facility] Comment on above: Performed By: #### C EA. #### [facility] [address] [place] [address] Dr. Elvis Cifuentes IG # 0.24 10e3/ul Critically high 0.00-0.03 [facility] Comment on above: Performed By: #### C EA. #### [facility] [address] [place] [address] Dr. Elvis Cifuentes IG % 1.4 % Critically high 0.0-0.5 [facility] Comment on above: Performed By: #### C EA. #### [facility] [address] [place] [address] Dr. Elvis Cifuentes LYMPH # 0.6 103/ul Critically low 1.2-3.8 [facility] Comment on above: Performed By: #### C EA. #### [facility] [address] [place] [address] Dr. Elvis Cifuentes Lymphocytes/100 WBC (Bld) 3.8 % Critically low 20.5-60.0 [facility] Comment on above: Performed By: #### C EA. #### [facility] [address] [place] [address] Dr. Elvis Cifuentes MANUAL DIFF REQ NO Normal [facility] Comment on above: Performed By: #### C EA. #### [facility] [address] [place] [address] Dr. Elvis Cifuentes MCH (RBC) [Entitic mass] 28.8 pg Normal 25.9-34.0 [facility] Comment on above: Performed By: #### C EA. #### [facility] [address] [place] [address] Dr. Elvis Cifuentes MCHC (RBC) [Mass/Vol] 31.3 g/dL Normal 29.9-35.2 [facility] Comment on above: Performed By: #### C EA. #### [facility] [address] [place] [address] Dr. Elvis Cifuentes MCV (RBC) [Entitic vol] 92.0 fL Normal 80.0-94.0 [facility] Comment on above: Performed By: #### C EA. #### [facility] [address] [place] [address] Dr. Elvis Cifuentes MONO # 0.8 103/ul Normal 0.3-0.8 [facility] Comment on above: Performed By: #### C EA. #### [facility] [address] [place] [address] Dr. Elvis Cifuentes Monocytes/100 WBC (Bld) 4.6 % Normal 1.7-12.0 [facility] Comment on above: Performed By: #### C EA. #### [facility] [address] [place] [address] Dr. Elvis Cifuentes NEUT # 15.0 103/ul Critically high 1.4-6.5 [facility] Comment on above: Performed By: #### C EA. #### [facility] [address] [place] [address] Dr. Elvis Cifuentes Neutrophils/100 WBC (Bld) 89.7 % Critically high 43.0-75.0 [facility] Comment on above: Performed By: #### C EA. #### [facility] [address] [address] [address] Elvis Cifuentes Platelet mean volume (Bld) [Entitic vol] 9.9 fL Normal 9.5-13.5 [facility] Comment on above: Performed By: #### C EA. #### [facility] [address] [place] [address] Dr. Elvis Cifuentes PLT 193 103/ul Normal 150-450 [facility] Comment on above: Performed By: #### C EA. #### [facility] [address] [address] [address] Elvis Cifuentes RBC 3.26 106/ul Critically low 4.70-6.10 [facility] Comment on above: Performed By: #### C EA. #### [facility] [address] [place] [address] Dr. Elvis Cifuentes WBC 16.7 103/ul Critically high 4.0-11.0 [facility] Comment on above: Performed By: #### C EA. #### [facility] [address] [place] [address] Dr. Elvis Cifuentes POINT OF CARE GLUCOSEon 05-08 Glucose [Mass/Vol] 98 mg/dL Normal 74-106 [facility] Comment on above: Performed By: #### P OCGLUC #### [facility] [address] [place] [address] Dr. Elvis Cifuentes PROF CHEM 8 (BAS METB)on Anion gap [Moles/Vol] 13.4 mmol/L Normal [facility] Comment on above: Performed By: #### G IPANEL #### [facility] [address] [place] [address] Dr. Elvis Cifuentes Calcium [Mass/Vol] 8.6 mg/dL Normal 8.5-10.1 [facility] Comment on above: Performed By: #### G IPANEL #### [facility] [address] [place] [address] Dr. Elvis Cifuentes Chloride [Moles/Vol] 109 mmol/L Critically high 98-107 [facility] Comment on above: Performed By: #### G IPANEL #### [facility] [address] [address] [address] Elvis Cifuentes CO2 [Moles/Vol] 23.1 mmol/L Normal 21.0-32.0 [facility] Comment on above: Performed By: #### G IPANEL #### [facility] [address] [address] [address] Elvis Cifuentes Creatinine [Mass/Vol] 1.43 mg/dL Critically high 0.70-1.30 [facility] Comment on above: Performed By: #### G IPANEL #### [facility] [address] [address] [address] Elvis Cifuentes EGFR-AF CITIZEN OF [place] 58 mL/min/1.73m2 Critically low >=60 [facility] Comment on above: Performed By: #### G IPANEL #### [facility] [address] [place] [address] Dr. Elvis Cifuentes EGFR-NON AF CITIZEN OF [place] 48 mL/min/1.73m2 Critically low >=60 [facility] Comment on above: Performed By: #### G IPANEL #### [facility] [address] [address] [address] Elvis Cifuentes Glucose [Mass/Vol] 101 mg/dL Normal 74-106 [facility] Comment on above: Performed By: #### G IPANEL #### [facility] [address] [address] [address] Elvis Cifuentes Potassium [Moles/Vol] 4.5 mmol/L Normal 3.5-5.1 [facility] Comment on above: Performed By: #### G IPANEL #### [facility] [address] [address] [address] Elvis Cifuentes Sodium [Moles/Vol] 141 mmol/L Normal 136-145 [facility] Comment on above: Performed By: #### G IPANEL #### [facility] [address] [address] [address] Elvis Cifuentes Urea nitrogen [Mass/Vol] 25.0 mg/dL Critically high 7.0-18.0 [facility] Comment on above: Performed By: #### G IPANEL #### [facility] [address] [place] [address] Dr. Elvis Cifuentes Urea nitrogen/Creatinine [Mass ratio] 17.5 mg/mg Normal [facility] Comment on above: Performed By: #### G IPANEL #### [facility] [address] [place] [address] Dr. Elvis Cifuentes CBC W MANUAL DIFFon 05-18-20 22 ATYPICAL LYMPH # Normal [facility] Comment on above: Performed By: #### P OCGLUC #### [facility] [address] [place] [address] Dr. Elvis Cifuentes ATYPICAL LYMPH % Normal [facility] Comment on above: Performed By: #### P OCGLUC #### [facility] [address] [place] [address] Dr. Elvis Cifuentes BAND # 0.0 103/ul Normal 0.0-0.3 [facility] Comment on above: Performed By: #### P OCGLUC #### [facility] [address] [place] [address] Dr. Elvis Cifuentes BAND % 0 % Normal 0-5 [facility] Comment on above: Performed By: #### P OCGLUC #### [facility] [address] [place] [address] Dr. Elvis Cifuentes BASOM # 0.00 103/ul Normal 0.00-0.10 [facility] Comment on above: Performed By: #### P OCGLUC #### [facility] [address] [place] [address] Dr. Elvis Cifuentes BASOM % 0.0 % Critically low 0.2-2.0 [facility] Comment on above: Performed By: #### P OCGLUC #### [facility] [address] [place] [address] Dr. Elvis Cifuentes BLAST # Normal [facility] Comment on above: Performed By: #### P OCGLUC #### [facility] [address] [place] [address] Dr. Elvis Cifuentes BLAST % Normal [facility] Comment on above: Performed By: #### P OCGLUC #### [facility] [address] [address] [address] Elvis Cifuentes CORRECTED WBC Normal 4.0-11.0 [facility] Comment on above: Performed By: #### P OCGLUC #### [facility] [address] [address] [address] Elvis Cifuentes EOS # 0.00 103/ul Normal 0.00-0.70 [facility] Comment on above: Performed By: #### P OCGLUC #### [facility] [address] [address] [address] Elvis Cifuentes EOS% 0.0 % Critically low 0.9-7.0 [facility] Comment on above: Performed By: #### P OCGLUC #### [facility] [address] [place] [address] Dr. Elvis Cifuentes HCT 31.2 % Critically low 42.0-54.0 [facility] Comment on above: Performed By: #### P OCGLUC #### [facility] [address] [place] [address] Dr. Elvis Cifuentes HGB 10.0 g/dl Critically low 14.0-18.0 [facility] Comment on above: Performed By: #### P OCGLUC #### [facility] [address] [address] [address] Elvis Cifuentes HYPERSEG NEUT 2+ Normal [facility] Comment on above: Performed By: #### P OCGLUC #### [facility] [address] [place] [address] Dr. Elvis Cifuentes LYMPHM # 0.66 103/ul Critically low 1.20-3.80 [facility] Comment on above: Performed By: #### P OCGLUC #### [facility] [address] [address] [address] Elvis Cifuentes LYMPHM% 4.0 % Critically low 20.5-60.0 [facility] Comment on above: Performed By: #### P OCGLUC #### [facility] [address] [address] [address] Elvis Cifuentes MCH 29.3 pg Normal 25.9-34.0 [facility] Comment on above: Performed By: #### P OCGLUC #### [facility] [address] [address] [address] Elvis Cifuentes MCHC 32.1 g/dl Normal 29.9-35.2 [facility] Comment on above: Performed By: #### P OCGLUC #### [facility] [address] [place] [address] Dr. Elvis Cifuentes MCV 91.5 fL Normal 80.0-94.0 [facility] Comment on above: Performed By: #### P OCGLUC #### [facility] [address] [place] [address] Dr. Elvis Cifuentes METAMYELOCYTE # Normal [facility] Comment on above: Performed By: #### P OCGLUC #### [facility] [address] [place] [address] Dr. Elvis Cifuentes METAMYELOCYTE % Normal [facility] Comment on above: Performed By: #### P OCGLUC #### [facility] [address] [place] [address] Dr. Elvis Cifuentes MONOM# 0.17 103/ul Critically low 0.30-0.80 [facility] Comment on above: Performed By: #### P OCGLUC #### [facility] [address] [place] [address] Dr. Elvis Cifuentes MONOM% 1.0 % Critically low 1.7-12.0 [facility] Comment on above: Performed By: #### P OCGLUC #### [facility] [address] [place] [address] Dr. Elvis Cifuentes MPV 10.0 fL Normal 9.5-13.5 [facility] Comment on above: Performed By: #### P OCGLUC #### [facility] [address] [place] [address] Dr. Elvis Cifuentes MYELOCYTE # Normal [facility] Comment on above: Performed By: #### P OCGLUC #### [facility] [address] [place] [address] Dr. Elvis Cifuentes MYELOCYTE % Normal [facility] Comment on above: Performed By: #### P OCGLUC #### [facility] [address] [address] [address] Elvis Cifuentes NRBC Normal [facility] Comment on above: Performed By: #### P OCGLUC #### [facility] [address] [place] [address] Dr. Elvis Cifuentes PLT 201 103/ul Normal 150-450 [facility] Comment on above: Performed By: #### P OCGLUC #### [facility] [address] [address] [address] Elvis Cifuentes RBC 3.41 106/ul Critically low 4.70-6.10 [facility] Comment on above: Performed By: #### P OCGLUC #### [facility] [address] [place] [address] Dr. Elvis Cifuentes RDW 14.2 % Normal 11.0-15.0 [facility] Comment on above: Performed By: #### P OCGLUC #### [facility] [address] [address] [address] Elvis Cifuentes SEG # 15.68 103/ul Critically high 1.40-6.50 [facility] Comment on above: Performed By: #### P OCGLUC #### [facility] [address] [place] [address] Dr. Elvis Cifuentes SEG % 95.0 % Critically high 43.0-75.0 [facility] Comment on above: Performed By: #### P OCGLUC #### [facility] [address] [address] [address] Elvis Cifuentes TOXIC GRANULATION 3+ Normal [facility] Comment on above: Performed By: #### P OCGLUC #### [facility] [address] [address] [address] Elvis Cifuentes WBC 16.5 103/ul Critically high 4.0-11.0 [facility] Comment on above: Performed By: #### P OCGLUC #### [facility] [address] [place] [address] Dr. Elvis Cifuentes PROF CHEM 8 (BAS METB)on Anion gap [Moles/Vol] 14.2 mmol/L Normal [facility] Comment on above: Performed By: #### B LDCX2 #### [facility] [address] [place] [address] Dr. Elvis Cifuentes Calcium [Mass/Vol] 8.4 mg/dL Critically low 8.5-10.1 [facility] Comment on above: Performed By: #### B LDCX2 #### [facility] [address] [place] [address] Dr. Elvis Cifuentes Chloride [Moles/Vol] 108 mmol/L Critically high 98-107 [facility] Comment on above: Performed By: #### B LDCX2 #### [facility] [address] [place] [address] Dr. Elvis Cifuentes CO2 [Moles/Vol] 24.6 mmol/L Normal 21.0-32.0 [facility] Comment on above: Performed By: #### B LDCX2 #### [facility] [address] [place] [address] Dr. Elvis Cifuentes Creatinine [Mass/Vol] 1.41 mg/dL Critically high 0.70-1.30 [facility] Comment on above: Performed By: #### B LDCX2 #### [facility] [address] [place] [address] Dr. Elvis Cifuentes EGFR-AF [place]IZ[place] 59 mL/min/1.73m2 Critically low >=60 [facility] Comment on above: Performed By: #### B LDCX2 #### [facility] [address] [place] [address] Dr. Elvis Cifuentes EGFR-NON AF CITIZEN [place] 49 mL/min/1.73m2 Critically low >=60 [facility] Comment on above: Performed By: #### B LDCX2 #### [facility] [address] [place] [address] Dr. Elvis Cifuentes Glucose [Mass/Vol] 113 mg/dL Critically high 74-106 [facility] Comment on above: Performed By: #### B LDCX2 #### [facility] [address] [place] [address] Dr. Elvis Cifuentes Potassium [Moles/Vol] 4.8 mmol/L Normal 3.5-5.1 [facility] Comment on above: Performed By: #### B LDCX2 #### [facility] [address] [place] [address] Dr. Elvis Cifuentes Sodium [Moles/Vol] 142 mmol/L Normal 136-145 [facility] Comment on above: Performed By: #### B LDCX2 #### [facility] [address] [place] [address] Dr. Elvis Cifuentes Urea nitrogen [Mass/Vol] 20.0 mg/dL Critically high 7.0-18.0 [facility] Comment on above: Performed By: #### B LDCX2 #### [facility] [address] [place] [address] Dr. Elvis Cifuentes Urea nitrogen/Creatinine [Mass ratio] 14.2 mg/mg Normal [facility] Comment on above: Performed By: #### B LDCX2 #### [facility] [address] [place] [address] Dr. Elvis Cifuentes CBC AUTO DIFFon 05-15-2022 BASO # 0.1 103/ul Normal 0.0-0.1 [facility] Comment on above: Performed By: #### U RCX #### [facility] [address] [place] [address] Dr. Elvis Cifuentes Basophils/100 WBC (Bld) 1.4 % Normal 0.2-2.0 [facility] Comment on above: Performed By: #### U RCX #### [facility] [address] [place] [address] Dr. Elvis Cifuentes EO # 0.2 103/ul Normal 0.0-0.7 [facility] Comment on above: Performed By: #### U RCX #### [facility] [address] [place] [address] Dr. Elvis Cifuentes Eosinophils/100 WBC (Bld) 3.3 % Normal 0.9-7.0 [facility] Comment on above: Performed By: #### U RCX #### [facility] [address] [place] [address] Dr. Elvis Cifuentes Erythrocyte distribution width (RBC) [Ratio] 14.2 % Normal 11.0-15.0 [facility] Comment on above: Performed By: #### U RCX #### [facility] [address] [place] [address] Dr. Elvis Cifuentes Hematocrit (Bld) [Volume fraction] 36.0 % Critically low 42.0-54.0 [facility] Comment on above: Performed By: #### U RCX #### [facility] [address] [place] [address] Dr. Elvis Cifuentes Hemoglobin (Bld) [Mass/Vol] 11.7 g/dL Critically low 14.0-18.0 [facility] Comment on above: Performed By: #### U RCX #### [facility] [address] [place] [address] Dr. Elvis Cifuentes IG # 0.02 10e3/ul Normal 0.00-0.03 [facility] Comment on above: Performed By: #### U RCX #### [facility] [address] [place] [address] Dr. Elvis Cifuentes IG % 0.3 % Normal 0.0-0.5 [facility] Comment on above: Performed By: #### U RCX #### [facility] [address] [place] [address] Dr. Elvis Cifuentes LYMPH # 1.4 103/ul Normal 1.2-3.8 [facility] Comment on above: Performed By: #### U RCX #### [facility] [address] [place] [address] Dr. Elvis Cifuentes Lymphocytes/100 WBC (Bld) 19.3 % Critically low 20.5-60.0 [facility] Comment on above: Performed By: #### U RCX #### [facility] [address] [place] [address] Dr. Elvis Cifuentes MANUAL DIFF REQ NO Normal [facility] Comment on above: Performed By: #### U RCX #### [facility] [address] [place] [address] Dr. Elvis Cifuentes MCH (RBC) [Entitic mass] 28.8 pg Normal 25.9-34.0 [facility] Comment on above: Performed By: #### U RCX #### [facility] [address] [place] [address] Dr. Elvis Cifuentes MCHC (RBC) [Mass/Vol] 32.5 g/dL Normal 29.9-35.2 [facility] Comment on above: Performed By: #### U RCX #### [facility] [address] [place] [address] Dr. Elvis Cifuentes MCV (RBC) [Entitic vol] 88.7 fL Normal 80.0-94.0 [facility] Comment on above: Performed By: #### U RCX #### [facility] [address] [place] [address] Dr. Elvis Cifuentes MONO # 0.7 103/ul Normal 0.3-0.8 [facility] Comment on above: Performed By: #### U RCX #### [facility] [address] [place] [address] Dr. Elvis Cifuentes Monocytes/100 WBC (Bld) 9.0 % Normal 1.7-12.0 [facility] Comment on above: Performed By: #### U RCX #### [facility] [address] [place] [address] Dr. Elvis Cifuentes NEUT # 4.8 103/ul Normal 1.4-6.5 [facility] Comment on above: Performed By: #### U RCX #### [facility] [address] [place] [address] Dr. Elvis Cifuentes Neutrophils/100 WBC (Bld) 66.7 % Normal 43.0-75.0 [facility] Comment on above: Performed By: #### U RCX #### [facility] [address] [place] [address] Dr. Elvis Cifuentes Platelet mean volume (Bld) [Entitic vol] 9.6 fL Normal 9.5-13.5 [facility] Comment on above: Performed By: #### U RCX #### [facility] [address] [address] [address] Elvis Cifuentes PLT 233 103/ul Normal 150-450 [facility] Comment on above: Performed By: #### U RCX #### [facility] [address] [place] [address] Dr. Elvsi Cifuentes RBC 4.06 106/ul Critically low 4.70-6.10 [facility] Comment on above: Performed By: #### U RCX #### [facility] [address] [place] [address] Dr. Elvis Cifuentes WBC 7.2 103/ul Normal 4.0-11.0 [facility] Comment on above: Performed By: #### U RCX #### [facility] [address] [place] [address] Dr. Elvis Cifuentes Covid-19 PCR ([facility])on SARS-CoV-2 (COVID-19) RNA WENDY+probe Ql (Unsp spec) Not detected Normal NOT DETECTED [facility] Comment on above: Result Comment: This test is not yet approved or cleared by the [place] FDA. When there are no FDA-approved or cleared tests available, and other criteria are met, FDA can make tests available under an emergency access mechanism called an Emergency Use Authorization (EUA). The EUA for this test is supported by the [place] of Health and Human Service's (HHS's) declaration [...] SARS-CoV-2. Performed By: #### P OCGLUC #### [facility] [address] [place] [address] Dr. Elvis Cifuentes PROF 14(COMP METB)on 022 Albumin [Mass/Vol] 3.7 g/dL Normal 3.4-5.0 [facility] Comment on above: Performed By: #### P REALB, MG #### [facility] [address] [address] [address] Elvis Cifuentes Albumin/Globulin [Mass ratio] 1.2 {ratio} Normal [facility] Comment on above: Performed By: #### P REALB, MG #### [facility] [address] [address] [address] Elvis Cifuentes ALP [Catalytic activity/Vol] 76 U/L Normal 46-116 [facility] Comment on above: Performed By: #### P REALB, MG #### [facility] [address] [address] [address] Elvis Cifuentes ALT [Catalytic activity/Vol] 15 U/L Critically low 16-63 [facility] Comment on above: Performed By: #### P REALB, MG #### [facility] [address] [address] [address] Elvis Cifuentes Anion gap [Moles/Vol] 10.6 mmol/L Normal [facility] Comment on above: Performed By: #### P REALB, MG #### [facility] [address] [place] [address] Dr. Elvis Cifuentes AST [Catalytic activity/Vol] 12 U/L Critically low 15-37 [facility] Comment on above: Performed By: #### P REALB, MG #### [facility] [address] [address] [address] Elvis Cifuentes Bilirubin [Mass/Vol] 0.5 mg/dL Normal 0.2-1.0 [facility] Comment on above: Performed By: #### P REALB, MG #### [facility] [address] [place] [address] Dr. Elvis Cifuentes Calcium [Mass/Vol] 9.2 mg/dL Normal 8.5-10.1 [facility] Comment on above: Performed By: #### P REALB, MG #### [facility] [address] [place] [address] Dr. Elvis Cifuentes Chloride [Moles/Vol] 111 mmol/L Critically high 98-107 [facility] Comment on above: Performed By: #### P REALB, MG #### [facility] [address] [place] [address] Dr. Elvis Cifuentes CO2 [Moles/Vol] 27.8 mmol/L Normal 21.0-32.0 [facility] Comment on above: Performed By: #### P REALB, MG #### [facility] [address] [place] [address] Dr. Elvis Cifuentes Creatinine [Mass/Vol] 1.54 mg/dL Critically high 0.70-1.30 [facility] Comment on above: Performed By: #### P REALB, MG #### [facility] [address] [place] [address] Dr. Elvis Cifuentes EGFR-AF [place]IZ[place] 53 mL/min/1.73m2 Critically low >=60 [facility] Comment on above: Performed By: #### P REALB, MG #### [facility] [address] [place] [address] Dr. Elvis Cifuentes EGFR-NON AF CITIZEN [place] 44 mL/min/1.73m2 Critically low >=60 [facility] Comment on above: Performed By: #### P REALB, MG #### [facility] [address] [place] [address] Dr. Elvis Cifuentes Globulin (S) [Mass/Vol] 3.2 g/dL Normal T [facility] Comment on above: Performed By: #### P REALB, MG #### [facility] [address] [place] [address] Dr. Elvis Cifuentes Glucose [Mass/Vol] 86 mg/dL Normal 74-106 [facility] Comment on above: Performed By: #### P REALB, MG #### [facility] [address] [place] [address] Dr. Elvis Cifuentes Potassium [Moles/Vol] 4.4 mmol/L Normal 3.5-5.1 [facility] Comment on above: Performed By: #### P REALB, MG #### [facility] [address] [address] [address] Elvis Cifuentes Protein [Mass/Vol] 6.9 g/dL Normal 6.4-8.2 [facility] Comment on above: Performed By: #### P REALB, MG #### [facility] [address] [address] [address] Elvis Cifuentes Sodium [Moles/Vol] 145 mmol/L Normal 136-145 [facility] Comment on above: Performed By: #### P REALB, MG #### [facility] [address] [address] [address] Elvis Cifuentes Urea nitrogen [Mass/Vol] 16.0 mg/dL Normal 7.0-18.0 [facility] Comment on above: Performed By: #### P REALB, MG #### [facility] [address] [place] [address] Dr. Elvis Cifuentes Urea nitrogen/Creatinine [Mass ratio] 10.4 mg/mg Normal [facility] Comment on above: Performed By: #### P REALB, MG #### [facility] [address] [address] [address] Elvis Cifuentes TYPE AND SCREENon 05-15-2022 TYPE AND SCREEN Negative Normal [facility] Comment on above: Performed By: #### P OCGLUC #### [facility] [address] [place] [address] Dr. Elvis Cifuentes US CAROTID ART BILon [...] by: GEORGETTE GOLDMAN Date: 2022-05-10 18:16 Normal [facility] No Panel Informationon 04-28 [facility] 250 DO Work Phone: No Panel Informationon 04-27 Normal [facility] 600 DO Work Phone: Tobacco Screening.on 022 Adult depression screening assessment No [facility] 250 DO Work Phone: Fall risk assessment a) No falls within the last year [facility] 250 DO Work Phone: Tobacco use status [facility]PH[facility] b) No M [facility] 250 DO Work Phone: BNPon 04-03-2022 Natriuretic peptide B (Bld) [Mass/Vol] 3821.0 pg/mL Critically high <=1,800.0 [facility] Comment on above: Result Comment: repe ated Performed By: #### P REALB, MG #### [facility] [address] [place] [address] Dr. Elvis Cifuentes PROF 14(COMP METB)on 022 Albumin [Mass/Vol] 3.3 g/dL Critically low 3.4-5.0 Th [facility] Comment on above: Performed By: #### P REALB, MG #### [facility] [address] [place] [address] Dr. Elvis Cifuentes Albumin/Globulin [Mass ratio] 1.0 {ratio} Normal [facility] Comment on above: Performed By: #### P REALB, MG #### [facility] [address] [place] [address] Dr. Elvis Cifuentes ALP [Catalytic activity/Vol] 72 U/L Normal 46-116 [facility] Comment on above: Performed By: #### P REALB, MG #### [facility] [address] [place] [address] Dr. Elvis Cifuentes ALT [Catalytic activity/Vol] 18 U/L Normal 16-63 [facility] Comment on above: Performed By: #### P REALB, MG #### [facility] [address] [place] [address] Dr. Elvis Cifuentes Anion gap [Moles/Vol] 12.6 mmol/L Normal [facility] Comment on above: Performed By: #### P REALB, MG #### [facility] [address] [place] [address] Dr. Elvis Cifuentes AST [Catalytic activity/Vol] 15 U/L Normal 15-37 [facility] Comment on above: Performed By: #### P REALB, MG #### [facility] [address] [place] [address] Dr. Elvis Cifuentes Bilirubin [Mass/Vol] 0.6 mg/dL Normal 0.2-1.0 [facility] Comment on above: Performed By: #### P REALB, MG #### [facility] [address] [place] [address] Dr. Elvis Cifuentes Calcium [Mass/Vol] 8.8 mg/dL Normal 8.5-10.1 [facility] Comment on above: Performed By: #### P REALB, MG #### [facility] [address] [place] [address] Dr. Elvis Cifuentes Chloride [Moles/Vol] 109 mmol/L Critically high 98-107 [facility] Comment on above: Performed By: #### P REALB, MG #### [facility] [address] [place] [address] Dr. Elvis Cifuentes CO2 [Moles/Vol] 26.0 mmol/L Normal 21.0-32.0 [facility] Comment on above: Performed By: #### P REALB, MG #### [facility] [address] [place] [address] Dr. Elvis Cifuentes Creatinine [Mass/Vol] 1.23 mg/dL Normal 0.70-1.30 [facility] Comment on above: Performed By: #### P REALB, MG #### [facility] [address] [place] [address] Dr. Elvis Cifuentes EGFR-AF CITIZEN OF THE [place] >60 Normal >=60 [facility] Comment on above: Performed By: #### P REALB, MG #### [facility] [address] [place] [address] Dr. Elvis Cifuentes EGFR-NON AF CITIZEN OF THE [place] 57 mL/min/1.73m2 Critically low >=60 [facility] Comment on above: Performed By: #### P REALB, MG #### [facility] [address] [place] [address] Dr. Elvis Cifuentes Globulin (S) [Mass/Vol] 3.2 g/dL Normal [facility] Comment on above: Performed By: #### P REALB, MG #### [facility] [address] [place] [address] Dr. Elvis Cifuentes Glucose [Mass/Vol] 121 mg/dL Critically high 74-106 [facility] Comment on above: Performed By: #### P BLANCOB, MG #### [facility] [address] [place] [address] Dr. Elvis Cifuentes Potassium [Moles/Vol] 4.6 mmol/L Normal 3.5-5.1 [facility] Comment on above: Performed By: #### P BLANCOB, MG #### [facility] [address] [place] [address] Dr. Elvis Cifuentes Protein [Mass/Vol] 6.5 g/dL Normal 6.4-8.2 [facility] Comment on above: Performed By: #### P BLANCOB, MG #### [facility] [address] [place] [address] Dr. Elvis Cifuentes Sodium [Moles/Vol] 143 mmol/L Normal 136-145 [facility] Comment on above: Performed By: #### P REALB, MG #### [facility] [address] [place] [address] Dr. Elvis Cifuentes Urea nitrogen [Mass/Vol] 15.0 mg/dL Normal 7.0-18.0 [facility] Comment on above: Performed By: #### P REALB, MG #### [facility] [address] [place] [address] Dr. Elvis Cifuentes Urea nitrogen/Creatinine [Mass ratio] 12.2 mg/mg Normal [facility] Comment on above: Performed By: #### P REALB, MG #### [facility] [address] [place] [address] Dr. Elvis Cifuentes TROPONIN, HIGH SENSITIVITYon 04-03-2022 HSTROP 400.6 pg/mL Critically high 4.0-76.1 [facility] Comment on above: Result Comment: CUT- OFF POINTS HAVE BEEN ESTABLISHED BASED ON THE FOURTH UNIVERSAL DEFINITIONS OF MYOCARDIAL INFARCTION. THE UPPER REFERENCE LIMIT (URL) OF TROPONIN, DEFINED THE 99TH PERCENTILE OF cTnI DISTRIBUTION IN A REFERENCE POPULATION, HAS BEEN CONFIRMED THE DECISION THRESHOLD FOR AR DIAGNOSIS. TEST REPEATED CRITICAL RESULT VERIFIED Performed By: #### G IPANEL #### [facility] [address] [place] [address] Dr. Elvis Cifuentes HSTROP 353.2 pg/mL Critically high 4.0-76.1 [facility] Comment on above: Result Comment: CUT- OFF POINTS HAVE BEEN ESTABLISHED BASED ON THE FOURTH UNIVERSAL DEFINITIONS OF MYOCARDIAL INFARCTION. THE UPPER REFERENCE LIMIT (URL) OF TROPONIN, DEFINED THE 99TH PERCENTILE OF cTnI DISTRIBUTION IN A REFERENCE POPULATION, HAS BEEN CONFIRMED THE DECISION THRESHOLD FOR AR DIAGNOSIS. TEST REPEATED CRITICAL RESULT VERIFIED Performed By: #### H STROPN #### [facility] [address] [place] [address] Dr. Elvis Cifuentes CEAon 04-01-2022 CEA 1.8 ng/mL Normal 0.0-4.7 [facility] Comment on above: Result Comment: Nons mokers <3.9 Smokers <5.6 . [employer] Electrochemiluminescence Immunoassay (ECLIA) . Values obtained with different assay methods or kits cannot be used interchangeably. Results cannot be interpreted as absolute evidence of the presence or absence of malignant disease. Performed By: #### C EA. #### [facility] [address] [place] [address] Dr. Elvis Cifuentes CBC AUTO DIFFon 03-31-2022 BASO # 0.1 103/ul Normal 0.0-0.1 [facility] Comment on above: Performed By: #### B LDCX2 #### [facility] [address] [place] [address] Dr. Elvis Cifuentes Basophils/100 WBC (Bld) 1.0 % Normal 0.2-2.0 [facility] Comment on above: Performed By: #### B LDCX2 #### [facility] [address] [place] [address] Dr. Elvis Cifuentes EO # 0.3 103/ul Normal 0.0-0.7 [facility] Comment on above: Performed By: #### B LDCX2 #### [facility] [address] [place] [address] Dr. Elvis Cifuentes Eosinophils/100 WBC (Bld) 3.6 % Normal 0.9-7.0 [facility] Comment on above: Performed By: #### B LDCX2 #### [facility] [address] [place] [address] Dr. Elvis Cifuentes Erythrocyte distribution width (RBC) [Ratio] 14.1 % Normal 11.0-15.0 [facility] Comment on above: Performed By: #### B LDCX2 #### [facility] [address] [place] [address] Dr. Elvis Cifuentes Hematocrit (Bld) [Volume fraction] 37.6 % Critically low 42.0-54.0 [facility] Comment on above: Performed By: #### B LDCX2 #### [facility] [address] [place] [address] Dr. Elvis Cifuentes Hemoglobin (Bld) [Mass/Vol] 12.0 g/dL Critically low 14.0-18.0 [facility] Comment on above: Performed By: #### B LDCX2 #### [facility] [address] [place] [address] Dr. Elvis Cifuentes IG # 0.02 10e3/ul Normal 0.00-0.03 [facility] Comment on above: Performed By: #### B LDCX2 #### [facility] [address] [place] [address] Dr. Elvis Cifuentes IG % 0.3 % Normal 0.0-0.5 [facility] Comment on above: Performed By: #### B LDCX2 #### [facility] [address] [place] [address] Dr. Elvis Cifuentes LYMPH # 1.0 103/ul Critically low 1.2-3.8 [facility] Comment on above: Performed By: #### B LDCX2 #### [facility] [address] [place] [address] Dr. Elvis Cifuentes Lymphocytes/100 WBC (Bld) 14.2 % Critically low 20.5-60.0 [facility] Comment on above: Performed By: #### B LDCX2 #### [facility] [address] [place] [address] Dr. Elvis Cifuentes MANUAL DIFF REQ NO Normal [facility] Comment on above: Performed By: #### B LDCX2 #### [facility] [address] [place] [address] Dr. Elvis Cifuentes MCH (RBC) [Entitic mass] 28.8 pg Normal 25.9-34.0 [facility] Comment on above: Performed By: #### B LDCX2 #### [facility] [address] [place] [address] Dr. Elvis Cifuentes MCHC (RBC) [Mass/Vol] 31.9 g/dL Normal 29.9-35.2 [facility] Comment on above: Performed By: #### B LDCX2 #### [facility] [address] [place] [address] Dr. Elvis Cifuentes MCV (RBC) [Entitic vol] 90.4 fL Normal 80.0-94.0 [facility] Comment on above: Performed By: #### B LDCX2 #### [facility] [address] [place] [address] Dr. Elvis Cifuentes MONO # 0.5 103/ul Normal 0.3-0.8 [facility] Comment on above: Performed By: #### B LDCX2 #### [facility] [address] [place] [address] Dr. Elvis Cifuentes Monocytes/100 WBC (Bld) 6.6 % Normal 1.7-12.0 [facility] Comment on above: Performed By: #### B LDCX2 #### [facility] [address] [place] [address] Dr. Elvis Cifuentes NEUT # 5.2 103/ul Normal 1.4-6.5 [facility] Comment on above: Performed By: #### B LDCX2 #### [facility] [address] [place] [address] Dr. Elvis Cifuentes Neutrophils/100 WBC (Bld) 74.3 % Normal 43.0-75.0 [facility] Comment on above: Performed By: #### B LDCX2 #### [facility] [address] [place] [address] Dr. Elvis Cifuentes Platelet mean volume (Bld) [Entitic vol] 9.8 fL Normal 9.5-13.5 [facility] Comment on above: Performed By: #### B LDCX2 #### [facility] [address] [place] [address] Dr. Elvis Cifuentes PLT 226 103/ul Normal 150-450 [facility] Comment on above: Performed By: #### B LDCX2 #### [facility] [address] [place] [address] Dr. Elvis Cifuentes RBC 4.16 106/ul Critically low 4.70-6.10 [facility] Comment on above: Performed By: #### B LDCX2 #### [facility] [address] [place] [address] Dr. Elvis Cifuentes WBC 7.0 103/ul Normal 4.0-11.0 [facility] Comment on above: Performed By: #### B LDCX2 #### [facility] [address] [place] [address] Dr. Elvis Cifuentes [facility] SARS-CoV-2 (COVID-19) RNA WENDY+probe Ql (Unsp spec) Not detected Normal NOT DETECTED [facility] Comment on above: Result Comment: This test is not yet approved or cleared by the [place] FDA. When there are no FDA-approved or cleared tests available, and other criteria are met, FDA can make tests available under an emergency access mechanism called an Emergency Use Authorization (EUA). The EUA for this test is supported by the [place] of Health and Human Service's (HHS's) declaration [...] Performed By: #### P REALB, MG #### [facility] [address] [place] [address] Dr. Elvis Cifuentes PROF 14(COMP METB)on 022 Albumin [Mass/Vol] 3.2 g/dL Critically low 3.4-5.0 Th [facility] Comment on above: Performed By: #### B LDCX2 #### [facility] [address] [place] [address] Dr. Elvis Cifuentes Albumin/Globulin [Mass ratio] 1.0 {ratio} Normal [facility] Comment on above: Performed By: #### B LDCX2 #### [facility] [address] [place] [address] Dr. Elvis Cifuentes ALP [Catalytic activity/Vol] 64 U/L Normal 46-116 [facility] Comment on above: Performed By: #### B LDCX2 #### [facility] [address] [place] [address] Dr. Elvis Cifuentes ALT [Catalytic activity/Vol] 18 U/L Normal 16-63 [facility] Comment on above: Performed By: #### B LDCX2 #### [facility] [address] [place] [address] Dr. Elvis Cifuentes Anion gap [Moles/Vol] 9.8 mmol/L Normal [facility] Comment on above: Performed By: #### B LDCX2 #### [facility] [address] [place] [address] Dr. Elvis Cifuentes AST [Catalytic activity/Vol] 10 U/L Critically low 15-37 [facility] Comment on above: Performed By: #### B LDCX2 #### [facility] [address] [address] [address] Elvis Cifuentes Bilirubin [Mass/Vol] 0.9 mg/dL Normal 0.2-1.0 [facility] Comment on above: Performed By: #### B LDCX2 #### [facility] [address] [address] [address] Elvis Cifuentes Calcium [Mass/Vol] 8.7 mg/dL Normal 8.5-10.1 [facility] Comment on above: Performed By: #### B LDCX2 #### [facility] [address] [address] [address] Elvis Cifuentes Chloride [Moles/Vol] 109 mmol/L Critically high 98-107 [facility] Comment on above: Performed By: #### B LDCX2 #### [facility] [address] [place] [address] Dr. Elvis Cifuentes CO2 [Moles/Vol] 29.9 mmol/L Normal 21.0-32.0 [facility] Comment on above: Performed By: #### B LDCX2 #### [facility] [address] [place] [address] Dr. Elvis Cifuentes Creatinine [Mass/Vol] 1.23 mg/dL Normal 0.70-1.30 [facility] Comment on above: Performed By: #### B LDCX2 #### [facility] [address] [place] [address] Dr. Elvis Cifuentes EGFR-AF CITIZ[place] >60 Normal >=60 [facility] Comment on above: Performed By: #### B LDCX2 #### [facility] [address] [address] [address] Elvis Cifuentes EGFR-NON AF CITIZEN OF [place] 57 mL/min/1.73m2 Critically low >=60 [facility] Comment on above: Performed By: #### B LDCX2 #### [facility] [address] [place] [address] Dr. Elvis Cifuentes Globulin (S) [Mass/Vol] 3.3 g/dL Normal T [facility] Comment on above: Performed By: #### B LDCX2 #### [facility] [address] [address] [address] Elvis Cifuentes Glucose [Mass/Vol] 115 mg/dL Critically high 74-106 [facility] Comment on above: Performed By: #### B LDCX2 #### [facility] [address] [address] [address] Elvis Cifuentes Potassium [Moles/Vol] 3.7 mmol/L Normal 3.5-5.1 [facility] Comment on above: Performed By: #### B LDCX2 #### [facility] [address] [address] [address] Elvis Cifuentes Protein [Mass/Vol] 6.5 g/dL Normal 6.4-8.2 [facility] Comment on above: Performed By: #### B LDCX2 #### [facility] [address] [address] [address] Elvis Cifuentes Sodium [Moles/Vol] 145 mmol/L Normal 136-145 [facility] Comment on above: Performed By: #### B LDCX2 #### [facility] [address] [address] [address] Elvis Cifuentes Urea nitrogen [Mass/Vol] 11.0 mg/dL Normal 7.0-18.0 [facility] Comment on above: Performed By: #### B LDCX2 #### [facility] [address] [address] [address] Elvis Cifuentes Urea nitrogen/Creatinine [Mass ratio] 8.9 mg/mg Normal [facility] Comment on above: Performed By: #### B LDCX2 #### [facility] [address] [address] [address] Elvis Cifuentes TYPE AND SCREENon 03-31-2022 TYPE AND SCREEN Negative Normal [facility] Comment on above: Performed By: #### T NS #### [facility] [address] [place] [address] Dr. Elvis Cifuentes H PYLORI TISSUEon 02-08-2022 H PYL TISSUE, UREASE Negative Normal NEGATIVE [facility] Comment on above: Performed By: #### G IPANEL #### [facility] [address] [address] [address] ABD/PELV W CONon [...] MATTHEW CHATMAN Date: 2021-12-27 10:28 Normal [facility] PROF CHEM 8 (BAS METB)on Anion gap [Moles/Vol] 11.7 mmol/L Normal [facility] Comment on above: Performed By: #### C EA. #### [facility] [address] [address] [address] Elvis Cifuentes Calcium [Mass/Vol] 8.6 mg/dL Normal 8.5-10.1 [facility] Comment on above: Performed By: #### C EA. #### [facility] [address] [address] [address] Elvis Cifuentes Chloride [Moles/Vol] 106 mmol/L Normal 98-107 [facility] Comment on above: Performed By: #### C EA. #### [facility] [address] [place] [address] Dr. Elvis Cifuentes CO2 [Moles/Vol] 28.2 mmol/L Normal 22.0-30.0 [facility] Comment on above: Performed By: #### C EA. #### [facility] [address] [place] [address] Dr. Elvis Cifuentes Creatinine [Mass/Vol] 1.24 mg/dL Normal 0.66-1.25 [facility] Comment on above: Performed By: #### C EA. #### [facility] [address] [place] [address] Dr. Elvis Cifuentes EGFR-AF CITIZ[place] >60 Normal >=60 [facility] Comment on above: Performed By: #### C EA. #### [facility] [address] [address] [address] Elvis Cifuentes EGFR-NON AF CITIZEN OF [place] 57 mL/min/1.73m2 Critically low >=60 [facility] Comment on above: Performed By: #### C EA. #### [facility] [address] [place] [address] Dr. Elvis Cifuentes Glucose [Mass/Vol] 110 mg/dL Critically high 74-106 T [facility] Comment on above: Performed By: #### C EA. #### [facility] [address] [place] [address] Dr. Elvis Cifuentes Potassium [Moles/Vol] 3.9 mmol/L Normal 3.4-5.0 [facility] Comment on above: Performed By: #### C EA. #### [facility] [address] [place] [address] Dr. Elvis Cifuentes Sodium [Moles/Vol] 142 mmol/L Normal 137-145 [facility] Comment on above: Performed By: #### C EA. #### [facility] [address] [place] [address] Dr. Elvis Cifuentes Urea nitrogen [Mass/Vol] 17.0 mg/dL Normal 7.0-18.0 [facility] Comment on above: Performed By: #### C EA. #### [facility] [address] [place] [address] Dr. Elvis Cifuentes Urea nitrogen/Creatinine [Mass ratio] 13.7 mg/mg Normal [facility] Comment on above: Performed By: #### C EA. #### [facility] [address] [place] [address] Dr. Elvis Cifuentes CBC AUTO DIFFon 08-03-2021 BASO # 0.1 103/ul Normal 0.0-0.1 [facility] Comment on above: Performed By: #### U RCX #### [facility] [address] [place] [address] Dr. Elvis Cifuentes Basophils/100 WBC (Bld) 1.6 % Normal 0.2-2.0 [facility] Comment on above: Performed By: #### U RCX #### [facility] [address] [place] [address] Dr. Elvis Cifuentes EO # 0.3 103/ul Normal 0.0-0.7 [facility] Comment on above: Performed By: #### U RCX #### [facility] [address] [place] [address] Dr. Elvis Cifuentes Eosinophils/100 WBC (Bld) 4.6 % Normal 0.9-7.0 [facility] Comment on above: Performed By: #### U RCX #### [facility] [address] [place] [address] Dr. Elvis Cifuentes Erythrocyte distribution width (RBC) [Ratio] 12.5 % Normal 11.0-15.0 [facility] Comment on above: Performed By: #### U RCX #### [facility] [address] [place] [address] Dr. Elvis Cifuentes Hematocrit (Bld) [Volume fraction] 36.0 % Critically low 42.0-54.0 [facility] Comment on above: Performed By: #### U RCX #### [facility] [address] [place] [address] Dr. Elvis Cifuentes Hemoglobin (Bld) [Mass/Vol] 11.8 g/dL Critically low 14.0-18.0 [facility] Comment on above: Performed By: #### U RCX #### [facility] [address] [place] [address] Dr. Elvis Cifuentes IG # 0.02 10e3/ul Normal 0.00-0.03 [facility] Comment on above: Performed By: #### U RCX #### [facility] [address] [place] [address] Dr. Elvis Cifuentes IG % 0.3 % Normal 0.0-0.5 [facility] Comment on above: Performed By: #### U RCX #### [facility] [address] [place] [address] Dr. Elvis Cifuentes LYMPH # 1.4 103/ul Normal 1.2-3.8 [facility] Comment on above: Performed By: #### U RCX #### [facility] [address] [place] [address] Dr. Elvis Cifuentes Lymphocytes/100 WBC (Bld) 21.3 % Normal 20.5-60.0 [facility] Comment on above: Performed By: #### U RCX #### [facility] [address] [place] [address] Dr. Elvis Cifuentes MANUAL DIFF REQ NO Normal [facility] Comment on above: Performed By: #### U RCX #### [facility] [address] [place] [address] Dr. Elvis Cifuentes MCH (RBC) [Entitic mass] 29.2 pg Normal 25.9-34.0 [facility] Comment on above: Performed By: #### U RCX #### [facility] [address] [place] [address] Dr. Elvis Cifuentes MCHC (RBC) [Mass/Vol] 32.8 g/dL Normal 29.9-35.2 [facility] Comment on above: Performed By: #### U RCX #### [facility] [address] [place] [address] Dr. Elvis Cifuentes MCV (RBC) [Entitic vol] 89.1 fL Normal 80.0-94.0 [facility] Comment on above: Performed By: #### U RCX #### [facility] [address] [place] [address] Dr. Elvis Cifuentes MONO # 0.6 103/ul Normal 0.3-0.8 [facility] Comment on above: Performed By: #### U RCX #### [facility] [address] [place] [address] Dr. Elvis Cifuentes Monocytes/100 WBC (Bld) 8.8 % Normal 1.7-12.0 [facility] Comment on above: Performed By: #### U RCX #### [facility] [address] [place] [address] Dr. Elvis Cifuentes NEUT # 4.0 103/ul Normal 1.4-6.5 [facility] Comment on above: Performed By: #### U RCX #### [facility] [address] [place] [address] Dr. Elvis Cifuentes Neutrophils/100 WBC (Bld) 63.4 % Normal 43.0-75.0 [facility] Comment on above: Performed By: #### U RCX #### [facility] [address] [place] [address] Dr. Elvis Cifuentes Platelet mean volume (Bld) [Entitic vol] 9.7 fL Normal 9.5-13.5 [facility] Comment on above: Performed By: #### U RCX #### [facility] [address] [address] [address] Elvis Cifuentes PLT 347 103/ul Normal 150-450 [facility] Comment on above: Performed By: #### U RCX #### [facility] [address] [address] [address] Elvis Cifuentes RBC 4.04 106/ul Critically low 4.70-6.10 [facility] Comment on above: Performed By: #### U RCX #### [facility] [address] [address] [address] Elvis Cifuentes WBC 6.3 103/ul Normal 4.0-11.0 [facility] Comment on above: Performed By: #### U RCX #### [facility] [address] [place] [address] Dr. Elvis Cifuentes LIPID PROFILEon 08-03-2021 CHOL-HDL RATIO NORM SEE BELOW Normal [facility] Comment on above: Result Comment: 3.3 - 4.4 LOW RISK 4.4 - 7.1 AVERAGE RISK 7.1 - 11.0 MODERATE RISK >11.0 HIGH RISK Performed By: #### G IPANEL #### [facility] [address] [place] [address] Dr. Elvis Cifuentes Cholesterol [Mass/Vol] 175 mg/dL Normal <=200 Th [facility] Comment on above: Performed By: #### G IPANEL #### [facility] [address] [place] [address] Dr. Elvis Cifuentes Cholesterol in HDL [Mass/Vol] 45 mg/dL Normal [facility] Comment on above: Performed By: #### G IPANEL #### [facility] [address] [address] [address] Elvis Cifuentes Cholesterol in LDL [Mass/Vol] 111.8 mg/dL Normal [facility] Comment on above: Performed By: #### G IPANEL #### [facility] [address] [place] [address] Dr. Elvis Cifuentes Cholesterol.total/Marry sterol in HDL [Mass ratio] 3.9 {ratio} Normal [facility] Comment on above: Performed By: #### G IPANEL #### [facility] [address] [address] [address] Elvis Cifuentes HDL NORMAL > or = 60 mg/dl - LO W CARDIOVASCULAR RISK <40 mg/dl - HIGH CARDIOVASCULAR RISK Normal [facility] Comment on above: Performed By: #### G IPANEL #### [facility] [address] [address] [address] Elvis Cifuentes LDL CALC NORMAL SEE BELOW Normal [facility] Comment on above: Result Comment: <100 mg/dl OPTIMAL 100 - 129 mg/dl NEAR OR ABOVE OPTIMAL 130 - 159 mg/dl BORDERLINE HIGH 160 - 189 mg/dl HIGH >190 mg/dl VERY HIGH Performed By: #### G IPANEL #### [facility] [address] [place] [address] Dr. Elvis Cifuentes Triglyceride [Mass/Vol] 91 mg/dL Normal <=150 T [facility] Comment on above: Performed By: #### G IPANEL #### [facility] [address] [place] [address] Dr. Elvis Cifuentes VLDL CALC 18.2 mg/dL Normal [facility] Comment on above: Performed By: #### G IPANEL #### [facility] [address] [place] [address] Dr. Elvis Cifuentes PROF CHEM 8 (BAS METB)on Anion gap [Moles/Vol] 11.4 mmol/L Normal [facility] Comment on above: Performed By: #### G IPANEL #### [facility] [address] [place] [address] Dr. Elvis Cifuentes Calcium [Mass/Vol] 8.8 mg/dL Normal 8.4-10.2 [facility] Comment on above: Performed By: #### G IPANEL #### [facility] [address] [place] [address] Dr. Elvis Cifuentes Chloride [Moles/Vol] 105 mmol/L Normal 98-107 [facility] Comment on above: Performed By: #### G IPANEL #### [facility] [address] [address] [address] Elvis Cifuentes CO2 [Moles/Vol] 31.7 mmol/L Critically high 22.0-30.0 [facility] Comment on above: Performed By: #### G IPANEL #### [facility] [address] [place] [address] Dr. Elvis Cifuentes Creatinine [Mass/Vol] 1.48 mg/dL Critically high 0.66-1.25 [facility] Comment on above: Performed By: #### G IPANEL #### [facility] [address] [address] [address] Elvis Cifuentes EGFR-AF CITIZ[place] 56 mL/min/1.73m2 Critically low >=60 [facility] Comment on above: Performed By: #### G IPANEL #### [facility] [address] [place] [address] Dr. Elvis Cifuentes EGFR-NON AF CITIZEN OF [place] 46 mL/min/1.73m2 Critically low >=60 [facility] Comment on above: Performed By: #### G IPANEL #### [facility] [address] [address] [address] Elvis Cifuentes Glucose [Mass/Vol] 115 mg/dL Critically high 74-106 T [facility] Comment on above: Performed By: #### G IPANEL #### [facility] [address] [address] [address] Elvis Cifuentes Potassium [Moles/Vol] 3.1 mmol/L Critically low 3.4-5.0 [facility] Comment on above: Performed By: #### G IPANEL #### [facility] [address] [address] [address] Elvis Cifuentes Sodium [Moles/Vol] 145 mmol/L Normal 137-145 [facility] Comment on above: Performed By: #### G IPANEL #### [facility] [address] [place] [address] Dr. Elvis Cifuentes Urea nitrogen [Mass/Vol] 22.0 mg/dL Critically high 9.0-20.0 [facility] Comment on above: Performed By: #### G IPANEL #### [facility] [address] [address] [address] Elvis Cifuentes Urea nitrogen/Creatinine [Mass ratio] 14.9 mg/mg Normal [facility] Comment on above: Performed By: #### G IPANEL #### [facility] [address] [address] [address] Elvis Cifuentes SGPTon 08-03-2021 ALT [Catalytic activity/Vol] 14 U/L Critically low [facility] Comment on above: Performed By: #### G IPANEL #### [facility] [address] [place], [place] [address] Dr. Elvis Cifuentes Vital Signs Date Time Vital Sign Value Performing Clinician Facility 04-30-2024 13:22-0400 Diastolic blood pressure 50 mm[Hg] DO Aristeo Ball Work Phone: [facility] 04-30-2024 13:22-0400 Heart rate 50 /min DO Aristeo Ball Work Phone: [facility] 04-30-2024 13:22-0400 Respiratory rate 18 /min DO Aristeo Ball Work Phone: [facility] 04-30-2024 13:22-0400 SaO2% (BldA) [Mass fraction] 94 % DO Aristeo Ball Work Phone: [facility] 04-30-2024 13:22-0400 Systolic blood pressure 110 mm[Hg] DO Aristeo Ball Work Phone: [facility] 04-30-2024 10:12-0400 Body height 170.18 cm DO Aristeo Ball Work Phone: [facility] 04-30-2024 10:12-0400 Body weight 67.13 kg DO Aristeo Ball Work Phone: [facility] 04-07-2024 12:49-0400 Body height 154.94 cm DO Aristeo Ball Work Phone: [facility] 04-07-2024 12:49-0400 Body weight 64.86 kg DO Aristeo Ball Work Phone: [facility] 03-28-2024 15:22-0400 Body height 157.48 cm [facility] 03-28-2024 15:22-0400 Body mass index (BMI) [Ratio] 27.2 kg/m2 [facility] 03-28-2024 15:22-0400 Body weight 67.64 kg [facility] 03-28-2024 15:22-0400 Diastolic blood pressure 64 mm[Hg] [facility] 03-28-2024 15:22-0400 Heart rate 49 /min [facility] 03-28-2024 15:22-0400 Respiratory rate 12 /min [facility] 03-28-2024 15:22-0400 Systolic blood pressure 165 mm[Hg] [facility] 03-20-2024 11:27-0400 Body height 157.48 cm [facility] 03-20-2024 11:27-0400 Body mass index (BMI) [Ratio] 28 kg/m2 [facility] 03-20-2024 11:27-0400 Body weight 69.62 kg [facility] 03-20-2024 11:27-0400 Diastolic blood pressure 72 mm[Hg] [facility] 03-20-2024 11:27-0400 Heart rate 46 /min [facility] 03-20-2024 11:27-0400 Respiratory rate 20 /min [facility] 03-20-2024 11:27-0400 SaO2% (BldA) [Mass fraction] 96 % [facility] 03-20-2024 11:27-0400 Systolic blood pressure 164 mm[Hg] [facility] 04-27-2022 14:15-0400 Diastolic blood pressure 64 mm[Hg] MD Britt Lazo Work Phone: [facility] 04-27-2022 14:15-0400 Heart rate 88 /min MD Britt Lazo Work Phone: [facility] 04-27-2022 14:15-0400 Systolic blood pressure 120 mm[Hg] MD Britt Lazo Work Phone: [facility] 04-27-2022 12:24-0400 Body height 170.18 cm MD Britt Lazo Work Phone: [facility] 04-27-2022 12:24-0400 Body weight 154 kg MD Britt Lazo Work Phone: [facility] 04-27-2022 00:00-0400 60 1 Aristeo E Ball Work Phone: [facility] 250 DO Work Phone: Comment on above: [id number] 04-05-2022 09:52-0400 Diastolic blood pressure 72 mm[Hg] Aristeo E Ball Work Phone: [facility] 250 DO Work Phone: 04-05-2022 09:52-0400 Systolic blood pressure 150 mm[Hg] Aristeo E Ball Work Phone: [facility] 250 DO Work Phone: 04-05-2022 09:48-0400 Body height 170.18 cm Aristeo E Ball Work Phone: [facility] 250 DO Work Phone: 04-05-2022 09:48-0400 Body mass index (BMI) [Ratio] 23.81 kg/m2 Aristeo E Ball Work Phone: [facility] 250 DO Work Phone: 04-05-2022 09:48-0400 Body surface area Derived from formula 1.8 m2 Aristeo E Ball Work Phone: [facility] 250 DO Work Phone: 04-05-2022 09:48-0400 Body weight 68.95 kg Aristeo E Ball Work Phone: [facility] 250 DO Work Phone: 04-05-2022 09:48-0400 Diastolic blood pressure 70 mm[Hg] Aristeo Hernandez Work Phone: [facility] 250 DO Work Phone: 04-05-2022 09:48-0400 Heart rate 78 /min Aristeo Hernandez Work Phone: [facility] 250 DO Work Phone: 04-05-2022 09:48-0400 Systolic blood pressure 158 mm[Hg] Aristeo Hernandez Work Phone: [facility] DO Work Phone: Encounters Encounter Date Encounter Type Care Provider Facility Start: 05-13-2024 ambulatory ARISTEO HERNANDEZ [facility] Start: 04-30-2024 End: 04-30-2024 Admission to same day surgery center DO Aristeo Hernandez Work Phone: [facility] [place] Work Phone: Start: 04-30-2024 End: 04-30-2024 ambulatory DO Aristeo Hernandez Work Phone: [facility] Work Phone: Start: 04-21-2024 Non-patient / Non-visit DO Deon Hernandez Work Phone: [facility] Work Phone: Start: 04-21-2024 End: 04-21-2024 ambulatory DO Aristeo Hernandez Work Phone: [facility] Work Phone: Start: 04-21-2024 End: 04-21-2024 Departed Referred DO Aristeo Hernandez Work Phone: [facility] Start: 04-07-2024 End: 04-07-2024 Patient encounter procedure DO Aristeo Hernandez Work Phone: [facility]Pet Scan Work Phone: Start: 04-07-2024 End: 04-07-2024 ambulatory DO Aristeo Hernandez Work Phone: [facility] Work Phone: Start: 03-28-2024 End: 03-28-[address] [facility] Work Phone: Start: 03-28-2024 End: 03-28-2024 Patient encounter procedure [facility] Work Phone: Start: 03-27-2024 Non-patient / Non-visit [facility] Physician [facility] Work Phone: Start: 03-20-2024 End: 03-20-2024 Patient encounter procedure [facility] Work Phone: Start: 03-20-2024 End: 03-20-2024 ambulatory [facility] Work Phone: Start: 02-16-2024 ambulatory ARISTEO Perez [facility] Start: 02-16-2024 ambulatory [facility] Start: 02-14-2024 End: 02-14-2024 ambulatory [facility] Start: 02-08-2024 Non-patient / Non-visit [facility] Work Phone: Start: 11-11-2022 Chart Update [facility]iste[facility]amos [facility] Work Phone: Start: 06-29-2022 End: 06-30-[address] ARISTEO HERNANDEZ Facility: Start: 06-26-2022 Encounter for preprocedural cardiovascular examination DR RASHAWN LEWIS [facility] Start: 06-26-2022 Encounter for preprocedural laboratory examination DR RASHAWN LEWIS [facility] Start: 05-18-2022 Chart Update [facility]iste[facility]amos [facility] Work Phone: Start: 05-17-2022 End: 05-26-2022 Evaluation and management of inpatient DR ARISTEO HERNANDEZ Facility:[facility] Start: 05-17-2022 Encounter for preprocedural laboratory examination DR RASHAWN LEWIS [facility] Start: 05-15-2022 End: 05-16-[address] ARISTEO HERNANDEZ Facility:[facility] Start: 05-15-2022 End: 05-16-2022 Encounter for preprocedural laboratory examination DR ARISTEO HERNANDEZ Facility:[facility] Start: 05-13-[address] ARISTEO HERNANDEZ Facili ty:[facility] Start: 05-10-2022 End: 05-11-[address] BEULAH GALAN Facility:[facility] Start: 05-02-2022 Chart Update Aristeo ramos Work Phone: [facility] DO Work Phone: Start: 04-27-2022 End: 04-27-2022 Patient encounter procedure MD Britt Lazo Work Phone: [facility] Start: 04-12-2022 AUDIT Aristeo ramos Work Phone: [facility] DO Work Phone: Start: 04-05-2022 Encounter for preprocedural cardiovascular examination DR RASHAWN LEWIS [facility] Start: 04-05-2022 Office consultation new/estab patient 60 min Aristeo Hernandez Work Phone: [facility] 250 DO Work Phone: Start: 04-05-2022 Patient encounter procedure Aristeo Hernandez Work Phone: [facility] DO Work Phone: Start: 04-03-2022 End: [...] ARISTEO HERNANDEZ Facility:[facility]1 Patient encounter status Gurpreet Perez Josh Work Phone: [facility] 250 DO Work Phone: Procedures Date Procedure Procedure Detail Performing Clinician Start: 04-30-2024 Needle biopsy DO Zabrina Hernandez Work Phone: Start: 04-21-2024 Microscopic observat ion [Identifier] in Unspecified specimen by Gram stain DO Aristeo Hernandez Work Phone: Start: 04-07-2024 Positron emission tomography with computed tomography DO Aristeo Hernandez Work Phone: Start: 05-21-2022 Insertion of Infusio n Device [...] above: Performed By: #### C EA. #### [facility] [address] [place] [address] Dr. Elvis Cifuentes Hernia repair Aristeo Perez Bal rachel Work Phone: Operation on the ear Gurpreet Hernandez Work Phone: Total colonoscopy Aristeo Hernandez Work Phone: Comment on above: 03/2022; Plan of Treatment Date Care Activity Detail Author Start: 04-30-2024 [facility] Start: 05-29-2022 FUV, Provider: Britt Lazo, Status: Pen, Time: 1:10 PM FUV, Provider: Britt Lazo, Status: Pen, Time: 1:10 PM [facility] 250 DO Work Phone: Start: 04-27-2022 Radionuclide myocard ial perfusion stress study NM viky perf SPECT rest & str [facility] Start: 04-27-2022 SPECT Heart perfusio n at rest and W stress and W radionuclide IV [facility] Work Phone: Start: 04-20-2022 SURGNONUH, Provider: Shay Sandoval, Status: Pen, Time: 9:00 AM SURGNON, Provider: Shay Sandoval, Status: Pen, Time: 9:00 AM [facility] 250 DO Work Phone: Comprehensive metabo lic 2000 panel - Serum or Plasma [facility] CT Chest W contrast IV [facility] Patient Education [facility] le Biopsy of the Lung and Pleura Know your Meds [facility] Work Phone: [facility] Immunizations Immunization Date Immunization Notes Care Provider Fa cility 07-03-2022 influenza virus vacc ine, unspecified formulation [facility] 07-03-2022 Pneumococcal Conjuga te Vaccine, 20 valent [facility] 08-04-2021 Pfizer-BioNTech COVI D-19 Vacc 30 MCG/0.3ML Intramuscular Suspension Aristeo Hernandez Work Phone: [facility] 250 DO Work Phone: 08-01-2021 influenza virus vacc ine, unspecified formulation [facility] 01-11-2021 Pfizer-BioNTech COVI D-19 Vacc 30 MCG/0.3ML Intramuscular Suspension Aristeo Hernandez Work Phone: [facility] 250 DO Work Phone: 12-21-2020 Pfizer-BioNTech COVI D-19 Vacc 30 MCG/0.3ML Intramuscular Suspension Aristeo Hernandez Work Phone: [facility] 250 DO Work Phone: 09-13-2017 diphtheria, tetanus toxoids and acellular pertussis vaccine, unspecified formulation [facility] Payers Date Payer Category Payer Self-pay [id number] 2011 Unknown [id number] 1959 Medicare [id number] 1959 Medicare [id number] 1959 Medicare [id number] 1959 Self-pay [id number] 1959 Unknown [id number] 1946 Unknown [id number] 2.16.84 0.1.266127.3.579.2.593 1946 Unknown [id number] 2.16.84 0.1.277064.3.579.2.593 1946 Unknown [id number] 2.16.84 0.1.359597.3.579.2.593 1946 Unknown [id number] 2.16.84 0.1.938343.3.579.2.593 1946 Unknown [id number] 2.16.84 0.1.200668.3.579.2.593 1946 Unknown [id number] 2.16.84 0.1.010410.3.579.2.593 1946 Unknown [id number] 2.16.84 0.1.115061.3.579.2.593 1946 Unknown [id number] 2.16.84 0.1.938045.3.579.2.593 1946 Unknown [id number] 2.16.84 0.1.568802.3.579.2.593 1946 Unknown [id number] 2.16.84 0.1.225745.3.579.2.593 1946 Unknown [id number] 2.16.84 0.1.788409.3.579.2.593 1946 Unknown [id number] 2.16.84 0.1.986662.3.579.2.593 1946 Unknown [id number] 2.16.8 40.1.720753.3.579.2.1286 1946 Unknown [id number] 2.16.8 40.1.182341.3.579.2.128 1946 Unknown [id number] 2.16.8 40.1.167391.3.579.2.1286 1946 Unknown [id number] 2.16.8 40.1.828455.3.579.2.1286 1946 Unknown [id number] 2.16.8 40.1.250404.3.579.2.1286 Unknown Unknown [id number] 2.16.8 40.1.106294.3.579.2.531 Unknown [id number] 2.16.8 40.1.525532.3.579.2.531 Unknown [id number] 2.16.8 40.1.149114.3.579.2.531 Social History Date Type Detail Facility No alcohol use No alcohol use [place] [address] DO Work Phone: Comment on above: Quit in 1996; Start: 1945 Sex Assigned At Male F [facility] Discharge summary note 05-17-2022 Note Date & [...] suction. I spoke with Dr. Rai from [facility], who agreed to take the patient in transfer, and that is being arranged. [facility] Chief complaint Narrative - Reported 04-03-2022 Note Date & Type Note Facility 04-03-2022 Chief complaint Narrative - Reported ANASTASIYA VERA is being seen for an initial evaluation of D/C 04/03/22-Abnormal EKG. [facility] 250 DO Work Phone: Chief complaint Narrative [...] significance. We will [facility] Work Phone: Evaluation note Note Date & Type Note Facility Evaluation note No assessment information [facility] Work Phone: Evaluation note Note Date & Type Note Facility Evaluation note Diagnosis Onset Date AAA (abdominal aortic aneurysm) acute Bradycardia acute Chronic kidney disease acute WALKER (dyspnea on exertion) [place] Hypertension acute Mass of left lung acute [facility] Work Phone: Evaluation note Note Date & Type Note Facility Evaluation note Diagnosis Onset Date AAA (abdominal aortic aneurysm) acute Bradycardia acute Chronic kidney disease acute WALKER (dyspnea on exertion) [place] Hypertension acute Mass of left lung acute AAA (abdominal aortic aneurysm) acute Bradycardia acute Chronic kidney disease acute WALKER (dyspnea on exertion) [place] Hypertension acute Mass of left lung acute [facility] Work Phone: Family History No Family History [...] r 06.00 Chief Complaint Shortness of Breath Chief Complaint Shortness of Breath CT results Reason for Visit AAA (abdominal aorti c aneurysm) Bradycardia Chronic kidney disease WALKER (dyspnea on exertion) Hypertension Mass of left lung Chief Complaint Shortness of Breath CT results R91.8 Reason for Visit AAA (abdominal aorti c aneurysm) Bradycardia Chronic kidney disease WALKER (dyspnea on exertion) Hypertension Mass of left lung AAA (abdominal aortic aneurysm) Bradycardia Chronic kidney disease WALKER (dyspnea on exertion) Hypertension Mass of left lung Chief Complaint Shortness of Breath CT results R91.8 Unknown Reason for Visit AAA (abdominal aorti c aneurysm) Bradycardia Chronic kidney disease WALKER (dyspnea on exertion) Hypertension Mass of left lung AAA (abdominal aortic aneurysm) Bradycardia Chronic kidney disease WALKER (dyspnea on exertion) Hypertension Mass of left lung Chief Complaint Shortness of Breath CT results R91.8 Unknown r91.8 Reason for Visit AAA (abdominal aorti c aneurysm) Bradycardia Chronic kidney disease WALKER (dyspnea on exertion) Hypertension Mass of left lung AAA (abdominal aortic aneurysm) Bradycardia Chronic kidney disease WALKER (dyspnea on exertion) Hypertension Mass of left lung Advance Directives No Advanced Directives Records Found [...] Status: Inactive Member Role Status Dates Aristeo Hernandez DO Primary Care Provide r, Attending Provider Active Start: March 20, 2024 End: March 20, 2024 Team Status: Active Member Role Status Dates Aristeo Hernandez DO Primary Care Provide r, Attending Provider Active Start: March 27, 2024 Team Status: Inactive Member Role Status Dates Aristeo Hernandez DO Primary Care Provide r, Attending Provider Active Start: March 28, 2024 End: March 28, 2024 Team Status: Inactive Member Role Status Dates Aristeo Hernandez DO Primary Care Provide r, Attending Provider Active Start: April 07, 2024 End: April 07, 2024 Team Status: Inactive Member Role Status Dates Aristeo Hernandez DO Primary Care Provider Active Start: April 21, 2024 End: April 21, 2024 Ovi Membreno DO Attending Provider Active St art: April 21, 2024 End: April 21, 2024 Team Status: Active Member Role Status Dates Aristeo Hernandez DO Primary Care Provider Active Start: April 21, 2024 Ovi HODGE , DO Attending Provider Active Start: April 21, 2024 Team Status: Inactive Member Role Status Dates Aristeo Hernandez DO Primary Care Provider Active Start: April 30, 2024 End: April 30, 2024 Ovi HODGE , DO Attending Provider Active Start: April 30, 2024 End: April 30, 2024 Goals (unrecognized section and content) Goals may be documented in a n alternate sectionGoals may be documented in an alternate sectionGoals may be documented in an alternate sectionGoals may be documented in an alternate sectionGoals may be documented in an alternate sectionGoals may be documented in an alternate section (unrecognized sect ion and content) No Status Records FoundNo Status Records FoundNo Status Records FoundNo Status Records Found INFORMATION SOURCE (unrecogn ized section and content) DATE CREATED AUTHOR 07/13/2022 [facility] DATE CREATED AUTHOR AUTHOR'S ORGANIZ ATION 03/26/2024 [facility] DATE CREATED AUTHOR AUTHOR'S ORGANIZ ATION 05/08/2024 [facility] DATE CREATED AUTHOR AUTHOR'S ORGANIZ ATION 05/16/2024 [facility] FOR RECORDS PERTAINING TO PATIENTS WHO ARE [...] BE BASED ON THE PRIMARY CLINICAL RECORDS. [facility]. provides no warranty or guarantee of the accuracy or completeness of information in this document.
== END 2024-05-16 12:49 | disposition home or self-care (01) ==
LOC: RAD 12:51
PROVIDERS: PCP Internal Medicine; Visit Provider Internal Medicine Hematology & Oncology
DX: C34.92 Malignant neoplasm of unspecified part of left bronchus or lung (principal); R11.2 Nausea with vomiting, unspecified; Z51.11 Encounter for antineoplastic chemotherapy
CPT/HCPCS: 71046

== ENCOUNTER 2024-05-27 07:28 | Outpatient (RCR) | payer MEDICARE, OTHER, SELFPAY ==
[2024-05-15 12:20] LABS: Hematocrit 31.3 % (42.0-54.0); Hemoglobin 9.8 g/dL (14.0-18.0); Mean Corpuscular HGB Conc 31.3 g/dL (29.9-35.2); Mean Corpuscular Hemoglobin 28.8 pg (25.9-34.0); Mean Corpuscular Volume 92.1 fL (80.0-94.0); Mean Platelet Volume 10.1 fL (9.5-13.5); Platelet Count 377 10^3/uL (150-450)
[2024-05-15 12:47] LABS: White Blood Count 34.5 10^3/uL (4.0-11.0)
[2024-05-15 12:50] LABS: Lymphocytes Absolute Manual 1.03 10^3/uL (1.20-3.80); Segmented Neut Absolute Manual 31.74 10^3/uL (1.4-6.5)
[2024-05-15 12:51] LABS: Basophils Abs Manual 0.34 10^3/uL (0.00-0.10); Monocytes Absolute Manual 1.38 10^3/uL (0.30-0.80)
[2024-05-15 12:52] LABS: Anisocytosis 1+; Ovalocytes 1+
[2024-05-15 13:30] LABS: Alanine Aminotransferase 55 U/L (16-63); Albumin Globulin Ratio 0.6; Albumin Level 2.7 g/dL (3.4-5.0); Alkaline Phosphatase 183 U/L (46-116); Anion Gap 17.8; Aspartate Amino Transferase 20 U/L (15-37); BUN Creatinine Ratio 37.9; Bilirubin Total 0.6 mg/dL (0.2-1.0); Calcium 9.7 mg/dL (8.5-10.1); Carbon Dioxide 21.8 mmol/L (21.0-32.0); Chloride 107 mmol/L (98-107); Estimated GFR (African America 59 (>=60); Estimated GFR (Non-African Ame 49 (>=60); Globulin 4.2 g/dL; Glucose 108 mg/dL (74-106); Potassium 4.6 mmol/L (3.5-5.1); Sodium 142 mmol/L (136-145); Total Protein 6.9 g/dL (6.4-8.2)
[2024-05-15 13:48] LABS: Percent Iron Saturation 23.4 %
[2024-05-20 09:37] LABS: Hemoglobin 9.7 g/dL (14.0-18.0); Mean Corpuscular HGB Conc 31.3 g/dL (29.9-35.2); Mean Corpuscular Hemoglobin 29.6 pg (25.9-34.0); Mean Corpuscular Volume 94.5 fL (80.0-94.0); Mean Platelet Volume 9.8 fL (9.5-13.5); Platelet Count 314 10^3/uL (150-450); Red Blood Count 3.28 10^6/uL (4.70-6.10); Red Cell Distribution Width 15.9 % (11.0-15.0)
[2024-05-20 09:41] LABS: White Blood Count 42.3 10^3/uL (4.0-11.0)
[2024-05-20 09:47] LABS: Erythrocyte Sedimentation Rate 81 mm/hr (<=20)
[2024-05-20 09:57] LABS: Lymphocytes Absolute Manual 4.65 10^3/uL (1.20-3.80); Monocytes Absolute Manual 0.84 10^3/uL (0.30-0.80)
[2024-05-20 09:59] LABS: Anisocytosis 1+; Ovalocytes 1+
[2024-05-20 10:08] LABS: Alanine Aminotransferase 37 U/L (16-63); Albumin Globulin Ratio 0.7; Albumin Level 2.7 g/dL (3.4-5.0); Alkaline Phosphatase 142 U/L (46-116); Anion Gap 13.1; Aspartate Amino Transferase 16 U/L (15-37); BUN Creatinine Ratio 30.4; Bilirubin Total 0.7 mg/dL (0.2-1.0); C Reactive Protein 6.36 mg/dL (<=0.50); Calcium 10.1 mg/dL (8.5-10.1); Carbon Dioxide 27.5 mmol/L (21.0-32.0); Chloride 106 mmol/L (98-107); Estimated GFR (African America >60 (>=60); Estimated GFR (Non-African Ame 51 (>=60); Globulin 3.9 g/dL; Glucose 157 mg/dL (74-106); Potassium 4.6 mmol/L (3.5-5.1); Sodium 142 mmol/L (136-145); TSH W/ REFLEX FT4 5.145 uIU/mL (0.358-3.740); Total Protein 6.6 g/dL (6.4-8.2)
[2024-05-20 10:32] LABS: Free T4 0.97 ng/dL (0.76-1.46)
[2024-05-21 05:07] LABS: HBsAg Screen Negative (Negative); Hep B Core Ab, Tot Negative (Negative); Hepatitis B Surf Ab Quant <3.5 mIU/mL (Immunity>10)
--- NOTE | 2024-05-26 13:37 | PC.NURSE ---
1250: Pt. to [facility] via w/c accompanied by and sister in law. Educated all on Keytruda administration, potential side effects and purpose of med. Questions addressed. Consent obtained. 1320: Pt. d/c'd via w/c to home with family.
--- NOTE | 2024-05-26 13:41 | PC.NURSE ---
Prescription for Compazine sent to [facility]. To be taken if needed after Keytruda treatment begins.
[2024-05-27 10:46] LABS: Hematocrit 30.6 % (42.0-54.0); Hemoglobin 9.6 g/dL (14.0-18.0); Mean Corpuscular HGB Conc 31.4 g/dL (29.9-35.2); Mean Corpuscular Hemoglobin 29.3 pg (25.9-34.0); Mean Corpuscular Volume 93.3 fL (80.0-94.0); Mean Platelet Volume 9.7 fL (9.5-13.5); Platelet Count 286 10^3/uL (150-450); Red Blood Count 3.28 10^6/uL (4.70-6.10); Red Cell Distribution Width 16.8 % (11.0-15.0)
[2024-05-27 10:57] LABS: Alanine Aminotransferase 31 U/L (16-63); Albumin Globulin Ratio 0.7; Albumin Level 2.7 g/dL (3.4-5.0); Alkaline Phosphatase 133 U/L (46-116); Anion Gap 17.5; Aspartate Amino Transferase 17 U/L (15-37); BUN Creatinine Ratio 31.8; Bilirubin Total 0.6 mg/dL (0.2-1.0); Calcium 10.5 mg/dL (8.5-10.1); Carbon Dioxide 24.7 mmol/L (21.0-32.0); Chloride 106 mmol/L (98-107); Estimated GFR (African America 41 (>=60); Estimated GFR (Non-African Ame 33 (>=60); Globulin 3.7 g/dL; Glucose 134 mg/dL (74-106); Potassium 5.2 mmol/L (3.5-5.1); Sodium 143 mmol/L (136-145); Total Protein 6.4 g/dL (6.4-8.2)
[2024-05-27 11:26] LABS: White Blood Count 58.5 10^3/uL (4.0-11.0)
[2024-05-27 11:27] LABS: Eosinophils Absolute Manual 1.17 10^3/uL (0.00-0.70); Lymphocytes Absolute Manual 4.09 10^3/uL (1.20-3.80); Monocytes Absolute Manual 1.75 10^3/uL (0.30-0.80); Segmented Neut Absolute Manual 51.48 10^3/uL (1.4-6.5)
--- NOTE | 2024-05-27 14:18 | PC.NURSE ---
1000 Arrival per wheelchair, alet oriented, but dyspneic at rest. patient also complains of being dyspneic and not feeling well. Assisted to bed, head of bed elevated for comfort. vs obtained 167/72 T 96.6 P59 R30. Spo2 91%, placed on 2 lpm nc. and sister in law at bedside. 1015 and sister at bedside 1040 Dr. Engel in and examines patient, speaks to patient and family and discusses options. After discussion between patient and family it was decided to transfer to ER for further evaluation. 1100Transferred to ER per wheel chair with oxygen at 2 lpm per nasal cannula per L Garrick Gustafson also speaks with ER staff.
== END 2024-06-07 23:59 | disposition home or self-care (01) ==
LOC: HEMC 07:28
PROVIDERS: PCP Internal Medicine; Visit Provider Internal Medicine Hematology & Oncology
DX: C34.92 Malignant neoplasm of unspecified part of left bronchus or lung (principal); R11.2 Nausea with vomiting, unspecified; Z87.891 Personal history of nicotine dependence; Z93.3 Colostomy status; J90 Pleural effusion, not elsewhere classified; R53.82 Chronic fatigue, unspecified; R06.02 Shortness of breath; R04.2 Hemoptysis
CPT/HCPCS: 36415; 80053; 82728; 83540; 83550; 83735; 84439; 84443; 85007; 85027; 85652; 86140; 86317; 86704; 87340; G0463

== ENCOUNTER 2024-05-27 11:08 | Inpatient (IN) | payer MEDICARE, OTHER, SELFPAY ==
[2024-05-27] VITALS (32 sets, daily range): BP systolic 104–146; BP diastolic 41–93; PULSE 46–113; TEMP 36.4–36.7; O2SAT 94–99; BMI 20.2; BMI 20.1
--- NOTE | 2024-05-27 11:13 | ECG_ITS ---
[facility] Test Date: 2024-05-27 Pat Name: MARIBELL VERA Department: Room: - Gender: Male Safety Consultant: : 1945 Requested By: EJ MORENO Order Number: [id number] Reading MD: EJ MORENO Measurements Intervals [place] Rate: 113 P: 57 [place]: 142 QRS: 77 QRSD: 84 T: 116 QT: 350 QTc: 417 Interpretive Statements 1120 Sinus tachycardia 1475 with frequent supraventricular premature complexes in a pattern of bigeminy [address] depression Chronic inferolateral ST/T wave changes, can't exclude ischemia 9150 abnormal ECG Electronically Signed On 05-27-2024 22:51:46 EDT by EJ MORENO
--- NOTE | 2024-05-27 11:21 | ED.SOB1 ---
HPI - SOB/Dyspnea General Chief Complaint: Shortness of Breath/Dyspnea Stated Complaint: SHORTNESS OF BREATH Time Seen by Provider: 05/27/24 11:09 Source: patient Mode of arrival: Wheelchair Limitations: no limitations History of Present Illness HPI Narrative: Patient presents to ED for shortness of breath. 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 He was [facility] at the [facility] about to receive his treatment and his physician thought he appeared more short of breath than his normal and was tachypneic. The patient states he has been a little more short of breath today and worse since he just came into the ER. He is not hypoxic but he is in obvious respiratory distress. He denies any blood in the stool, he has a colostomy bag. He does have a history of pleural effusion that has needed drained in the past. His doctor was concerned that he may have a PE or a new pleural effusion and wanted him to come over to the ER for further evaluation. I did speak with patient and family and he is a DNR CCA, no intubation. Patient is an respiratory distress, respiratory therapy called and high flow oxygen ordered. ABG ordered as well. Patient denies severe chest pain he just reports shortness of breath. He does report some blood-tinged yellow sputum that he has been coughing up recently. Related Data Home Medications ?Medication ?Instructions ?Recorded ?Confirmed labetalol 100 mg tablet 100 mg PO Q12H 04/21/24 04/21/24 lisinopril 10 mg tablet 10 mg PO DAILY 04/21/24 04/21/24 omeprazole 40 mg capsule,delayed 40 mg PO DAILY 04/21/24 04/21/24 release Allergies Allergy/AdvReac Type Severity Reaction Status Date / Time No Known Drug Allergies Allergy Verified 05/27/24 11:11 Review of Systems ROS Status of ROS 10 or more systems reviewed and unremarkable except as noted in history and below Exam Narrative Exam Narrative: Time Seen: [] Vital Signs: [Per nurse's notes.] General: [Alert]Respiratory distress Skin: [Warm, dry, no rash.]Pale Head: [Normocephalic, atraumatic.] Neck: [Supple, trachea midline.] Eye: [Pupils are equal, round and reactive to light, extraocular movements are intact, normal conjunctiva.] Ears, nose, mouth and throat: oral mucosa moist. Cardiovascular: [Tachycardia no murmur.] Respiratory: Diminished breath sounds on the left, rhonchorous breath sounds on the right. Tachypnea, severe respiratory distress. Accessory muscle use Chest wall: [No tenderness, no deformity.] Gastrointestinal: [Soft, nontender, non distended, normal bowel sounds.] MSK: 5 out of 5 muscle strength x 4 extremities no calf pain or edema Lymphatics: [No lymphadenopathy.] Psychiatric: [Cooperative, appropriate mood & affect.] Neurological: [Alert and oriented to person, place, time, and situation, no focal neurological deficit observed.] Constitutional Vital Signs, click to edit/add: Last Vital Signs Temp 98.1 F 05/27/24 11:12 Pulse 88 05/27/24 13:30 Resp 18 05/27/24 13:30 BP 114/71 05/27/24 13:30 Pulse Ox 99 05/27/24 13:30 O2 Del Method Nasal Cannula 05/27/24 11:12 O2 Flow Rate 2 05/27/24 11:12 Course Vital Signs Vital signs: Vital Signs Temperature 98.1 F 05/27/24 11:12 Pulse Rate 113 H 05/27/24 11:12 Respiratory Rate 28 H 05/27/24 11:12 Blood Pressure 140/61 05/27/24 11:12 Pulse Oximetry 98 05/27/24 11:12 Oxygen Delivery Method Nasal Cannula 05/27/24 11:12 Oxygen Delivery Flow Rate 2 05/27/24 11:12 Temperature 98.1 F 05/27/24 11:12 Pulse Rate 88 05/27/24 13:30 Respiratory Rate 18 05/27/24 13:30 Blood Pressure 114/71 05/27/24 13:30 Pulse Oximetry 99 05/27/24 13:30 Oxygen Delivery Method Nasal Cannula 05/27/24 11:12 Oxygen Delivery Flow Rate 2 05/27/24 11:12 MDM - SOB/Dyspnea MDM Narrative Medical decision making narrative: Upon arrival patient was found to be tachypneic and in respiratory distress. He was placed on Vapotherm which has significantly helped his respiratory status. Blood work shows an elevated lactate therefore he was covered for sepsis, I gave him vancomycin and Zosyn. Creatinine was elevated at 1.9 and potassium was 5.2. He was given gentle IV hydration as well as Lokelma p.o. Patient was sent over to CT to rule out PE which came back negative for PE but the CT scan shows increase in size of the lung mass with now mets to the spleen and Mesentery and pleura with mass effect on the left atrium as well. I spoke to Dr. Engel,, his oncologist who states this is more likely going to be a palliative care conversation. I informed the patient and family that the cancer has metastasized and is bigger and he will be admitted here for further care. Dr. Bray will be admitting medically Dr. Engel will be on as consult to discuss further care plan vs palliative care. CODE STATUS was discussed with the patient and he is currently a DNR CC A Differential Diagnosis Differential diagnosis: Likely acute exacerbation of chronic obstructive airways disease, congestive heart failure, community acquired pneumonia, pulmonary embolism and other (Pleural effusion Sepsis) Medical Records Attestation: I reviewed the patient's medical records. Lab Data Attestation: I reviewed the patient's lab results. Labs: Lab Results 05/27/24 05/27/24 05/27/24 Range/Units 10:20 11:26 11:28 PT 11.4 (9.0-11.6) sec INR 1.08 Lactate 4.3 H* (0.4-2.0) mmol/L Troponin I High Sens 18.8 (4.0-76.1) pg/mL SARS-CoV-2 Ag (CV2AG) Negative (NEGATIVE) Imaging Data CT scan - chest: Radiologist's impression: ITS Impressions Chest CTA 05/27/24 12:20 IMPRESSION: No central pulmonary thromboembolic disease Marked progression of suspected malignancy with a 13 cm left lung mass causing mass effect on the left atrium as well as multiple suspected metastases to the pleura, spleen and mesentery Electronically authenticated by: MATTHEW CHATMAN Date: 05/27/2024 12:56 ECG Data Attestation: I personally reviewed and interpreted this ECG as follows: Interpretation: EKG INTERPRETATION Time: []1114 Rate: []113 Rhythm: _ []Sinus tachycardia ST segments: _ []No acute ST elevation or depression T waves: _ [] Ectopy: _ [] P wave/WA interval: _ [] QRS interval: _ [] QT interval: _ [] Comparison: _ [] Comparison EKG date: [] Performed by: [self] Critical Care Time Critical Care Time Critical Care Time: Yes (Respiratory distress) Total Critical Care Time: 78 Attestation: Patient arrived in respiratory distress and was placed on Vapotherm immediately Discharge Plan Discharge Chief Complaint: Shortness of Breath/Dyspnea Clinical Impression: NATE (acute kidney injury), Sepsis, Lung mass, Metastasis Patient Disposition: Admitted As Inpatient Time of Disposition Decision: 13:45 Condition: Serious Prescriptions / Home Meds: No Action omeprazole 40 mg capsule,delayed release(DR/EC) 40 mg PO DAILY lisinopril 10 mg tablet 10 mg PO DAILY labetalol 100 mg tablet 100 mg PO Q12H Print Language: Bulgarian Referrals: Aristeo Hernandez DO [Primary Care Provider] - 1 week
--- OUTSIDE RECORDS SUMMARY | 2024-05-27 11:30 | XMS_ITS | CCD ---
Author Organization [facility] Care Team Providers Care Scrap Handler Name Role Phone Aristeo Hernandez Unavailable Unavailable Unavailable MD Britt Lazo Attending Provider DO Aristeo Hernandez Primary Care Provider DR [...] CHAN, DR ZAIDI Consulting Unavailable ZIEBER, DR EGORGETTE Holman Consulting Unavailable NADERER, DR JOSE ROBERTO [...] Unavailable BALL, DR ALBERTS Admitting Unavailable SHANIQUA, RONALD F Attending Unavailable BALL, ARISTEO Perez Referring Unavailable BALL, ARISTEO Perez Primary Care Unavailable BALL, ARISTEO Perez Referring Unavailable BALL, ARISTEO Perez Primary Care Unavailable BALL, ARISTEO Perez Referring Unavailable BALL, ARISTEO Perez Primary Care Unavailable SHANIQUA, RONALD F Attending Unavailable BALL, ARISTEO Perez Referring Unavailable BALL, ARISTEO Perez Primary Care Unavailable Ball, DO Alberts Primary Care Provider DO Aristeo Hernandez Attending Provider [phone] [facility], DO Ovi Sahni Attending Provider [facility], DO Dior Attending Provider ARISTEO HERNANDEZ Referring Unavailable JOSH, ARISTEO Perez Primary Care Unavailable Josh, Aristeo Primary Care Unavailable Haseeb, Ovi Sahni Admitting Unavailable Haseeb, Ovi Sahni Attending Unavailable Josh, Aristeo Primary Care Unavailable Josh, Aristeo Attending Unavailable Ball, Aristeo Admitting Unavailable Josh, Aristeo Primary Care Unavailable [facility], Ovi Admitting Unavailable 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 Patients having hematocrit values >55% require a special collection tube for coagulation studies. Please contact the laboratory at [phone] guided biopsyon CT guided biopsy [facility] Main [place] [address] [place] [address] CT Scan Report Signed Patient: Carlo Vera MR#: [id number] 224 : 1945 Acct:[id number] Age/Sex: 78 / M ADM Date: 04/30/24 Loc: CT Room: Type: [facility] Attending Dr: Ovi Burns [facility] DO Copies to: DO Casper Beyer Jeffrey S DO Ordering Provider: Ovi Membreno DO; Rogerio Shirley DO Date of Service: 04/30/24 CT/CT guided biopsy: R91.8 ([id number]) XR/XR chest 1V: POST LUNG BX CT-GUIDED [...] Rogerio Shirley M.D.04/30/2024 3:23 PM Dictation Location: [place] [address] Transcribed By: [facility] 04/30/24 1523 Dictated By: Rogerio Shirley DO 04/30/24 1517 Signed By: 04/30/24 1523 Normal [facility] Coagulation Profileon 2023 aPTT Coag (Bld) [Time] 29.9 s Normal 25.1-36.5 [facility] Comment on above: Order Comment: STAT FOR CT BX Result Comment: A he matocrit value greater than 55% may lead to inaccurate results in coagulation testing. Patients having hematocrit values >55% require a special collection tube for coagulation studies. Please contact the laboratory at [phone] for redraw instructions. PERFORMED BY: [place] [address] PATHOLOGIST SMALLTALK DEVELOPER JASMIN CEVALLOS M.D. Performed By: #### P LT, PP #### [address] INR in Platelet poor plasma by [...] Performed By: #### P LT, PP #### [address] 04-30-2024 L Specimen: [id number] Received: 04/30/24 Status: JENNIE Mary Num: [id number] Spec Type: Surgical Subm Dr: Rogerio Shirley DO Tissues: A Lung - Transbroncial Biopsy (LT LOWER LOBE LUNG TISSUE) Procedures: HE/2, Gross/Micro L4, AE1-AE3, CK20, CK 7, NAPSIN A, TTF1, IHC First AB, IHC Add AB/6, SOX-10, p40, DIFF QWIK/2 Age/ Patient Sex Location Account Attending Physician Carlo Vera 78/M CT [id number] Ovi Membreno DO SPEC NUM: [id number] RECD: 04/30/24 STATUS: JENNIE MARY NUM: [id number] KELLY: 04/30/[address]: Rogerio Shirley DO ENTERED: 04/30/[address] [facility] [address]: SPEC TYPE: Surgical DEPT: S ORDERED: HE/2, Gross/Micro L4, AE1-AE3, CK20, CK 7, NAPSIN A, TTF1, IHC First AB, IHC Add AB/6, SOX-10, p40, DIFF QWIK/2 ORDERED: HE/2, Gross/Micro L4, AE1-AE3, CK20, CK 7, NAPSIN A, TTF1, IHC First AB, IHC Add AB/6, SOX-10, p40, DIFF QWIK/2 Supplemental Report Addendum 1 Entered: 05/20/24-1719 PD-L1 TPS score: 99% See attached report. Addendum Signed (signature on file) Ronald Pimentel MD 05/20/241719 Pathological Diagnosis Lung, left lower lobe mass (CT-guided needle biopsies with touch preparations and immediate evaluation): Adenocarcinoma, poorly differentiated consistent with lung primary See microscopic description Specimen: [id number] Received: 04/30/24-114 Status: JENNIE Mary Num: [id number] Spec Type: Surgical Subm Dr: Rogerio Shirley DO Tissues: A Lung - Transbroncial Biopsy (LT LOWER LOBE LUNG TISSUE) Procedures: HE/2, Gross/Micro L4, AE1-AE3, CK20, CK 7, NAPSIN A, TTF1, IHC First AB, IHC Add AB/6, SOX-10, p40, DIFF QWIK/2 Patient: Carlo Vera [id number] (Continued) Specimen: [id number] Received: 04/30/24 (Continued) Signed (signature on file) Zbigniew Birmingham Jr., MD 05/06/24 1100 Specimen: [id number] Received: 04/30/24 Status: JENNIE Mary Num: [id number] Spec Type: Surgical Subm Dr: Rogerio Shirley DO Tissues: A Lung - Transbroncial Biopsy (LT LOWER LOBE LUNG TISSUE) Procedures: HE/2, Gross/Micro L4, AE1-AE3, CK20, CK 7, NAPSIN A, TTF1, IHC First AB, IHC Add AB/6, SOX-10, p40, DIFF QWIK/2 Patient: Carlo Vera [id number] (Continued) Specimen: [id number] Received: 04/30/24 (Continued) Clinical Information Left lower lobe lung mass [...] Malignant cells present Read by Zbigniew Birmingham Jr. MNikia. Microscopic Description Immunoperoxidase stains performed on formalin [...] an adenocarcinoma of lung origin. CPT Codes 74159, 65161, 57930, 92787 x 5 Specimen: [id number] Received: 04/30/24 Status: JENNIE Mary Num: [id number] Spec Type: Surgical Subm Dr: Rogerio Shirley DO Tissues: A Lung - Transbroncial Biopsy (LT LOWER LOBE LUNG TISSUE) Procedures: HE/2, Gross/Micro L4, AE1-AE3, CK20, CK 7, NAPSIN A, TTF1, IHC First AB, IHC Add AB/6, SOX-10, p40, DIFF QWIK/2 Patient: Carlo Vera [id number] (Continued) Signed (signature on file) Zbigniew Birmingham Jr., MD 05/06/24 1100 Normal [facility] Platelets [#/volume] in Bloo d by Automated countOrdered By: Ovi Membreno on 04-30-2024 Platelets (Bld) [#/Vol] 411 10*3/uL Normal 150-450 [facility] Comment on above: Order Comment: STAT FOR CT BX Result Comment: PERF ORMED BY: [facility] [address] [place] [address] PATHOLOGIST SMALLTALK DEVELOPER JASMIN CEVALLOS M.D. Performed By: #### P LT, PP #### [facility] [address] [place] [address] [facility] Prothrombin time (PT)Ordered By: Ovi Membreno on 04-30-2024 PT Coag (PPP) [Time] 14.7 s High 9.0-12.9 [facility] Comment on above: A hematocrit value g reater than 55% may lead to inaccurate results in coagulation testing. Patients having hematocrit values >55% require a special collection tube for coagulation studies. Please contact the laboratory at [phone] for redraw instructions. Order Comment: STAT FOR CT BX Result Comment: A he matocrit value greater than 55% may lead to inaccurate results in coagulation testing. Patients having hematocrit values >55% require a special collection tube for coagulation studies. Please contact the laboratory at [phone] for redraw instructions. Performed By: #### P LT, PP #### [facility] [address] [place] [address] [facility] XR chest 1Von 04-30-2024 XR chest 1V [facility] Main [place] [address] [place], [place] [id number] XRay Report Signed Patient: Carlo Vera MR#: [id number] 224 : 1945 Acct:[id number] Age/Sex: 78 / M ADM Date: 04/30/24 Loc: CT Room: Type: [facility] Attending Dr: Ovi Membreno [facility] Copies to: DO Casper Beyer Jeffrey S [...] Rogerio Shirley M.D.04/30/2024 4:01 PM Dictation Location: [place] [address] Transcribed By: [facility] 04/30/24 1601 Dictated By: Rogerio Shirley DO 04/30/24 1600 Signed By: 04/30/24 1601 Normal [facility] Cheo 04-21-2024 L Specimen: Received: 04/22/24 Status: JENNIE Mary Num: [id number] Spec Type: Cytology Subm Dr: Ovi Membreno DO Tissues: A PLEURAL FLUID (LT LUNG) Procedures: HE/2, Gross/Micro L4, Cyto Prepstain, PAPSTN Age/ Patient Sex Location Account Attending Physician Carlo Vera Og 78/M LABELL [id number] Ovi Membreno DO SPEC NUM: [id number] RECD: 04/22/24 STATUS: JENNIE MARQUEZMike NUM: [id number] KELLY: 04/21/[address]: Ovi Membreno DO ENTERED: 04/22/[address]: Srikanth,Tiffanie SPEC TYPE: Cytology DEPT: DOTTY [facility] ENTERED BY: [id number] RECV BY: [id number] ORDERED: HE/2, Gross/Micro L4, Cyto Prepstain, PAPSTN [...] preparations are prepared for microscopic examination.(CC/nh) Specimen: Received: 04/22/24 Status: JENNIE Mary Num: [id number] Spec Type: Cytology Subm Dr: Ovi Membreno DO Tissues: A PLEURAL FLUID (LT LUNG) Procedures: HE/2, Gross/Micro L4, Cyto Prepstain, PAPSTN Patient: ZackCarlo [id number] (Continued) Specimen: [id number] Received: 04/22/24 (Continued) Signed (signature on file) Neel Cifuentes MD 04/23/241443 Specimen: [id number] Received: 04/22/24 Status: JENNIE Mary Num: [id number] Spec Type: Cytology Subm Dr: Ovi Membreno DO Tissues: A PLEURAL FLUID (LT LUNG) Procedures: HE/2, Gross/Micro L4, Cyto Prepstain, PAPSTN Patient: Carlo Vera [id number] (Continued) Specimen: [id number] Received: 04/22/24 (Continued) Microscopic Description Microscopic examinations are performed supporting the above interpretation CPT Codes 13589 00650 Specimen: [id number] Received: 04/22/24 Status: JENNIE Mary Num: [id number] Spec Type: Cytology Subm Dr: Ovi Membreno DO Tissues: A PLEURAL FLUID (LT LUNG) Procedures: HE/2, Gross/Micro L4, Cyto Prepstain, PAPSTN Patient: Carlo Vera Og [id number] (Continued) Signed (signature on file) Neel Cifuentes MD 04/23/24 1444 Normal [facility] Laboratory - Microbiology an d Antimicrobial susceptibilityOrdered By: Ovi Membreno on 04-21-2024 Microscopic observation Gram stain Nom (Unsp spec) [facility] No Panel Informationon 04-21 Body Fluid Amylase 21 U/L . [facility] Comment on above: : BODY FLUID TYPE : AMYLASE : : : : : Lymph : 50 - 83 : : : : : Peritoneal : : : Fluid : 88 - 109 : : : : : Saliva : : : (Mixed Glands) : 43090 - [id number] : : : : [place] W, Jose Juan V. Reference Intervals for Adults and Children 2007. Ninth Edition (V9.1) [facility]; [place]: April 2009. Body Fluid Glucose 100 mg/dL . [facility] Comment on above: : BODY FLUID TYPE [...] Adults and Children 2007. Ninth edition (V9.1) [employer], [facility]; [place]: April 2009. Body Fluid Lactate Dehydrogenase 480 IU/L . [facility] Comment on above: : BODY FLUID TYPE [...] Adults and Children 2007. Ninth Edition (V9.1) [facility]; [place]: April 2009.Performed at: [address] [id number] Director: Randy Tucker PhD, Phone: [phone] Body Fluid Total Protein 4.4 g/dL . [facility] Comment on above: : BODY FLUID TYPE [...] 0.8 - 0.9 : : : : [place] W, Jose Juan V. Reference Intervals for Adults and Children 2008. Ninth Edition (V9.1) [employer], [facility]; [place]: April 2009. Body Fluid Triglycerides 36 mg/dL Not Estab. [facility] Comment on above: The reference interv al(s) and other method performance specificationshave not been established for this body fluid. The test result must beintegrated into the clinical context for interpretation.Performed at: - [facility] [id number] Director: Randy Tucker PhD, Phone: [phone] Reference Lab Order Code See comment [facility] Comment on above: SEE SCANNED REPORT Capillary blood glucose torri urement by glucometer (mass/volume)Ordered By: Aristeo Hernandez on 04-07-2024 Glucose [Mass/Vol] 89 mg/dL Normal [facility] Comment on above: Random Glucose Refer ence Range is dependent on time and content of last meal. Glucose of more than 200 mg/dL in a nonstressed, ambulatory subject supports the diagnosis of Diabetes Mellitus. Result Comment: [place] om Glucose Reference Range is dependent on time and content of last meal. Glucose of more than 200 mg/dL in a nonstressed, ambulatory subject supports the diagnosis of Diabetes Mellitus. PERFORMED BY: [place] [address] PATHOLOGIST SMALLTALK DEVELOPER JASMIN CEVALLOS M.D. Performed By: #### G LULS #### Point of Care testing , PET tumor init tx strat sb-m ton 04-07-2024 PET tumor init tx strat sb-mt [facility] [place] [address] Nuclear Medicine Report Signed Patient: Carlo Vera MR#: [id number] 224 : 1945 Acct:[id number] Age/Sex: 78 / M ADM Date: 04/07/24 Loc: Room: Type: [facility] Attending Dr: Aristeo Hernandez DO Copies to: [...] 67:2-77 Impression dictated by: Bean Acharya Jr., Jayne04/07/2024 2:28 PM Dictation Location: [place] [address] Transcribed By: [facility] 04/07/24 1428 Dictated By: Bean Acharya Jr, DO 04/07/24 1417 Signed By: 04/07/24 1428 Normal [facility] Estimated glomerular filtrat ion rate (GFR) non- Americanon 03-27-2024 GFR/1.73 sq M.predicted among non-blacks MDRD (S/P/Bld) [Vol rate/Area] 56 mL/min/{1.73_m2} Low >=60 [facility] Laboratory - Chemistry and C hemistry - challengeon 03-27-2024 Creatinine [Mass/Vol] 1.25 mg/dL 0.70-1.30 [facility] GFR/1.73 sq M.predicted MDRD (S/P/Bld) [Vol rate/Area] mL/min/{1.73_m2} >=60 [facility] Estimated glomerular filtrat ion rate (GFR) non- Americanon 02-08-2024 GFR/1.73 sq M.predicted among non-blacks MDRD (S/P/Bld) [Vol rate/Area] 54 mL/min/{1.73_m2} Low >=60 [facility] - Chemistry and C hemistry - challengeon 02-08-2024 Creatinine [Mass/Vol] 1.30 mg/dL 0.70-1.30 [facility] GFR/1.73 sq M.predicted MDRD (S/P/Bld) [Vol rate/Area] mL/min/{1.73_m2} >=60 [facility] XR MODIFIED BARIUM SWALLOWon 06-29-2022 XR [...] GEORGETTE GOLDMAN Date: 2022-06-29 13:34 Normal [facility] CULTURE URINEon 05-28-2022 CULTURE URINE Culture [...] Trimethoprim/Sulfamethoxaz ole <=20 S F Normal [facility] Comment on above: Performed By: #### U RCX #### [facility] [address] [place] [address] Dr. Elvis Cifuentes WOUND CULTUREon 05-28-2022 Bacteria identified Aer cx Nom (Unsp spec) Final report Normal [facility] Comment on above: Performed By: #### G IPANEL #### [facility] [address] [place] [address] Dr. Elvis Cifuentes Result 1 Comment Normal [facility] Comment on above: Result Comment: Mixe d skin zahra including multiple gram negative rods. Performed By: #### G IPANEL #### [facility] [address] [place] [address] Dr. Elvis Cifuentes C. DIFF PCRon 05-25-2022 C. DIFFICILE PCR Negative Normal NEGATIVE [facility] Comment on above: Performed By: #### U RCX #### [facility] [address] [place] [address] Dr. Elvis Cifuentes CBC W MANUAL DIFFon 05-25-20 22 ATYPICAL LYMPH # Normal [facility] Comment on above: Performed By: #### P REALB, MG #### [facility] [address] [place] [address] Dr. Elvis Cifuentes ATYPICAL LYMPH % Normal [facility] Comment on above: Performed By: #### P REALB, MG #### [facility] [address] [place] [address] Dr. Elvis Cifuentes BAND # 1.1 103/ul Critically high 0.0-0.3 [facility] Comment on above: Performed By: #### P REALB, MG #### [facility] [address] [place] [address] Dr. Elvis Cifuentes BAND % 5 % Normal 0-5 [facility] Comment on above: Performed By: #### P REALB, MG #### [facility] [address] [place] [address] Dr. Elvis Cifuentes BASOM # 0.00 103/ul Normal 0.00-0.10 [facility] Comment on above: Performed By: #### P REALB, MG #### [facility] [address] [place] [address] Dr. Elvis Cifuentes BASOM % 0.0 % Critically low 0.2-2.0 [facility] Comment on above: Performed By: #### P REALB, MG #### [facility] [address] [place] [address] Dr. Elvis Cifuentes BLAST # Normal [facility] Comment on above: Performed By: #### P REALB, MG #### [facility] [address] [place] [address] Dr. Elvis Cifuentes BLAST % Normal [facility] Comment on above: Performed By: #### P REALB, MG #### [facility] [address] [place] [address] Dr. Elvis Cifuentes CORRECTED WBC Normal 4.0-11.0 [facility] Comment on above: Performed By: #### P REALB, MG #### [facility] [address] [place] [address] Dr. Elvis Cifuentes EOS # 0.22 103/ul Normal 0.00-0.70 [facility] Comment on above: Performed By: #### P REALB, MG #### [facility] [address] [place] [address] Dr. Elvis Cifuentes EOS% 1.0 % Normal 0.9-7.0 [facility] Comment on above: Performed By: #### P REALB, MG #### [facility] [address] [place] [address] Dr. Elvis Cifuentes HCT 33.0 % Critically low 42.0-54.0 [facility] Comment on above: Performed By: #### P REALB, MG #### [facility] [address] [place] [address] Dr. Elvis Cifuentes HGB 10.4 g/dl Critically low 14.0-18.0 [facility] Comment on above: Performed By: #### P REALB, MG #### [facility] [address] [place] [address] Dr. Elvis Cifuentes LYMPHM # 0.88 103/ul Critically low 1.20-3.80 [facility] Comment on above: Performed By: #### P REALB, MG #### [facility] [address] [place] [address] Dr. Elvis Cifuentes LYMPHM% 4.0 % Critically low 20.5-60.0 [facility] Comment on above: Performed By: #### P REALB, MG #### [facility] [address] [place] [address] Dr. Elvis Cifuentes MCH 29.0 pg Normal 25.9-34.0 [facility] Comment on above: Performed By: #### P REALB, MG #### [facility] [address] [place] [address] Dr. Elvis Cifuentes MCHC 31.5 g/dl Normal 29.9-35.2 [facility] Comment on above: Performed By: #### P REALB, MG #### [facility] [address] [place] [address] Dr. Elvis Cifuentes MCV 91.9 fL Normal 80.0-94.0 [facility] Comment on above: Performed By: #### P REALB, MG #### [facility] [address] [place] [address] Dr. Elvis Cifuentes METAMYELOCYTE # Normal [facility] Comment on above: Performed By: #### P REALB, MG #### [facility] [address] [place] [address] Dr. Elvis Cifuentes METAMYELOCYTE % Normal [facility] Comment on above: Performed By: #### P REALB, MG #### [facility] [address] [place] [address] Dr. Elvis Cifuentes MONOM# 0.66 103/ul Normal 0.30-0.80 [facility] Comment on above: Performed By: #### P REALB, MG #### [facility] [address] [place] [address] Dr. Elvis Cifuentes MONOM% 3.0 % Normal 1.7-12.0 [facility] Comment on above: Performed By: #### P REALB, MG #### [facility] [address] [place] [address] Dr. Elvis Cifuentes MPV 11.6 fL Normal 9.5-13.5 [facility] Comment on above: Performed By: #### P REALB, MG #### [facility] [address] [place] [address] Dr. Elvis Cifuentes MYELOCYTE # Normal [facility] Comment on above: Performed By: #### P REALB, MG #### [facility] [address] [place] [address] [address] Elvis Cifuentes MYELOCYTE % Normal [facility] Comment on above: Performed By: #### P REALB, MG #### [facility] [address] [place] [address] [address] Elvis Cifuentes NRBC Normal [facility] Comment on above: Performed By: #### P REALB, MG #### [facility] [address] [place] [address] [address] Elvis Cifuentes PLT 228 103/ul Normal 150-450 [facility] Comment on above: Performed By: #### P REALB, MG #### [facility] [address] [place] [address] Dr. Elvis Cifuentes RBC 3.59 106/ul Critically low 4.70-6.10 [facility] Comment on above: Performed By: #### P REALB, MG #### [facility] [address] [place] [address] Dr. Elvis Cifuentes RDW 15.9 % Critically high 11.0-15.0 [facility] Comment on above: Performed By: #### P REALB, MG #### [facility] [address] [place] [address] Dr. Elvis Cifuentes SEG # 19.05 103/ul Critically high 1.40-6.50 [facility] Comment on above: Performed By: #### P REALB, MG #### [facility] [address] [place] [address] Dr. Elvis Cifuentes SEG % 87.0 % Critically high 43.0-75.0 [facility] Comment on above: Performed By: #### P REALB, MG #### [facility] [address] [place] [address] Dr. Elvis Cifuentes WBC 21.9 103/ul Critically high 4.0-11.0 [facility] Comment on above: Performed By: #### P REALB, MG #### [facility] [address] [place] [address] ABD/PELV W CONon 05-25-[address] ABD/PELV W CON EXAMINATION: CT ABD/ PELV W CON HISTORY: Mechanical ileus COMPARISON: 05/21/2022 TECHNIQUE: CT of abdomen/pelvis with intravenous and oral contrast. Dose reduction techniques were achieved by using automated exposure control and/or adjustment of mA and/or kV according to patient size and/or use of iterative reconstruction technique. 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 Normal [facility] Comment on above: Performed By: #### B LDCX2 #### [facility] [address] [place] [address] Dr. Elvis Cifuentes Microscopic examination of blood, culture Culture Observations: NO GROWTH AT 5 DAYS. Normal [facility] Comment on above: Performed By: #### P OCGLUC #### [facility] [address] [place] [address] Dr. Elvis Cifuentes LIVER PROFILEon 05-25-2022 Albumin [Mass/Vol] 2.0 g/dL Critically low 3.4-5.0 [facility] Comment on above: Performed By: #### C EA. #### [facility] [address] [place] [address] Dr. Elvis Cifuentes Albumin/Globulin [Mass ratio] 0.6 {ratio} Normal [facility] Comment on above: Performed By: #### C EA. #### [facility] [address] [place] [address] Dr. Elvis Cifuentes ALP [Catalytic activity/Vol] 53 U/L Normal 46-116 [facility] Comment on above: Performed By: #### C EA. #### [facility] [address] [place] [address] Dr. Elvis Cifuentes ALT [Catalytic activity/Vol] 17 U/L Normal 16-63 [facility] Comment on above: Performed By: #### C EA. #### [facility] [address] [place] [address] Dr. Elvis Cifuentes AST [Catalytic activity/Vol] 13 U/L Critically low 15-37 [facility] Comment on above: Performed By: #### C EA. #### [facility] [address] [place] [address] Dr. Elvis Cifuentes BILI, CONJUGATED 0.2 mg/dL Normal 0.0-0.2 [facility] Comment on above: Performed By: #### C EA. #### [facility] [address] [address] [address] Elvis Cifuentes Bilirubin [Mass/Vol] 0.5 mg/dL Normal 0.2-1.0 [facility] Comment on above: Performed By: #### C EA. #### [facility] [address] [place] [address] Dr. Elvis Cifuentes Globulin (S) [Mass/Vol] 3.4 g/dL Normal [facility] Comment on above: Performed By: #### C EA. #### [facility] [address] [place] [address] Dr. Elvis Cifuentes Protein [Mass/Vol] 5.4 g/dL Critically low 6.4-8.2 [facility] Comment on above: Performed By: #### C EA. #### [facility] [address] [place] [address] Dr. Elvis Cifuentes POINT OF CARE GLUCOSEon 05-08 Glucose [Mass/Vol] 123 mg/dL Critically high -106 [facility] Comment on above: Performed By: #### G IPANEL #### [facility] [address] [place] [address] Dr. Elvis Cifuentes Glucose [Mass/Vol] 122 mg/dL Critically high -106 [facility] Comment on above: Performed By: #### P OCGLUC #### [facility] [address] [place] [address] Dr. Elvis Cifuentes Glucose [Mass/Vol] 224 mg/dL Critically high 74-106 [facility] Comment on above: Performed By: #### H STROPN #### [facility] [address] [place] [address] Dr. Elvis Cifuentes PROF CHEM 8 (BAS METB)on Anion gap [Moles/Vol] 13.9 mmol/L Normal [facility] Comment on above: Performed By: #### H STROPN #### [facility] [address] [place] [address] Dr. Elvis Cifuentes Chloride [Moles/Vol] 120 mmol/L Critically high 98-107 [facility] Comment on above: Performed By: #### H STROPN #### [facility] [address] [place] [address] Dr. Elvis Cifuentes CO2 [Moles/Vol] 22.6 mmol/L Normal 21.0-32.0 [facility] Comment on above: Performed By: #### H STROPN #### [facility] [address] [place] [address] Dr. Elvis Cifuentes Creatinine [Mass/Vol] 1.48 mg/dL Critically high 0.70-1.30 [facility] Comment on above: Performed By: #### H STROPN #### [facility] [address] [place] [address] Dr. Elvis Cifuentes EGFR-AF GUYANESE 56 mL/min/1.73m2 Critically low >=60 [facility] Comment on above: Performed By: #### H STROPN #### [facility] [address] [place] [address] Dr. Elvis Cifuentes EGFR-NON AF GUYANESE 46 mL/min/1.73m2 Critically low >=60 [facility] Comment on above: Performed By: #### H STROPN #### [facility] [address] [place] [address] Dr. Elvis Cifuentes Glucose [Mass/Vol] 213 mg/dL Critically high 74-106 [facility] Comment on above: Performed By: #### H STROPN #### [facility] [address] [place] [address] Dr. Elvis Cifuentes Urea nitrogen/Creatinine [Mass ratio] 25.0 mg/mg Normal [facility] Comment on above: Performed By: #### H STROPN #### [facility] [address] [place] [address] Dr. Elvis Cifuentes Anion gap [Moles/Vol] 12.8 mmol/L Normal [facility] Comment on above: Performed By: #### C EA. #### [facility] [address] [place] [address] Dr. Evlis Cifuentes Calcium [Mass/Vol] 8.4 mg/dL Critically low 8.5-10.1 [facility] Comment on above: Performed By: #### H HEIDIPN #### [facility] [address] [place] [address] Dr. Elvis Cifuentes Performed By: #### C EA. #### [facility] [address] [place] [address] Dr. Elvis Cifuentes Chloride [Moles/Vol] 122 mmol/L Critically high 98-107 [facility] Comment on above: Result Comment: jItalia t Repeated. Critical Value Verified Performed By: #### C EA. #### [facility] [address] [place] [address] Dr. Elvis Cifuentes CO2 [Moles/Vol] 22.7 mmol/L Normal 21.0-32.0 [facility] Comment on above: Performed By: #### C EA. #### [facility] [address] [place] [address] Dr. Elvis Cifuentes Creatinine [Mass/Vol] 1.38 mg/dL Critically high 0.70-1.30 [facility] Comment on above: Performed By: #### C EA. #### [facility] [address] [place] [address] Dr. Elvis Cifuentes EGFR-AF GUYANESE >60 Normal >=60 [facility] Comment on above: Performed By: #### C EA. #### [facility] [address] [place] [address] Dr. Elvis Cifuentes EGFR-NON AF GUYANESE 50 mL/min/1.73m2 Critically low >=60 [facility] Comment on above: Performed By: #### C EA. #### [facility] [address] [place] [address] Dr. Elvis Cifuentes Glucose [Mass/Vol] 196 mg/dL Critically high 74-106 [facility] Comment on above: Performed By: #### C EA. #### [facility] [address] [place] [address] Dr. Elvis Cifuentes Potassium [Moles/Vol] 3.5 mmol/L Normal 3.5-5.1 [facility] Comment on above: Performed By: #### H HEIDIPN #### [facility] [address] [place] [address] Dr. Elvis Cifuentes Performed By: #### C EA. #### [facility] [address] [place] [address] Dr. Elvis Cifuentes Sodium [Moles/Vol] 154 mmol/L Critically high 136-145 [facility] Comment on above: Performed By: #### H STROPN #### [facility] [address] [place] [address] Dr. Elvis Cifuentes Performed By: #### C EA. #### [facility] [address] [place] [address] Dr. Elvis Cifuentes Urea nitrogen [Mass/Vol] 37.0 mg/dL Critically high 7.0-18.0 [facility] Comment on above: Performed By: #### H STROPN #### [facility] [address] [place] [address] Dr. Elvis Cifuentes Performed By: #### C EA. #### [facility] [address] [place] [address] Dr. Elvis Cifuentes Urea nitrogen/Creatinine [Mass ratio] 26.8 mg/mg Normal [facility] Comment on above: Performed By: #### C EA. #### [facility] [address] [place] [address] Dr. Elvis Cifuentes XR ABD FLAT_UPon 05-25-2022 [...] GEORGETTE GOLDMAN Date: 2022-05-25 09:49 Normal [facility] CBC W MANUAL DIFFon 05-24-20 22 ATYPICAL LYMPH # Normal [facility] Comment on above: Performed By: #### P REALB, MG #### [facility] [address] [place] [address] Dr. Elvis Cifuentes ATYPICAL LYMPH % Normal [facility] Comment on above: Performed By: #### P REALB, MG #### [facility] [address] [address] [address] Elvis Cifuentes BAND # 0.3 103/ul Normal 0.0-0.3 [facility] Comment on above: Performed By: #### P REALB, MG #### [facility] [address] [place] [address] Dr. Elvis Cifuentes BAND % 2 % Normal 0-5 [facility] Comment on above: Performed By: #### P REALB, MG #### [facility] [address] [place] [address] Dr. Elvis Cifuentes BASOM # 0.00 103/ul Normal 0.00-0.10 [facility] Comment on above: Performed By: #### P REALB, MG #### [facility] [address] [place] [address] Dr. Elvis Cifuentes BASOM % 0.0 % Critically low 0.2-2.0 [facility] Comment on above: Performed By: #### P REALB, MG #### [facility] [address] [place] [address] Dr. Elvis Cifuentes BLAST # Normal [facility] Comment on above: Performed By: #### P REALB, MG #### [facility] [address] [place] [address] Dr. Elvis Cifuentes BLAST % Normal [facility] Comment on above: Performed By: #### P REALB, MG #### [facility] [address] [place] [address] Dr. Elvis Cifuentes CORRECTED WBC Normal 4.0-11.0 [facility] Comment on above: Performed By: #### P REALB, MG #### [facility] [address] [address] [address] Elvis Cifuentes EOS # 0.00 103/ul Normal 0.00-0.70 [facility] Comment on above: Performed By: #### P REALB, MG #### [facility] [address] [address] [address] Elvis Cifuentes EOS% 0.0 % Critically low 0.9-7.0 [facility] Comment on above: Performed By: #### P REALB, MG #### [facility] [address] [address] [address] Elvis Cifuentes HCT 33.8 % Critically low 42.0-54.0 [facility] Comment on above: Performed By: #### P REALB, MG #### [facility] [address] [place] [address] Dr. Elvis Cifuentes HGB 10.8 g/dl Critically low 14.0-18.0 [facility] Comment on above: Performed By: #### P REALB, MG #### [facility] [address] [address] [address] Elvis Cifuentes LYMPHM # 0.80 103/ul Critically low 1.20-3.80 [facility] Comment on above: Performed By: #### P REALB, MG #### [facility] [address] [place] [address] Dr. Elvis Cifuentes LYMPHM% 5.0 % Critically low 20.5-60.0 [facility] Comment on above: Performed By: #### P REALB, MG #### [facility] [address] [address] [address] Elvis Cifuentes MCH 28.9 pg Normal 25.9-34.0 [facility] Comment on above: Performed By: #### P REALB, MG #### [facility] [address] [address] [address] Elvis Cifuentes MCHC 32.0 g/dl Normal 29.9-35.2 [facility] Comment on above: Performed By: #### P REALB, MG #### [facility] [address] [place] [address] Dr. Elvis Cifuentes MCV 90.4 fL Normal 80.0-94.0 [facility] Comment on above: Performed By: #### P REALB, MG #### [facility] [address] [place] [address] Dr. Elvis Cifuentes METAMYELOCYTE # Normal [facility] Comment on above: Performed By: #### P REALB, MG #### [facility] [address] [place] [address] Dr. Elvis Cifuentes METAMYELOCYTE % Normal [facility] Comment on above: Performed By: #### P REALB, MG #### [facility] [address] [place] [address] Dr. Elvis Cifuentes MONOM# 1.43 103/ul Critically high 0.30-0.80 [facility] Comment on above: Performed By: #### P REALB, MG #### [facility] [address] [place] [address] Dr. Elvis Cifuentes MONOM% 9.0 % Normal 1.7-12.0 [facility] Comment on above: Performed By: #### P REALB, MG #### [facility] [address] [place] [address] Dr. Elvis Cifuentes MPV 10.7 fL Normal 9.5-13.5 [facility] Comment on above: Performed By: #### P REALB, MG #### [facility] [address] [place] [address] Dr. Elvis Cifuentes MYELOCYTE # Normal [facility] Comment on above: Performed By: #### P REALB, MG #### [facility] [address] [place] [address] Dr. Elvis Cifuentes MYELOCYTE % Normal [facility] Comment on above: Performed By: #### P REALB, MG #### [facility] [address] [place] [address] Dr. Elvis Cifuentes NRBC Normal [facility] Comment on above: Performed By: #### P REALB, MG #### [facility] [address] [place] [address] Dr. Elvis Cifuentes PLT 214 103/ul Normal 150-450 [facility] Comment on above: Performed By: #### P REALB, MG #### [facility] [address] [place] [address] Dr. Elvis Cifuentes RBC 3.74 106/ul Critically low 4.70-6.10 [facility] Comment on above: Performed By: #### P REALB, MG #### [facility] [address] [place] [address] Dr. Elvis Cifuentes RDW 15.4 % Critically high 11.0-15.0 [facility] Comment on above: Performed By: #### P REALB, MG #### [facility] [address] [place] [address] Dr. Elvis Cifuentes SCHISTOCYTES 2+ Normal [facility] Comment on above: Performed By: #### P REALB, MG #### [facility] [address] [place] [address] Dr. Elvis Cifuentes SEG # 13.36 103/ul Critically high 1.40-6.50 [facility] Comment on above: Performed By: #### P REALB, MG #### [facility] [address] [place] [address] Dr. Elvis Cifuentes SEG % 84.0 % Critically high 43.0-75.0 [facility] Comment on above: Performed By: #### P REALB, MG #### [facility] [address] [place] [address] Dr. Elvis Cifuentes WBC 15.9 103/ul Critically high 4.0-11.0 [facility] Comment on above: Performed By: #### P REALB, MG #### [facility] [address] [place] [address] Dr. Elvis Cifuentes LIVER PROFILEon 05-24-2022 Albumin [Mass/Vol] 1.9 g/dL Critically low 3.4-5.0 [facility] Comment on above: Performed By: #### G IPANEL #### [facility] [address] [place] [address] Dr. Elvis Cifuentes Albumin/Globulin [Mass ratio] 0.5 {ratio} Normal [facility] Comment on above: Performed By: #### G IPANEL #### [facility] [address] [place] [address] Dr. Elvis Cifuentes ALP [Catalytic activity/Vol] 48 U/L Normal 46-116 [facility] Comment on above: Performed By: #### G IPANEL #### [facility] [address] [address] [address] Elvis Cifuentes ALT [Catalytic activity/Vol] 14 U/L Critically low 16-63 [facility] Comment on above: Performed By: #### G IPANEL #### [facility] [address] [place] [address] Dr. Elvis Cifuentes AST [Catalytic activity/Vol] 16 U/L Normal 15-37 [facility] Comment on above: Performed By: #### G IPANEL #### [facility] [address] [place] [address] Dr. Elvis Cifuentes BILI, CONJUGATED 0.2 mg/dL Normal 0.0-0.2 [facility] Comment on above: Performed By: #### G IPANEL #### [facility] [address] [place] [address] Dr. Elvis Cifuentes Bilirubin [Mass/Vol] 0.5 mg/dL Normal 0.2-1.0 [facility] Comment on above: Performed By: #### G IPANEL #### [facility] [address] [place] [address] Dr. Elvis Cifuentes Globulin (S) [Mass/Vol] 3.6 g/dL Normal [facility] Comment on above: Performed By: #### G IPANEL #### [facility] [address] [place] [address] Dr. Elvis Cifuentes Protein [Mass/Vol] 5.5 g/dL Critically low 6.4-8.2 [facility] Comment on above: Performed By: #### G IPANEL #### [facility] [address] [place] [address] Dr. Elvis Cifuentes POINT OF CARE GLUCOSEon 08- Glucose [Mass/Vol] 194 mg/dL Critically high 74-106 [facility] Comment on above: Performed By: #### B LDCX2 #### [facility] [address] [address] [address] Elvis Cifuentes Glucose [Mass/Vol] 193 mg/dL Critically high 74-106 [facility] Comment on above: Performed By: #### B LDCX2 #### [facility] [address] [address] [address] Elvis Cfiuentes Glucose [Mass/Vol] 204 mg/dL Critically high 74-106 [facility] Comment on above: Performed By: #### P REALB, MG #### [facility] [address] [place] [address] Dr. Elvis Cifuentes Glucose [Mass/Vol] 234 mg/dL Critically high 74-106 [facility] Comment on above: Performed By: #### P REALB, MG #### [facility] [address] [place] [address] Dr. Elvis Cifuentes PROF CHEM 8 (BAS METB)on Anion gap [Moles/Vol] 12.0 mmol/L Normal [facility] Comment on above: Performed By: #### P REALB, MG #### [facility] [address] [place] [address] Dr. Elvis Cifuentes Calcium [Mass/Vol] 8.3 mg/dL Critically low 8.5-10.1 [facility] Comment on above: Performed By: #### P REALB, MG #### [facility] [address] [place] [address] Dr. Elvis Cifuentes Chloride [Moles/Vol] 123 mmol/L Critically high 98-107 [facility] Comment on above: Performed By: #### P REALB, MG #### [facility] [address] [place] [address] Dr. Elvis Cifuentes CO2 [Moles/Vol] 23.7 mmol/L Normal 21.0-32.0 [facility] Comment on above: Performed By: #### P REALB, MG #### [facility] [address] [address] [address] Elvis Cifuentes Creatinine [Mass/Vol] 1.43 mg/dL Critically high 0.70-1.30 [facility] Comment on above: Performed By: #### P REALB, MG #### [facility] [address] [address] [address] Elvis Cifuentes EGFR-AF GUYANESE 58 mL/min/1.73m2 Critically low >=60 [facility] Comment on above: Performed By: #### P REALB, MG #### [facility] [address] [address] [address] Elvis Cifuentes EGFR-NON AF GUYANESE 48 mL/min/1.73m2 Critically low >=60 [facility] Comment on above: Performed By: #### P REALB, MG #### [facility] [address] [address] [address] Elvis Cifuentes Glucose [Mass/Vol] 221 mg/dL Critically high 74-106 [facility] Comment on above: Performed By: #### P REALB, MG #### [facility] [address] [address] [address] Elvis Cifuentes Potassium [Moles/Vol] 3.7 mmol/L Normal 3.5-5.1 [facility] Comment on above: Performed By: #### P REALB, MG #### [facility] [address] [address] [address] Elvis Cifuentes Sodium [Moles/Vol] 156 mmol/L Critically high 136-145 [facility] Comment on above: Performed By: #### P REALB, MG #### [facility] [address] [address] [address] Elvis Cifuentes Urea nitrogen [Mass/Vol] 36.0 mg/dL Critically high 7.0-18.0 [facility] Comment on above: Performed By: #### P REALB, MG #### [facility] [address] [address] [address] Elvis Cifuentes Urea nitrogen/Creatinine [Mass ratio] 25.2 mg/mg Normal [facility] Comment on above: Performed By: #### P REALB, MG #### [facility] [address] [address] [address] Elvis Cifuentes Anion gap [Moles/Vol] 15.0 mmol/L Normal [facility] Comment on above: Performed By: #### C EA. #### [facility] [address] [address] [address] Elvis Cifuentes Calcium [Mass/Vol] 8.5 mg/dL Normal 8.5-10.1 [facility] Comment on above: Performed By: #### C EA. #### [facility] [address] [address] [address] Elvis Cifuentes Chloride [Moles/Vol] 125 mmol/L Critically high 98-107 [facility] Comment on above: Performed By: #### C EA. #### [facility] [address] [address] [address] Elvis Cifuentes CO2 [Moles/Vol] 21.5 mmol/L Normal 21.0-32.0 [facility] Comment on above: Performed By: #### C EA. #### [facility] [address] [address] [address] Elvis Cifuentes Creatinine [Mass/Vol] 1.44 mg/dL Critically high 0.70-1.30 [facility] Comment on above: Performed By: #### C EA. #### [facility] [address] [address] [address] Elvis Cifuentes EGFR-AF GUYANESE 58 mL/min/1.73m2 Critically low >=60 [facility] Comment on above: Performed By: #### C EA. #### [facility] [address] [address] [address] Elvis Cifuentes EGFR-NON AF GUYANESE 48 mL/min/1.73m2 Critically low >=60 [facility] Comment on above: Performed By: #### C EA. #### [facility] [address] [address] [address] Elvis Cifuentes Glucose [Mass/Vol] 202 mg/dL Critically high 74-106 [facility] Comment on above: Performed By: #### C EA. #### [facility] [address] [address] [address] Elvis Cifuentes Potassium [Moles/Vol] 3.5 mmol/L Normal 3.5-5.1 [facility] Comment on above: Performed By: #### C EA. #### [facility] [address] [address] [address] Elvis Cifuentes Sodium [Moles/Vol] 159 mmol/L Critically high 136-145 [facility] Comment on above: Performed By: #### C EA. #### [facility] [address] [address] [address] Elvis Cifuentes Urea nitrogen [Mass/Vol] 38.0 mg/dL Critically high 7.0-18.0 [facility] Comment on above: Performed By: #### C EA. #### [facility] [address] [address] [address] Elvis Cifuentes Urea nitrogen/Creatinine [Mass ratio] 26.4 mg/mg Normal [facility] Comment on above: Performed By: #### C EA. #### [facility] [address] [address] [address] Elvis Cifuentes Anion gap [Moles/Vol] 13.8 mmol/L Normal [facility] Comment on above: Performed By: #### G IPANEL #### [facility] [address] [address] [address] Elvis Cifuentes Calcium [Mass/Vol] 8.5 mg/dL Normal 8.5-10.1 [facility] Comment on above: Performed By: #### G IPANEL #### [facility] [address] [address] [address] Elvis Cifuentes Chloride [Moles/Vol] 124 mmol/L Critically high 98-107 [facility] Comment on above: Performed By: #### G IPANEL #### [facility] [address] [address] [address] Elvis Cifuentes CO2 [Moles/Vol] 23.2 mmol/L Normal 21.0-32.0 [facility] Comment on above: Performed By: #### G IPANEL #### [facility] [address] [address] [address] Elvis Cifuentes Creatinine [Mass/Vol] 1.38 mg/dL Critically high 0.70-1.30 [facility] Comment on above: Performed By: #### G IPANEL #### [facility] [address] [address] [address] Elvis Cifuentes EGFR-AF GUYANESE >60 Normal >=60 [facility] Comment on above: Performed By: #### G IPANEL #### [facility] [address] [address] [address] Elvis Cifuentes EGFR-NON AF GUYANESE 50 mL/min/1.73m2 Critically low >=60 [facility] Comment on above: Performed By: #### G IPANEL #### [facility] [address] [address] [address] Elvis Cifuentes Glucose [Mass/Vol] 214 mg/dL Critically high 74-106 [facility] Comment on above: Performed By: #### G IPANEL #### [facility] [address] [address] [address] Elvis Cifuentes Potassium [Moles/Vol] 3.0 mmol/L Critically low 3.5-5.1 [facility] Comment on above: Performed By: #### G IPANEL #### [facility] [address] [address] [address] Elvis Cifuentes Sodium [Moles/Vol] 158 mmol/L Critically high 136-145 [facility] Comment on above: Performed By: #### G IPANEL #### [facility] [address] [address] [address] Elvis Cifuentes Urea nitrogen [Mass/Vol] 36.0 mg/dL Critically high 7.0-18.0 [facility] Comment on above: Performed By: #### G IPANEL #### [facility] [address] [address] [address] Elvis Cifuentes Urea nitrogen/Creatinine [Mass ratio] 26.1 mg/mg Normal [facility] Comment on above: Performed By: #### G IPANEL #### [facility] [address] [place] [address] Dr. Elvis Cifuentes UA RANDOM W/MICROSCOPICon BACTERIA TRACE Abnormal NONE SEEN [facility] Comment on above: Performed By: #### C EA. #### [facility] [address] [place] [address] Dr. Elvis Cifuentes Bilirubin Ql (U) Negative Normal NEGATIVE [facility] Comment on above: Performed By: #### C EA. #### [facility] [address] [place] [address] Dr. Elvis Cifuentes CAST SEEN Abnormal NONE SEEN [facility] Comment on above: Performed By: #### C EA. #### [facility] [address] [place] [address] Dr. Elvis Cifuentes Clarity (U) CLEAR Normal CLEAR [facility] Comment on above: Performed By: #### C EA. #### [facility] [address] [place] [address] Dr. Elvis Cifuentes COARSE GRANULAR CAST FEW Normal [facility] Comment on above: Performed By: #### C EA. #### [facility] [address] [place] [address] Dr. Elvis Cifuentes Color (U) YELLOW Normal YELLOW [facility] Comment on above: Performed By: #### C EA. #### [facility] [address] [place] [address] Dr. Elvis Cifuentes Crystals LM Nom (Urine sed) NONE SEEN Normal NONE SEEN [facility] Comment on above: Performed By: #### C EA. #### [facility] [address] [place] [address] Dr. Elvis Cifuentes Epithelial cells LM Ql (Urine sed) FEW Abnormal NONE SEEN /RARE [facility] Comment on above: Performed By: #### C EA. #### [facility] [address] [place] [address] Dr. Elvis Cifuentes Glucose Ql (U) Negative Normal NEGATIVE [facility] Comment on above: Performed By: #### C EA. #### [facility] [address] [place] [address] Dr. Elvis Cifuentes Hemoglobin Ql (U) TRACE-INTACT Abnormal NEGATIVE [facility] Comment on above: Performed By: #### C EA. #### [facility] [address] [place] [address] Dr. Elvis Cifuentes Ketones Ql (U) Negative Normal NEGATIVE [facility] Comment on above: Performed By: #### C EA. #### [facility] [address] [place] [address] Dr. Elvis Cifuentes LEUKOCYTES TRACE Abnormal NEGATIVE [facility] Comment on above: Performed By: #### C EA. #### [facility] [address] [place] [address] Dr. Elvis Cifuentes MUCOUS NONE SEEN Normal NONE SEEN [facility] Comment on above: Performed By: #### C EA. #### [facility] [address] [place] [address] Dr. Elvis Cifuentes Nitrite Ql (U) Negative Normal NEGATIVE [facility] Comment on above: Performed By: #### C EA. #### [facility] [address] [place] [address] Dr. Elvis Cifuentes pH (U) 5.5 [pH] Normal 5-9 [facility] Comment on above: Performed By: #### C EA. #### [facility] [address] [place] [address] Dr. Elvis Cifuentes RBC 0-2 Normal 0-2 [facility] Comment on above: Performed By: #### C EA. #### [facility] [address] [place] [address] Dr. Elvis Cifuentes SPEC GRAVITY 1.015 Normal 1.005-<=1.0 25 [facility] Comment on above: Performed By: #### C EA. #### [facility] [address] [place] [address] Dr. Elvis Cifuentes UA PROTEIN TRACE Normal NEGATIVE/ TRACE [facility] Comment on above: Performed By: #### C EA. #### [facility] [address] [place] [address] Dr. Elvis Cifuentes Urobilinogen Qn (U) 0.2 {Geovanna'U}/dL Normal 0.2 - 1. 0 [facility] Comment on above: Performed By: #### C EA. #### [facility] [address] [place] [address] Dr. Elvis Cifuentes WBC 2-5 Abnormal NONE SEEN [facility] Comment on above: Performed By: #### C EA. #### [facility] [address] [place] [address] Dr. Elvis Cifuentes CBC W MANUAL DIFFon 05-23-20 22 ANISOCYTOSIS SLIGHT Normal [facility] Comment on above: Performed By: #### P REALB, MG #### [facility] [address] [place] [address] Dr. Elvis Cifuentes ATYPICAL LYMPH # Normal [facility] Comment on above: Performed By: #### P REALB, MG #### [facility] [address] [place] [address] Dr. Elvis Cifuentes ATYPICAL LYMPH % Normal [facility] Comment on above: Performed By: #### P REALB, MG #### [facility] [address] [place] [address] Dr. Elvis Cifuentes BAND # Normal 0.0-0.3 [facility] Comment on above: Performed By: #### P REALB, MG #### [facility] [address] [place] [address] Dr. Elvis Cifuentes BAND % Normal 0-5 [facility] Comment on above: Performed By: #### P REALB, MG #### [facility] [address] [place] [address] Dr. Elvis Cifuentes BASOM # 0.00 103/ul Normal 0.00-0.10 [facility] Comment on above: Performed By: #### P REALB, MG #### [facility] [address] [place] [address] Dr. Elvis Cifuentes BASOM % 0.0 % Critically low 0.2-2.0 [facility] Comment on above: Performed By: #### P REALB, MG #### [facility] [address] [place] [address] Dr. Elvis Cifuentes BLAST # Normal [facility] Comment on above: Performed By: #### P REALB, MG #### [facility] [address] [address] [address] Elvis Cifuentes BLAST % Normal [facility] Comment on above: Performed By: #### P REALB, MG #### [facility] [address] [address] [address] Elvis Cifuentes CORRECTED WBC Normal 4.0-11.0 [facility] Comment on above: Performed By: #### P REALB, MG #### [facility] [address] [place] [address] Dr. Elvis Cifuentes EOS # 0.00 103/ul Normal 0.00-0.70 [facility] Comment on above: Performed By: #### P REALB, MG #### [facility] [address] [place] [address] Dr. Elvis Cifuentes EOS% 0.0 % Critically low 0.9-7.0 [facility] Comment on above: Performed By: #### P REALB, MG #### [facility] [address] [place] [address] Dr. Elvis Cifuentes HCT 35.0 % Critically low 42.0-54.0 [facility] Comment on above: Performed By: #### P REALB, MG #### [facility] [address] [place] [address] Dr. Elvis Cifuentes HGB 10.3 g/dl Critically low 14.0-18.0 [facility] Comment on above: Performed By: #### P REALB, MG #### [facility] [address] [place] [address] Dr. Elvis Cifuentes LYMPHM # 0.48 103/ul Critically low 1.20-3.80 [facility] Comment on above: Performed By: #### P REALB, MG #### [facility] [address] [address] [address] Elvis Cifuentes LYMPHM% 5.0 % Critically low 20.5-60.0 [facility] Comment on above: Performed By: #### P REALB, MG #### [facility] [address] [place] [address] Dr. Evlis Cifuentes MCH 28.5 pg Normal 25.9-34.0 [facility] Comment on above: Performed By: #### P REALB, MG #### [facility] [address] [place] [address] Dr. Elvis Cifuentes MCHC 29.4 g/dl Critically low 29.9-35.2 [facility] Comment on above: Performed By: #### P REALB, MG #### [facility] [address] [place] [address] Dr. Elvis Cifuentes MCV 96.7 fL Critically high 80.0-94.0 [facility] Comment on above: Performed By: #### P REALB, MG #### [facility] [address] [place] [address] Dr. Elvis Cifuentes METAMYELOCYTE # Normal [facility] Comment on above: Performed By: #### P REALB, MG #### [facility] [address] [place] [address] Dr. Elvis Cifuentes METAMYELOCYTE % Normal [facility] Comment on above: Performed By: #### P REALB, MG #### [facility] [address] [place] [address] Dr. Elvis Cifuentes MONOM# 0.39 103/ul Normal 0.30-0.80 [facility] Comment on above: Performed By: #### P REALB, MG #### [facility] [address] [place] [address] Dr. Elvis Cifuentes MONOM% 4.0 % Normal 1.7-12.0 [facility] Comment on above: Performed By: #### P REALB, MG #### [facility] [address] [place] [address] Dr. Elvis Cifuentes MPV 10.6 fL Normal 9.5-13.5 [facility] Comment on above: Performed By: #### P REALB, MG #### [facility] [address] [place] [address] Dr. Elvis Cifuentes MYELOCYTE # Normal [facility] Comment on above: Performed By: #### P REALB, MG #### [facility] [address] [place] [address] Dr. Elvis Cifuentes MYELOCYTE % Normal [facility] Comment on above: Performed By: #### P REALB, MG #### [facility] [address] [place] [address] Dr. Elvis Cifuentes NRBC Normal [facility] Comment on above: Performed By: #### P REALB, MG #### [facility] [address] [address] [address] Elvis Cifuentes PLT 190 103/ul Normal 150-450 [facility] Comment on above: Performed By: #### P REALB, MG #### [facility] [address] [place] [address] Dr. Elvis Cifuentes RBC 3.62 106/ul Critically low 4.70-6.10 [facility] Comment on above: Performed By: #### P REALB, MG #### [facility] [address] [place] [address] Dr. Elvis Cifuentes RDW 15.9 % Critically high 11.0-15.0 [facility] Comment on above: Performed By: #### P REALB, MG #### [facility] [address] [place] [address] Dr. Elvis Cifuentes SEG # 8.83 103/ul Critically high 1.40-6.50 [facility] Comment on above: Performed By: #### P REALB, MG #### [facility] [address] [place] [address] Dr. Elvis Cifuentes SEG % 91.0 % Critically high 43.0-75.0 [facility] Comment on above: Performed By: #### P REALB, MG #### [facility] [address] [place] [address] Dr. Elvis Cifuentes WBC 9.7 103/ul Normal 4.0-11.0 [facility] Comment on above: Performed By: #### P REALB, MG #### [facility] [address] [address] [address] Elvis Cifuentes CTA CHEST WO W [...] by: GEORGETTE GOLDMAN Date: 2022-05-23 10:55 Normal [facility] LIVER PROFILEon 05-23-2022 Albumin [Mass/Vol] 2.0 g/dL Critically low 3.4-5.0 [facility] Comment on above: Performed By: #### L IVER #### [facility] [address] [address] [address] Elvis Cifuentes Albumin/Globulin [Mass ratio] 0.5 {ratio} Normal [facility] Comment on above: Performed By: #### L IVER #### [facility] [address] [address] [address] Elvis Cifuentes ALP [Catalytic activity/Vol] 41 U/L Critically low 46-116 [facility] Comment on above: Performed By: #### L IVER #### [facility] [address] [address] [address] Elvis Cifuentes ALT [Catalytic activity/Vol] 11 U/L Critically low 16-63 [facility] Comment on above: Performed By: #### L IVER #### [facility] [address] [address] [address] Elvis Cifuentes AST [Catalytic activity/Vol] 13 U/L Critically low 15-37 [facility] Comment on above: Performed By: #### L IVER #### [facility] [address] [address] [address] Elvis Cifuentes BILI, CONJUGATED 0.3 mg/dL Critically high 0.0-0.2 [facility] Comment on above: Performed By: #### L IVER #### [facility] [address] [address] [address] Elvis Cifuentes Bilirubin [Mass/Vol] 0.6 mg/dL Normal 0.2-1.0 [facility] Comment on above: Performed By: #### L IVER #### [facility] [address] [address] [address] Elvis Cifuentes Globulin (S) [Mass/Vol] 3.8 g/dL Normal [facility] Comment on above: Performed By: #### L IVER #### [facility] [address] [address] [address] Elvis Cifuentes Protein [Mass/Vol] 5.8 g/dL Critically low 6.4-8.2 [facility] Comment on above: Performed By: #### L IVER #### [facility] [address] [address] [address] Elvis Cifuentes Albumin [Mass/Vol] 1.8 g/dL Critically low 3.4-5.0 [facility] Comment on above: Performed By: #### P OCGLUC #### [facility] [address] [address] [address] Elvis Cifuentes Albumin/Globulin [Mass ratio] 0.5 {ratio} Normal [facility] Comment on above: Performed By: #### P OCGLUC #### [facility] [address] [address] [address] Elvis Cifuentes ALP [Catalytic activity/Vol] 34 U/L Critically low 46-116 [facility] Comment on above: Performed By: #### P OCGLUC #### [facility] [address] [address] [address] Elvis Cifuentes ALT [Catalytic activity/Vol] 12 U/L Critically low 16-63 [facility] Comment on above: Performed By: #### P OCGLUC #### [facility] [address] [address] [address] Elvis Cifuentes AST [Catalytic activity/Vol] 14 U/L Critically low 15-37 [facility] Comment on above: Performed By: #### P OCGLUC #### [facility] [address] [address] [address] Elvis Cifuentes BILI, CONJUGATED 0.3 mg/dL Critically high 0.0-0.2 [facility] Comment on above: Performed By: #### P OCGLUC #### [facility] [address] [address] [address] Elvis Cifuentes Bilirubin [Mass/Vol] 0.6 mg/dL Normal 0.2-1.0 [facility] Comment on above: Performed By: #### P OCGLUC #### [facility] [address] [address] [address] Elvis Cifuentes Globulin (S) [Mass/Vol] 3.3 g/dL Normal [facility] Comment on above: Performed By: #### P OCGLUC #### [facility] [address] [address] [address] Elvis Cifuentes Protein [Mass/Vol] 5.1 g/dL Critically low 6.4-8.2 [facility] Comment on above: Performed By: #### P OCGLUC #### [facility] [address] [address] [address] Elvis Cifuentes POINT OF CARE GLUCOSEon 05-08 Glucose [Mass/Vol] 212 mg/dL Critically high 74-106 [facility] Comment on above: Performed By: #### P REALB, MG #### [facility] [address] [address] [address] Elvis Cifuentes Glucose [Mass/Vol] 213 mg/dL Critically high 74-106 [facility] Comment on above: Performed By: #### C EA. #### [facility] [address] [address] [address] Elvis Cifuentes Glucose [Mass/Vol] 179 mg/dL Critically high 74-106 [facility] Comment on above: Performed By: #### B LDCX2 #### [facility] [address] [address] [address] Elvis Cifuentes Glucose [Mass/Vol] 187 mg/dL Critically high 74-106 [facility] Comment on above: Performed By: #### C EA. #### [facility] [address] [place] [address] Dr. Elvis Cifuentes PROF CHEM 8 (BAS METB)on Anion gap [Moles/Vol] 13.5 mmol/L Normal [facility] Comment on above: Performed By: #### P REALB, MG #### [facility] [address] [place] [address] Dr. Elvis Cifuentes Calcium [Mass/Vol] 8.6 mg/dL Normal 8.5-10.1 [facility] Comment on above: Performed By: #### P REALB, MG #### [facility] [address] [place] [address] Dr. Elvis Cifuentes Chloride [Moles/Vol] 121 mmol/L Critically high 98-107 [facility] Comment on above: Performed By: #### P REALB, MG #### [facility] [address] [place] [address] Dr. Elvis Cifuentes CO2 [Moles/Vol] 23.8 mmol/L Normal 21.0-32.0 [facility] Comment on above: Performed By: #### P REALB, MG #### [facility] [address] [place] [address] Dr. Elvis Cifuentes Creatinine [Mass/Vol] 1.35 mg/dL Critically high 0.70-1.30 [facility] Comment on above: Performed By: #### P REALB, MG #### [facility] [address] [place] [address] Dr. Elvis Cifuentes EGFR-AF GUYANESE >60 Normal >=60 [facility] Comment on above: Performed By: #### P REALB, MG #### [facility] [address] [place] [address] Dr. Elvis Cifuentes EGFR-NON AF GUYANESE 51 mL/min/1.73m2 Critically low >=60 [facility] Comment on above: Performed By: #### P REALB, MG #### [facility] [address] [place] [address] Dr. Elvis Cifuentes Glucose [Mass/Vol] 215 mg/dL Critically high 74-106 [facility] Comment on above: Performed By: #### P REALB, MG #### [facility] [address] [place] [address] Dr. Elvis Cifuentes Potassium [Moles/Vol] 3.4 mmol/L Critically low 3.5-5.1 [facility] Comment on above: Performed By: #### P REALB, MG #### [facility] [address] [place] [address] Dr. Elvis Cifuentes Sodium [Moles/Vol] 156 mmol/L Critically high 136-145 [facility] Comment on above: Performed By: #### P REALB, MG #### [facility] [address] [place] [address] Dr. Elvis Cifuentes Urea nitrogen [Mass/Vol] 34.0 mg/dL Critically high 7.0-18.0 [facility] Comment on above: Performed By: #### P REALB, MG #### [facility] [address] [place] [address] Dr. Elvis Cifuentes Urea nitrogen/Creatinine [Mass ratio] 25.2 mg/mg Normal [facility] Comment on above: Performed By: #### P REALB, MG #### [facility] [address] [place] [address] Dr. Elvis Cifuentes Anion gap [Moles/Vol] 14.0 mmol/L Normal [facility] Comment on above: Performed By: #### B LDCX2 #### [facility] [address] [place] [address] Dr. Elvis Cifuentes Calcium [Mass/Vol] 8.2 mg/dL Critically low 8.5-10.1 [facility] Comment on above: Performed By: #### B LDCX2 #### [facility] [address] [address] [address] Elvis Cifuentes Chloride [Moles/Vol] 114 mmol/L Critically high 98-107 [facility] Comment on above: Performed By: #### B LDCX2 #### [facility] [address] [address] [address] Elvis Cifuentes CO2 [Moles/Vol] 22.9 mmol/L Normal 21.0-32.0 [facility] Comment on above: Performed By: #### B LDCX2 #### [facility] [address] [place] [address] Dr. Elvis Cifuentes Creatinine [Mass/Vol] 1.56 mg/dL Critically high 0.70-1.30 [facility] Comment on above: Performed By: #### B LDCX2 #### [facility] [address] [place] [address] Dr. Elvis Cifuentes EGFR-AF GUYANESE 53 mL/min/1.73m2 Critically low >=60 [facility] Comment on above: Performed By: #### B LDCX2 #### [facility] [address] [place] [address] Dr. Elvis Cifuentes EGFR-NON AF GUYANESE 43 mL/min/1.73m2 Critically low >=60 [facility] Comment on above: Performed By: #### B LDCX2 #### [facility] [address] [place] [address] Dr. Elvis Cifuentes Glucose [Mass/Vol] 1069 mg/dL Critically high 74-106 [facility] Comment on above: Performed By: #### B LDCX2 #### [facility] [address] [place] [address] Dr. Elvis Cifuentes Potassium [Moles/Vol] 4.9 mmol/L Normal 3.5-5.1 [facility] Comment on above: Performed By: #### B LDCX2 #### [facility] [address] [address] [address] Elvis Cifuentes Sodium [Moles/Vol] 146 mmol/L Critically high 136-145 [facility] Comment on above: Performed By: #### B LDCX2 #### [facility] [address] [address] [address] Elvis Cifuentes Urea nitrogen [Mass/Vol] 32.0 mg/dL Critically high 7.0-18.0 [facility] Comment on above: Performed By: #### B LDCX2 #### [facility] [address] [address] [address] Elvis Cifuentes Urea nitrogen/Creatinine [Mass ratio] 20.5 mg/mg Normal [facility] Comment on above: Performed By: #### B LDCX2 #### [facility] [address] [address] [address] Elvis Cifuentes XR ABD FLAT_UPon 05-23-2022 [...] by: GEORGETTE GOLDMAN Date: 2022-05-23 07:29 Normal [facility] XR CHEST 1 Von 05-23-2022 [...] DOMENICO FERNANDEZ Date: 2022-05-23 03:21 Normal [facility] CBC AUTO DIFFon 05-22-2022 BASO # 0.0 103/ul Normal 0.0-0.1 [facility] Comment on above: Performed By: #### C EA. #### [facility] [address] [place] [address] Dr. Elvis Cifuentes Basophils/100 WBC (Bld) 0.1 % Critically low 0.2-2.0 [facility] Comment on above: Performed By: #### C EA. #### [facility] [address] [place] [address] Dr. Elvis Cifuentes EO # 0.1 103/ul Normal 0.0-0.7 [facility] Comment on above: Performed By: #### C EA. #### [facility] [address] [place] [address] Dr. Elvis Cifuentes Eosinophils/100 WBC (Bld) 0.7 % Critically low 0.9-7.0 [facility] Comment on above: Performed By: #### C EA. #### [facility] [address] [place] [address] Dr. Elvis Cifuentes Erythrocyte distribution width (RBC) [Ratio] 14.7 % Normal 11.0-15.0 [facility] Comment on above: Performed By: #### C EA. #### [facility] [address] [place] [address] Dr. Elvis Cifuentes Hematocrit (Bld) [Volume fraction] 32.5 % Critically low 42.0-54.0 [facility] Comment on above: Performed By: #### C EA. #### [facility] [address] [place] [address] Dr. Elvis Cifuentes Hemoglobin (Bld) [Mass/Vol] 10.2 g/dL Critically low 14.0-18.0 [facility] Comment on above: Performed By: #### C EA. #### [facility] [address] [place] [address] Dr. Elvis Cifuentes IG # 0.05 10e3/ul Critically high 0.00-0.03 [facility] Comment on above: Performed By: #### C EA. #### [facility] [address] [place] [address] Dr. Elvis Cifuentes IG % 0.7 % Critically high 0.0-0.5 [facility] Comment on above: Performed By: #### C EA. #### [facility] [address] [place] [address] Dr. Elvis Cifuentes LYMPH # 0.4 103/ul Critically low 1.2-3.8 [facility] Comment on above: Performed By: #### C EA. #### [facility] [address] [place] [address] Dr. Elvis Cifuentes Lymphocytes/100 WBC (Bld) 6.5 % Critically low 20.5-60.0 [facility] Comment on above: Performed By: #### C EA. #### [facility] [address] [place] [address] Dr. Elvis Cifuentes MANUAL DIFF REQ NO Normal [facility] Comment on above: Performed By: #### C EA. #### [facility] [address] [place] [address] Dr. Elvis Cifuentes MCH (RBC) [Entitic mass] 28.5 pg Normal 25.9-34.0 [facility] Comment on above: Performed By: #### C EA. #### [facility] [address] [place] [address] Dr. Elvis Cifuentes MCHC (RBC) [Mass/Vol] 31.4 g/dL Normal 29.9-35.2 [facility] Comment on above: Performed By: #### C EA. #### [facility] [address] [place] [address] Dr. Elvis Cifuentes MCV (RBC) [Entitic vol] 90.8 fL Normal 80.0-94.0 [facility] Comment on above: Performed By: #### C EA. #### [facility] [address] [place] [address] Dr. Elvis Cifuentes MONO # 0.5 103/ul Normal 0.3-0.8 [facility] Comment on above: Performed By: #### C EA. #### [facility] [address] [place] [address] Dr. Elvis Cifuentes Monocytes/100 WBC (Bld) 7.5 % Normal 1.7-12.0 [facility] Comment on above: Performed By: #### C EA. #### [facility] [address] [place] [address] Dr. Elvis Cifuentes NEUT # 5.7 103/ul Normal 1.4-6.5 [facility] Comment on above: Performed By: #### C EA. #### [facility] [address] [place] [address] Dr. Elvis Cifuentes Neutrophils/100 WBC (Bld) 84.5 % Critically high 43.0-75.0 [facility] Comment on above: Performed By: #### C EA. #### [facility] [address] [place] [address] Dr. Elvis Cifuentes Platelet mean volume (Bld) [Entitic vol] 10.4 fL Normal 9.5-13.5 [facility] Comment on above: Performed By: #### C EA. #### [facility] [address] [place] [address] Dr. Elvis Cifuentes PLT 248 103/ul Normal 150-450 [facility] Comment on above: Performed By: #### C EA. #### [facility] [address] [place] [address] Dr. Elvis Cifuentes RBC 3.58 106/ul Critically low 4.70-6.10 [facility] Comment on above: Performed By: #### C EA. #### [facility] [address] [place] [address] Dr. Elvis Cifuentes WBC 6.8 103/ul Normal 4.0-11.0 [facility] Comment on above: Performed By: #### C EA. #### [facility] [address] [place] [address] Dr. Elvis Cifuentes POINT OF CARE GLUCOSEon 05-08 Glucose [Mass/Vol] 198 mg/dL Critically high 74-106 [facility] Comment on above: Performed By: #### P REALB, MG #### [facility] [address] [place] [address] Dr. Elvis Cifuentes Glucose [Mass/Vol] 247 mg/dL Critically high 74-106 [facility] Comment on above: Performed By: #### P OCGLUC #### [facility] [address] [place] [address] Dr. Elvis Cifuentes Glucose [Mass/Vol] 212 mg/dL Critically high 74-106 [facility] Comment on above: Performed By: #### H STROPN #### [facility] [address] [place] [address] Dr. Elvis Cifuentes Glucose [Mass/Vol] 186 mg/dL Critically high 74-106 [facility] Comment on above: Performed By: #### P REALB, MG #### [facility] [address] [place] [address] Dr. Elvis Cifuentes PREALBUMINon 05-22-2022 Prealbumin [Mass/Vol] 10.3 mg/dL Critically low 20.9-45.5 [facility] Comment on above: Performed By: #### P REALB, MG #### [facility] [address] [place] [address] Dr. Elvis Cifuentes PROF CHEM 8 (BAS METB)on Anion gap [Moles/Vol] 12.4 mmol/L Normal [facility] Comment on above: Performed By: #### H STROPN #### [facility] [address] [place] [address] Dr. Elvis Cifuentes Calcium [Mass/Vol] 8.3 mg/dL Critically low 8.5-10.1 [facility] Comment on above: Performed By: #### H STROPN #### [facility] [address] [place] [address] Dr. Elvis Cifuentes Chloride [Moles/Vol] 114 mmol/L Critically high 98-107 [facility] Comment on above: Performed By: #### H STROPN #### [facility] [address] [address] [address] Elvis Cifuentes CO2 [Moles/Vol] 24.8 mmol/L Normal 21.0-32.0 [facility] Comment on above: Performed By: #### H STROPN #### [facility] [address] [address] [address] Elvis Cifuentes Creatinine [Mass/Vol] 1.23 mg/dL Normal 0.70-1.30 [facility] Comment on above: Performed By: #### H STROPN #### [facility] [address] [address] [address] Elvis Cifuentes EGFR-AF GUYANESE >60 Normal >=60 [facility] Comment on above: Performed By: #### H STROPN #### [facility] [address] [address] [address] Elvis Cifuentes EGFR-NON AF GUYANESE 57 mL/min/1.73m2 Critically low >=60 [facility] Comment on above: Performed By: #### H STROPN #### [facility] [address] [address] [address] Elvis Cifuentes Glucose [Mass/Vol] 222 mg/dL Critically high 74-106 [facility] Comment on above: Performed By: #### H STROPN #### [facility] [address] [address] [address] Elvis Cifuentes Potassium [Moles/Vol] 3.2 mmol/L Critically low 3.5-5.1 [facility] Comment on above: Performed By: #### H STROPN #### [facility] [address] [address] [address] Elvis Cifuentes Sodium [Moles/Vol] 148 mmol/L Critically high 136-145 [facility] Comment on above: Performed By: #### H STROPN #### [facility] [address] [address] [address] Elvis Cifuentes Urea nitrogen [Mass/Vol] 31.0 mg/dL Critically high 7.0-18.0 [facility] Comment on above: Performed By: #### H STROPN #### [facility] [address] [place] [address] Dr. Elvis Cifuentes Urea nitrogen/Creatinine [Mass ratio] 25.2 mg/mg Normal [facility] Comment on above: Performed By: #### H STROPN #### [facility] [address] [place] [address] Dr. Elvis Cifuentes CBC W MANUAL DIFFon 05-21-20 22 ATYPICAL LYMPH # Normal [facility] Comment on above: Performed By: #### B LDCX2 #### [facility] [address] [place] [address] Dr. Elvis Cifuentes ATYPICAL LYMPH % Normal [facility] Comment on above: Performed By: #### B LDCX2 #### [facility] [address] [place] [address] Dr. Elvis Cifuentes BAND # 0.4 103/ul Critically high 0.0-0.3 [facility] Comment on above: Performed By: #### B LDCX2 #### [facility] [address] [place] [address] Dr. Elvis Cifuentes BAND % 5 % Normal 0-5 [facility] Comment on above: Performed By: #### B LDCX2 #### [facility] [address] [place] [address] Dr. Elvis Cifuentes BASOM # 0.00 103/ul Normal 0.00-0.10 [facility] Comment on above: Performed By: #### B LDCX2 #### [facility] [address] [place] [address] Dr. Elvis Cifuentes BASOM % 0.0 % Critically low 0.2-2.0 [facility] Comment on above: Performed By: #### B LDCX2 #### [facility] [address] [place] [address] Dr. Elvis Cifuentes BLAST # Normal [facility] Comment on above: Performed By: #### B LDCX2 #### [facility] [address] [place] [address] Dr. Elvis Cifuentes BLAST % Normal [facility] Comment on above: Performed By: #### B LDCX2 #### [facility] [address] [address] [address] Elvis Cifuentes CORRECTED WBC Normal 4.0-11.0 [facility] Comment on above: Performed By: #### B LDCX2 #### [facility] [address] [place] [address] Dr. Elvis Cifuentes EOS # 0.00 103/ul Normal 0.00-0.70 [facility] Comment on above: Performed By: #### B LDCX2 #### [facility] [address] [address] [address] Elvis Cifuentes EOS% 0.0 % Critically low 0.9-7.0 [facility] Comment on above: Performed By: #### B LDCX2 #### [facility] [address] [place] [address] Dr. Elvis Cifuentes HCT 31.8 % Critically low 42.0-54.0 [facility] Comment on above: Performed By: #### B LDCX2 #### [facility] [address] [place] [address] Dr. Elvis Cifuentes HGB 10.2 g/dl Critically low 14.0-18.0 [facility] Comment on above: Performed By: #### B LDCX2 #### [facility] [address] [place] [address] Dr. Elvis Cifuentes HYPOCHROMASIA 2+ Normal [facility] Comment on above: Performed By: #### B LDCX2 #### [facility] [address] [place] [address] Dr. Elvis Cifuentes LYMPHM # 0.08 103/ul Critically low 1.20-3.80 [facility] Comment on above: Performed By: #### B LDCX2 #### [facility] [address] [place] [address] Dr. Elvis Cifuentes LYMPHM% 1.0 % Critically low 20.5-60.0 [facility] Comment on above: Performed By: #### B LDCX2 #### [facility] [address] [place] [address] Dr. Elvis Cifuentes MCH 28.8 pg Normal 25.9-34.0 [facility] Comment on above: Performed By: #### B LDCX2 #### [facility] [address] [place] [address] Dr. Elvis Cifuentes MCHC 32.1 g/dl Normal 29.9-35.2 [facility] Comment on above: Performed By: #### B LDCX2 #### [facility] [address] [place] [address] Dr. Elvis Cifuentes MCV 89.8 fL Normal 80.0-94.0 [facility] Comment on above: Performed By: #### B LDCX2 #### [facility] [address] [place] [address] Dr. Elvis Cifuentes METAMYELOCYTE # Normal [facility] Comment on above: Performed By: #### B LDCX2 #### [facility] [address] [place] [address] Dr. Elvis Cifuentes METAMYELOCYTE % Normal [facility] Comment on above: Performed By: #### B LDCX2 #### [facility] [address] [place] [address] Dr. Elvis Cifuentes MONOM# 0.08 103/ul Critically low 0.30-0.80 [facility] Comment on above: Performed By: #### B LDCX2 #### [facility] [address] [place] [address] Dr. Elvis Cfiuentes MONOM% 1.0 % Critically low 1.7-12.0 [facility] Comment on above: Performed By: #### B LDCX2 #### [facility] [address] [place] [address] Dr. Elvis Cifuentes MPV 10.7 fL Normal 9.5-13.5 [facility] Comment on above: Performed By: #### B LDCX2 #### [facility] [address] [place] [address] Dr. Elvis Cifuentes MYELOCYTE # Normal [facility] Comment on above: Performed By: #### B LDCX2 #### [facility] [address] [place] [address] Dr. Elvis Cifuentes MYELOCYTE % Normal [facility] Comment on above: Performed By: #### B LDCX2 #### [facility] [address] [address] [address] Elvis Cifuentes NRBC Normal [facility] Comment on above: Performed By: #### B LDCX2 #### [facility] [address] [address] [address] Elvis Cifuentes PLT 247 103/ul Normal 150-450 [facility] Comment on above: Performed By: #### B LDCX2 #### [facility] [address] [place] [address] Dr. Elvis Cifuentes POIKILOCYTOSIS 2+ Normal [facility] Comment on above: Performed By: #### B LDCX2 #### [facility] [address] [place] [address] Dr. Elvis Cifuentes RBC 3.54 106/ul Critically low 4.70-6.10 [facility] Comment on above: Performed By: #### B LDCX2 #### [facility] [address] [place] [address] Dr. Elvis Cifuentes RDW 14.6 % Normal 11.0-15.0 [facility] Comment on above: Performed By: #### B LDCX2 #### [facility] [address] [place] [address] Dr. Elvis Cifuentes SEG # 7.81 103/ul Critically high 1.40-6.50 [facility] Comment on above: Performed By: #### B LDCX2 #### [facility] [address] [place] [address] Dr. Elvis Cifuentes SEG % 93.0 % Critically high 43.0-75.0 [facility] Comment on above: Performed By: #### B LDCX2 #### [facility] [address] [place] [address] Dr. Elvis Cifuentes WBC 8.4 103/ul Normal 4.0-11.0 [facility] Comment on above: Performed By: #### B LDCX2 #### [facility] [address] [place] [address] ABD/PELVIS WO CONon [...] ELIUD ELLIS Date: 2022-05-21 13:48 Normal [facility] MAGNESIUMon 05-21-2022 Magnesium [Mass/Vol] 1.8 mg/dL Normal 1.8-2.4 [facility] Comment on above: Performed By: #### P REALB, MG #### [facility] [address] [address] [address] Elvis Cifuentes PREALBUMINon 05-21-2022 Prealbumin [Mass/Vol] 11.0 mg/dL Critically low 20.9-45.5 [facility] Comment on above: Performed By: #### P REALB, MG #### [facility] [address] [address] [address] Elvis Cifuentes PROF CHEM 8 (BAS METB)on Anion gap [Moles/Vol] 14.6 mmol/L Normal [facility] Comment on above: Performed By: #### B LDCX2 #### [facility] [address] [place] [address] Dr. Elvis Cifuentes Calcium [Mass/Vol] 8.4 mg/dL Critically low 8.5-10.1 [facility] Comment on above: Performed By: #### B LDCX2 #### [facility] [address] [place] [address] Dr. Elvis Cifuentes Chloride [Moles/Vol] 111 mmol/L Critically high 98-107 [facility] Comment on above: Performed By: #### B LDCX2 #### [facility] [address] [place] [address] Dr. Elvis Cifuentes CO2 [Moles/Vol] 23.3 mmol/L Normal 21.0-32.0 [facility] Comment on above: Performed By: #### B LDCX2 #### [facility] [address] [place] [address] Dr. Elvis Cifuentes Creatinine [Mass/Vol] 1.24 mg/dL Normal 0.70-1.30 [facility] Comment on above: Performed By: #### B LDCX2 #### [facility] [address] [place] [address] Dr. Elvis Cifuentes EGFR-AF GUYANESE >60 Normal >=60 [facility] Comment on above: Performed By: #### B LDCX2 #### [facility] [address] [place] [address] Dr. Elvis Cifuentes EGFR-NON AF GUYANESE 57 mL/min/1.73m2 Critically low >=60 [facility] Comment on above: Performed By: #### B LDCX2 #### [facility] [address] [place] [address] Dr. Elvis Cifuentes Glucose [Mass/Vol] 138 mg/dL Critically high 74-106 [facility] Comment on above: Performed By: #### B LDCX2 #### [facility] [address] [place] [address] Dr. Elvis Cifuentes Potassium [Moles/Vol] 3.9 mmol/L Normal 3.5-5.1 [facility] Comment on above: Performed By: #### B LDCX2 #### [facility] [address] [address] [address] Elvis Cifuentes Sodium [Moles/Vol] 145 mmol/L Normal 136-145 [facility] Comment on above: Performed By: #### B LDCX2 #### [facility] [address] [address] [address] Elvis Cifuentes Urea nitrogen [Mass/Vol] 33.0 mg/dL Critically high 7.0-18.0 [facility] Comment on above: Performed By: #### B LDCX2 #### [facility] [address] [address] [address] Elvis Cifuentes Urea nitrogen/Creatinine [Mass ratio] 26.6 mg/mg Normal [facility] Comment on above: Performed By: #### B LDCX2 #### [facility] [address] [place] [address] Dr. Elvis Cifuentes XR CHEST 1 Von [...] by: ELIUD ELLIS Date: 2022-05-21 15:55 Normal [facility] XR KUB 1 VIEWon 05-21-2022 XR [...] ELIUD ELLIS Date: 2022-05-21 15:55 Normal [facility] CBC AUTO DIFFon 05-20-2022 BASO # 0.0 103/ul Normal 0.0-0.1 [facility] Comment on above: Performed By: #### B LDCX2 #### [facility] [address] [address] [address] Elvis Cifuentes Basophils/100 WBC (Bld) 0.1 % Critically low 0.2-2.0 [facility] Comment on above: Performed By: #### B LDCX2 #### [facility] [address] [place] [address] Dr. Elvis Cifuentes EO # 0.0 103/ul Normal 0.0-0.7 [facility] Comment on above: Performed By: #### B LDCX2 #### [facility] [address] [address] [address] Elvis Cifuentes Eosinophils/100 WBC (Bld) 0.0 % Critically low 0.9-7.0 [facility] Comment on above: Performed By: #### B LDCX2 #### [facility] [address] [place] [address] Dr. lEvis Cifuentes Erythrocyte distribution width (RBC) [Ratio] 14.6 % Normal 11.0-15.0 [facility] Comment on above: Performed By: #### B LDCX2 #### [facility] [address] [place] [address] Dr. Elvis Cifuentes Hematocrit (Bld) [Volume fraction] 31.8 % Critically low 42.0-54.0 [facility] Comment on above: Performed By: #### B LDCX2 #### [facility] [address] [place] [address] Dr. Elvis Cifuentes Hemoglobin (Bld) [Mass/Vol] 10.2 g/dL Critically low 14.0-18.0 [facility] Comment on above: Performed By: #### B LDCX2 #### [facility] [address] [address] [address] Elvis Cifuentes IG # 0.07 10e3/ul Critically high 0.00-0.03 [facility] Comment on above: Performed By: #### B LDCX2 #### [facility] [address] [address] [address] Elvis Cifuentes IG % 0.5 % Normal 0.0-0.5 [facility] Comment on above: Performed By: #### B LDCX2 #### [facility] [address] [address] [address] Elvis Cifuentes LYMPH # 0.3 103/ul Critically low 1.2-3.8 [facility] Comment on above: Performed By: #### B LDCX2 #### [facility] [address] [place] [address] Dr. Elvis Cifuentes Lymphocytes/100 WBC (Bld) 1.9 % Critically low 20.5-60.0 [facility] Comment on above: Performed By: #### B LDCX2 #### [facility] [address] [place] [address] Dr. Elvis Cifuentes MANUAL DIFF REQ NO Normal [facility] Comment on above: Performed By: #### B LDCX2 #### [facility] [address] [address] [address] Elvis Cifuentes MCH (RBC) [Entitic mass] 29.1 pg Normal 25.9-34.0 [facility] Comment on above: Performed By: #### B LDCX2 #### [facility] [address] [place] [address] Dr. Elvis Cifuentes MCHC (RBC) [Mass/Vol] 32.1 g/dL Normal 29.9-35.2 [facility] Comment on above: Performed By: #### B LDCX2 #### [facility] [address] [place] [address] Dr. Elvis Cifuentes MCV (RBC) [Entitic vol] 90.9 fL Normal 80.0-94.0 [facility] Comment on above: Performed By: #### B LDCX2 #### [facility] [address] [place] [address] Dr. Elvis Cifuentes MONO # 0.3 103/ul Normal 0.3-0.8 [facility] Comment on above: Performed By: #### B LDCX2 #### [facility] [address] [place] [address] Dr. Elvis Cifuentes Monocytes/100 WBC (Bld) 2.1 % Normal 1.7-12.0 [facility] Comment on above: Performed By: #### B LDCX2 #### [facility] [address] [place] [address] Dr. Elvis Cifuentes NEUT # 13.0 103/ul Critically high 1.4-6.5 [facility] Comment on above: Performed By: #### B LDCX2 #### [facility] [address] [place] [address] Dr. Elvis Cifuentes Neutrophils/100 WBC (Bld) 95.4 % Critically high 43.0-75.0 [facility] Comment on above: Performed By: #### B LDCX2 #### [facility] [address] [place] [address] Dr. Elvis Cifuentes Platelet mean volume (Bld) [Entitic vol] 10.4 fL Normal 9.5-13.5 [facility] Comment on above: Performed By: #### B LDCX2 #### [facility] [address] [place] [address] Dr. Elvis Cifuentes PLT 215 103/ul Normal 150-450 [facility] Comment on above: Performed By: #### B LDCX2 #### [facility] [address] [place] [address] Dr. Elvis Cifuentes RBC 3.50 106/ul Critically low 4.70-6.10 [facility] Comment on above: Performed By: #### B LDCX2 #### [facility] [address] [place] [address] Dr. Elvis Cifuentes WBC 13.6 103/ul Critically high 4.0-11.0 [facility] Comment on above: Performed By: #### B LDCX2 #### [facility] [address] [place] [address] Dr. Elvis Cifuentes GI PANEL (PCR)on 05-20-2022 Adenovirus F 40/41 Not detected Normal NOT DETECTED [facility] Comment on above: Performed By: #### G IPANEL #### [facility] [address] [place] [address] Dr. Elvis Cifuentes Astrovirus Not detected Normal NOT DETECTED [facility] Comment on above: Performed By: #### G IPANEL #### [facility] [address] [place] [address] Dr. Elvis Cifuentes C. Diff toxin A/B Detected Critically abnormal NOT DETECTED [facility] Comment on above: Performed By: #### G IPANEL #### [facility] [address] [place] [address] Dr. Elvis Cifuentes Campylobacter Not detected Normal NOT DETECTED [facility] Comment on above: Performed By: #### G IPANEL #### [facility] [address] [place] [address] Dr. Elvis Cifuentes Cryptosporidium Not detected Normal NOT DETECTED [facility] Comment on above: Performed By: #### G IPANEL #### [facility] [address] [place] [address] Dr. Elvis Cifuentes Cyclos. Cayetanensis Not detected Normal NOT DETECTED [facility] Comment on above: Performed By: #### G IPANEL #### [facility] [address] [place] [address] Dr. Elvis Cifuentes E. Coli O157 Not Applicable Normal Not Applicable [facility] Comment on above: Performed By: #### G IPANEL #### [facility] [address] [place] [address] Dr. Elvis Cifuentes E. histolytica Not detected Normal NOT DETECTED [facility] Comment on above: Performed By: #### G IPANEL #### [facility] [address] [place] [address] Dr. Elvis Cifuentes EAEC Detected Abnormal NOT DETECTED [facility] Comment on above: Performed By: #### G IPANEL #### [facility] [address] [place] [address] Dr. Elvis Cifuentes EIEC Not detected Normal NOT DETECTED [facility] Comment on above: Performed By: #### G IPANEL #### [facility] [address] [address] [address] Elvis Cifuentes EPEC Not detected Normal NOT DETECTED [facility] Comment on above: Performed By: #### G IPANEL #### [facility] [address] [address] [address] Elvis Cifuentes ETEC Not detected Normal NOT DETECTED [facility] Comment on above: Performed By: #### G IPANEL #### [facility] [address] [place] [address] Dr. Elvis Chapman Lamblia Not detected Normal NOT DETECTED [facility] Comment on above: Performed By: #### G IPANEL #### [facility] [address] [place] [address] Dr. Elvis PEREZ CONTROLS PASSED Normal [facility] Comment on above: Performed By: #### G IPANEL #### [facility] [address] [place] [address] Dr. Elvis [facility] HEADER GI PANEL BACTERIA Normal [facility] Comment on above: Performed By: #### G IPANEL #### [facility] [address] [place] [address] Dr. Elvis WILKERSON ECOLI GI PANEL DIARRHEAGEN IC E.COLI / SHIGELLA Normal [facility] Comment on above: Performed By: #### G IPANEL #### [facility] [address] [place] [address] Dr. Elvis WILKERSON INFO SEE BELOW [facility] Comment on above: Result Comment: EAEC - Enteroaggregative E. Coli EPEC- Enteropathogenic E. Coli ETEC- Enterotoxigenic E. Coli lt/st STEC- Shigella-like toxin-producing E. Coli stx1/stx2 EIEC- Shigella/Enteroinvasive E. Coli Performed By: #### G IPANEL #### [facility] [address] [place] [address] Dr. Elvis WILKERSON PARASITES GI PANEL PARASITES Normal [facility] Comment on above: Performed By: #### G IPANEL #### [facility] [address] [address] [address] Elvis WILKERSON VIRUS GI PANEL VIRUSES Normal [facility] Comment on above: Performed By: #### G IPANEL #### [facility] [address] [place] [address] Dr. Elvis Cifuentes Norovirus GI/GII Not detected Normal NOT DETECTED [facility] Comment on above: Performed By: #### G IPANEL #### [facility] [address] [place] [address] Dr. Elvis Cifuentes P. Shigelloides Not detected Normal NOT DETECTED [facility] Comment on above: Performed By: #### G IPANEL #### [facility] [address] [place] [address] Dr. Elvis Cifuentes Rotavirus A Not detected Normal NOT DETECTED [facility] Comment on above: Performed By: #### G IPANEL #### [facility] [address] [place] [address] Dr. Elvis Cifuentes Salmonella Not detected Normal NOT DETECTED [facility] Comment on above: Performed By: #### G IPANEL #### [facility] [address] [place] [address] Dr. Elvis Cifuentes Sapovirus Not detected Normal NOT DETECTED [facility] Comment on above: Performed By: #### G IPANEL #### [facility] [address] [place] [address] Dr. Elvis Cifuentes STEC Not detected Normal NOT DETECTED [facility] Comment on above: Performed By: #### G IPANEL #### [facility] [address] [place] [address] Dr. Elvis Cifuentes Vibrio Not detected Normal NOT DETECTED [facility] Comment on above: Performed By: #### G IPANEL #### [facility] [address] [place] [address] Dr. Elvis Cifuentes Vibrio Cholera Not detected Normal NOT DETECTED [facility] Comment on above: Performed By: #### G IPANEL #### [facility] [address] [address] [address] Elvis Lu Enterocolitica Not detected Normal NOT DETECTED [facility] Comment on above: Performed By: #### G IPANEL #### [facility] [address] [address] [address] Elvis Cifuentes PROF CHEM 8 (BAS METB)on Anion gap [Moles/Vol] 15.4 mmol/L Normal [facility] Comment on above: Performed By: #### P OCGLUC #### [facility] [address] [address] [address] Elvis Cifuentes Calcium [Mass/Vol] 8.8 mg/dL Normal 8.5-10.1 [facility] Comment on above: Performed By: #### P OCGLUC #### [facility] [address] [address] [address] Elvis Cifuentes Chloride [Moles/Vol] 110 mmol/L Critically high 98-107 [facility] Comment on above: Performed By: #### P OCGLUC #### [facility] [address] [address] [address] Elvis Cifuentes CO2 [Moles/Vol] 21.8 mmol/L Normal 21.0-32.0 [facility] Comment on above: Performed By: #### P OCGLUC #### [facility] [address] [address] [address] Elvis Cifuentes Creatinine [Mass/Vol] 1.23 mg/dL Normal 0.70-1.30 [facility] Comment on above: Performed By: #### P OCGLUC #### [facility] [address] [address] [address] Elvis Cifuentes EGFR-AF GUYANESE >60 Normal >=60 [facility] Comment on above: Performed By: #### P OCGLUC #### [facility] [address] [address] [address] Elvis Cifuentes EGFR-NON AF GUYANESE 57 mL/min/1.73m2 Critically low >=60 [facility] Comment on above: Performed By: #### P OCGLUC #### [facility] [address] [address] [address] Elvis Cifuentes Glucose [Mass/Vol] 146 mg/dL Critically high 74-106 [facility] Comment on above: Performed By: #### P OCGLUC #### [facility] [address] [address] [address] Elvis Cifuentes Potassium [Moles/Vol] 4.2 mmol/L Normal 3.5-5.1 [facility] Comment on above: Performed By: #### P OCGLUC #### [facility] [address] [address] [address] Elvis Cifuentes Sodium [Moles/Vol] 143 mmol/L Normal 136-145 [facility] Comment on above: Performed By: #### P OCGLUC #### [facility] [address] [address] [address] Elvis Cifuentes Urea nitrogen [Mass/Vol] 27.0 mg/dL Critically high 7.0-18.0 [facility] Comment on above: Performed By: #### P OCGLUC #### [facility] [address] [address] [address] Elvis Cifuentes Urea nitrogen/Creatinine [Mass ratio] 22.0 mg/mg Normal [facility] Comment on above: Performed By: #### P OCGLUC #### [facility] [address] [address] [address] Elvis Cifuentes XR ABD FLAT UP_PA [...] NICKI ELMORE Date: 2022-05-20 10:22 Normal [facility] CBC AUTO DIFFon 05-19-2022 BASO # 0.0 103/ul Normal 0.0-0.1 [facility] Comment on above: Performed By: #### C EA. #### [facility] [address] [address] [address] Elvis Cifuentes Basophils/100 WBC (Bld) 0.2 % Normal 0.2-2.0 [facility] Comment on above: Performed By: #### C EA. #### [facility] [address] [address] [address] Elvis Cifuentes EO # 0.1 103/ul Normal 0.0-0.7 [facility] Comment on above: Performed By: #### C EA. #### [facility] [address] [place] [address] Dr. Elvis Cifuentes Eosinophils/100 WBC (Bld) 0.3 % Critically low 0.9-7.0 [facility] Comment on above: Performed By: #### C EA. #### [facility] [address] [address] [address] Elvis Cifuentes Erythrocyte distribution width (RBC) [Ratio] 14.6 % Normal 11.0-15.0 [facility] Comment on above: Performed By: #### C EA. #### [facility] [address] [address] [address] Elvis Cifuentes Hematocrit (Bld) [Volume fraction] 30.0 % Critically low 42.0-54.0 [facility] Comment on above: Performed By: #### C EA. #### [facility] [address] [address] [address] Elvis Cifuentes Hemoglobin (Bld) [Mass/Vol] 9.4 g/dL Critically low 14.0-18.0 [facility] Comment on above: Performed By: #### C EA. #### [facility] [address] [place] [address] Dr. Elvis Cifuentes IG # 0.24 10e3/ul Critically high 0.00-0.03 [facility] Comment on above: Performed By: #### C EA. #### [facility] [address] [place] [address] Dr. Elvis Cifuentes IG % 1.4 % Critically high 0.0-0.5 [facility] Comment on above: Performed By: #### C EA. #### [facility] [address] [place] [address] Dr. Elvis Cifuentes LYMPH # 0.6 103/ul Critically low 1.2-3.8 [facility] Comment on above: Performed By: #### C EA. #### [facility] [address] [place] [address] Dr. Elvis Cifuentes Lymphocytes/100 WBC (Bld) 3.8 % Critically low 20.5-60.0 [facility] Comment on above: Performed By: #### C EA. #### [facility] [address] [place] [address] Dr. Elvis Cifuentes MANUAL DIFF REQ NO Normal [facility] Comment on above: Performed By: #### C EA. #### [facility] [address] [place] [address] Dr. Elvis Cifuentes MCH (RBC) [Entitic mass] 28.8 pg Normal 25.9-34.0 [facility] Comment on above: Performed By: #### C EA. #### [facility] [address] [place] [address] Dr. Elvis Cifuentes MCHC (RBC) [Mass/Vol] 31.3 g/dL Normal 29.9-35.2 [facility] Comment on above: Performed By: #### C EA. #### [facility] [address] [place] [address] Dr. Elvis Cifuentes MCV (RBC) [Entitic vol] 92.0 fL Normal 80.0-94.0 [facility] Comment on above: Performed By: #### C EA. #### [facility] [address] [place] [address] Dr. Elvis Cifuentes MONO # 0.8 103/ul Normal 0.3-0.8 [facility] Comment on above: Performed By: #### C EA. #### [facility] [address] [address] [address] Elvis Cifuentes Monocytes/100 WBC (Bld) 4.6 % Normal 1.7-12.0 [facility] Comment on above: Performed By: #### C EA. #### [facility] [address] [place] [address] Dr. Elvis Cifuentes NEUT # 15.0 103/ul Critically high 1.4-6.5 [facility] Comment on above: Performed By: #### C EA. #### [facility] [address] [place] [address] Dr. Elvis Cifuentes Neutrophils/100 WBC (Bld) 89.7 % Critically high 43.0-75.0 [facility] Comment on above: Performed By: #### C EA. #### [facility] [address] [place] [address] Dr. Elvis Cifuentes Platelet mean volume (Bld) [Entitic vol] 9.9 fL Normal 9.5-13.5 [facility] Comment on above: Performed By: #### C EA. #### [facility] [address] [place] [address] Dr. Elvis Cifuentes PLT 193 103/ul Normal 150-450 [facility] Comment on above: Performed By: #### C EA. #### [facility] [address] [place] [address] Dr. Elvis Cifuentes RBC 3.26 106/ul Critically low 4.70-6.10 [facility] Comment on above: Performed By: #### C EA. #### [facility] [address] [place] [address] Dr. Elvis Cifuentes WBC 16.7 103/ul Critically high 4.0-11.0 [facility] Comment on above: Performed By: #### C EA. #### [facility] [address] [place] [address] Dr. Elvis Cifuentes POINT OF CARE GLUCOSEon 05-08 Glucose [Mass/Vol] 98 mg/dL Normal 74-106 [facility] Comment on above: Performed By: #### P OCGLUC #### [facility] [address] [place] [address] Dr. Elvis Cifuentes PROF CHEM 8 (BAS METB)on Anion gap [Moles/Vol] 13.4 mmol/L Normal [facility] Comment on above: Performed By: #### G IPANEL #### [facility] [address] [place] [address] Dr. Elvis Cifuentes Calcium [Mass/Vol] 8.6 mg/dL Normal 8.5-10.1 [facility] Comment on above: Performed By: #### G IPANEL #### [facility] [address] [place] [address] Dr. Elvis Cifuentes Chloride [Moles/Vol] 109 mmol/L Critically high 98-107 [facility] Comment on above: Performed By: #### G IPANEL #### [facility] [address] [place] [address] Dr. Elvis Cifuentes CO2 [Moles/Vol] 23.1 mmol/L Normal 21.0-32.0 [facility] Comment on above: Performed By: #### G IPANEL #### [facility] [address] [place] [address] Dr. Elvis Cifuentes Creatinine [Mass/Vol] 1.43 mg/dL Critically high 0.70-1.30 [facility] Comment on above: Performed By: #### G IPANEL #### [facility] [address] [place] [address] Dr. Elvis Cifuentes EGFR-AF GUYANESE 58 mL/min/1.73m2 Critically low >=60 [facility] Comment on above: Performed By: #### G IPANEL #### [facility] [address] [place] [address] Dr. Elvis Cifuentes EGFR-NON AF GUYANESE 48 mL/min/1.73m2 Critically low >=60 [facility] Comment on above: Performed By: #### G IPANEL #### [facility] [address] [place] [address] Dr. Elvis Cifuentes Glucose [Mass/Vol] 101 mg/dL Normal 74-106 [facility] Comment on above: Performed By: #### G IPANEL #### [facility] [address] [place] [address] Dr. Elvis Cifuentes Potassium [Moles/Vol] 4.5 mmol/L Normal 3.5-5.1 [facility] Comment on above: Performed By: #### G IPANEL #### [facility] [address] [place] [address] Dr. Elvis Cifuentes Sodium [Moles/Vol] 141 mmol/L Normal 136-145 [facility] Comment on above: Performed By: #### G IPANEL #### [facility] [address] [place] [address] Dr. Elvis Cifuentes Urea nitrogen [Mass/Vol] 25.0 mg/dL Critically high 7.0-18.0 [facility] Comment on above: Performed By: #### G IPANEL #### [facility] [address] [place] [address] Dr. Elvis Cifuentes Urea nitrogen/Creatinine [Mass ratio] 17.5 mg/mg Normal [facility] Comment on above: Performed By: #### G IPANEL #### [facility] [address] [place] [address] Dr. Elvis Cifuentes CBC W MANUAL DIFFon 05-18-20 22 ATYPICAL LYMPH # Normal [facility] Comment on above: Performed By: #### P OCGLUC #### [facility] [address] [place] [address] Dr. Elvis Cifuentes ATYPICAL LYMPH % Normal [facility] Comment on above: Performed By: #### P OCGLUC #### [facility] [address] [place] [address] Dr. Elvis Cifuentes BAND # 0.0 103/ul Normal 0.0-0.3 [facility] Comment on above: Performed By: #### P OCGLUC #### [facility] [address] [place] [address] Dr. Elvis Cifuentes BAND % 0 % Normal 0-5 [facility] Comment on above: Performed By: #### P OCGLUC #### [facility] [address] [address] [address] Elvis Cifuentes BASOM # 0.00 103/ul Normal 0.00-0.10 [facility] Comment on above: Performed By: #### P OCGLUC #### [facility] [address] [address] [address] Elvis Cifuentes BASOM % 0.0 % Critically low 0.2-2.0 [facility] Comment on above: Performed By: #### P OCGLUC #### [facility] [address] [address] [address] Elvis Cifuentes BLAST # Normal [facility] Comment on above: Performed By: #### P OCGLUC #### [facility] [address] [address] [address] Elvis Cifuentes BLAST % Normal [facility] Comment on above: Performed By: #### P OCGLUC #### [facility] [address] [place] [address] Dr. Elvis Cifuentes CORRECTED WBC Normal 4.0-11.0 [facility] Comment on above: Performed By: #### P OCGLUC #### [facility] [address] [address] [address] Elvis Cifuentes EOS # 0.00 103/ul Normal 0.00-0.70 [facility] Comment on above: Performed By: #### P OCGLUC #### [facility] [address] [address] [address] Elvis Cifuentes EOS% 0.0 % Critically low 0.9-7.0 [facility] Comment on above: Performed By: #### P OCGLUC #### [facility] [address] [place] [address] Dr. Elvis Cifuentes HCT 31.2 % Critically low 42.0-54.0 [facility] Comment on above: Performed By: #### P OCGLUC #### [facility] [address] [place] [address] Dr. Elvis Cifuentes HGB 10.0 g/dl Critically low 14.0-18.0 [facility] Comment on above: Performed By: #### P OCGLUC #### [facility] [address] [address] [address] Elvis Cifuentes HYPERSEG NEUT 2+ Normal [facility] Comment on above: Performed By: #### P OCGLUC #### [facility] [address] [place] [address] Dr. Elvis Cifuentes LYMPHM # 0.66 103/ul Critically low 1.20-3.80 [facility] Comment on above: Performed By: #### P OCGLUC #### [facility] [address] [place] [address] Dr. Elvis Cifuentes LYMPHM% 4.0 % Critically low 20.5-60.0 [facility] Comment on above: Performed By: #### P OCGLUC #### [facility] [address] [place] [address] Dr. Elvis Cifuentes MCH 29.3 pg Normal 25.9-34.0 [facility] Comment on above: Performed By: #### P OCGLUC #### [facility] [address] [place] [address] Dr. Elvis Cifuentes MCHC 32.1 g/dl Normal 29.9-35.2 [facility] Comment on above: Performed By: #### P OCGLUC #### [facility] [address] [place] [address] Dr. Elvis Cifuentes MCV 91.5 fL Normal 80.0-94.0 [facility] Comment on above: Performed By: #### P OCGLUC #### [facility] [address] [place] [address] Dr. Elvis Cifuentes METAMYELOCYTE # Normal [facility] Comment on above: Performed By: #### P OCGLUC #### [facility] [address] [address] [address] Elvis Cifuentes METAMYELOCYTE % Normal [facility] Comment on above: Performed By: #### P OCGLUC #### [facility] [address] [place] [address] Dr. Elvis Cifuentes MONOM# 0.17 103/ul Critically low 0.30-0.80 [facility] Comment on above: Performed By: #### P OCGLUC #### [facility] [address] [address] [address] Elvis Cifuentes MONOM% 1.0 % Critically low 1.7-12.0 [facility] Comment on above: Performed By: #### P OCGLUC #### [facility] [address] [place] [address] Dr. Elvis Cifuentes MPV 10.0 fL Normal 9.5-13.5 [facility] Comment on above: Performed By: #### P OCGLUC #### [facility] [address] [address] [address] Elvis Cifuentes MYELOCYTE # Normal [facility] Comment on above: Performed By: #### P OCGLUC #### [facility] [address] [place] [address] Dr. Elvis Cifuentes MYELOCYTE % Normal [facility] Comment on above: Performed By: #### P OCGLUC #### [facility] [address] [address] [address] Elvis Cifuentes NRBC Normal [facility] Comment on above: Performed By: #### P OCGLUC #### [facility] [address] [place] [address] Dr. Elvis Cifuentes PLT 201 103/ul Normal 150-450 [facility] Comment on above: Performed By: #### P OCGLUC #### [facility] [address] [place] [address] Dr. Elvis Cifuentes RBC 3.41 106/ul Critically low 4.70-6.10 [facility] Comment on above: Performed By: #### P OCGLUC #### [facility] [address] [place] [address] Dr. Elvis Cifuentes RDW 14.2 % Normal 11.0-15.0 [facility] Comment on above: Performed By: #### P OCGLUC #### [facility] [address] [place] [address] Dr. Elvis Cifuentes SEG # 15.68 103/ul Critically high 1.40-6.50 [facility] Comment on above: Performed By: #### P OCGLUC #### [facility] [address] [address] [address] Elvis Cifuentes SEG % 95.0 % Critically high 43.0-75.0 [facility] Comment on above: Performed By: #### P OCGLUC #### [facility] [address] [address] [address] Elvis Cifuentes TOXIC GRANULATION 3+ Normal [facility] Comment on above: Performed By: #### P OCGLUC #### [facility] [address] [address] [address] Elvis Cifuentes WBC 16.5 103/ul Critically high 4.0-11.0 [facility] Comment on above: Performed By: #### P OCGLUC #### [facility] [address] [place] [address] Dr. Elvis Cifuentes PROF CHEM 8 (BAS METB)on Anion gap [Moles/Vol] 14.2 mmol/L Normal [facility] Comment on above: Performed By: #### B LDCX2 #### [facility] [address] [place] [address] Dr. Elvis Cifuentes Calcium [Mass/Vol] 8.4 mg/dL Critically low 8.5-10.1 [facility] Comment on above: Performed By: #### B LDCX2 #### [facility] [address] [place] [address] Dr. Elvis Cifuentes Chloride [Moles/Vol] 108 mmol/L Critically high 98-107 [facility] Comment on above: Performed By: #### B LDCX2 #### [facility] [address] [place] [address] Dr. Elvis Cifuentes CO2 [Moles/Vol] 24.6 mmol/L Normal 21.0-32.0 [facility] Comment on above: Performed By: #### B LDCX2 #### [facility] [address] [place] [address] Dr. Elvis Cifuentes Creatinine [Mass/Vol] 1.41 mg/dL Critically high 0.70-1.30 [facility] Comment on above: Performed By: #### B LDCX2 #### [facility] [address] [address] [address] Elvis Cifuentes EGFR-AF GUYANESE 59 mL/min/1.73m2 Critically low >=60 [facility] Comment on above: Performed By: #### B LDCX2 #### [facility] [address] [address] [address] Elvis Cifuentes EGFR-NON AF GUYANESE 49 mL/min/1.73m2 Critically low >=60 [facility] Comment on above: Performed By: #### B LDCX2 #### [facility] [address] [address] [address] Elvis Cifuentes Glucose [Mass/Vol] 113 mg/dL Critically high 74-106 [facility] Comment on above: Performed By: #### B LDCX2 #### [facility] [address] [address] [address] Elvis Cifuentes Potassium [Moles/Vol] 4.8 mmol/L Normal 3.5-5.1 [facility] Comment on above: Performed By: #### B LDCX2 #### [facility] [address] [address] [address] Elvis Cifuentes Sodium [Moles/Vol] 142 mmol/L Normal 136-145 [facility] Comment on above: Performed By: #### B LDCX2 #### [facility] [address] [address] [address] Elvis Cifuentes Urea nitrogen [Mass/Vol] 20.0 mg/dL Critically high 7.0-18.0 [facility] Comment on above: Performed By: #### B LDCX2 #### [facility] [address] [address] [address] Elvis Cifuentes Urea nitrogen/Creatinine [Mass ratio] 14.2 mg/mg Normal [facility] Comment on above: Performed By: #### B LDCX2 #### [facility] [address] [address] [address] Elvis Cifuentes CBC AUTO DIFFon 05-15-2022 BASO # 0.1 103/ul Normal 0.0-0.1 [facility] Comment on above: Performed By: #### U RCX #### [facility] [address] [place] [address] Dr. Elvis Cifuentes Basophils/100 WBC (Bld) 1.4 % Normal 0.2-2.0 [facility] Comment on above: Performed By: #### U RCX #### [facility] [address] [place] [address] Dr. Elvis Cifuentes EO # 0.2 103/ul Normal 0.0-0.7 [facility] Comment on above: Performed By: #### U RCX #### [facility] [address] [place] [address] Dr. Elvsi Cifuentes Eosinophils/100 WBC (Bld) 3.3 % Normal 0.9-7.0 [facility] Comment on above: Performed By: #### U RCX #### [facility] [address] [place] [address] Dr. Elvis Cifuentes Erythrocyte distribution width (RBC) [Ratio] 14.2 % Normal 11.0-15.0 [facility] Comment on above: Performed By: #### U RCX #### [facility] [address] [place] [address] Dr. Elvis Cifuentes Hematocrit (Bld) [Volume fraction] 36.0 % Critically low 42.0-54.0 [facility] Comment on above: Performed By: #### U RCX #### [facility] [address] [place] [address] Dr. Elvis Cifuentes Hemoglobin (Bld) [Mass/Vol] 11.7 g/dL Critically low 14.0-18.0 [facility] Comment on above: Performed By: #### U RCX #### [facility] [address] [place] [address] Dr. Elvis Cifuentes IG # 0.02 10e3/ul Normal 0.00-0.03 [facility] Comment on above: Performed By: #### U RCX #### [facility] [address] [place] [address] Dr. Elvis Cifuentes IG % 0.3 % Normal 0.0-0.5 [facility] Comment on above: Performed By: #### U RCX #### [facility] [address] [place] [address] Dr. Elvis Cifuentes LYMPH # 1.4 103/ul Normal 1.2-3.8 [facility] Comment on above: Performed By: #### U RCX #### [facility] [address] [place] [address] Dr. Elvis Cifuentes Lymphocytes/100 WBC (Bld) 19.3 % Critically low 20.5-60.0 [facility] Comment on above: Performed By: #### U RCX #### [facility] [address] [place] [address] Dr. Elvis Cifuentes MANUAL DIFF REQ NO Normal [facility] Comment on above: Performed By: #### U RCX #### [facility] [address] [place] [address] Dr. Elvis Cifuentes MCH (RBC) [Entitic mass] 28.8 pg Normal 25.9-34.0 [facility] Comment on above: Performed By: #### U RCX #### [facility] [address] [place] [address] Dr. Elvis Cifuentes MCHC (RBC) [Mass/Vol] 32.5 g/dL Normal 29.9-35.2 [facility] Comment on above: Performed By: #### U RCX #### [facility] [address] [place] [address] Dr. Elvis Cifuentes MCV (RBC) [Entitic vol] 88.7 fL Normal 80.0-94.0 [facility] Comment on above: Performed By: #### U RCX #### [facility] [address] [place] [address] Dr. Elvis Cifuentes MONO # 0.7 103/ul Normal 0.3-0.8 [facility] Comment on above: Performed By: #### U RCX #### [facility] [address] [place] [address] Dr. Elvis Cifuentes Monocytes/100 WBC (Bld) 9.0 % Normal 1.7-12.0 [facility] Comment on above: Performed By: #### U RCX #### [facility] [address] [place] [address] Dr. Elvis Cifuentes NEUT # 4.8 103/ul Normal 1.4-6.5 [facility] Comment on above: Performed By: #### U RCX #### [facility] [address] [place] [address] Dr. Elvis Cifuentes Neutrophils/100 WBC (Bld) 66.7 % Normal 43.0-75.0 [facility] Comment on above: Performed By: #### U RCX #### [facility] [address] [place] [address] Dr. Elvis Cifuentes Platelet mean volume (Bld) [Entitic vol] 9.6 fL Normal 9.5-13.5 [facility] Comment on above: Performed By: #### U RCX #### [facility] [address] [place] [address] Dr. Elvis Cifuentes PLT 233 103/ul Normal 150-450 [facility] Comment on above: Performed By: #### U RCX #### [facility] [address] [place] [address] Dr. Elvis Cifuentes RBC 4.06 106/ul Critically low 4.70-6.10 [facility] Comment on above: Performed By: #### U RCX #### [facility] [address] [place] [address] Dr. Elvis Cifuentes WBC 7.2 103/ul Normal 4.0-11.0 [facility] Comment on above: Performed By: #### U RCX #### [facility] [address] [place] [address] Dr. Elvis Cifuentes Covid-19 PCR ([facility])on SARS-CoV-2 (COVID-19) RNA WENDY+probe Ql (Unsp spec) Not detected Normal NOT DETECTED [facility] Comment on above: Result Comment: This test is not yet approved or cleared by the [place] FDA. When there are no FDA-approved or cleared tests available, and other criteria are met, FDA can make tests available under an emergency access mechanism called an Emergency Use Authorization (EUA). The EUA for this test is supported by the [place] of Health and Human Service's (HHS's) declaration [...] SARS-CoV-2. Performed By: #### P OCGLUC #### [facility] [address] [place] [address] Dr. Elvis Cifuentes PROF 14(COMP METB)on 022 Albumin [Mass/Vol] 3.7 g/dL Normal 3.4-5.0 [facility] Comment on above: Performed By: #### P REALB, MG #### [facility] [address] [place] [address] Dr. Elvis Cifuentes Albumin/Globulin [Mass ratio] 1.2 {ratio} Normal [facility] Comment on above: Performed By: #### P REALB, MG #### [facility] [address] [place] [address] Dr. Elvis Cifuentes ALP [Catalytic activity/Vol] 76 U/L Normal 46-116 [facility] Comment on above: Performed By: #### P REALB, MG #### [facility] [address] [place] [address] Dr. Elvis Cifuentes ALT [Catalytic activity/Vol] 15 U/L Critically low 16-63 [facility] Comment on above: Performed By: #### P REALB, MG #### [facility] [address] [place] [address] Dr. Elvis Cifuentes Anion gap [Moles/Vol] 10.6 mmol/L Normal [facility] Comment on above: Performed By: #### P REALB, MG #### [facility] [address] [address] [address] Elvis Cifuentes AST [Catalytic activity/Vol] 12 U/L Critically low 15-37 [facility] Comment on above: Performed By: #### P REALB, MG #### [facility] [address] [address] [address] Elvis Cifuentes Bilirubin [Mass/Vol] 0.5 mg/dL Normal 0.2-1.0 [facility] Comment on above: Performed By: #### P REALB, MG #### [facility] [address] [address] [address] Elvis Cifuentes Calcium [Mass/Vol] 9.2 mg/dL Normal 8.5-10.1 [facility] Comment on above: Performed By: #### P REALB, MG #### [facility] [address] [place] [address] Dr. Elvis Cifuentes Chloride [Moles/Vol] 111 mmol/L Critically high 98-107 [facility] Comment on above: Performed By: #### P REALB, MG #### [facility] [address] [address] [address] Elvis Cifuentes CO2 [Moles/Vol] 27.8 mmol/L Normal 21.0-32.0 [facility] Comment on above: Performed By: #### P REALB, MG #### [facility] [address] [address] [address] Elvis Cifuentes Creatinine [Mass/Vol] 1.54 mg/dL Critically high 0.70-1.30 [facility] Comment on above: Performed By: #### P REALB, MG #### [facility] [address] [address] [address] Elvis Cifuentes EGFR-AF GUYANESE 53 mL/min/1.73m2 Critically low >=60 [facility] Comment on above: Performed By: #### P REALB, MG #### [facility] [address] [address] [address] Elvis Cifuentes EGFR-NON AF GUYANESE 44 mL/min/1.73m2 Critically low >=60 [facility] Comment on above: Performed By: #### P REALB, MG #### [facility] [address] [place] [address] Dr. Elvis Cifuentes Globulin (S) [Mass/Vol] 3.2 g/dL Normal [facility] Comment on above: Performed By: #### P REALB, MG #### [facility] [address] [place] [address] Dr. Elvis Cifuentes Glucose [Mass/Vol] 86 mg/dL Normal 74-106 [facility] Comment on above: Performed By: #### P REALB, MG #### [facility] [address] [place] [address] Dr. Elvis Cifuentes Potassium [Moles/Vol] 4.4 mmol/L Normal 3.5-5.1 [facility] Comment on above: Performed By: #### P REALB, MG #### [facility] [address] [place] [address] Dr. Elvis Cifuentes Protein [Mass/Vol] 6.9 g/dL Normal 6.4-8.2 [facility] Comment on above: Performed By: #### P REALB, MG #### [facility] [address] [place] [address] Dr. Elvis Cifuentes Sodium [Moles/Vol] 145 mmol/L Normal 136-145 [facility] Comment on above: Performed By: #### P REALB, MG #### [facility] [address] [place] [address] Dr. Elvis Cifuentes Urea nitrogen [Mass/Vol] 16.0 mg/dL Normal 7.0-18.0 [facility] Comment on above: Performed By: #### P REALB, MG #### [facility] [address] [place] [address] Dr. Elvis Cifuentes Urea nitrogen/Creatinine [Mass ratio] 10.4 mg/mg Normal [facility] Comment on above: Performed By: #### P REALB, MG #### [facility] [address] [place] [address] Dr. Yilan Cifuentes TYPE AND SCREENon 05-15-2022 TYPE AND SCREEN Negative Normal [facility] Comment on above: Performed By: #### P OCGLUC #### [facility] [address] [place] [address] Dr. Elvis Cifuentes US CAROTID ART BILon [...] by: GEORGETTE GOLDMAN Date: 2022-05-10 18:16 Normal [facility] No Panel Informationon 04-28 [facility] 250 DO Work Phone: No Panel Informationon 04-27 Normal [facility] 600 DO Work Phone: Tobacco Screening.on 022 Adult depression screening assessment No [facility] 250 DO Work Phone: Fall risk assessment a) No falls within the last year [facility] 250 DO Work Phone: Tobacco use status [facility]PH[facility] b) No M [facility] 250 DO Work Phone: BNPon 04-03-2022 Natriuretic peptide B (Bld) [Mass/Vol] 3821.0 pg/mL Critically high <=1,800.0 [facility] Comment on above: Result Comment: repe ated Performed By: #### P REALB, MG #### [facility] [address] [place] [address] Dr. Elvis Cifuentes PROF 14(COMP METB)on 022 Albumin [Mass/Vol] 3.3 g/dL Critically low 3.4-5.0 [facility] Comment on above: Performed By: #### P REALB, MG #### [facility] [address] [address] [address] Elvis Cifuentes Albumin/Globulin [Mass ratio] 1.0 {ratio} Normal [facility] Comment on above: Performed By: #### P REALB, MG #### [facility] [address] [address] [address] Elvis Cifuentes ALP [Catalytic activity/Vol] 72 U/L Normal 46-116 [facility] Comment on above: Performed By: #### P REALB, MG #### [facility] [address] [address] [address] Elvis Cifuentes ALT [Catalytic activity/Vol] 18 U/L Normal 16-63 [facility] Comment on above: Performed By: #### P REALB, MG #### [facility] [address] [place] [address] Dr. Elvis Cifuentes Anion gap [Moles/Vol] 12.6 mmol/L Normal [facility] Comment on above: Performed By: #### P REALB, MG #### [facility] [address] [place] [address] Dr. Elvis Cifuentes AST [Catalytic activity/Vol] 15 U/L Normal 15-37 [facility] Comment on above: Performed By: #### P REALB, MG #### [facility] [address] [place] [address] Dr. Elvis Cifuentes Bilirubin [Mass/Vol] 0.6 mg/dL Normal 0.2-1.0 [facility] Comment on above: Performed By: #### P REALB, MG #### [facility] [address] [address] [address] Elvis Cifuentes Calcium [Mass/Vol] 8.8 mg/dL Normal 8.5-10.1 [facility] Comment on above: Performed By: #### P REALB, MG #### [facility] [address] [place] [address] Dr. Elvis Cifuentes Chloride [Moles/Vol] 109 mmol/L Critically high 98-107 [facility] Comment on above: Performed By: #### P REALB, MG #### [facility] [address] [address] [address] Elvis Cifuentes CO2 [Moles/Vol] 26.0 mmol/L Normal 21.0-32.0 [facility] Comment on above: Performed By: #### P REALB, MG #### [facility] [address] [address] [address] Elvis Cifuentes Creatinine [Mass/Vol] 1.23 mg/dL Normal 0.70-1.30 [facility] Comment on above: Performed By: #### P REALB, MG #### [facility] [address] [address] [address] Elvis Cifuentes EGFR-AF GUYANESE >60 Normal >=60 [facility] Comment on above: Performed By: #### P REALB, MG #### [facility] [address] [place] [address] Dr. Elvis Cifuentes EGFR-NON AF GUYANESE 57 mL/min/1.73m2 Critically low >=60 [facility] Comment on above: Performed By: #### P REALB, MG #### [facility] [address] [address] [address] Elvis Cifuentes Globulin (S) [Mass/Vol] 3.2 g/dL Normal [facility] Comment on above: Performed By: #### P REALB, MG #### [facility] [address] [address] [address] Elvis Cifuentes Glucose [Mass/Vol] 121 mg/dL Critically high 74-106 [facility] Comment on above: Performed By: #### P REALB, MG #### [facility] [address] [address] [address] Elvis Cifuentes Potassium [Moles/Vol] 4.6 mmol/L Normal 3.5-5.1 [facility] Comment on above: Performed By: #### P REALB, MG #### [facility] [address] [address] [address] Elvis Cifuentes Protein [Mass/Vol] 6.5 g/dL Normal 6.4-8.2 [facility] Comment on above: Performed By: #### P REALB, MG #### [facility] [address] [address] [address] Elvis Cifuentes Sodium [Moles/Vol] 143 mmol/L Normal 136-145 [facility] Comment on above: Performed By: #### P REALB, MG #### [facility] [address] [place] [address] Dr. Elvis Cifuentes Urea nitrogen [Mass/Vol] 15.0 mg/dL Normal 7.0-18.0 [facility] Comment on above: Performed By: #### P REALB, MG #### [facility] [address] [place] [address] Dr. Elvis Cifuentes Urea nitrogen/Creatinine [Mass ratio] 12.2 mg/mg Normal [facility] Comment on above: Performed By: #### P REALB, MG #### [facility] [address] [place] [address] Dr. Elvis Cifuentes TROPONIN, HIGH SENSITIVITYon 04-03-2022 HSTROP 400.6 pg/mL Critically high 4.0-76.1 [facility] Comment on above: Result Comment: CUT- OFF POINTS HAVE BEEN ESTABLISHED BASED ON THE FOURTH UNIVERSAL DEFINITIONS OF MYOCARDIAL INFARCTION. THE UPPER REFERENCE LIMIT (URL) OF TROPONIN, DEFINED THE 99TH PERCENTILE OF cTnI DISTRIBUTION IN A REFERENCE POPULATION, HAS BEEN CONFIRMED THE DECISION THRESHOLD FOR KS DIAGNOSIS. TEST REPEATED CRITICAL RESULT VERIFIED Performed By: #### G IPANEL #### [facility] [address] [place] [address] Dr. Elvis Cifuentes HSTROP 353.2 pg/mL Critically high 4.0-76.1 [facility] Comment on above: Result Comment: CUT- OFF POINTS HAVE BEEN ESTABLISHED BASED ON THE FOURTH UNIVERSAL DEFINITIONS OF MYOCARDIAL INFARCTION. THE UPPER REFERENCE LIMIT (URL) OF TROPONIN, DEFINED THE 99TH PERCENTILE OF cTnI DISTRIBUTION IN A REFERENCE POPULATION, HAS BEEN CONFIRMED THE DECISION THRESHOLD FOR KS DIAGNOSIS. TEST REPEATED CRITICAL RESULT VERIFIED Performed By: #### H STROPN #### [facility] [address] [place] [address] Dr. Elvis Cifuentes CEAon 04-01-2022 CEA 1.8 ng/mL Normal 0.0-4.7 [facility] Comment on above: Result Comment: Nons mokers <3.9 Smokers <5.6 . [employer] Electrochemiluminescence Immunoassay (ECLIA) . Values obtained with different assay methods or kits cannot be used interchangeably. Results cannot be interpreted as absolute evidence of the presence or absence of malignant disease. Performed By: #### C EA. #### [facility] [address] [place] [address] Dr. Elvis Cifuentes CBC AUTO DIFFon 03-31-2022 BASO # 0.1 103/ul Normal 0.0-0.1 [facility] Comment on above: Performed By: #### B LDCX2 #### [facility] [address] [place] [address] Dr. Elvis Cifuentes Basophils/100 WBC (Bld) 1.0 % Normal 0.2-2.0 [facility] Comment on above: Performed By: #### B LDCX2 #### [facility] [address] [place] [address] Dr. Elvis Cifuentes EO # 0.3 103/ul Normal 0.0-0.7 [facility] Comment on above: Performed By: #### B LDCX2 #### [facility] [address] [place] [address] Dr. Elvis Cifuentes Eosinophils/100 WBC (Bld) 3.6 % Normal 0.9-7.0 [facility] Comment on above: Performed By: #### B LDCX2 #### [facility] [address] [place] [address] Dr. Elvis Cifuentes Erythrocyte distribution width (RBC) [Ratio] 14.1 % Normal 11.0-15.0 [facility] Comment on above: Performed By: #### B LDCX2 #### [facility] [address] [place] [address] Dr. Elvis Cifuentes Hematocrit (Bld) [Volume fraction] 37.6 % Critically low 42.0-54.0 [facility] Comment on above: Performed By: #### B LDCX2 #### [facility] [address] [place] [address] Dr. Elvis Cifuentes Hemoglobin (Bld) [Mass/Vol] 12.0 g/dL Critically low 14.0-18.0 [facility] Comment on above: Performed By: #### B LDCX2 #### [facility] [address] [place] [address] Dr. Elvis Cifuentes IG # 0.02 10e3/ul Normal 0.00-0.03 [facility] Comment on above: Performed By: #### B LDCX2 #### [facility] [address] [place] [address] Dr. Elvis Cifuentes IG % 0.3 % Normal 0.0-0.5 [facility] Comment on above: Performed By: #### B LDCX2 #### [facility] [address] [place] [address] Dr. Elvis Cifuentes LYMPH # 1.0 103/ul Critically low 1.2-3.8 [facility] Comment on above: Performed By: #### B LDCX2 #### [facility] [address] [place] [address] Dr. Elvis Cifuentes Lymphocytes/100 WBC (Bld) 14.2 % Critically low 20.5-60.0 [facility] Comment on above: Performed By: #### B LDCX2 #### [facility] [address] [place] [address] Dr. Elvis Cifuentes MANUAL DIFF REQ NO Normal [facility] Comment on above: Performed By: #### B LDCX2 #### [facility] [address] [place] [address] Dr. Elvis Cifuentes MCH (RBC) [Entitic mass] 28.8 pg Normal 25.9-34.0 [facility] Comment on above: Performed By: #### B LDCX2 #### [facility] [address] [place] [address] Dr. Elvis Cifuentes MCHC (RBC) [Mass/Vol] 31.9 g/dL Normal 29.9-35.2 [facility] Comment on above: Performed By: #### B LDCX2 #### [facility] [address] [place] [address] Dr. Elvis Cifuentes MCV (RBC) [Entitic vol] 90.4 fL Normal 80.0-94.0 [facility] Comment on above: Performed By: #### B LDCX2 #### [facility] [address] [place] [address] Dr. Elvis Cifuentes MONO # 0.5 103/ul Normal 0.3-0.8 [facility] Comment on above: Performed By: #### B LDCX2 #### [facility] [address] [place] [address] Dr. Elvis Cifuentes Monocytes/100 WBC (Bld) 6.6 % Normal 1.7-12.0 [facility] Comment on above: Performed By: #### B LDCX2 #### [facility] [address] [place] [address] Dr. Elvis Cifuentes NEUT # 5.2 103/ul Normal 1.4-6.5 [facility] Comment on above: Performed By: #### B LDCX2 #### [facility] [address] [place] [address] Dr. Elvis Cifuentes Neutrophils/100 WBC (Bld) 74.3 % Normal 43.0-75.0 [facility] Comment on above: Performed By: #### B LDCX2 #### [facility] [address] [place] [address] Dr. Elvis Cifuentes Platelet mean volume (Bld) [Entitic vol] 9.8 fL Normal 9.5-13.5 [facility] Comment on above: Performed By: #### B LDCX2 #### [facility] [address] [place] [address] Dr. Elvis Cifuentes PLT 226 103/ul Normal 150-450 [facility] Comment on above: Performed By: #### B LDCX2 #### [facility] [address] [place] [address] Dr. Elvis Cifuentes RBC 4.16 106/ul Critically low 4.70-6.10 [facility] Comment on above: Performed By: #### B LDCX2 #### [facility] [address] [place] [address] Dr. Elvis Cifuentes WBC 7.0 103/ul Normal 4.0-11.0 [facility] Comment on above: Performed By: #### B LDCX2 #### [facility] [address] [place] [address] Dr. Elvis Cifuentes Covid-19 PCR ([facility])on 03-09 SARS-CoV-2 (COVID-19) RNA WENDY+probe Ql (Unsp spec) Not detected Normal NOT DETECTED [facility] Comment on above: Result Comment: This test is not yet approved or cleared by the [place] FDA. When there are no FDA-approved or cleared tests available, and other criteria are met, FDA can make tests available under an emergency access mechanism called an Emergency Use Authorization (EUA). The EUA for this test is supported by the [place] of Health and Human Service's (HHS's) declaration [...] Performed By: #### P REALB, MG #### [facility] [address] [place] [address] Dr. Elvis Cifuentes PROF 14(COMP METB)on 022 Albumin [Mass/Vol] 3.2 g/dL Critically low 3.4-5.0 Th [facility] Comment on above: Performed By: #### B LDCX2 #### [facility] [address] [place] [address] Dr. Elvis Cifuentes Albumin/Globulin [Mass ratio] 1.0 {ratio} Normal [facility] Comment on above: Performed By: #### B LDCX2 #### [facility] [address] [address] [address] Elvis Cifuentes ALP [Catalytic activity/Vol] 64 U/L Normal 46-116 [facility] Comment on above: Performed By: #### B LDCX2 #### [facility] [address] [place] [address] Dr. Elvis Cifuentes ALT [Catalytic activity/Vol] 18 U/L Normal 16-63 [facility] Comment on above: Performed By: #### B LDCX2 #### [facility] [address] [address] [address] Elvis Cifuentes Anion gap [Moles/Vol] 9.8 mmol/L Normal [facility] Comment on above: Performed By: #### B LDCX2 #### [facility] [address] [place] [address] Dr. Elvis Cifuentes AST [Catalytic activity/Vol] 10 U/L Critically low 15-37 [facility] Comment on above: Performed By: #### B LDCX2 #### [facility] [address] [place] [address] Dr. Elvis Cifuentes Bilirubin [Mass/Vol] 0.9 mg/dL Normal 0.2-1.0 [facility] Comment on above: Performed By: #### B LDCX2 #### [facility] [address] [place] [address] Dr. Elvis Cifuentes Calcium [Mass/Vol] 8.7 mg/dL Normal 8.5-10.1 [facility] Comment on above: Performed By: #### B LDCX2 #### [facility] [address] [place] [address] Dr. Elvis Cifuentes Chloride [Moles/Vol] 109 mmol/L Critically high 98-107 [facility] Comment on above: Performed By: #### B LDCX2 #### [facility] [address] [address] [address] Elvis Cifeuntes CO2 [Moles/Vol] 29.9 mmol/L Normal 21.0-32.0 [facility] Comment on above: Performed By: #### B LDCX2 #### [facility] [address] [address] [address] Elvis Cifuentes Creatinine [Mass/Vol] 1.23 mg/dL Normal 0.70-1.30 [facility] Comment on above: Performed By: #### B LDCX2 #### [facility] [address] [address] [address] Elvis Cifuentes EGFR-AF GUYANESE >60 Normal >=60 [facility] Comment on above: Performed By: #### B LDCX2 #### [facility] [address] [address] [address] Elvis Cifuentes EGFR-NON AF GUYANESE 57 mL/min/1.73m2 Critically low >=60 [facility] Comment on above: Performed By: #### B LDCX2 #### [facility] [address] [place] [address] Dr. Elvis Cifuentes Globulin (S) [Mass/Vol] 3.3 g/dL Normal [facility] Comment on above: Performed By: #### B LDCX2 #### [facility] [address] [place] [address] Dr. Elvis Cifuentes Glucose [Mass/Vol] 115 mg/dL Critically high 74-106 [facility] Comment on above: Performed By: #### B LDCX2 #### [facility] [address] [place] [address] Dr. Elvis Cifuentes Potassium [Moles/Vol] 3.7 mmol/L Normal 3.5-5.1 [facility] Comment on above: Performed By: #### B LDCX2 #### [facility] [address] [place] [address] Dr. Elvis Cifuentes Protein [Mass/Vol] 6.5 g/dL Normal 6.4-8.2 [facility] Comment on above: Performed By: #### B LDCX2 #### [facility] [address] [place] [address] Dr. Elvis Cifuentes Sodium [Moles/Vol] 145 mmol/L Normal 136-145 [facility] Comment on above: Performed By: #### B LDCX2 #### [facility] [address] [address] [address] Elvis Cifuentes Urea nitrogen [Mass/Vol] 11.0 mg/dL Normal 7.0-18.0 [facility] Comment on above: Performed By: #### B LDCX2 #### [facility] [address] [address] [address] Elvis Cifuentes Urea nitrogen/Creatinine [Mass ratio] 8.9 mg/mg Normal [facility] Comment on above: Performed By: #### B LDCX2 #### [facility] [address] [address] [address] Elvis Cifuentes TYPE AND SCREENon 03-31-2022 TYPE AND SCREEN Negative Normal [facility] Comment on above: Performed By: #### T NS #### [facility] [address] [place] [address] Dr. Elvis Cifuentes H PYLORI TISSUEon 02-08-2022 H PYL TISSUE, UREASE Negative Normal NEGATIVE [facility] Comment on above: Performed By: #### G IPANEL #### [facility] [address] [place] [address] ABD/PELV W CONon [...] MATTHEW CHATMAN Date: 2021-12-27 10:28 Normal [facility] PROF CHEM 8 (BAS METB)on Anion gap [Moles/Vol] 11.7 mmol/L Normal [facility] Comment on above: Performed By: #### C EA. #### [facility] [address] [place] [address] Dr. Elvis Cifuentes Calcium [Mass/Vol] 8.6 mg/dL Normal 8.5-10.1 [facility] Comment on above: Performed By: #### C EA. #### [facility] [address] [place] [address] Dr. Elvis Cifuentes Chloride [Moles/Vol] 106 mmol/L Normal 98-107 [facility] Comment on above: Performed By: #### C EA. #### [facility] [address] [place] [address] Dr. Elvis Cifuentes CO2 [Moles/Vol] 28.2 mmol/L Normal 22.0-30.0 [facility] Comment on above: Performed By: #### C EA. #### [facility] [address] [place] [address] Dr. Elivs Cifuentes Creatinine [Mass/Vol] 1.24 mg/dL Normal 0.66-1.25 [facility] Comment on above: Performed By: #### C EA. #### [facility] [address] [place] [address] Dr. Elvis Cifuentes EGFR-AF GUYANESE >60 Normal >=60 [facility] Comment on above: Performed By: #### C EA. #### [facility] [address] [place] [address] Dr. Elvis Cifuentes EGFR-NON AF GUYANESE 57 mL/min/1.73m2 Critically low >=60 [facility] Comment on above: Performed By: #### C EA. #### [facility] [address] [place] [address] Dr. Elvis Cifuentes Glucose [Mass/Vol] 110 mg/dL Critically high 74-106 [facility] Comment on above: Performed By: #### C EA. #### [facility] [address] [place] [address] Dr. Elvis Cifuentes Potassium [Moles/Vol] 3.9 mmol/L Normal 3.4-5.0 [facility] Comment on above: Performed By: #### C EA. #### [facility] [address] [place] [address] Dr. Elvis Cifuentes Sodium [Moles/Vol] 142 mmol/L Normal 137-145 [facility] Comment on above: Performed By: #### C EA. #### [facility] [address] [place] [address] Dr. Elvis Cifuentes Urea nitrogen [Mass/Vol] 17.0 mg/dL Normal 7.0-18.0 [facility] Comment on above: Performed By: #### C EA. #### [facility] [address] [place] [address] Dr. Elvis Cifuentes Urea nitrogen/Creatinine [Mass ratio] 13.7 mg/mg Normal [facility] Comment on above: Performed By: #### C EA. #### [facility] [address] [place] [address] Dr. Elvis Cifuentes CBC AUTO DIFFon 10-27-2021 BASO # 0.1 103/ul Normal 0.0-0.1 [facility] Comment on above: Performed By: #### U RCX #### [facility] [address] [place] [address] Dr. Elvis Cifuentes Basophils/100 WBC (Bld) 1.6 % Normal 0.2-2.0 [facility] Comment on above: Performed By: #### U RCX #### [facility] [address] [place] [address] Dr. Elvis Cifuentes EO # 0.3 103/ul Normal 0.0-0.7 [facility] Comment on above: Performed By: #### U RCX #### [facility] [address] [place] [address] Dr. Elvis Cifuentes Eosinophils/100 WBC (Bld) 4.6 % Normal 0.9-7.0 [facility] Comment on above: Performed By: #### U RCX #### [facility] [address] [place] [address] Dr. Elvis Cifuentes Erythrocyte distribution width (RBC) [Ratio] 12.5 % Normal 11.0-15.0 [facility] Comment on above: Performed By: #### U RCX #### [facility] [address] [place] [address] Dr. Elvis Cifuentes Hematocrit (Bld) [Volume fraction] 36.0 % Critically low 42.0-54.0 [facility] Comment on above: Performed By: #### U RCX #### [facility] [address] [place] [address] Dr. Elvis Cifuentes Hemoglobin (Bld) [Mass/Vol] 11.8 g/dL Critically low 14.0-18.0 [facility] Comment on above: Performed By: #### U RCX #### [facility] [address] [place] [address] Dr. Elvis Cifuentes IG # 0.02 10e3/ul Normal 0.00-0.03 [facility] Comment on above: Performed By: #### U RCX #### [facility] [address] [place] [address] Dr. Elvis Cifuentes IG % 0.3 % Normal 0.0-0.5 [facility] Comment on above: Performed By: #### U RCX #### [facility] [address] [place] [address] Dr. Elvis Cifuentes LYMPH # 1.4 103/ul Normal 1.2-3.8 [facility] Comment on above: Performed By: #### U RCX #### [facility] [address] [place] [address] Dr. Elvis Cifuentes Lymphocytes/100 WBC (Bld) 21.3 % Normal 20.5-60.0 [facility] Comment on above: Performed By: #### U RCX #### [facility] [address] [place] [address] Dr. Elvis Cifuentes MANUAL DIFF REQ NO Normal [facility] Comment on above: Performed By: #### U RCX #### [facility] [address] [place] [address] Dr. Elvis Cifuentes MCH (RBC) [Entitic mass] 29.2 pg Normal 25.9-34.0 [facility] Comment on above: Performed By: #### U RCX #### [facility] [address] [place] [address] Dr. Elvis Cifuentes MCHC (RBC) [Mass/Vol] 32.8 g/dL Normal 29.9-35.2 [facility] Comment on above: Performed By: #### U RCX #### [facility] [address] [place] [address] Dr. Elvis Cifuentes MCV (RBC) [Entitic vol] 89.1 fL Normal 80.0-94.0 [facility] Comment on above: Performed By: #### U RCX #### [facility] [address] [place] [address] Dr. Elvis Cifuentes MONO # 0.6 103/ul Normal 0.3-0.8 [facility] Comment on above: Performed By: #### U RCX #### [facility] [address] [place] [address] Dr. Elvis Cifuentes Monocytes/100 WBC (Bld) 8.8 % Normal 1.7-12.0 [facility] Comment on above: Performed By: #### U RCX #### [facility] [address] [place] [address] Dr. Elvis Cifuentes NEUT # 4.0 103/ul Normal 1.4-6.5 [facility] Comment on above: Performed By: #### U RCX #### [facility] [address] [place] [address] Dr. Elvis Cifuentes Neutrophils/100 WBC (Bld) 63.4 % Normal 43.0-75.0 [facility] Comment on above: Performed By: #### U RCX #### [facility] [address] [place] [address] Dr. Elvis Cifuentes Platelet mean volume (Bld) [Entitic vol] 9.7 fL Normal 9.5-13.5 [facility] Comment on above: Performed By: #### U RCX #### [facility] [address] [place] [address] Dr. Elvis Cifuentes PLT 347 103/ul Normal 150-450 [facility] Comment on above: Performed By: #### U RCX #### [facility] [address] [place] [address] Dr. Elvis Cifuentes RBC 4.04 106/ul Critically low 4.70-6.10 [facility] Comment on above: Performed By: #### U RCX #### [facility] [address] [place] [address] Dr. Elvis Cifuentes WBC 6.3 103/ul Normal 4.0-11.0 [facility] Comment on above: Performed By: #### U RCX #### [facility] [address] [place] [address] Dr. Elvis Cifuentes LIPID PROFILEon 08-03-2021 CHOL-HDL RATIO NORM SEE BELOW Normal [facility] Comment on above: Result Comment: 3.3 - 4.4 LOW RISK 4.4 - 7.1 AVERAGE RISK 7.1 - 11.0 MODERATE RISK >11.0 HIGH RISK Performed By: #### G IPANEL #### [facility] [address] [address] [address] Elvis Cifuentes Cholesterol [Mass/Vol] 175 mg/dL Normal <=200 [facility] Comment on above: Performed By: #### G IPANEL #### [facility] [address] [address] [address] Elvis Cifuentes Cholesterol in HDL [Mass/Vol] 45 mg/dL Normal [facility] Comment on above: Performed By: #### G IPANEL #### [facility] [address] [address] [address] Elvis Cifuentes Cholesterol in LDL [Mass/Vol] 111.8 mg/dL Normal [facility] Comment on above: Performed By: #### G IPANEL #### [facility] [address] [place] [address] Dr. Elvis Cifuentes Cholesterol.total/Marry sterol in HDL [Mass ratio] 3.9 {ratio} Normal [facility] Comment on above: Performed By: #### G IPANEL #### [facility] [address] [place] [address] Dr. Elvis Cifuentes HDL NORMAL > or = 60 mg/dl - LO W CARDIOVASCULAR RISK <40 mg/dl - HIGH CARDIOVASCULAR RISK Normal [facility] Comment on above: Performed By: #### G IPANEL #### [facility] [address] [place] [address] Dr. Elvis Cifuentes LDL CALC NORMAL SEE BELOW Normal [facility] Comment on above: Result Comment: <100 mg/dl OPTIMAL 100 - 129 mg/dl NEAR OR ABOVE OPTIMAL 130 - 159 mg/dl BORDERLINE HIGH 160 - 189 mg/dl HIGH >190 mg/dl VERY HIGH Performed By: #### G IPANEL #### [facility] [address] [address] [address] Elvis Cifuentes Triglyceride [Mass/Vol] 91 mg/dL Normal <=150 [facility] Comment on above: Performed By: #### G IPANEL #### [facility] [address] [address] [address] Elvis Cifuentes VLDL CALC 18.2 mg/dL Normal [facility] Comment on above: Performed By: #### G IPANEL #### [facility] [address] [place] [address] Dr. Elvis Cifuentes PROF CHEM 8 (BAS METB)on Anion gap [Moles/Vol] 11.4 mmol/L Normal Th [facility] Comment on above: Performed By: #### G IPANEL #### [facility] [address] [place] [address] Dr. Elvis Cifuentes Calcium [Mass/Vol] 8.8 mg/dL Normal 8.4-10.2 [facility] Comment on above: Performed By: #### G IPANEL #### [facility] [address] [place] [address] Dr. Elvis Cifuentes Chloride [Moles/Vol] 105 mmol/L Normal 98-107 [facility] Comment on above: Performed By: #### G IPANEL #### [facility] [address] [place] [address] Dr. Elvis Cifuentes CO2 [Moles/Vol] 31.7 mmol/L Critically high 22.0-30.0 [facility] Comment on above: Performed By: #### G IPANEL #### [facility] [address] [place] [address] Dr. Elvis Cifuentes Creatinine [Mass/Vol] 1.48 mg/dL Critically high 0.66-1.25 [facility] Comment on above: Performed By: #### G IPANEL #### [facility] [address] [place] [address] Dr. Elvis Cifuentes EGFR-AF GUYANESE 56 mL/min/1.73m2 Critically low >=60 [facility] Comment on above: Performed By: #### G IPANEL #### [facility] [address] [place] [address] Dr. Elvis Cifuentes EGFR-NON AF GUYANESE 46 mL/min/1.73m2 Critically low >=60 [facility] Comment on above: Performed By: #### G IPANEL #### [facility] [address] [place] [address] Dr. Elvis Cifuentes Glucose [Mass/Vol] 115 mg/dL Critically high 74-106 [facility] Comment on above: Performed By: #### G IPANEL #### [facility] [address] [place] [address] Dr. Elvis Cifuentes Potassium [Moles/Vol] 3.1 mmol/L Critically low 3.4-5.0 [facility] Comment on above: Performed By: #### G IPANEL #### [facility] [address] [place] [address] Dr. Elvis Cifuentes Sodium [Moles/Vol] 145 mmol/L Normal 137-145 [facility] Comment on above: Performed By: #### G IPANEL #### [facility] [address] [place] [address] Dr. Elvis Cifuentes Urea nitrogen [Mass/Vol] 22.0 mg/dL Critically high 9.0-20.0 [facility] Comment on above: Performed By: #### G IPANEL #### [facility] [address] [place] [address] Dr. Elvis Cifuentes Urea nitrogen/Creatinine [Mass ratio] 14.9 mg/mg Normal [facility] Comment on above: Performed By: #### G IPANEL #### [facility] [address] [place] [address] Dr. Elvis Cifuentes [facility] 08-03-2021 ALT [Catalytic activity/Vol] 14 U/L Critically low 21-72 [facility] Comment on above: Performed By: #### G IPANEL #### [facility] [address] [place] [address] Dr. Elvis Cifuentes Vital Signs Date Time Vital Sign Value Performing Clinician Facility 04-30-2024 13:22-040 Diastolic blood pressure 50 mm[Hg] DO Aristeo Ball Work Phone: [facility] 04-30-2024 13:22-040 Heart rate 50 /min DO Aristeo Ball Work Phone: [facility] 04-30-2024 13:22-0400 Respiratory rate 18 /min DO Aristeo Ball Work Phone: [facility] 04-30-2024 13:22-0400 SaO2% (BldA) [Mass fraction] 94 % DO Aristeo Ball Work Phone: [facility] 04-30-2024 13:22-0400 Systolic blood pressure 110 mm[Hg] DO Aristeo Ball Work Phone: [facility] 04-30-2024 10:12-0400 Body height 170.18 cm DO Aristeo Ball Work Phone: [facility] 04-30-2024 10:12-0400 Body weight 67.13 kg DO Aristeo Ball Work Phone: [facility] 04-07-2024 12:49-0400 Body height 154.94 cm DO Aristeo Ball Work Phone: [facility] 04-07-2024 12:49-0400 Body weight 64.86 kg DO Aristeo Ball Work Phone: [facility] 03-28-2024 15:22-0400 Body height 157.48 cm [facility] 03-28-2024 15:22-0400 Body mass index (BMI) [Ratio] 27.2 kg/m2 [facility] 03-28-2024 15:22-0400 Body weight 67.64 kg [facility] 03-28-2024 15:22-0400 Diastolic blood pressure 64 mm[Hg] [facility] 03-28-2024 15:22-0400 Heart rate 49 /min [facility] 03-28-2024 15:22-0400 Respiratory rate 12 /min [facility] 03-28-2024 15:22-0400 Systolic blood pressure 165 mm[Hg] [facility] 03-20-2024 11:27-0400 Body height 157.48 cm [facility] 03-20-2024 11:27-0400 Body mass index (BMI) [Ratio] 28 kg/m2 [facility] 03-20-2024 11:27-0400 Body weight 69.62 kg [facility] 03-20-2024 11:27-0400 Diastolic blood pressure 72 mm[Hg] [facility] 03-20-2024 11:27-0400 Heart rate 46 /min [facility] 03-20-2024 11:27-0400 Respiratory rate 20 /min [facility] 03-20-2024 11:27-0400 SaO2% (BldA) [Mass fraction] 96 % [facility] 03-20-2024 11:27-0400 Systolic blood pressure 164 mm[Hg] [facility] 04-27-2022 14:15-0400 Diastolic blood pressure 64 mm[Hg] MD Britt Lazo Work Phone: [facility] 04-27-2022 14:15-0400 Heart rate 88 /min MD Britt Lazo Work Phone: [facility] 04-27-2022 14:15-0400 Systolic blood pressure 120 mm[Hg] MD Britt Lazo Work Phone: [facility] 04-27-2022 12:24-0400 Body height 170.18 cm MD Britt Lazo Work Phone: [facility] 04-27-2022 12:24-0400 Body weight 154 kg MD Britt Lazo Work Phone: [facility] 04-27-2022 00:00-0400 60 1 Aristeo Perez Ball Work Phone: [facility] DO Work Phone: Comment on above: [id number] 04-05-2022 09:52-0400 Diastolic blood pressure 72 mm[Hg] Aristeo E Ball Work Phone: [facility] DO Work Phone: 04-05-2022 09:52-0400 Systolic blood pressure 150 mm[Hg] Aristeo E Ball Work Phone: [facility] DO Work Phone: 04-05-2022 09:48-0400 Body height 170.18 cm Aristeo E Ball Work Phone: [facility] DO Work Phone: 04-05-2022 09:48-0400 Body mass index (BMI) [Ratio] 23.81 kg/m2 Aristeo E Ball Work Phone: [facility] DO Work Phone: 04-05-2022 09:48-0400 Body surface area Derived from formula 1.8 m2 Aristeo E Ball Work Phone: [facility] DO Work Phone: 04-05-2022 09:48-0400 Body weight 68.95 kg Aristeo E Ball Work Phone: [facility] DO Work Phone: 04-05-2022 09:48-0400 Diastolic blood pressure 70 mm[Hg] Aristeo E Ball Work Phone: [facility] DO Work Phone: 04-05-2022 09:48-0400 Heart rate 78 /min Aristeo E Ball Work Phone: [facility] DO Work Phone: 04-05-2022 09:48-0400 Systolic blood pressure 158 mm[Hg] Aristeo E Ball Work Phone: [facility] DO Work Phone: Encounters Encounter Date Encounter Type Care Provider Facility Start: 05-13-2024 ambulatory ARISTEO Perez BALL [facility] Start: 04-30-2024 End: 04-30-2024 Admission to same day surgery center DO Aristeo Ball Work Phone: [facility] [place] Work Phone: Start: 04-30-2024 End: 04-30-2024 ambulatory DO Aristeo Ball Work Phone: [facility] Work Phone: Start: 04-21-2024 Non-patient / Non-visit DO Deon Hernandez Work Phone: [facility] Work Phone: Start: 04-21-2024 End: 04-21-2024 ambulatory DO Aristeo Hernandez Work Phone: [facility] Work Phone: Start: 04-21-2024 End: 04-21-2024 Departed Referred DO Aristeo Hernandez Work Phone: [facility] Start: 04-07-2024 End: 04-07-2024 Patient encounter procedure DO Aristeo Hernandez Work Phone: [facility]Pet Scan Work Phone: Start: 04-07-2024 End: 04-07-2024 ambulatory DO Aristeo Hernandez Work Phone: [facility] Work Phone: Start: 03-28-2024 End: 03-28-2024 ambulatory [facility] Work Phone: Start: 03-28-2024 End: 03-28-2024 Patient encounter procedure [facility] Work Phone: Start: 03-27-2024 Non-patient / Non-visit [facility] Work Phone: Start: 03-20-2024 End: 03-20-2024 Patient encounter procedure [facility] Work Phone: Start: 03-20-2024 End: 03-20-2024 ambulatory [facility] Work Phone: Start: 02-16-2024 ambulatory [facility]STEO [facility] Start: 02-16-2024 ambulatory ARISTEO Perez [facility] Start: 02-14-2024 End: 02-14-2024 ambulatory [facility] Start: 02-08-2024 Non-patient / Non-visit [facility] Work Phone: Start: 11-11-2022 Chart Update Aristeo ramos Work Phone: [facility] DO Work Phone: Start: 06-29-2022 End: 06-30-[address] ARISTEO HERNANDEZ Facility:[facility] Start: 06-26-2022 Encounter for preprocedural cardiovascular examination DR RASHAWN LEWIS [facility] Start: 06-26-2022 Encounter for preprocedural laboratory examination DR RASHAWN LEWIS [facility] Start: 05-18-2022 Chart Update [facility] Work Phone: Start: 05-17-2022 End: 05-26-2022 Evaluation and management of inpatient DR ARISTEO HERNANDEZ Facility:[facility] Start: 05-17-2022 Encounter for preprocedural laboratory examination DR RASHAWN LEWIS [facility] Start: 05-15-2022 End: 05-16-[address] ARISTEO HERNANDEZ Facility:[facility] Start: 05-15-2022 End: 05-16-2022 Encounter for preprocedural laboratory examination DR ARISTEO HERNANDEZ Facility:[facility] Start: 05-13-[address] ARISTEO HERNANDEZ [facility] ty:[facility]1 Start: 05-10-2022 End: 05-11-[address] BEULAH GALAN Facility:[facility] Start: 05-02-2022 Chart Update Aristeo ramos Work Phone: [facility] DO Work Phone: Start: 04-27-2022 End: 04-27-2022 Patient encounter procedure MD Britt Lazo Work Phone: [facility] Start: 04-12-2022 AUDIT Aristeo ramos Work Phone: [facility] DO Work Phone: Start: 04-05-2022 Encounter for preprocedural cardiovascular examination DR RASHAWN LEWIS [facility] Start: 04-05-2022 Office consultation new/estab patient 60 min Aristeo Ana Josh Work Phone: [facility] 250 DO Work Phone: Start: 04-05-2022 Patient encounter procedure Aristeo Hernandez Work Phone: [place] [address] DO Work Phone: Start: 04-03-2022 End: 04-03-2022 [...] Facility:[facility]1 Start: 08-21-[address] ARISTEO HERNANDEZ [facility] ty:H1 Start: 08-03-2021 End: 08-04-[address] ARISTEO HERNANDEZ Facility:[facility]1 Patient encounter status Gurpreet Perez Josh Work Phone: [address] [address] DO Work Phone: Procedures Date Procedure Procedure Detail Performing Clinician Start: 04-30-2024 Needle biopsy DO Thanh landaverde ABODO Work Phone: Start: 04-21-2024 Microscopic observat ion [...] Start: 08-03-[address] GERBER IN [facility] Comment on above: Performed By: #### C EA. #### [facility] [address] [address] [address] Elvis Cifuentes Hernia repair Aristeo Ana ramos Work Phone: Operation on the ear Gurpreet Hernandez Work Phone: Total colonoscopy Aristeo Hernandez Work Phone: Comment on above: 03/2022; Plan of Treatment Date Care Activity Detail Author Start: 04-30-2024 [facility] Start: 05-29-2022 [facility]UV, Provider: Britt Lazo, Status: Pen, Time: 1:10 PM [facility]UV, Provider: Britt Lazo, Status: Pen, Time: 1:10 PM [facility] DO Work Phone: Start: 04-27-2022 Radionuclide myocard ial perfusion stress study NM viky perf SPECT rest & str [facility] Start: 04-27-2022 SPECT Heart perfusio n at rest and W stress and W radionuclide IV [facility] Work Phone: Start: 04-20-2022 [facility], Provider: Shay Sandoval, Status: Pen, Time: 9:00 AM [facility], Provider: Shay Sandoval, Status: Pen, Time: 9:00 AM [facility] DO Work Phone: Comprehensive metabo lic 2000 panel - Serum or Plasma [facility] CT Chest W contrast IV [facility] Patient Education [facility] Need le Biopsy of the Lung and Pleura Know your Meds [facility] Work Phone: [facility] Immunizations Immunization Date Immunization Notes Care Provider Geovanna king 07-03-2022 influenza virus vacc ine, unspecified formulation [facility] 07-03-2022 Pneumococcal Conjuga te Vaccine, 20 valent [facility] 08-04-2021 Pfizer-BioNTech COVI D-19 Vacc 30 MCG/0.3ML Intramuscular Suspension Aristeo Perez ABODO Work Phone: [facility] 250 DO Work Phone: 08-01-2021 influenza virus vacc ine, unspecified formulation [facility] 01-11-2021 Pfizer-BioNTech COVI D-19 Vacc 30 MCG/0.3ML Intramuscular Suspension Aristeo Perez ABODO Work Phone: [facility] 250 DO Work Phone: 12-21-2020 Pfizer-BioNTech COVI D-19 Vacc 30 MCG/0.3ML Intramuscular Suspension Aristeo Perez ABODO Work Phone: [facility] 250 DO Work Phone: 09-13-2017 diphtheria, tetanus toxoids and acellular pertussis vaccine, unspecified formulation [facility] Payers Date Payer Category Payer Self-pay [id number] 2011 Unknown [id number] 1959 Medicare [id number] 1959 Medicare [id number] 1959 Medicare [id number] 1959 Self-pay [id number] 1959 Unknown [id number] 1946 Unknown [id number] 2.16.84 0.1.665785.3.579.2.593 1946 Unknown [id number] 2.16.84 0.1.769027.3.579.2.593 1946 Unknown [id number] 2.16.84 0.1.845795.3.579.2.593 1946 Unknown [id number] 2.16.84 0.1.885027.3.579.2.593 1946 Unknown [id number] 2.16.84 0.1.923456.3.579.2.593 1946 Unknown [id number] 2.16.84 0.1.223177.3.579.2.593 1946 Unknown [id number] 2.16.84 0.1.110564.3.579.2.593 1946 Unknown [id number] 2.16.84 0.1.669110.3.579.2.593 1946 Unknown [id number] 2.16.84 0.1.278763.3.579.2.593 1946 Unknown [id number] 2.16.84 0.1.221891.3.579.2.593 1946 Unknown [id number] 2.16.84 0.1.884094.3.579.2.593 1946 Unknown [id number] 2.16.84 0.1.660124.3.579.2.593 1946 Unknown [id number] 2.16.8 40.1.352169.3.579.2.1286 1946 Unknown [id number] 2.16.8 40.1.199609.3.579.2.1286 1946 Unknown [id number] 2.16.8 40.1.067835.3.579.2.1286 1946 Unknown [id number] 2.16.8 40.1.538971.3.579.2.1286 1946 Unknown [id number] 2.16.8 40.1.537649.3.579.2.1286 Unknown Unknown [id number] 2.16.8 40.1.586394.3.579.2.531 Unknown [id number] 2.16.8 40.1.799969.3.579.2.531 Unknown [id number] 2.16.8 40.1.221495.3.579.2.531 Social History Date Type Detail Facility No alcohol use No alcohol use [facility] DO Work Phone: Comment on above: Quit in 1996; Start: 1945 Sex Assigned At Male F [facility] Discharge summary note 05-17-2022 Note Date [...] suction. I spoke with Dr. Rai from [facility], who agreed to take the patient in transfer, and that is being arranged. [facility] Chief complaint Narrative - Reported 04-03-2022 Note Date & Type Note Facility 04-03-2022 Chief complaint Narrative - Reported ANASTASIYA VERA is being seen for an initial evaluation of D/C 04/03/22-Abnormal EKG. [facility] 250 DO Work Phone: Chief complaint Narrative [...] significance. We will assess with noninvasive investigations -[facility] DO Work Phone: Evaluation note Note Date & Type Note Facility Evaluation note No assessment information availa [facility] Work Phone: Evaluation note Note Date & Type Note Facility Evaluation note Diagnosis Onset Date AAA (abdominal aortic aneurysm) acute Bradycardia acute Chronic kidney disease acute WALKER (dyspnea on exertion) ac timothy Hypertension acute Mass of left lung [facility] Work Phone: Evaluation note Note Date & Type Note Facility Evaluation note Diagnosis Onset Date AAA (abdominal aortic aneurysm) acute Bradycardia acute Chronic kidney disease acute WALKER (dyspnea on exertion) ac timothy Hypertension acute Mass of left lung acute AAA (abdominal aortic aneurysm) acute Bradycardia acute Chronic kidney disease acute WALKER (dyspnea on exertion) ac timothy Hypertension acute Mass of left lung [facility] Work Phone: Family History No Family [...] Active Start: April 21, 2024 Ovi HODGE DO Attending Provider Active Start: April 21, 2024 Team Status: Inactive Member Role Status Dates Aristeo Hernandez DO Primary Care Provider Active Start: April 30, 2024 End: April 30, 2024 Ovi HODGE DO Attending Provider Active Start: April 30, [...] content) DATE CREATED AUTHOR 07/13/2022 [facility] DATE CREATED AUTHOR AUTHOR'S ORGANIZ ATION 03/26/2024 [facility] DATE CREATED AUTHOR AUTHOR'S ORGANIZ ATION 05/16/2024 [facility] DATE CREATED AUTHOR AUTHOR'S ORGANIZ ATION 05/22/2024 [facility] ysician Group FOR RECORDS PERTAINING TO PATIENTS WHO ARE [...] BE BASED ON THE PRIMARY CLINICAL RECORDS. [facility] [email or web address] [facility]. provides no warranty or guarantee of the accuracy or completeness of information in this document.
--- NOTE | 2024-05-27 11:34 | PC.NURSE ---
Patient arrives from outpatient ambulatory in wheelchair. patient was at appointment for first dose of chemo and was found to be tachypnic with labored breathing. patient noted to be using accessory muscles while breathing. RT to room immediately to apply high flow oxygen. Dr. Chaudhry discusses end of life care and patient states he does not want resuscitation efforts made.
[2024-05-27 11:35] LABS: Troponin I High Sensitivity 18.8 pg/mL (4.0-76.1)
[2024-05-27 12:01] LABS: Internal Control Within Normal Limits; SARS-CoV-2 Ag NEGATIVE (NEGATIVE)
[2024-05-27 12:01] LABS: INR 1.08; Prothrombin Time 11.4 sec (9.0-11.6)
[2024-05-27 12:11] LABS: Lactate/Lactic Acid 4.3 mmol/L (0.4-2.0)
--- NOTE | 2024-05-27 12:20 | CT_ITS ---
[address] [address] Patient Name: MARIBELL VERA MRN: [id number] date: 1945 Sex: M Assigned Patient Location: ER Current Patient Location: Accession/Order Number: [id number] Exam Date: 05/27/2024 12:15 Report Date: 05/27/2024 12:56 At the request of: SULEMA RAMIREZ Procedure: CT angio chest EXAMINATION: CT angio chest HISTORY: PE COMPARISON: 05/16/2024 chest x-ray. CT 03/27/2024 TECHNIQUE: Multi-planar CT images were created with IV contrast. Axial, Coronal, and Sagittal images. Dose reduction techniques were achieved by using automated exposure control and/or adjustment of mA and/or kV according to patient size and/or use of iterative reconstruction technique. FINDINGS: LUNGS: Mild centrilobular emphysema with an upper lobe predominance. Scattered punctate pulmonary nodules in the right lung. Significant increase in size of a left lower lobe heterogeneously enhancing mass now measuring 13.2 x 8.0 cm on axial image 62 and 12.2 cm in craniocaudal dimension PLEURA: Lobular left pleural thickening with both fluid and soft tissue attenuation VASCULATURE: Normal postcontrast opacification with no filling defect to suggest a central pulmonary embolus COLETTE: No mass or adenopathy. MEDIASTINUM: No mass or adenopathy. CARDIAC: No enlargement or pericardial effusion. The left lung mass causes mass effect on the left atrium AORTA: No aortic aneurysm or dissection. Moderate soft and calcific atherosclerosis CHEST WALL: No mass or axillary adenopathy. BONES: No bone lesion or fracture. LIMITED ABDOMEN: Multiple soft tissue nodules in the visualized abdomen with a heterogeneous lobular appearance of the spleen OTHER: Negative. 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
[2024-05-27] MEDS: SODIUM ZIRCONIUM CYCLOSILICATE 10 GM POWD.PACK PO (12:46)
[2024-05-27] MEDS: PIPERACILLIN SODIUM/TAZOBACTAM 3.375 GM in 0.9 % SODIUM CHLORIDE 50 ML IV ×2 (13:18→20:29)
[2024-05-27] MEDS: 0.9 % SODIUM CHLORIDE 500 ML IV (13:18)
[2024-05-27] MEDS: VANCOMYCIN HCL 1,000 MG in 0.9 % SODIUM CHLORIDE 250 ML 250 MG IV (13:42)
[2024-05-27 14:07] LABS: Lactate/Lactic Acid 3.4 mmol/L (0.4-2.0)
--- NOTE | 2024-05-27 14:28 | PC.NURSE ---
report given to LONNIE Combs. patient stable at time of handoff and agrees with plan of care. Patient's taken to room via wheelchair
--- NOTE | 2024-05-27 15:01 | PM.HP ---
HPI H&P: HPI History of Present Illness Chief complaint: SHORTNESS OF BREATH, LUNG MASS CMETS, HYPERKALEMIA Narrative: 79-year-old male with a recent diagnosis of lung cancer was a scheduled for his first dose of immunotherapy but was sent to ER for respiratory distress and hypoxia. In ER, while patient was not found to be hypoxic but he had increased work of breathing with accessory muscles use, tachypnea and was placed on high flow oxygen with improvement in his work of breathing. Workup in the ED revealed cytosis, acute kidney injury, lactic acidosis mild progression of his lung malignancy with mass effect on left atrium but no evidence of PE. He was started on broad-spectrum antibiotics because of his immunocompromise status because he is currently on prednisone and has history of lung cancer. He is very frail, feels very weak and tired and gets out of breath during conversation. He is fairly comfortable now on high flow compared to how he arrived to ED. ER provider discussed goals of care with the patient and he was made DNR Comfort Care arrest with no CPR and intubation. I had a detailed discussion with him regarding his prognosis, goals of care, role of palliative care and hospice given his progressive lung cancer with multiple mets. Patient and his do not want any heroic or aggressive measures I would also like to talk to their Oncologist before they make the final decision on hospice/palliative care. I discussed his presentation and workup with his oncologist who has agreed to see the patient while he is here. Opioid HPI Opioid Management Most Recent Pain and Opioid Data: Last Pain Assessment 05/27/24 15:00 Review of Systems ROS Status of ROS 10 or more systems reviewed and unremarkable except as noted in history and below [facility] Medical History (Updated 05/27/24 @ 15:14 by Shaikh Sarah MD) Immunocompromised due to corticosteroids ?D84.821 - Immunodeficiency due to drugs (ICD-10) ?T38.0X5A - Adverse effect of glucocorticoids and synthetic analogues, initial encounter (ICD-10) ?Z79.52 - intermediate frame tender (current) use of systemic steroids (ICD-10) CKD stage 3a, GFR 45-59 ml/min ?N18.31 - Chronic kidney disease, stage 3a (ICD-10) COPD (chronic obstructive pulmonary disease) ?J44.9 - Chronic obstructive pulmonary disease, unspecified (ICD-10) Social History (Updated 05/27/24 @ 15:10 by Shaikh Sarah MD) Within the past year, how often did you have a drink containing alcohol: monthly or less Within the past year, how many standard drinks containing alcohol did you have on a typical day: 1 or 2 Within the past year, how often did you have six or more drinks on one occasion: never Total score: 0 Score interpretation: A score less than 4 is consistent with normal alcohol consumption. Smoking status: Former smoker Non-prescribed substance use: denies use Meds Home Medications and Allergies Home Medications ?Medication ?Instructions ?Recorded ?Confirmed ?Type labetalol 100 mg tablet 50 mg PO BID 04/21/24 05/27/24 History lisinopril 10 mg tablet 10 mg PO DAILY 04/21/24 05/27/24 History omeprazole 40 mg capsule,delayed 40 mg PO DAILY 04/21/24 04/21/24 History release mirtazapine 15 mg tablet 15 mg PO .QHS 05/27/24 05/27/24 History prednisone 5 mg tablet 5 mg PO BID 05/27/24 05/27/24 History prochlorperazine maleate 10 mg 10 mg PO Q6H PRN nausea and 05/27/24 05/27/24 History tablet vomiting Allergies Allergy/AdvReac Type Severity Reaction Status Date / Time No Known Drug Allergies Allergy Verified 05/27/24 11:11 Exam Constitutional Vital Signs, click to edit/add: Last Vital Signs Temp 98.1 F 05/27/24 11:12 Pulse 88 05/27/24 13:30 Resp 18 05/27/24 13:30 BP 114/71 05/27/24 13:30 Pulse Ox 98 05/27/24 14:38 O2 Del Method Vapotherm 05/27/24 14:38 O2 Flow Rate 40 05/27/24 14:38 FiO2 28 05/27/24 14:38 Documenting provider has reviewed patient's vital signs: yes Common normals: no apparent distress and oriented x3 General appearance: cooperative HENMD Common normals: normocephalic and head/scalp atraumatic Head and scalp: normocephalic and atraumatic Eye Common normals: conjunctivae normal and no scleral icterus Conjunctiva: conjunctiva(e) normal Respiratory Effort & inspection: tachypneic, labored and uses accessory muscles Auscultation: rhonchi and diminished lung sounds Cardio Common normals: regular rate, S1 normal heart sound and S2 normal heart sound Rate: regular rate Heart sounds: S1 normal and S2 normal GI Common normals: soft to palpation, non-tender and no hepatosplenomegaly Inspection: ostomy present (colostomy in place) Palpation: soft, no hepatosplenomegaly and hernia (incisional hernia in midline from prior laparotomy) Extremity Common normals: no clubbing, cyanosis or edema Neuro Common normals: oriented x3, moves all extremities and no focal motor deficits Psych Common normals: mental status grossly normal, denies hallucinations, denies homicidal ideation and denies suicidal ideation Assessment and Plan Assessment and Plan (1) Sepsis: Assessment and Plan: HR> 110, RR> 30, WBC > 50 K , likely due to pneumonia associated with lung cancer. Patient also has sig lactic acidosis. He has improved hemodynamically and has no hemodynamic instability. He is being treated with broad spectrum IV abx - Vancomycin/zosyn F/u blood and urine cx. Qualifiers: Sepsis type: sepsis due to unspecified organism Sepsis acute organ dysfunction status: without acute organ dysfunction Qualified Code(s): A41.9 - Sepsis, unspecified organism (2) Pneumonia: Assessment and Plan: Due to and associated Lung Mass. Started on broad antibiotic and high risk of resistant organism because of concurrent use of prednisone. Qualifiers: Pneumonia type: due to unspecified organism Laterality: left Lung location: unspecified part of lung Qualified Code(s): J18.9 - Pneumonia, unspecified organism (3) Metastatic lung cancer (metastasis from lung to other site): Assessment and Plan: Rapid growth and progression since diagnosis about a month ago. Left lung mass has increased in size and has mass effect on left atrium. There are also multiple mets to spleen/pleura and mesentery Poor prognosis due to widespread metastatic disease. Discussed goals of care with the patient and he is considering hospice/palliative care. Consulted oncology as per patient's request we will also discuss patient's prognosis. Based on patient's decision, we will consult hospice Qualifiers: Laterality: left Qualified Code(s): C34.92 - Malignant neoplasm of unspecified part of left bronchus or lung (4) NATE (acute kidney injury): Assessment and Plan: Creatinine baseline creatinine of 1.3. Presented with creatinine of 1.9. Likely due to sepsis. Continue with IV hydration. Monitor serum creatinine and urine output closely (5) Lactic acidosis: Assessment and Plan: Elevated upto 4.3, Trended down to 3.4 C/w IVF. (6) CKD stage 3a, GFR 45-59 ml/min: Assessment and Plan: Baseline Cr of 1.3-1.5. P/w NATE, c/w IVF. (7) COPD (chronic obstructive pulmonary disease): Assessment and Plan: Start on duonens. Increase home dose of prednisone to 40 mg daily. Qualifiers: COPD type: emphysema Emphysema type: centrilobular Qualified Code(s): J43.2 - Centrilobular emphysema (8) Immunocompromised due to corticosteroids: Assessment and Plan: At high risk of resistant organism due to steroid use. Monitor closely.
--- NOTE | 2024-05-27 15:46 | SWNOTE1 ---
SW received a call from Shanika. Dr. Engel saw pt and spoke with family. Pt will need hospice care. SW stopped in to speak with pt and and other family about hospice. SW explained to what hospice was and provided a list of hospice agencies that can offer care. Pt's asked a few questions and then became teary eyed and voiced that she has been hit with so much information and she is not ready to make this decision at this time. She asked SW if she could think about it. SW expressed to that SW will be here tomorrow and SW to stop back in tomorrow morning. Pt and family in agreement.
[2024-05-27] MEDS: LACTATED RINGER'S SOLUTION 1,000 ML 125 ML IV ×2 (16:23→23:59)
[2024-05-27] MEDS: PREDNISONE 20 MG TABLET 40 MG PO (16:27)
[2024-05-27] MEDS: IPRATROPIUM/ALBUTEROL SULFATE 3 ML AMPUL.NEB IH ×2 (16:35→22:55)
[2024-05-28] MEDS: PIPERACILLIN SODIUM/TAZOBACTAM 3.375 GM in 0.9 % SODIUM CHLORIDE 50 ML IV ×2 (04:17→13:38)
[2024-05-28 04:18] VITALS: PULSE 66; O2SAT 95
[2024-05-28] MEDS: IPRATROPIUM/ALBUTEROL SULFATE 3 ML AMPUL.NEB IH ×2 (04:18→10:44)
[2024-05-28 06:00] VITALS: BP 111/65; PULSE 58; TEMP 36.5; O2SAT 95
[2024-05-28] MEDS: OMEPRAZOLE 40 MG CAPSULE.DR PO (06:13)
[2024-05-28] MEDS: LACTATED RINGER'S SOLUTION 1,000 ML 125 ML IV ×3 (06:14→23:56)
[2024-05-28] MEDS: PREDNISONE 20 MG TABLET 40 MG PO (08:28)
--- NOTE | 2024-05-28 09:24 | SWNOTE1 ---
SW to stop back in and speak with pt and family in regards to hospice. Pt is still on high flow oxygen.
--- NOTE | 2024-05-28 09:57 | SWNOTE1 ---
DEBBY spoke to Dr. Smith and per his conversation with yesterday, they do have a hospital bed at home and pt was just approved for oxygen at night. If he needs 02 continuos we will eval for that. DEBBY called and spoke to and her and family will be on there way shortly to see pt.
--- NOTE | 2024-05-28 10:01 | CM.NOTE ---
Rounds made with Dr. Smith. Dr. Smith discussed treatment plan and pain control. Plan is to adjust frequency of Morphine. Plan is for probable discharge later today with hospice. Currently awaiting spouse to arrive to discuss Hospice further and plan for discharge.
[2024-05-28 10:46] VITALS: O2SAT 97
--- NOTE | 2024-05-28 10:49 | SWNOTE1 ---
DEBBY spoke to pt's and sister in room. DEBBY spoke with them about hospice and the services they can offer in the home. Pt's voiced she does not want hospice. She voiced she had a bad experience with her mother. She stated hospice just came in and took over everything and took over all the care. DEBBY advised pt's that she was sorry about her experience and the goal for hospice is to assist the pt and there families in keeping pt at home and keeping him comfortable. DEBBY did ask if pt had oxygen or a hospital bed at home. She stated he does not have either. She stated she has not seen the oxygen yet at home but it was supposed to be set up. She stated he sleeps in a recliner chair at this time and she has not had time to clear out the home for a hospital bed. SW did let pt's know that is another benefit of hospice, they will provide oxygen and a hospital bed if needed. DEBBY did ask pt's if she would at least be open to meeting with a hospice company here at the hospital that way she can talk to them and hospice can at least assess pt. Pt's is in agreement. She reviewed list and she would like [facility]. DEBBY to send referral. DEBBY did review Important Message from Medicare form with pt's . She voiced she would like to look it over before signing. Referral sent to [facility]. Referral included face sheet, ED note, H&P, provider notes, case management report, nursing notes, diagnostic imaging, med list, PT/OT notes, DNR paperwork, and hospice order.
--- NOTE | 2024-05-28 11:29 | SWNOTE1 ---
DEBBY received a call from Dafne at [facility] and she will be coming to hospital around 1:30 to meet pt and family. SW notified nursing and pt's .
--- NOTE | 2024-05-28 11:53 | SWNOTE1 ---
DEBBY recieved a message that Yanelis from [facility] is on her way. DEBBY notified nursing and family.
[2024-05-28 13:43] VITALS: BP 135/63; PULSE 56; TEMP 36.3; O2SAT 94
--- NOTE | 2024-05-28 13:54 | SWNOTE1 ---
[facility] met with family and family is likely signing on to hospice. Pt's is tearful and overwhelmed and felt pt needed to stay one more night in order to get things arranged for hospice services. SW spoke to doctor and pt is able to stay one more night. SW let nursing and hospice know. [facility] will update family.
--- NOTE | 2024-05-28 14:31 | PM.IMPN1 ---
Progress Note: A&P Assessment and Plan (1) Sepsis: Assessment and Plan: Comfort care measures only. C/w IVF as little to no PO intake. Qualifiers: Sepsis acute organ dysfunction status: without acute organ dysfunction Sepsis type: sepsis due to unspecified organism Qualified Code(s): A41.9 - Sepsis, unspecified organism (2) Pneumonia: Assessment and Plan: D/c Abx. as patient now enrolled in hospice. CC measures only. Qualifiers: Pneumonia type: due to unspecified organism Laterality: left Lung location: unspecified part of lung Qualified Code(s): J18.9 - Pneumonia, unspecified organism (3) Metastatic lung cancer (metastasis from lung to other site): Assessment and Plan: Metastatic disease with poor prognosis anna given his frailty. Rapidly progressive and aggressive disease. CC measures only. Hospice onboard. Qualifiers: Laterality: left Qualified Code(s): C34.92 - Malignant neoplasm of unspecified part of left bronchus or lung (4) NATE (acute kidney injury): Assessment and Plan: on IVF. Not monitoring renal function anymore as patient is CC measures only. (5) Lactic acidosis: Assessment and Plan: Due to sepsis/hypovolemia. (6) CKD stage 3a, GFR 45-59 ml/min: Assessment and Plan: P/w NATE. Now on CC measures only. (7) COPD (chronic obstructive pulmonary disease): Assessment and Plan: C/w prednisone and duonebs for comfort care. Qualifiers: COPD type: emphysema Emphysema type: centrilobular Qualified Code(s): J43.2 - Centrilobular emphysema (8) Immunocompromised due to corticosteroids: Assessment and Plan: C/w prednisone Internal Medicine - PN: Subj Subjective Interval history: Seen and examined. No overnight events. Patient weaned off to O2 via IL. Hospice meeting today. Plan to discharge to home hospice tomorrow. Exam Constitutional Vital Signs, click to edit/add: Last Vital Signs Temp 97.4 F L 05/28/24 13:43 Pulse 56 L 05/28/24 13:43 Resp 18 05/28/24 13:43 BP 135/63 05/28/24 13:43 Pulse Ox 94 L 05/28/24 13:43 O2 Del Method Nasal Cannula 05/28/24 13:43 O2 Flow Rate 1 05/28/24 13:43 FiO2 28 05/28/24 06:00 Documenting provider has reviewed patient's vital signs: yes Common normals: no apparent distress and oriented x3 General appearance: cooperative Respiratory Effort & inspection: tachypneic Auscultation: rhonchi and diminished lung sounds Cardio Common normals: regular rate, S1 normal heart sound and S2 normal heart sound Rate: regular rate Heart sounds: S1 normal and S2 normal Extremity Common normals: no clubbing, cyanosis or edema Neuro Common normals: oriented x3, moves all extremities and no focal motor deficits Psych Common normals: mental status grossly normal, denies hallucinations, denies homicidal ideation and denies suicidal ideation
--- NOTE | 2024-05-28 15:13 | SWNOTE1 ---
[facility] set up transport for 9:00am tomorrow. Nursing is aware and [facility] informed pt's family.
--- NOTE | 2024-05-28 18:37 | NUTR.NU ---
Mr. Dixon was admitted to [facility] 05/27/24 w/dx PNA, NATE, metastatic lung CA. PO intakes in-house have been minimal d/t ES disease; regular diet is appropriate as tolerated. Recommend allowing pt to decide if, when, and what he chooses to eat. He has chosen hospice end-of-life care. Will continue to follow while he remains a pt here.
[2024-05-28 19:32] VITALS: BP 118/62; PULSE 57; TEMP 36.6; O2SAT 94
[2024-05-28] MEDS: MIRTAZAPINE 15 MG TABLET PO (21:36)
[2024-05-28 23:13] VITALS: O2SAT 97
[2024-05-29 04:23] VITALS: BP 126/68; PULSE 61; TEMP 36.4; O2SAT 93
[2024-05-29] MEDS: MORPHINE SULFATE 2 MG/ML SYRINGE IV (08:06)
[2024-05-29 08:12] VITALS: BP 149/67; PULSE 57; TEMP 36.4; O2SAT 93
--- NOTE | 2024-05-29 09:04 | SWNOTE1 ---
DEBBY received a call from Jonna director of the floor and pt's hospital bed was not delivered last night. DEBYB called Dafne at [facility], she is going to look in to this. DEBBY then spoke with pt's sister and she voiced they called yesterday to deliver the bed, but they did not have the room cleared out and they were not home. She stated [facility] then cancelled the delivery and they never heard back. DEBBY let pt's sister know that SW is working on it and pt will not go home until bed is delivered. DEBBY called [facility] and put the transport on hold.
--- NOTE | 2024-05-29 10:05 | SWNOTE1 ---
SW did review Important Message from Medicare again with . At this time pt's is refusing to sign and voiced she is too overwhelmed at this time and has not had a chance to look over paper. [facility] is here and htey are going to go in room and assist when she receives the call about hospital bed delivery. SW and Hospice did explain to that bed will be delivered today and plan is for him to go home today. did voice that he told her that he does not want to go home. SW advised that it would be best to get pt home and settled and let family be with him and get pt comfortable at home.
--- NOTE | 2024-05-29 10:20 | CM.NOTE ---
Rounds made with Dr. Smith. Potential plan for discharge to home with Hospice.
--- NOTE | 2024-05-29 10:35 | SWNOTE1 ---
DEBBY spoke to Dafne from [facility] and pt's hospital bed will be delivered between 1:00-2:00. DEBBY called [facility] and they will transport at 3:00. DEBBY let family, nursing, and Hospice know time. DEBBY faxed dc med rec to [facility].
[2024-05-29] MEDS: IPRATROPIUM/ALBUTEROL SULFATE 3 ML AMPUL.NEB IH (11:12)
[2024-05-29 11:13] VITALS: PULSE 79; O2SAT 96
--- NOTE | 2024-05-29 13:39 | PM.DS1 ---
DS: Providers Provider Date of admission: 05/27/24 14:07 Primary care physician: Aristeo Hernandez DO Admitting clinician: Shaikh Sarah Attending physician on admission: Shaikh Sarah Consults: 05/27/24 Consult to Dietitian Routine Reason for consultation: poor appetite Has provider been notified: Yes 05/27/24 13:18 Occupational Therapy Eval and Treat Routine Reason for consultation: Ambulatory dysfunction/weakness Physical Therapy Eval and Treat Routine Reason for consultation: Ambulatory dysfunction/weakness 05/27/24 15:07 Consult to Oncology Routine Consulting Provider: Marianna Engel Reason for consultation: lung cancer 05/27/24 15:19 Consult to Hospice Routine Reason for consultation: Metastatic lung Cancer Attending physician on discharge: Shaikh Sarah Discharging clinician: Shaikh Sarah Anticipated date of discharge: 05/29/24 DS: Diagnosis Discharge Diagnosis (1) Sepsis: Qualifiers: Sepsis acute organ dysfunction status: without acute organ dysfunction Sepsis type: sepsis due to unspecified organism Qualified Code(s): A41.9 - Sepsis, unspecified organism (2) Pneumonia: Qualifiers: Pneumonia type: due to unspecified organism Laterality: left Lung location: unspecified part of lung Qualified Code(s): J18.9 - Pneumonia, unspecified organism (3) Metastatic lung cancer (metastasis from lung to other site): Qualifiers: Laterality: left Qualified Code(s): C34.92 - Malignant neoplasm of unspecified part of left bronchus or lung (4) NATE (acute kidney injury): (5) Lactic acidosis: (6) CKD stage 3a, GFR 45-59 ml/min: (7) COPD (chronic obstructive pulmonary disease): Qualifiers: COPD type: emphysema Emphysema type: centrilobular Qualified Code(s): J43.2 - Centrilobular emphysema (8) Immunocompromised due to corticosteroids: DS: Summary Hospital Course Hospital Course: 79-year-old male with a recent diagnosis of lung cancer was a scheduled for his first dose of immunotherapy but was sent to ER for respiratory distress and hypoxia. In ER, while patient was not found to be hypoxic but he had increased work of breathing with accessory muscles use, tachypnea and was placed on high flow oxygen with improvement in his work of breathing. Workup in the ED revealed leukocytosis, acute kidney injury, lactic acidosis progression of his lung malignancy with mass effect on left atrium but no evidence of PE. He was started on broad-spectrum antibiotics because of his immunocompromise status because he is currently on prednisone and has history of lung cancer. ER provider discussed goals of care with the patient and he was made DNR Comfort Care arrest with no CPR and intubation. Later on Dr Engel and I discussed goals of care, his prognosis and end of life care with the patient and patient along with his decided to pursue hospice care. Hospice was consulted. Patient and his faimily had a meeting with hospice and he will be discharged today to home hospice. Status at Discharge Overall status at discharge: patient is not back to baseline Time Spent with Patient Time attestation: Total time spent providing and/or coordinating discharge services: Time spent: greater than 30 minutes Exam Constitutional Vital Signs, click to edit/add: Last Vital Signs Temp 97.6 F 05/29/24 08:12 Pulse 79 05/29/24 11:13 Resp 24 H 05/29/24 08:12 BP 149/67 H 05/29/24 08:12 Pulse Ox 96 05/29/24 11:13 O2 Del Method Nasal Cannula 05/29/24 11:13 O2 Flow Rate 1.5 05/29/24 11:13 FiO2 28 05/28/24 06:00 Documenting provider has reviewed patient's vital signs: yes Common normals: oriented x3 General appearance: cooperative Respiratory Effort & inspection: tachypneic Auscultation: rhonchi and diminished lung sounds Cardio Common normals: regular rate, S1 normal heart sound and S2 normal heart sound Rate: regular rate Heart sounds: S1 normal and S2 normal Extremity Common normals: no clubbing, cyanosis or edema Neuro Common normals: oriented x3, moves all extremities and no focal motor deficits Psych Common normals: mental status grossly normal, denies hallucinations, denies homicidal ideation and denies suicidal ideation Discharge Plan Discharge Disposition: Hospice - Home Condition: Serious Discharge Medications: Continued mirtazapine 15 mg tablet 15 mg PO .QHS prednisone 5 mg tablet 5 mg PO BID prochlorperazine maleate 10 mg tablet 10 mg PO Q6H PRN (Reason: nausea and vomiting) omeprazole 40 mg capsule,delayed release(DR/EC) 40 mg PO DAILY lisinopril 10 mg tablet 10 mg PO DAILY labetalol 100 mg tablet 50 mg PO BID Activity: increase activity as tolerated Diet: advance to your usual diet Print Language: Malay [employer]/Dermatology Procedural Physician Instructions: Discharge home with [facility]. Phone number is [phone] Forms: Portal Instructions
[2024-05-29 14:37] VITALS: BP 134/59; PULSE 65; TEMP 36.7; O2SAT 94
== END 2024-05-29 15:05 | disposition hospice, home (50) | DRG 871 ==
LOC: ER 13:45 → MS 14:17
PROVIDERS: Admitting Provider Internal Medicine; Emergency Provider Emergency Medicine; PCP Internal Medicine; Visit Provider Internal Medicine
DX: A41.9 Sepsis, unspecified organism (principal); J18.9 Pneumonia, unspecified organism; C34.92 Malignant neoplasm of unspecified part of left bronchus or lung; C78.2 Secondary malignant neoplasm of pleura; C78.6 Secondary malignant neoplasm of retroperitoneum and peritoneum; C78.89 Secondary malignant neoplasm of other digestive organs; N17.9 Acute kidney failure, unspecified; E87.20 Acidosis, unspecified; D84.821 Immunodeficiency due to drugs; N18.31 Chronic kidney disease, stage 3a; J43.2 Centrilobular emphysema; T38.0X5A Adverse effect of glucocorticoids and synthetic analogues, initial encounter; Z87.891 Personal history of nicotine dependence; Z79.52 Long term (current) use of systemic steroids; R11.2 Nausea with vomiting, unspecified; Z93.3 Colostomy status; Z79.899 Other long term (current) drug therapy; Z66 Do not resuscitate; Z20.822 Contact with and (suspected) exposure to COVID-19
CPT/HCPCS: 36415; 71275; 80053; 82805; 83605; 84484; 85007; 85027; 85610; 87040; 87811; 93005; 94640; 94761; 94799; 96365; 96366; 96368; 96375; 97165; 99285; G0463; J2270; J2543; J3370; J7512; Q9966